=== PATIENT | male | born 1940 | race Caucasian/White ===

== ENCOUNTER 2017-05-28 09:35 | Inpatient (IN) ==
[2017-05-28] MEDS ORDERED: 0.9 % Sodium Chloride 1,000 ML IVC ONE (10:03)
--- NOTE | 2017-05-28 10:03 | Emergency Department Note ---
Disposition Clinical Impression: MDS (myelodysplastic syndrome), Intractable back pain Back pain Qualifiers: Back pain location: thoracic back pain Chronicity: acute Back pain laterality: right Qualified Code(s): M54.6 - Pain in thoracic spine Fever Qualifiers: Fever type: due to other condition Qualified Code(s): R50.81 - Fever presenting with conditions classified elsewhere Disposition: Admitted As Inpatient Condition: Good Referrals: NO,PCP [Non-Partnered Physician] - Forms: ED Satisfaction Letter Time of Disposition: 14:57 Back Pain HPI - General Chief Complaint: ED Back Pain/Injury Stated Complaint: back pain Time Seen by Provider: 05/28/17 09:43 Source: patient Limitations: no limitations Nursing Notes Reviewed: Yes Vital Signs Reviewed: Yes - History of Present Illness HPI Narrative: Patient presents emergency room with right-sided flank pain. Symptoms present for 2 days. He has had progression of the symptoms last couple days. He has multiple medical issues including a right solitary kidney myelodysplastic disease and recent chemotherapy. Patient has had intermittent fever and chills at home. Temperature is 100.4. He has not been on any recent antibiotics. He is currently on steroids secondary to gout. Patient's family is concerned secondary to his multiple medical issues as well as presentation here today. They brought him in the emergency room for evaluation Pt Subjective Complaint: back pain Onset (ago): day(s) Duration: gradually worsening Similar Symptoms Previously: Yes Location: thoracic spine Pain Severity: moderate Pain Scale: 8 Quality: stabbing, aching Radiation: abdomen Improves with: immobilization, medication Worsens with: movement, walking Context: history of kidney stones Associated symptoms: Reports: fever, chills, abdominal pain Treatments prior to arrival: acetaminophen - Related Data Home Medications Medication Instructions Recorded Confirmed Multivitamin/Iron/Folic Acid 1 each PO DAILY 10/16/15 05/22/17 [Centrum Complete Multivit Tab] Ergocalciferol (VITAMIN D2) 50,000 unit PO MO 04/01/16 05/22/17 [Vitamin D2 (50,000 UNIT)] Melatonin 10 mg PO HS 04/01/16 05/22/17 Mirtazapine 7.5 mg PO HS 04/01/16 05/22/17 Omeprazole [PriLOSEC] 20 mg PO DAILY 04/01/16 05/22/17 Oxycodone HCl 15 mg PO Q4H PRN 04/01/16 05/22/17 Allopurinol [Zyloprim 100 MG] 100 mg PO BID 03/07/17 05/22/17 Polyethylene Glycol 3350 [MiraLAX 1 scoop PO DAILY PRN 03/07/17 05/22/17 Powder Bulk 17.9 Oz] Sennosides [Senna] 17.2 mg PO BID 03/07/17 05/22/17 Calcium Carbonate [Calcium] 600 mg PO DAILY 05/08/17 05/22/17 Carvedilol 3.125 mg PO BID 05/08/17 05/22/17 Previous Rx's Medication Instructions Recorded Furosemide [Lasix] 40 mg PO DAILY #30 tablet 05/02/17 Ondansetron [Zofran] 4 mg PO Q8HR PRN #90 tablet 05/02/17 Aminocaproic Acid [Amicar] 250 mg PO Q8H PRN #200 solution 05/16/17 Chlorhexidine Gluconate [Peridex] 10 ml MM DAILY #118 mouthwash 05/16/17 Lidocaine/Prilocaine CREAM [Emla] 5 gm TP ONCE #1 tube 05/16/17 predniSONE [PredniSONE] See Taper PO DAILY #18 tablet 05/21/17 Allergies Allergy/AdvReac Type Severity Reaction Status Date / Time citalopram AdvReac Nausea Verified 05/08/17 20:17 codeine AdvReac See Verified 05/08/17 20:17 Comments [id number] Reductase AdvReac See Verified 05/08/17 20:17 Inhibitor Comments [Statins] All systems ED: reviewed and negative except as stated. Review of Systems: As Per HPI Constitutional: Reports: fever, chills, weakness ENT ED: Denies: ear pain, throat pain, dental pain Cardiovascular: Denies: chest pain, palpitations, dyspnea on exertion, orthopnea , edema Respiratory: Denies: cough, dyspnea, wheezes Gastrointestinal: Reports: abdominal pain, nausea. Denies: vomiting, diarrhea, constipation Genitourinary: Denies: urgency, dysuria, frequency, hematuria, discharge Musculoskeletal: Reports: back pain. Denies: neck pain Integumentary: Denies: rash, abrasion Neurological: Denies: headache, weakness Endocrine: Denies: fatigue Past Medical History - Past Medical History Attestation: Yes The following information was validated with the patient. Source: patient Medical history: Reports: aortic aneurysm, atrial fibrillation, cancer, coronary artery disease, hyperlipidemia, hypertension, peripheral artery disease , valvular heart disease Surgical history: Reports: coronary bypass (CABG), heart valve replacement Psychiatric history: Reports: no psych history - Social History Smoking Status: Never smoker Smokeless Tobacco Status: No Alcohol use: Reports: none Drug use: Reports: none Physical Exam - General Limitations: no limitations General appearance: alert - Head Head exam: atraumatic, normocephalic, normal inspection - ENT ENT exam: normal exam, normal oropharynx, mucous membranes moist - Neck Neck exam: Present: normal inspection, full ROM, trachea midline. Absent: tenderness, meningismus, lymphadenopathy - Chest Chest inspection: Present: normal inspection, symmetric chest wall rise. Absent : tenderness - Respiratory Respiratory exam: Present: normal lung sounds bilaterally. Absent: respiratory distress, wheezes - Cardiovascular Cardiovascular exam: Present: regular rate, normal rhythm, normal heart sounds - Abdominal Exam Abdominal exam: Present: soft, Non-Tender, normal bowel sounds. Absent: tenderness, distention, guarding, rebound, rigidity, Mcclain's sign, Rovsing's sign, tenderness at McBurney's Point - Extremities Exam Extremities exam: Present: normal inspection, full ROM, normal capillary refill. Absent: tenderness - Back Exam Back exam: Present: normal inspection, full ROM, CVA tenderness (R). Absent: tenderness, CVA tenderness (L), muscle spasm - Neurological Exam Neurological exam: Present: alert, oriented X3, CN II-XII intact, normal gait - Skin Skin exam: Present: warm, dry, intact, normal color Course Course Narrative: Patient seen and examined the time of arrival. See history of present illness. 77-year-old male presents to our emergency room for evaluation of right-sided flank pain generalized malaise and intermittent fevers and chills. Patient did just complete a five-day course of chemotherapy for myelodysplastic syndrome. He is currently under the care of our oncology department here at [place]. Patient has been taking his home medications without any difficulty. Over the last 24-48 hours is a progressively worsening right-sided flank pain. He has a history of kidney stones as well as severe infections that required a left- sided nephrectomy. Patient also has a long-standing history of abdominal aortic aneurysm and dissection. He is currently not on blood thinners even though he does have a bovine heart valve. Patient is concerning for multiple medical issues including bleeding diathesis renal artery stenosis or aneurysm abdominal aneurysm infection renal calculi pulmonary infection secondary to being on steroids as well as the chemotherapy. Patient be treated as if he is septic at this time a chest x-ray EKG CT imaging of the abdomen as well as urinalysis fluids to be provided as needed as well as broad-spectrum antibiotic coverage. Patient clinically has concern for possible decompensation secondary to multiple medical issues. He is a poor candidate for surgical intervention on the abdominal aneurysms and surgery secondary to the was at the bedside. They understand that at this time. Disposition will be discussed and determined after laboratory workup and imaging is resulted. Family and I will also discuss his wishes to make sure that we have an understanding of his progression of care if something were to decompensate. Physical exam is otherwise benign. Lungs are clear heart is regular chest wall shows no signs of trauma injury or rash. He has right-sided CVA tenderness that is not showing any acute signs of redness or swelling. He does have tenderness with percussion over the right flank. The abdominal examination is otherwise benign he has no other acute pulsatile lesions or signs of distention of this point. Hemodynamically stable he does have a temperature of 100.4 here. Fluids to be given and Tylenol as needed. Disposition will most likely be admission for further evaluation and management. Patient family both before and they are comfortable with this plan. Again patient is concerning for potential decompensation secondary to multiple medical issues including the myelodysplastic disease abdominal aneurysms as well as history of kidney stones in failure. The patient does have his kidney on the right side the left side was within nephrectomy was completed - Reevaluation(s) Reevaluation #1: Patient has basically normal laboratory workup at this time. Anemia and platelet count appear to be at baseline. He does have a slightly elevated T bili. CT imaging is still pending at this point. Chest x-ray rest of his laboratory workup appear to be benign. Pain medication nausea medication given at this point considering he has some difficulty with going to the CT scanner table and came back over the ER without the scan being completed. Disposition pending treatment course Time: 12:23 Reevaluation #2: Patient has no acute pathology on CT imaging that his pain is still been poorly controlled. His unknown etiology at this time but there is still concern secondary to his recent chemotherapy and steroid use because of an underlying infectious etiology. Patient is well be admitted the hospital for pain control nausea medication and repeat evaluation. I will discuss this with the hospitalist for admission process at this time. The family and the patient both agree with the projected course of care and no other concerns or symptoms or complaints at this time. Hospitalist Dr. Johnson and I reviewed the presentation symptoms of medical history. Also consult the on-call oncologist dr. dior. Recommendation to continue the vancomycin and Zosyn were noted from the oncologist. Hospitals happy to accept the patient with no other recommendations or concerns at this time. Admission process to be completed. Time: 14:57 Vital Signs Temperature 100.4 F H 05/28/17 09:37 Pulse Rate 62 05/28/17 09:37 Respiratory Rate 18 05/28/17 09:37 Blood Pressure 158/83 05/28/17 09:37 O2 Sat by Pulse Oximetry 96 05/28/17 09:37 Temperature 100.4 F H 05/28/17 09:37 Pulse Rate 62 05/28/17 09:37 Respiratory Rate 18 05/28/17 09:37 Blood Pressure 158/83 05/28/17 09:37 O2 Sat by Pulse Oximetry 97 05/28/17 10:56 Back Pain/Injury - MDM Narrative Medical decision making narrative: Abdominal pain, right flank pain, fever - Medical Records Medical records reviewed: Yes I reviewed the patient's medical records. - Lab Data Lab results reviewed: Yes I reviewed the patient's lab results. Result diagrams: 05/28/17 10:21 05/28/17 10:21 Lab Results 05/28/17 05/28/17 05/28/17 Range/Units 10:21 10:21 10:21 WBC 5.2 D (4.3-11.1) K/mcL RBC 3.02 L (4.19-5.50) M/mcL Hgb 8.6 L (12.9-16.9) g/dL Hct 27.1 L (37.5-50.1) % MCV 89.7 (83.0-100.0) fL MCH 28.5 (28.0-33.3) pg MCHC 31.7 (31.6-35.5) g/dL RDW 18.0 H (11.5-14.5) % Plt Count 16 L* (140-400) K/mcL MPV TNP Immature Gran % 3.1 (0-4) % Seg Neutrophils % 72.0 % Lymphocytes % 21.0 % Monocytes % 3.7 % Eosinophils % 0.0 % Basophils % 0.2 % Neutrophils # 3.7 (1.6-8.9) K/mcL Lymphocytes # 1.1 (0.6-4.6) K/mcL Monocytes # 0.2 (0.0-1.3) K/mcL Eosinophils # 0.0 (0.0-0.6) K/mcL Basophils # 0.0 (0.0-0.2) K/mcL Nucleated RBCs/100 WBC 0.4 H (0) /100 WBC PT (9.4-12.1) Seconds INR APTT (26.0-36.0) Seconds Sodium 135 L (136-145) mEq/L Potassium 4.4 (3.5-4.5) mEq/L Chloride 99 (98-109) mEq/L Carbon Dioxide 30 H (19-29) mEq/L BUN 25 (8-26) mg/dL Creatinine 1.06 (0.72-1.25) mg/dL Est GFR ( Amer) > 60 (> 60) Est GFR (Non-Af Amer) > 60 (> 60) BUN/Creatinine Ratio 24 (6-26) Glucose 92 (70-99) mg/dL Calculated Osmolality 284 (280-300) Lactic Acid 1.6 (0.5-2.2) mmol/L Calcium 9.2 (8.6-10.8) mg/dL Phosphorus 3.9 (2.3-4.7) mg/dL Magnesium 1.9 (1.6-2.6) mg/dL Total Bilirubin 2.6 H (0.2-1.2) mg/dL Direct Bilirubin 1.0 H (0.0-0.5) mg/dL Indirect Bilirubin 1.6 H (0.0-1.2) mg/dL AST 17 (5-34) Units/L ALT 14 (0-55) Units/L Alkaline Phosphatase 69 (38-126) Units/L Troponin I (0-0.03) ng/mL B-Natriuretic Peptide (0-100) pg/mL Serum Total Protein 6.7 (6.0-8.3) g/dL Albumin 3.8 (3.5-5.0) g/dL Globulin 2.9 (2.4-3.5) g/dL Albumin/Globulin Ratio 1.3 (1.1-2.2) Lipase < 10 (8-78) Units/L Random Cortisol 7.5 mcg/dl Blood Type Antibody Screen 05/28/17 05/28/17 05/28/17 Range/Units 10:21 10:21 10:21 WBC (4.3-11.1) K/mcL RBC (4.19-5.50) M/mcL Hgb (12.9-16.9) g/dL Hct (37.5-50.1) % MCV (83.0-100.0) fL MCH (28.0-33.3) pg MCHC (31.6-35.5) g/dL RDW (11.5-14.5) % Plt Count (140-400) K/mcL MPV Immature Gran % (0-4) % Seg Neutrophils % % Lymphocytes % % Monocytes % % Eosinophils % % Basophils % % Neutrophils # (1.6-8.9) K/mcL Lymphocytes # (0.6-4.6) K/mcL Monocytes # (0.0-1.3) K/mcL Eosinophils # (0.0-0.6) K/mcL Basophils # (0.0-0.2) K/mcL Nucleated RBCs/100 WBC (0) /100 WBC PT (9.4-12.1) Seconds INR APTT (26.0-36.0) Seconds Sodium (136-145) mEq/L Potassium (3.5-4.5) mEq/L Chloride (98-109) mEq/L Carbon Dioxide (19-29) mEq/L BUN (8-26) mg/dL Creatinine (0.72-1.25) mg/dL Est GFR ( Amer) (> 60) Est GFR (Non-Af Amer) (> 60) BUN/Creatinine Ratio (6-26) Glucose (70-99) mg/dL Calculated Osmolality (280-300) Lactic Acid (0.5-2.2) mmol/L Calcium (8.6-10.8) mg/dL Phosphorus (2.3-4.7) mg/dL Magnesium (1.6-2.6) mg/dL Total Bilirubin (0.2-1.2) mg/dL Direct Bilirubin (0.0-0.5) mg/dL Indirect Bilirubin (0.0-1.2) mg/dL AST (5-34) Units/L ALT (0-55) Units/L Alkaline Phosphatase (38-126) Units/L Troponin I 0.01 (0-0.03) ng/mL B-Natriuretic Peptide 350 H (0-100) pg/mL Serum Total Protein (6.0-8.3) g/dL Albumin (3.5-5.0) g/dL Globulin (2.4-3.5) g/dL Albumin/Globulin Ratio (1.1-2.2) Lipase (8-78) Units/L Random Cortisol mcg/dl Blood Type A NEGATIVE Antibody Screen NEGATIVE 05/28/17 Range/Units 10:53 WBC (4.3-11.1) K/mcL RBC (4.19-5.50) M/mcL Hgb (12.9-16.9) g/dL Hct (37.5-50.1) % MCV (83.0-100.0) fL MCH (28.0-33.3) pg MCHC (31.6-35.5) g/dL RDW (11.5-14.5) % Plt Count (140-400) K/mcL MPV Immature Gran % (0-4) % Seg Neutrophils % % Lymphocytes % % Monocytes % % Eosinophils % % Basophils % % Neutrophils # (1.6-8.9) K/mcL Lymphocytes # (0.6-4.6) K/mcL Monocytes # (0.0-1.3) K/mcL Eosinophils # (0.0-0.6) K/mcL Basophils # (0.0-0.2) K/mcL Nucleated RBCs/100 WBC (0) /100 WBC PT 12.3 H (9.4-12.1) Seconds INR 1.1 APTT 25.2 L (26.0-36.0) Seconds Sodium (136-145) mEq/L Potassium (3.5-4.5) mEq/L Chloride (98-109) mEq/L Carbon Dioxide (19-29) mEq/L BUN (8-26) mg/dL Creatinine (0.72-1.25) mg/dL Est GFR ( Amer) (> 60) Est GFR (Non-Af Amer) (> 60) BUN/Creatinine Ratio (6-26) Glucose (70-99) mg/dL Calculated Osmolality (280-300) Lactic Acid (0.5-2.2) mmol/L Calcium (8.6-10.8) mg/dL Phosphorus (2.3-4.7) mg/dL Magnesium (1.6-2.6) mg/dL Total Bilirubin (0.2-1.2) mg/dL Direct Bilirubin (0.0-0.5) mg/dL Indirect Bilirubin (0.0-1.2) mg/dL AST (5-34) Units/L ALT (0-55) Units/L Alkaline Phosphatase (38-126) Units/L Troponin I (0-0.03) ng/mL B-Natriuretic Peptide (0-100) pg/mL Serum Total Protein (6.0-8.3) g/dL Albumin (3.5-5.0) g/dL Globulin (2.4-3.5) g/dL Albumin/Globulin Ratio (1.1-2.2) Lipase (8-78) Units/L Random Cortisol mcg/dl Blood Type Antibody Screen - Radiology Data Radiology results reviewed: Yes I reviewed the patient's radiology results. - EKG Data EKG attestation: Yes I reviewed and interpreted this EKG. EKG shows normal: intervals, QRS complexes, ST-T waves Rhythm: A.Fib [place]/QRS: left axis deviation When compared to previous EKG there are: no significant changes Interpretation: no acute changes, unchanged when compared to prior tracing (date ) (05/09/17) Critical Care Time Critical Care Time: Yes Total Critical Care Time: 45 Attestation: Critical care performed: Time is exclusive of separately billable procedures. Time includes: direct patient care, patient reassessment, coordination of patient care, interpretation of data (laboratory data, radiology data, and respiratory data), review of patient's medical records, medical consultation and documentation of patient care. Procedures included in critical care time: Procedures excluded from critical care time:
[2017-05-28] MEDS ORDERED: Piperacillin/Tazobactam 3.375 GM in D5% in Water (Mini-Bag+) 100 ML IVPB ONE (10:05)
[2017-05-28] MEDS ORDERED: Levofloxacin 750 MG/150 ML 750 MG/150 ML BAG IVPB ONE (10:05)
[2017-05-28] MEDS ORDERED: Ondansetron 4 MG/2 ML VIAL IVP ONE (10:06)
[2017-05-28] MEDS ORDERED: *HR* FentaNYL (PF) 100 MCG/2 ML VIAL IVP ONE ×2 (10:06→12:03)
[2017-05-28] MEDS ORDERED: Vancomycin 1,250 MG in D5% in Water 250 ML IVPB ONE (10:06)
[2017-05-28] MEDS ORDERED: 0.9 % Sodium Chloride 1,000 ML IVC SCH (10:30)
[2017-05-28 10:32] LABS: Basophils % 0.2 %; Hematocrit 27.1 % (37.5-50.1); Hemoglobin 8.6 g/dL (12.9-16.9); Immature Granulocytes % 3.1 % (0-4); Lymphocytes # 1.1 K/mcL (0.6-4.6); Mean Corpuscular HGB Conc 31.7 g/dL (31.6-35.5); Mean Corpuscular Hemoglobin 28.5 pg (28.0-33.3); Mean Corpuscular Volume 89.7 fL (83.0-100.0); Monocytes # 0.2 K/mcL (0.0-1.3); Monocytes % 3.7 %; Neutrophils # 3.7 K/mcL (1.6-8.9); Nucleated Red Blood Cells 0.4 /100 WBC (0); Red Blood Count 3.02 M/mcL (4.19-5.50)
[2017-05-28 10:36] LABS: Platelet Count 16 K/mcL (140-400)
[2017-05-28 10:47] LABS: Alanine Aminotransferase 14 Units/L (0-55); Albumin 3.8 g/dL (3.5-5.0); Albumin/Globulin Ratio 1.3 (1.1-2.2); Alkaline Phosphatase 69 Units/L (38-126); Aspartate Amino Transferase 17 Units/L (5-34); BUN/Creatinine Ratio 24 (6-26); Bilirubin,Indirect 1.6 mg/dL (0.0-1.2); Bilirubin,Total 2.6 mg/dL (0.2-1.2); Blood Urea Nitrogen 25 mg/dL (8-26); Calcium 9.2 mg/dL (8.6-10.8); Carbon Dioxide 30 mEq/L (19-29); Chloride 99 mEq/L (98-109); Globulin 2.9 g/dL (2.4-3.5); Glucose 92 mg/dL (70-99); Magnesium 1.9 mg/dL (1.6-2.6); Osmolality,Calculated 284 (280-300); Phosphorous 3.9 mg/dL (2.3-4.7); Potassium 4.4 mEq/L (3.5-4.5); Sodium 135 mEq/L (136-145); Total Protein 6.7 g/dL (6.0-8.3); eGFR For African Americans > 60 (> 60); eGFR For Non-African Americans > 60 (> 60)
[2017-05-28 10:48] LABS: Lipase < 10 Units/L (8-78)
[2017-05-28 11:05] LABS: INR 1.1; Prothrombin Time 12.3 Seconds (9.4-12.1)
[2017-05-28 11:07] LABS: Activated Partial Thrombo Time 25.2 Seconds (26.0-36.0)
[2017-05-28 12:48] LABS: Bilirubin,Urine Negative (Negative); Blood,Urine Negative (Negative); Clarity,Urine Clear (Clear); Color,Urine Yellow (Yellow); Glucose,Urine (UA) Normal (Normal); Ketones,Urine Negative (Negative); Leukocyte Esterase,Urine Negative (Negative); Nitrite,Urine Negative (Negative); Protein,Urine Negative (Neg-Trace); Specific Gravity,Urine 1.016 (1.010-1.025); Urobilinogen,Urine Normal (Normal)
[2017-05-28] MEDS ORDERED: *HR* HYDROmorphone (PF) 1 MG/ML SYRINGE IVP ONE (15:23)
[2017-05-28] MEDS ORDERED: Ondansetron 4 MG/2 ML VIAL IVP PRN (16:38)
[2017-05-28] MEDS ORDERED: Naloxone 0.4 MG/ML INJ IVP PRN (16:38)
[2017-05-28] MEDS ORDERED: Polyethylene Glycol 3350 255 GM POWDER PO PRN (16:48)
--- NOTE | 2017-05-28 17:23 | Internal Med History&Physical ---
Date of Encounter: 05/28/17 Time of Encounter: 16:00 Assessment and Plan (1) Abdominal aortic aneurysm Current visit: Yes Status: Acute Stable per CT abdomen. Continue outpatient follow-up. Qualifiers: Presence of rupture: without rupture Qualified Code(s): I71.4 - Abdominal aortic aneurysm, without rupture (2) DVT prophylaxis Current visit: Yes Status: Acute EPCD, no heparin because of extremely low platelet. (3) Thrombocytopenia Current visit: No Status: Acute Due to chemotherapy. No signs of active bleeding. We will continue to closely monitor patient. Oncology consult. (4) Gout Current visit: No Status: Acute Patient is on prednisone for recent gout flare. Close monitoring patient. Taper down prednisone gradually. 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 Patient has a mild right upper quadrant pain. Mild elevation of bilirubin level. Need to rule out gall infection. Also chest x-ray shows new nodules and the patient has dry cough, also need to consider early lung infection. - Patient is on chemotherapy right now. Will place patient on Levaquin and Zosyn. - Place US liver and gall bladder. - Closely monitor pt's vitals sign. Qualifiers: Fever type: due to other condition Qualified Code(s): R50.81 - Fever presenting with conditions classified elsewhere (6) MDS (myelodysplastic syndrome) Current visit: Yes Status: Chronic Patient is on chemotherapy. Oncology consult on case. (7) Intractable back pain Current visit: Yes Status: Acute Patient has back pain and right rib pain. No obvious tenderness. No skin rash. Etiology of the pain is undetermined. - Imaging study include a chest x-ray and abdominal CT did not show any fracture or hematoma. - We will place US liver and gall bladder to r/o billiary infection. (8) Atrial fibrillation Current visit: No Status: Chronic Heart rate is well controlled. Patient was on coumadin previously but stopped per oncology b/o low platelet. Qualifiers: Atrial fibrillation type: chronic Qualified Code(s): I48.2 - Chronic atrial fibrillation (9) HTN (hypertension) Current visit: No Status: Chronic Continue home medications. Qualifiers: Hypertension type: essential hypertension Qualified Code(s): I10 - Essential (primary) hypertension (10) CAD (coronary artery disease) Current visit: No Status: Chronic S/P CABG. Stable. Continue home medications Qualifiers: Coronary Disease-Associated Artery/Lesion type: [place] artery [place] vs. transplanted heart: [place] heart Associated angina: without angina Qualified Code(s): I25.10 - Atherosclerotic heart disease of [place] coronary artery without angina pectoris Internal Medicine - H&P: HPI Chief complaint: Right rib pain Admitted From: Home Plans for Post Hospital Care: Home History of present illness: Mr. Townsend is a 77 year old male with history of CAD s/p CABG, AAA and illiac aneurysm s/p stent, A Fib, aortic stenosis S/P bio-valve replacement, MDS on chemotherapy present to ER for right rib pain and fever. Patient said he finished the the five-day chemotherapy on Monday. He started to feel back pain yesterday morning, the pain moved to the right side rib. Pain is not related to breath. Pain is a sharp, 7-8 out of 10, worsening of movement. Patient also feel tired. He was found low fever at 100 degree. Patient denies runny nose, sore throat, nausea, vomiting, diarrhea, abdominal pain, or urinary symptoms. Patient has mild dry cough. Patient denies chest pain or shortness of breath. Patient had blood transfusion on because of low hemoglobin. Since the patient is on chemotherapy and has pancytopenia, he was admitted for further management. Past Med Surg Social Fam HX - Past Medical History Medical history: aortic aneurysm, atrial fibrillation, cancer, coronary artery disease, hyperlipidemia, hypertension, peripheral artery disease, valvular heart disease Psychiatric history: no psych history - Past Surgical History Surgical History: coronary bypass (CABG), heart valve replacement - Social History Smoking Status: Never smoker Smokeless Tobacco Status: No Alcohol use: none Drug use: none - Family History Mother Hx Family Cardiac Disorders: Yes Father Hx Family Cardiac Disorders: Yes Internal Medicine - H&P: Meds Multivitamin/Iron/Folic Acid [Centrum Complete Multivit Tab] 1 each PO DAILY 09/20 [History] Ergocalciferol (VITAMIN D2) [Vitamin D2 (50,000 UNIT)] 50,000 unit PO MO [History] Melatonin 10 mg PO HS 04/01/16 [History] Mirtazapine 7.5 mg PO HS 04/01/16 [History] Omeprazole [PriLOSEC] 20 mg PO DAILY 04/01/16 [History] Oxycodone HCl 15 mg PO Q4H PRN 04/01/16 [History] Allopurinol [Zyloprim 100 MG] 100 mg PO BID 03/07/17 [History] Polyethylene Glycol 3350 [MiraLAX Powder Bulk 17.9 Oz] 1 scoop PO DAILY PRN 12/23 [History] Sennosides [Senna] 17.2 mg PO BID 03/07/17 [History] Furosemide [Lasix] 40 mg PO DAILY #30 tablet 05/02/17 [Rx] Ondansetron [Zofran] 4 mg PO Q8HR PRN #90 tablet 05/02/17 [Rx] Calcium Carbonate [Calcium] 600 mg PO DAILY 05/08/17 [History] Carvedilol 3.125 mg PO BID 05/08/17 [History] Aminocaproic Acid [Amicar] 250 mg PO Q8H PRN #200 solution 05/16/17 [Rx] Chlorhexidine Gluconate [Peridex] 10 ml MM DAILY #118 mouthwash 05/16/17 [Rx] Lidocaine/Prilocaine CREAM [Emla] 5 gm TP ONCE #1 tube 05/16/17 [Rx] predniSONE [PredniSONE] See Taper PO DAILY #18 tablet 05/21/17 [Rx] Allergies citalopram Adverse Reaction (Verified 05/08/17 20:17) Nausea codeine Adverse Reaction (Verified 05/08/17 20:17) See Comments Cardiac problems per . [id number]-Pzs Reductase Inhibitor [Statins] Adverse Reaction (Verified 20:17) See Comments RA symptoms per . All Systems PM: A 10-system review of systems was performed and is negative for pertinent findings except as documented above in the HPI. - Constitutional Vitals: Temp Pulse Resp BP Pulse Ox 98.9 F 89 21 129/79 95 05/28/17 16:50 05/28/17 14:17 05/28/17 16:50 05/28/17 16:50 05/28/17 14:17 General appearance: Present: mild distress, A&O X 3, answers questions appropriately - Head Head exam: Present: atraumatic, normocephalic - Eye Eye exam: Present: PERRL, conjuntiva pink, sclera anicteric Pupils: Present: PERRL - Neck Neck exam general surgery: Present: supple, trachea midline. Absent: lymphadenopathy - Respiratory Respiratory exam: Present: CTAB. Absent: accessory muscle use, rales, rhonchi, wheezes - Cardiovascular Cardiovascular exam: Present: RRR, +S1, +S2. Absent: diastolic murmur, gallop, rubs, systolic murmur - GI/Abdominal GI/Abdominal exam: Present: normal bowel sounds, soft, no peritoneal signs. Absent: distended, tenderness - Extremities Exam Extremities exam: Present: warm, radial pulses palpable and symetrical. Absent : calf tenderness, cyanotic, pedal edema - Neurological Exam Neurological exam: Present: CN II-XII intact, oriented X3, no focal deficits. Absent: pronater drift, facial droop, speech deficit - Skin Skin exam: Present: dry, intact Internal Med - H&P Results - Labs CBC & Chem 7: 05/28/17 10:21 05/28/17 10:21
[2017-05-28] MEDS: 0.9 % Sodium Chloride 1,000 ML IVC SCH (17:25)
[2017-05-28] MEDS: *HR* Morphine 2 MG/ML SYRINGE IVP PRN (18:54)
--- NOTE | 2017-05-28 19:48 | Oncology Inp Consult Note ---
Date of Encounter: 05/28/17 Time of Encounter: 17:30 Assessment and Plan (1) MDS (myelodysplastic syndrome) Status: Chronic Assessment and plan: Currently on day 7 cycle 1 of decitabine ( 28 day cycle). At this time his treatment will consist in supportive management with IVF,close monitoring of blood cell counts, broad spectrum antibiotics - Monitor CBC daily. Transfuse blood for Hb and HCT less than 7 g/dl and 21 % respectively. - Transfuse platelets for counts less than 20K or 50 K if there is active bleeding. Patient should wear helmet while ambulating ( if available). - Upon discharge, please arrange follow up with primary oncologist to discuss timing to resume chemotherapy. Code(s): D46.9 - Myelodysplastic syndrome, unspecified SNOMED Code(s): 470522128 (2) Abdominal pain Status: Acute Assessment and plan: The presence of RUQ abdominal pain ( resolved after receiving analgesics in the ED), fever and cholestasis is concerning for acute cholangitis. CT abdomen showed not findings suggestive of acute abdomen, but imaging was performed without contrast, what would decrease the quality of the test. As discussed with primary team, I 'd recommend to complete a RUQ US of the abdomen stat, if there are findings concerning for cholangitis . If RUQ US revealed fluid collection or CBD obstruction, he would need urgent referral to IR to consider percutaneous drainage or external biliary drainage. - If RUQ US showed not concerning findings, I would not recommend further imaging, unless new concerning clinical features arise. Qualifiers: Abdominal location: right upper quadrant Qualified Code(s): R10.11 - Right upper quadrant pain Code(s): R10.9 - Unspecified abdominal pain SNOMED Code(s): 83531020 (3) Fever Status: Acute Assessment and plan: Agree with broad spectrum IV coverage with levaquin and zosyn. Follow up blood cultures, UA, CXR and narrow antibiotics depending of the results. Mangement as per primary team. Qualifiers: Fever type: due to other condition Qualified Code(s): R50.81 - Fever presenting with conditions classified elsewhere Code(s): R50.9 - Fever, unspecified SNOMED Code(s): 350542754 - Data of Consult Requesting Physician: Leandro Cohen MD Primary Care Provider: Wang Coy Jr, MD - Consult Narrative Reason for consult: Management of febrile syndr in the settings of MDS on active chemotherapy History of present illness: Mr. 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 Patiet's MDS clinical presentation has been caracterized for anemia and thrombocytopenia. His hemoglobin levels have been ranging from 7-8 g/dl of Hb since last February. His platelet counts have been fluctuating between the mid 20s to mid 10s since last March, requiring periodic transfusion of blood products. He denies recent bleeding events. 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 The risk of progression to AML was estimated to be approximately 3 years. Mr. Townsend is currently on day 7, cycle 1 of decitabine. He reports that overall therapy was fairly tolerated, but during the last few days has experienced pain in his abdominal area (RUQ) radiation to his back. He was brought to the ED due to abdominal pain and noticed to have fever of 100.4 F, along with generalized weakness. He was seen at the bedside with his and daughter, who report that he has declined quickly, since until 1-2 weeks ago he was able to ambulate , even at times without walker. he reports not recent rash in his abdominal or spinal area. He reports prior history of cholecystectomy. His labs revealed new cholestasis, with mixed hyperbilirrubinemia . he has history of Afib, but off anticoagulation in view of significant thrombocytopenia. At the time of the visit he reports that his abdominal pain has resolved ( following analgesic meds). Denies CP, SOB, nausea, vomiting, diarrhea, visual complaints. Reports mild dry cough going on for a couple of days, but not sputum production. Past Med Surg Social Fam HX - Past Medical History Medical history: aortic aneurysm, atrial fibrillation, cancer, coronary artery disease, hyperlipidemia, hypertension, peripheral artery disease, valvular heart disease, other (MDS) Psychiatric history: no psych history - Past Surgical History Surgical History: coronary bypass (CABG), heart valve replacement - Social History Smoking Status: Never smoker Smokeless Tobacco Status: No Alcohol use: none Drug use: none - Family History Mother Living Status: Age at : 50 Cause of : cancer Hx Family Cardiac Disorders: Yes Hx Family Respiratory Disorders: No Hx Family Cancer: Yes Hx Family GI Disorders: No Hx Family Genitourinary Disorders: No Hx Family Endocrine Disorder: No Hx Family Musculoskeletal Disorders: No Hx Family Neuromuscular Disorders: Yes Hx Family Neurologic Disorders: No Hx Family HEENT Disorders: No Hx Family Autoimmune Disorders: No Hx Family Reproductive Disorders: No Hx Family Psychosocial Disorders: No Hx Family Medical Disorders: No Father Living Status: Age at : 78 Cause of : heart issues Hx Family Cardiac Disorders: Yes Hx Family Respiratory Disorders: No Hx Family Cancer: No Hx Family GI Disorders: No Hx Family Genitourinary Disorders: No Hx Family Endocrine Disorder: No Hx Family Musculoskeletal Disorders: No Hx Family Neuromuscular Disorders: No Hx Family Neurologic Disorders: No Hx Family HEENT Disorders: No Hx Family Autoimmune Disorders: No Hx Family Reproductive Disorders: No Hx Family Psychosocial Disorders: No Hx Family Medical Disorders: No Medications and Allergies Multivitamin/Iron/Folic Acid [Centrum Complete Multivit Tab] 1 each PO DAILY 09/20 [History] Ergocalciferol (VITAMIN D2) [Vitamin D2 (50,000 UNIT)] 50,000 unit PO MO [History] Melatonin 10 mg PO HS 04/01/16 [History] Mirtazapine 7.5 mg PO HS 04/01/16 [History] Omeprazole [PriLOSEC] 20 mg PO DAILY 04/01/16 [History] Oxycodone HCl 15 mg PO Q4H PRN 04/01/16 [History] Allopurinol [Zyloprim 100 MG] 100 mg PO BID 03/07/17 [History] Polyethylene Glycol 3350 [MiraLAX Powder Bulk 17.9 Oz] 1 scoop PO DAILY PRN 12/23 [History] Sennosides [Senna] 17.2 mg PO BID 03/07/17 [History] Furosemide [Lasix] 40 mg PO DAILY #30 tablet 05/02/17 [Rx] Ondansetron [Zofran] 4 mg PO Q8HR PRN #90 tablet 05/02/17 [Rx] Calcium Carbonate [Calcium] 600 mg PO DAILY 05/08/17 [History] Carvedilol 3.125 mg PO BID 05/08/17 [History] Aminocaproic Acid [Amicar] 250 mg PO Q8H PRN #200 solution 05/16/17 [Rx] Chlorhexidine Gluconate [Peridex] 10 ml MM DAILY #118 mouthwash 05/16/17 [Rx] Lidocaine/Prilocaine CREAM [Emla] 5 gm TP ONCE #1 tube 05/16/17 [Rx] predniSONE [PredniSONE] See Taper PO DAILY #18 tablet 05/21/17 [Rx] Allergies citalopram Adverse Reaction (Verified 05/08/17 20:17) Nausea codeine Adverse Reaction (Verified 05/08/17 20:17) See Comments Cardiac problems per . Uwphtfp-Imd-Kmq Reductase Inhibitor [Statins] Adverse Reaction (Verified 20:17) See Comments RA symptoms per . Constitutional: Present: fatigue, fever(s), malaise Eyes: Present: diplopia Nose, mouth and throat: Absent: headache(s), odynophagia Cardiovascular: Absent: chest pain, chest pain at rest, dyspnea Respiratory: Present: cough. Absent: dyspnea, excessive phlegm production Gastrointestinal: Present: abdominal pain. Absent: coffee ground emesis, diarrhea, dysphagia, melena, odynophagia Additional comments: RUQ abdominal pain Genitourinary: as per HPI Integumentary: Present: as per HPI Neurological: Absent: convulsions, focal weakness Psychiatric: Present: as per HPI. Absent: visual hallucinations Endocrine: Present: as per HPI Hematologic/Lymphatic: Present: as per HPI Oncology - Exam - Constitutional Vitals: Temp Pulse Resp BP Pulse Ox 99.2 F 101 15 126/78 95 05/28/17 18:39 05/28/17 18:39 05/28/17 18:39 05/28/17 18:39 05/28/17 18:39 - Head Head exam: Present: normal inspection - ENT ENT exam: Present: normal oropharynx - Neck Neck exam: Present: normal inspection. Absent: lymphadenopathy, tenderness - Respiratory Respiratory exam: Present: CTAB - Cardiovascular Cardiovascular exam: Present: irregular rhythm. Absent: JVD - Expanded GI/Abdominal Exam GI/Abdominal exam: Absent: ascites, Mcclain's sign, tenderness at McBurney's Point (Physical examen was completed after adminstration of analgesics, and there was not abdominal tenderness ( as per patient previously present in the RUQ) - Extremities Exam Extremities exam: Present: normal inspection. Absent: tenderness Oncology - Results - Labs Labs: HCT 27 Platelet 16K Consult Discharge Plan - Plan Referrals: Wang Coy Jr, MD [Primary Care Provider] -
[2017-05-28] MEDS: *HR* HYDROcodone/Acet 5/325 mg TABLET PO PRN (21:34)
[2017-05-28] MEDS: Sennosides 8.6 MG TABLET PO SCH (21:34)
[2017-05-28] MEDS: Piperacillin/Tazobactam 3.375 GM in D5% in Water (Mini-Bag+) 100 ML IVPB SCH (21:35)
[2017-05-29] MEDS: *HR* Morphine 2 MG/ML SYRINGE IVP PRN ×4 (01:06→17:24)
[2017-05-29 03:43] LABS: Hematocrit 21.4 % (37.5-50.1); Immature Granulocytes % 2.7 % (0-4); Immature Platelets 7.1 % (1.1-6.1); Lymphocytes # 1.2 K/mcL (0.6-4.6); Lymphocytes % 25.3 %; Mean Corpuscular HGB Conc 32.7 g/dL (31.6-35.5); Mean Corpuscular Hemoglobin 28.8 pg (28.0-33.3); Mean Corpuscular Volume 88.1 fL (83.0-100.0); Monocytes # 0.3 K/mcL (0.0-1.3); Monocytes % 5.5 %; Neutrophils # 3.3 K/mcL (1.6-8.9); Red Blood Count 2.43 M/mcL (4.19-5.50); Red Cell Distribution Width 17.7 % (11.5-14.5); Segmented Neutrophils % 66.5 %
[2017-05-29 03:47] LABS: Platelet Count 10 K/mcL (140-400)
[2017-05-29 04:00] LABS: Alanine Aminotransferase 14 Units/L (0-55); Albumin/Globulin Ratio 1.2 (1.1-2.2); Alkaline Phosphatase 64 Units/L (38-126); Aspartate Amino Transferase 20 Units/L (5-34); BUN/Creatinine Ratio 21 (6-26); Blood Urea Nitrogen 22 mg/dL (8-26); Calcium 8.3 mg/dL (8.6-10.8); Carbon Dioxide 27 mEq/L (19-29); Chloride 99 mEq/L (98-109); Globulin 2.5 g/dL (2.4-3.5); Glucose 102 mg/dL (70-99); Magnesium 1.9 mg/dL (1.6-2.6); Osmolality,Calculated 280 (280-300); Phosphorous 4.2 mg/dL (2.3-4.7); Potassium 4.2 mEq/L (3.5-4.5); Sodium 133 mEq/L (136-145); Total Protein 5.5 g/dL (6.0-8.3); eGFR For African Americans > 60 (> 60); eGFR For Non-African Americans > 60 (> 60)
[2017-05-29] MEDS: Piperacillin/Tazobactam 3.375 GM in D5% in Water (Mini-Bag+) 100 ML IVPB SCH ×3 (05:08→21:37)
[2017-05-29] MEDS: 0.9 % Sodium Chloride 1,000 ML IVC SCH (05:16)
[2017-05-29 07:03] LABS: Acinetobacter baumannii by PCR Not Detected (Not Detect); Candida albicans by PCR Not Detected (Not Detect); Candida glabrata by PCR Not Detected (Not Detect); Candida krusei by PCR Not Detected (Not Detect); Candida parapsilosis by PCR Not Detected (Not Detect); Candida tropicalis by PCR Not Detected (Not Detect); Enterococcus by PCR Not Detected (Not Detect); Escherichia coli by PCR Not Detected (Not Detect); Klebsiella oxytoca by PCR Not Detected (Not Detect); Klebsiella pneumoniae by PCR Not Detected (Not Detect); Pseudomonas aeruginosa by PCR Not Detected (Not Detect); Serratia marcescens by PCR Not Detected (Not Detect); Staphylococcus aureus by PCR Not Detected (Not Detect); Streptococcus agalactiae(B)PCR Not Detected (Not Detect); Streptococcus by PCR Not Detected (Not Detect); Streptococcus pneumoniae PCR Not Detected (Not Detect); Streptococcus pyogenes (A) PCR Not Detected (Not Detect); blaKPC Carbapenem-Resist Gene Not Detected (Not Detect); mecA Methicillin-Resist Gene ***DETECTED*** (Not Detect); vanA/B Vancomycin-Resist Genes Not Detected (Not Detect)
[2017-05-29] MEDS: Sennosides 8.6 MG TABLET PO SCH ×2 (08:36→21:36)
[2017-05-29] MEDS: Acetaminophen 325 MG TABLET PO PRN (08:36)
[2017-05-29] MEDS: predniSONE 20 MG TABLET PO SCH (08:37)
[2017-05-29] MEDS: Levofloxacin 750 MG/150 ML 750 MG/150 ML BAG IVPB SCH ×2 (08:40→11:17)
--- NOTE | 2017-05-29 09:28 | Internal Med Progress Note ---
<Keesha Wallace - Last Filed: 05/29/17 17:35> Date of Encounter: 05/29/17 Time of Encounter: 08:45 - Assessment and plan (1) Bacteremia Current Visit: Yes Status: Acute Assessment and plan: Bacteremia- infection from unknown source Blood culture's (Preliminary) - for gram-positive cocci, mecA Methicillin Resistance Gene U/A: negative patient stable, afebrile, normal WBC Plan: -Zosyn, Levaquin, vancomycin Day 2 -continue to monitor patient vitals and labs -CT w/o contrast neck to abdomen, chest -D/C port (2) Abdominal pain Current Visit: Yes Status: Acute Assessment and plan: Patient states he has Right upper quadrant constant dull pain. -Consider biliary dysfunction vs sphincter of the dysfunction vs acute cholangitis -Abd CT w/o contrast- inflammatory changes within the mesentery of the left lower quadrant that are similar to prior study and most likely post inflammatory or postsurgical in nature. Abdominal aortic aneurysm measuring4.8 x 4.4cm- similar to prior study. New Spiculated nodule and right upper lung that may be inflammatory or infectious in nature or malignant.-Compare to prior studies otherwise short-term follow-up versus nuclear medicine PET-CT recommended. -Chest X-ray- demonstrated no acute process - The patient is afebrile, normal WBC -elevated total bilirubin 2.6 Plans: ultrasound of abdomen ordered continue antibiotics continue to monitor patient vitals CT w/o contast neck to abdomen Qualifiers: Abdominal location: right upper quadrant Qualified Code(s): R10.11 - Right upper quadrant pain (3) Thrombocytopenia Current Visit: No Status: Acute Assessment and plan: Due to Myelodysplastic syndrome Platelet count is currently 10. His platelet count since March has been fluctuating between mid-20s and 10s. Oncology has been consulted and recommends to transfuse platelets for counts less than 20K or 50 K if there is active bleeding. Oncology recommendations are appreciated There is currently no active bleeding. Patient denies melena, hematechezia, Hematemesis. Plan: -we will continue to monitor H&H -Monitor for bleeding -patient is on fall precautions (4) Back pain Current Visit: Yes Status: Acute Assessment and plan: Patient has acute on chronic back pain. 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 Patient stated that he had lower back pain bilaterally that radiated around to the ribs. No skin rash. Patient denied incontinence. This may be due to his chronic back issues or referred pain from biliary infection. Chest x-ray demonstrated no acute cardiopulmonary process. Abd CT- did not show hematoma, diverticulitis, fracture. Analgesics help the pain. Plan: ultrasound of the liver and gallbladder to r/o biliary infection continue to monitor for any acute changes in back pain Qualifiers: Back pain location: thoracic back pain Chronicity: acute Back pain laterality: right Qualified Code(s): M54.6 - Pain in thoracic spine (5) MDS (myelodysplastic syndrome) Current Visit: Yes Status: Chronic (6) Abdominal aortic aneurysm Current Visit: Yes Status: Acute Qualifiers: Presence of rupture: without rupture Qualified Code(s): I71.4 - Abdominal aortic aneurysm, without rupture (7) Atrial fibrillation Current Visit: No Status: Chronic Assessment and plan: stable HR 94 coreg Qualifiers: Atrial fibrillation type: chronic Qualified Code(s): I48.2 - Chronic atrial fibrillation (8) CAD (coronary artery disease) Current Visit: No Status: Chronic Qualifiers: Coronary Disease-Associated Artery/Lesion type: [place] artery [place] vs. transplanted heart: [place] heart Associated angina: without angina Qualified Code(s): I25.10 - Atherosclerotic heart disease of [place] coronary artery without angina pectoris - Subjective Interval history: Patient laying in bed had curled up looking uncomfortable. He states that he has a constant lower back pain bilaterally and right upper quadrant. He denies fever, chills, chest pain, dyspnea, nausea, vomiting, hematuria, dysuria. According to nurse he had refused his IV antibiotics and abdominal ultrasound, instigated that he was going to leave the hospital when his arrived. According to the she had no idea that he wanted to leave, he no longer ones to leave. After talking with him and his about his bacteremiahe decided that he would have both the IV and antibiotics and ultrasound. once in the stay to find out what is going on. - Constitutional Vitals: Temp Pulse Resp BP Pulse Ox 98.1 F 94 16 139/78 98 05/29/17 08:07 05/29/17 08:07 05/29/17 08:07 05/29/17 08:07 05/29/17 08:07 General appearance: Present: mild distress, A&O X 3, answers questions appropriately Exam: Gen.: Vitals noted. Patient is very uncomfortable looking. No acute distress. AAOx3 HEENT: PERRL/EOMI, oropharynx clear, Normocephalic, atraumatic Cardiac: RRR, systolic murmur, +S1/S2 Pulmonary: CTA bilaterally, no wheezes, rales or rhonchi, equal chest expansion Abdomen: soft, right upper quadrant tenderness, Bowel sounds noted, no guarding Back: lower back bilaterally tender Extremities: no BLE edema, nontender calf, no cyanosis or clubbing skin: no jaundice Neuro: A&Ox3, moves all extremities, no focal deficits Psych: Appropriate mood and behavior Internal Medicine: Result - Labs CBC & Chem 7: 05/29/17 16:05 05/29/17 03:30 Labs: Short CBC 05/29/17 Range/Units 03:30 WBC 4.9 (4.3-11.1) K/mcL Hgb 7.0 L D (12.9-16.9) g/dL Hct 21.4 L (37.5-50.1) % Plt Count 10 L* (140-400) K/mcL Neutrophils # 3.3 (1.6-8.9) K/mcL BMP 05/29/17 03:30 Sodium 133 L Potassium 4.2 Chloride 99 Carbon Dioxide 27 BUN 22 Creatinine 1.06 Glucose 102 H Calcium 8.3 L Liver Function 05/29/17 Range/Units 03:30 Total Bilirubin 2.0 H (0.2-1.2) mg/dL AST 20 (5-34) Units/L ALT 14 (0-55) Units/L Alkaline Phosphatase 64 (38-126) Units/L Albumin 3.0 L D (3.5-5.0) g/dL - ABG Interpretation ABG results: PT/INR, D-dimer PT 12.3 Seconds (9.4-12.1) H 05/28/17 10:53 - VTE Documentation of Mechanical Device: Intermittent pneumatic compression device Consult Discharge Plan - Plan Referrals: Wang Coy Jr, MD [Primary Care Provider] - <Franco James P - Last Filed: 05/29/17 17:50> Date of Encounter: 05/29/17 - Constitutional Vitals: Temp Pulse Resp BP Pulse Ox 98.3 F 94 16 102/65 96 05/29/17 15:48 05/29/17 15:48 05/29/17 15:48 05/29/17 15:48 05/29/17 15:33 Internal Medicine: Result - Labs CBC & Chem 7: 05/29/17 16:05 05/29/17 03:30 Labs: Short CBC 05/29/17 05/29/17 05/29/17 Range/Units 03:30 09:55 16:05 WBC 4.9 (4.3-11.1) K/mcL Hgb 7.0 L D 7.3 L 6.9 L (12.9-16.9) g/dL Hct 21.4 L 22.2 L 21.7 L (37.5-50.1) % Plt Count 10 L* (140-400) K/mcL Neutrophils # 3.3 (1.6-8.9) K/mcL BMP 05/29/17 03:30 Sodium 133 L Potassium 4.2 Chloride 99 Carbon Dioxide 27 BUN 22 Creatinine 1.06 Glucose 102 H Calcium 8.3 L Liver Function 05/29/17 Range/Units 03:30 Total Bilirubin 2.0 H (0.2-1.2) mg/dL AST 20 (5-34) Units/L ALT 14 (0-55) Units/L Alkaline Phosphatase 64 (38-126) Units/L Albumin 3.0 L D (3.5-5.0) g/dL - ABG Interpretation ABG results: PT/INR, D-dimer PT 12.3 Seconds (9.4-12.1) H 05/28/17 10:53 - Attending Attestation I examined this patient and my medical decision-making was reviewed with the Resident Physician. I agree with the documented findings, disposition and treatment plan as described except to the extent set forth below.
[2017-05-29 10:07] LABS: Hematocrit 22.2 % (37.5-50.1); Hemoglobin 7.3 g/dL (12.9-16.9)
--- NOTE | 2017-05-29 14:33 | Electrocardiograph Report ---
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
[2017-05-29] MEDS ORDERED: 0.9 % Sodium Chloride Mini Bag 100 ML ONE (15:26)
[2017-05-29] MEDS ORDERED: Vancomycin 1,500 MG in D5% in Water 250 ML IVPB ONE (15:48)
[2017-05-29] MEDS ORDERED: Vancomycin 1,250 MG in D5% in Water 250 ML IVPB SCH (16:00)
[2017-05-29 16:28] LABS: Hemoglobin 6.9 g/dL (12.9-16.9)
[2017-05-29 16:29] LABS: Hematocrit 21.7 % (37.5-50.1)
[2017-05-29] MEDS: *HR* HYDROcodone/Acet 5/325 mg TABLET PO PRN (21:36)
[2017-05-30] MEDS: *HR* Morphine 2 MG/ML SYRINGE IVP PRN ×3 (04:10→21:08)
[2017-05-30] MEDS: Vancomycin 1,250 MG in D5% in Water 250 ML IVPB SCH ×2 (04:10→16:47)
[2017-05-30] MEDS: 0.9 % Sodium Chloride 1,000 ML IVC SCH ×2 (04:11→16:59)
[2017-05-30] MEDS: Piperacillin/Tazobactam 3.375 GM in D5% in Water (Mini-Bag+) 100 ML IVPB SCH ×2 (05:52→12:02)
[2017-05-30 08:19] LABS: Mean Corpuscular HGB Conc 32.8 g/dL (31.6-35.5); Mean Corpuscular Hemoglobin 29.2 pg (28.0-33.3); Red Cell Distribution Width 17.4 % (11.5-14.5)
[2017-05-30] MEDS: Levofloxacin 750 MG/150 ML 750 MG/150 ML BAG IVPB SCH (08:19)
[2017-05-30 08:21] LABS: Hematocrit 19.2 % (37.5-50.1); Hemoglobin 6.3 g/dL (12.9-16.9); Immature Granulocytes % 1.7 % (0-4); Immature Platelets 2.7 % (1.1-6.1); Lymphocytes # 0.9 K/mcL (0.6-4.6); Lymphocytes % 25.6 %; Mean Corpuscular Volume 88.9 fL (83.0-100.0); Monocytes # 0.1 K/mcL (0.0-1.3); Monocytes % 3.5 %; Neutrophils # 2.4 K/mcL (1.6-8.9); Red Blood Count 2.16 M/mcL (4.19-5.50); Segmented Neutrophils % 69.2 %
[2017-05-30] MEDS: Sennosides 8.6 MG TABLET PO SCH ×2 (08:21→20:19)
[2017-05-30] MEDS: predniSONE 20 MG TABLET PO SCH (08:21)
[2017-05-30 08:25] LABS: Mean Platelet Volume 10.8 fL (9.4-12.4)
[2017-05-30 08:31] LABS: Alanine Aminotransferase 13 Units/L (0-55); Albumin 2.9 g/dL (3.5-5.0); Albumin/Globulin Ratio 1.1 (1.1-2.2); Alkaline Phosphatase 60 Units/L (38-126); Aspartate Amino Transferase 16 Units/L (5-34); BUN/Creatinine Ratio 20 (6-26); Blood Urea Nitrogen 22 mg/dL (8-26); Calcium 8.5 mg/dL (8.6-10.8); Carbon Dioxide 29 mEq/L (19-29); Chloride 104 mEq/L (98-109); Globulin 2.7 g/dL (2.4-3.5); Glucose 100 mg/dL (70-99); Osmolality,Calculated 287 (280-300); Potassium 3.8 mEq/L (3.5-4.5); Sodium 137 mEq/L (136-145); Total Protein 5.6 g/dL (6.0-8.3); eGFR For African Americans > 60 (> 60); eGFR For Non-African Americans > 60 (> 60)
[2017-05-30 08:38] LABS: Platelet Count 25 K/mcL (140-400)
[2017-05-30 08:41] LABS: Bilirubin,Total 1.2 mg/dL (0.2-1.2)
--- NOTE | 2017-05-30 09:50 | Internal Med Progress Note ---
<Keesha Wallace - Last Filed: 05/30/17 14:18> Date of Encounter: 05/30/17 Time of Encounter: 09:50 - Assessment and plan (1) Bacteremia Current Visit: Yes Status: Acute Assessment and plan: Bacteremia- most likely from Port Blood culture's (Preliminary) - for gram-positive cocci, mecA Methicillin Resistance Gene U/A: negative patient stable, afebrile, normal WBC IR consulted- appreciated I&D consulted- appreciated Plan: - D/C- Zosyn, Levaquin -vancomycin Day 3 -continue to monitor patient vitals and labs -IR consulted and will D/C port tomorrow -platelets ordered per IR request due to low platelet count (2) Abdominal pain Current Visit: Yes Status: Acute Assessment and plan: Patient states he has Right upper quadrant constant dull pain. -Most likely to to constipation secondary to opiate use. Patient has a history of cyclic constipation that causes abdominal pain. -Consider biliary dysfunction vs sphincter of the dysfunction vs acute cholangitis -Abd CT w/o contrast- inflammatory changes within the mesentery of the left lower quadrant that are similar to prior study and most likely post inflammatory or postsurgical in nature. Abdominal aortic aneurysm measuring4.8 x 4.4cm- similar to prior study. New Spiculated nodule and right upper lung that may be inflammatory or infectious in nature or malignant.-Compare to prior studies otherwise short-term follow-up versus nuclear medicine PET-CT recommended. -Chest X-ray- demonstrated no acute process - The patient is afebrile, normal WBC -elevated total bilirubin 2.[address] soft tissue neck- no acute abnormality, chronically occluded distal right IJV Chest CT- 1.9 mm right and left upper lobe pulmonary nodules. 4.7x 4.9 cm AAA that is stable from prior study 09/2016. Diverticulosis, trace pleural effusion. ABD CT- same as chest CT Plans: ultrasound of abdomen ordered continue antibiotics continue to monitor patient vitals Qualifiers: Abdominal location: right upper quadrant Qualified Code(s): R10.11 - Right upper quadrant pain (3) Thrombocytopenia Current Visit: No Status: Acute Assessment and plan: Due to Myelodysplastic syndrome Platelet count is currently 10. His platelet count since March has been fluctuating between mid-20s and 10s. Oncology has been consulted and recommends to transfuse platelets for counts less than 20K or 50 K if there is active bleeding. Oncology recommendations are appreciated There is currently no active bleeding. Patient denies melena, hematechezia, Hematemesis. Plan: -platelets ordered per IR request, for port removal tomorrow -we will continue to monitor H&H -Monitor for bleeding -patient is on fall precautions (4) Back pain Current Visit: Yes Status: Acute Assessment and plan: Patient states that back pain has been improving and believes that he may have twisted wrong. He stated that the day it is pain began he had been shooting guns with the family all day. Patient has acute on chronic back pain. 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 Patient stated that he had lower back pain bilaterally that radiated around to the ribs. No skin rash. Patient denied incontinence. This may be due to his chronic back issues or referred pain from biliary infection. Chest x-ray demonstrated no acute cardiopulmonary process. Abd CT- did not show hematoma, diverticulitis, fracture. Analgesics help the pain. Plan: ultrasound of the liver and gallbladder to r/o biliary infection continue to monitor for any acute changes in back pain Qualifiers: Back pain location: thoracic back pain Chronicity: acute Back pain laterality: right Qualified Code(s): M54.6 - Pain in thoracic spine (5) MDS (myelodysplastic syndrome) Current Visit: Yes Status: Chronic Assessment and plan: Chronic anemia Hgb decreased to 6.3 from yesterday's 7 Diagnosed in January 2017. Currently on day 7 cycle 1 of decitabine ( 28 day cycle) oncology following- appreciated oncology recommendation to- -Transfuse blood for Hb and HCT less than 7 g/dl and 21 respectively. -Transfuse platelets for counts less than 20K or 50 K if there is active bleeding. Patient should wear helmet while ambulating ( if available) Plan: transfused 2 units of PRBCs stool occult ordered continue to monitor H&H continue monitor for active bleeding (6) Abdominal aortic aneurysm Current Visit: Yes Status: Acute Assessment and plan: Stable Abdominal aortic aneurysm measuring4.8 x 4.4cm- similar to prior study in 2015 Qualifiers: Presence of rupture: without rupture Qualified Code(s): I71.4 - Abdominal aortic aneurysm, without rupture (7) Atrial fibrillation Current Visit: No Status: Chronic Assessment and plan: stable HR 89 coreg Qualifiers: Atrial fibrillation type: chronic Qualified Code(s): I48.2 - Chronic atrial fibrillation (8) CAD (coronary artery disease) Current Visit: No Status: Chronic Assessment and plan: Stable S/P CABG Continue home medications Qualifiers: Coronary Disease-Associated Artery/Lesion type: [place] artery [place] vs. transplanted heart: [place] heart Associated angina: without angina Qualified Code(s): I25.10 - Atherosclerotic heart disease of [place] coronary artery without angina pectoris - Subjective Interval history: Patient laying in bed more comfortable looking than yesterday He states that his back pain has improved. He said he believes he must have twisted wrong and strained his back. He stated that he has not had a bowel movement since Monday, which is typical for him. For which he thinks may be causing his abdominal pain. He denies fever, chills, chest pain, dyspnea, nausea, vomiting, hematuria, dysuria. - Constitutional Vitals: Temp Pulse Resp BP Pulse Ox 98.6 F 78 16 110/59 100 05/30/17 07:48 05/30/17 07:48 05/30/17 07:48 05/30/17 07:48 05/30/17 07:48 General appearance: Present: mild distress, A&O X 3, answers questions appropriately Exam: Gen.: Vitals noted. No acute distress. AAOx3 HEENT: PERRL, oropharynx clear, Normocephalic, atraumatic Neck: Supple. No adenopathy. Cardiac: RRR, no murmur, +S1/S2, no rubs Pulmonary: CTA bilaterally, no wheezes, rales or rhonchi, equal chest expansion Abdomen: soft, minimally tender in the right upper quadrant, Bowel sounds noted , no guarding Back: Nontender throughout. MSK: ROM intact, no joint swelling noted Extremities: no BLE edema, nontender calf, no cyanosis or clubbing Psych: Appropriate mood and behavior Internal Medicine: Result - Labs CBC & Chem 7: 05/30/17 07:32 05/30/17 07:32 Labs: Short CBC 05/29/17 05/29/17 05/30/17 Range/Units 09:55 16:05 07:32 WBC 3.4 L (4.3-11.1) K/mcL Hgb 7.3 L 6.9 L 6.3 L (12.9-16.9) g/dL Hct 22.2 L 21.7 L 19.2 L (37.5-50.1) % Plt Count 25 L* D (140-400) K/mcL Neutrophils # 2.4 (1.6-8.9) K/mcL BMP 05/30/17 07:32 Sodium 137 Potassium 3.8 Chloride 104 Carbon Dioxide 29 BUN 22 Creatinine 1.08 Glucose 100 H Calcium 8.5 L Liver Function 05/30/17 Range/Units 07:32 Total Bilirubin 1.2 (0.2-1.2) mg/dL AST 16 (5-34) Units/L ALT 13 (0-55) Units/L Alkaline Phosphatase 60 (38-126) Units/L Albumin 2.9 L (3.5-5.0) g/dL - ABG Interpretation ABG results: PT/INR, D-dimer PT 12.3 Seconds (9.4-12.1) H 05/28/17 10:53 - Impressions Impressions Abdomen/Pelvis CT 05/29/17 20:00 IMPRESSION: 1. 9 mm right upper and left upper lobe pulmonary nodules. Short-term CT follow-up is recommended to document resolution, as outlined below. 2. Nonspecific mesenteric stranding in the left lower quadrant, similar to yesterday's CT. This is likely sequelae of prior infection/inflammation. 3. 4.7 x 4.9 cm juxtarenal abdominal aortic aneurysm. This is stable from yesterday's CT, but new from 2010. Continued vascular surgical follow-up is recommended. Stable appearance of the infrarenal cocoa-ke-xayvc stent graft. 4. Diverticulosis. 5. Trace pleural effusions. RECOMMENDATIONS: Fleischner Society guidelines for follow-up and management of incidentally detected pulmonary nodules: Multiple Solid Nodules: Nodule size greater than 8 mm In a low-risk patient, CT at 3-6 months, then consider CT at 18-24 months. In a high-risk patient, CT at 3-6 months, then CT at 18-24 months. - Low risk patients include individuals with minimal or absent history of smoking and other known risk factors. - High risk patients include individuals with a history or smoking or known risk factors. Radiology 2017 http://pubs.rsna.org/doi/full/10.1148/radiol.4835636161 Managing Abdominal Aortic Aneurysms 2.6-2.9 cm: 5 year follow up. 3.0-3.4 cm: 3 year follow up 3.5-3.9 cm: 1 year follow up. 4.0-4.4 cm: 1 year follow up. Recommend vascular consultation. 4.5-5.4 cm: 6 month follow up. Recommend vascular consultation. Greater than or equal to 5.5 cm: Referral to vascular surgeon. Reference: Domingo et al. The care of patients with an abdominal aortic aneurysm: The Society of Vascular Surgery practice guidelines. Journal of Vascular Surgery. Vol 50, Number 85. Domenica et al. Managing Incidental Findings on Abdominal and Pelvic CT and MRI, Part 2: White Paper of the ACR Incidental Findings Committee II on Vascular Findings. J Am Nata Radiol 2013;10:789-794 D/ / 05/29/2017 21:27:14 Devin Payan MD / gilda Interpreting Provider: Devin Payan MD Chest CT 05/29/17 20:00 IMPRESSION: 1. 9 mm right upper and left upper lobe pulmonary nodules. Short-term CT follow-up is recommended to document resolution, as outlined below. 2. Nonspecific mesenteric stranding in the left lower quadrant, similar to yesterday's CT. This is likely sequelae of prior infection/inflammation. 3. 4.7 x 4.9 cm juxtarenal abdominal aortic aneurysm. This is stable from yesterday's CT, but new from 2010. Continued vascular surgical follow-up is recommended. Stable appearance of the infrarenal [id number]-bkxcm stent graft. 4. Diverticulosis. 5. Trace pleural effusions. RECOMMENDATIONS: Fleischner Society guidelines for follow-up and management of incidentally detected pulmonary nodules: Multiple Solid Nodules: Nodule size greater than 8 mm In a low-risk patient, CT at 3-6 months, then consider CT at 18-24 months. In a high-risk patient, CT at 3-6 months, then CT at 18-24 months. - Low risk patients include individuals with minimal or absent history of smoking and other known risk factors. - High risk patients include individuals with a history or smoking or known risk factors. Radiology 2017 http://pubs.rsna.org/doi/full/10.1148/radiol.7833301644 Managing Abdominal Aortic Aneurysms 2.6-2.9 cm: 5 year follow up. 3.0-3.4 cm: 3 year follow up 3.5-3.9 cm: 1 year follow up. 4.0-4.4 cm: 1 year follow up. Recommend vascular consultation. 4.5-5.4 cm: 6 month follow up. Recommend vascular consultation. Greater than or equal to 5.5 cm: Referral to vascular surgeon. Reference: Domingo et al. The care of patients with an abdominal aortic aneurysm: The Society of Vascular Surgery practice guidelines. Journal of Vascular Surgery. Vol 50, Number 85. Domenica et al. Managing Incidental Findings on Abdominal and Pelvic CT and MRI, Part 2: White Paper of the ACR Incidental Findings Committee II on Vascular Findings. J Am Nata Radiol 2013;10:789-794 D/ / 05/29/2017 21:27:14 Devin Payan MD / gilda Interpreting Provider: Devin Payan MD Soft Tissue Neck CT 05/29/17 20:00 IMPRESSION: No acute abnormality of the soft tissue structures of the neck identified. Chronically occluded distal right IJV. D/ / Ata Avila MD / Ata Avila MD Interpreting Provider: Ata Avila MD - VTE Documentation of Mechanical Device: Intermittent pneumatic compression device Consult Discharge Plan - Plan Referrals: Wang Coy Jr, MD [Primary Care Provider] - <Franco James P - Last Filed: 05/30/17 18:23> Date of Encounter: 05/30/17 - Constitutional Vitals: Temp Pulse Resp BP Pulse Ox 98.5 F 68 14 118/71 94 05/30/17 14:25 05/30/17 14:25 05/30/17 14:25 05/30/17 14:25 05/30/17 14:25 Internal Medicine: Result - Labs CBC & Chem 7: 05/30/17 07:32 05/30/17 07:32 Labs: Short CBC 05/30/17 Range/Units 07:32 WBC 3.4 L (4.3-11.1) K/mcL Hgb 6.3 L (12.9-16.9) g/dL Hct 19.2 L (37.5-50.1) % Plt Count 25 L* D (140-400) K/mcL Neutrophils # 2.4 (1.6-8.9) K/mcL BMP 05/30/17 07:32 Sodium 137 Potassium 3.8 Chloride 104 Carbon Dioxide 29 BUN 22 Creatinine 1.08 Glucose 100 H Calcium 8.5 L Liver Function 05/30/17 Range/Units 07:32 Total Bilirubin 1.2 (0.2-1.2) mg/dL AST 16 (5-34) Units/L ALT 13 (0-55) Units/L Alkaline Phosphatase 60 (38-126) Units/L Albumin 2.9 L (3.5-5.0) g/dL - ABG Interpretation ABG results: PT/INR, D-dimer PT 12.3 Seconds (9.4-12.1) H 05/28/17 10:53 - Impressions Impressions Abdomen/Pelvis CT 05/29/17 20:00 IMPRESSION: 1. 9 mm right upper and left upper lobe pulmonary nodules. Short-term CT follow-up is recommended to document resolution, as outlined below. 2. Nonspecific mesenteric stranding in the left lower quadrant, similar to yesterday's CT. This is likely sequelae of prior infection/inflammation. 3. 4.7 x 4.9 cm juxtarenal abdominal aortic aneurysm. This is stable from yesterday's CT, but new from 2010. Continued vascular surgical follow-up is recommended. Stable appearance of the infrarenal mbvsj-pc-ovbkq stent graft. 4. Diverticulosis. 5. Trace pleural effusions. RECOMMENDATIONS: Fleischner Society guidelines for follow-up and management of incidentally detected pulmonary nodules: Multiple Solid Nodules: Nodule size greater than 8 mm In a low-risk patient, CT at 3-6 months, then consider CT at 18-24 months. In a high-risk patient, CT at 3-6 months, then CT at 18-24 months. - Low risk patients include individuals with minimal or absent history of smoking and other known risk factors. - High risk patients include individuals with a history or smoking or known risk factors. Radiology 2017 http://pubs.rsna.org/doi/full/10.1148/radiol.0717521878 Managing Abdominal Aortic Aneurysms 2.6-2.9 cm: 5 year follow up. 3.0-3.4 cm: 3 year follow up 3.5-3.9 cm: 1 year follow up. 4.0-4.4 cm: 1 year follow up. Recommend vascular consultation. 4.5-5.4 cm: 6 month follow up. Recommend vascular consultation. Greater than or equal to 5.5 cm: Referral to vascular surgeon. Reference: Domingo et al. The care of patients with an abdominal aortic aneurysm: The Society of Vascular Surgery practice guidelines. Journal of Vascular Surgery. Vol 50, Number 85. Domenica et al. Managing Incidental Findings on Abdominal and Pelvic CT and MRI, Part 2: White Paper of the ACR Incidental Findings Committee II on Vascular Findings. J Am Nata Radiol 2013;10:789-794 D/ / 05/29/2017 21:27:14 Devin Payan MD / gilda Interpreting Provider: Devin Payan MD Chest CT 05/29/17 20:00 IMPRESSION: 1. 9 mm right upper and left upper lobe pulmonary nodules. Short-term CT follow-up is recommended to document resolution, as outlined below. 2. Nonspecific mesenteric stranding in the left lower quadrant, similar to yesterday's CT. This is likely sequelae of prior infection/inflammation. 3. 4.7 x 4.9 cm juxtarenal abdominal aortic aneurysm. This is stable from yesterday's CT, but new from 2010. Continued vascular surgical follow-up is recommended. Stable appearance of the infrarenal roovc-ap-cwpvc stent graft. 4. Diverticulosis. 5. Trace pleural effusions. RECOMMENDATIONS: Fleischner Society guidelines for follow-up and management of incidentally detected pulmonary nodules: Multiple Solid Nodules: Nodule size greater than 8 mm In a low-risk patient, CT at 3-6 months, then consider CT at 18-24 months. In a high-risk patient, CT at 3-6 months, then CT at 18-24 months. - Low risk patients include individuals with minimal or absent history of smoking and other known risk factors. - High risk patients include individuals with a history or smoking or known risk factors. Radiology 2017 http://pubs.rsna.org/doi/full/10.1148/radiol.7582494214 Managing Abdominal Aortic Aneurysms 2.6-2.9 cm: 5 year follow up. 3.0-3.4 cm: 3 year follow up 3.5-3.9 cm: 1 year follow up. 4.0-4.4 cm: 1 year follow up. Recommend vascular consultation. 4.5-5.4 cm: 6 month follow up. Recommend vascular consultation. Greater than or equal to 5.5 cm: Referral to vascular surgeon. Reference: Domingo et al. The care of patients with an abdominal aortic aneurysm: The Society of Vascular Surgery practice guidelines. Journal of Vascular Surgery. Vol 50, Number 85. Domenica et al. Managing Incidental Findings on Abdominal and Pelvic CT and MRI, Part 2: White Paper of the ACR Incidental Findings Committee II on Vascular Findings. J Am Nata Radiol 2013;10:789-794 D/ / 05/29/2017 21:27:14 Devin Payan MD / gilda Interpreting Provider: Devin Payan MD Soft Tissue Neck CT 05/29/17 20:00 IMPRESSION: No acute abnormality of the soft tissue structures of the neck identified. Chronically occluded distal right IJV. D/ / Ata Avila MD / Ata Avila MD Interpreting Provider: Ata Avila MD Abdomen Ultrasound 05/30/17 16:00 IMPRESSION: Postcholecystectomy prominence of the common duct is noted. No acute abnormality is identified. D/ / Roshan Roberts MD / Roshan Roberts MD Interpreting Provider: Roshan Roberts MD - Attending Attestation I examined this patient and my medical decision-making was reviewed with the Resident Physician. I agree with the documented findings, disposition and treatment plan as described except to the extent set forth below. ID input appreciated.
[2017-05-30] MEDS ORDERED: 0.9 % Sodium Chloride Mini Bag 100 ML ONE ×2 (10:34→17:30)
[2017-05-30] MEDS: *HR* HYDROcodone/Acet 5/325 mg TABLET PO PRN (11:08)
--- NOTE | 2017-05-30 15:17 | Infectious Disease Consult ---
Date of Encounter: 05/30/17 Time of Encounter: 15:15 Assessment and Plan (1) Sepsis Status: Acute Assessment and plan: Patient met SIRS criteria of fever and tachycardia on admission. Source is possibly from port as patient has bacteremia with what appears to be CON staph species. Patient has defervesced since admission. Patient has also developed leukopenia. Patient recently started chemotherapy. He had first round Last week. On Decitabine. Patient had 3 days of Vancomycin, Zosyn, and levofloxacin. Zosyn and levofloxacin were discontinued on 05/30/17. Currently on Vancomycin 1250 mg Q12H. Patient had port placed earlier this month. PAtient also has Bovine aortic valve placed in 2010. Patient is scheduled for port removal in the AM. This has already been discussed with oncology per primary team. Patient dose meet criteria for possible infective endocarditis with 3 minor Sierra criteria ( Fever, CONS bacteremia, and Prosthetic valve) Recommendations: Continue vancomycin. Goal trough of 15. Add Rifampin 300 mg BID. Agree with port removal. If GLORIA dose reveal vegetation consider adding Gentamycin to regimen. However patient is at risk for kidney injury given his single kidney and history of chronic kidney disease. Repeat blood cultures. Will need PICC line 48 hours after negative cultures. Duration of antibiotics will depend on clinical picture. continue to monitor for drug toxicities. Continue to monitor Vancomycin trough. continue to follow renal function closely. Thank you for the consultation and the opportunity to participate in this patients care. Qualifiers: Sepsis type: sepsis due to unspecified organism Qualified Code(s): A41.9 - Sepsis, unspecified organism (2) Bacteremia Status: Acute Assessment and plan: as stated above. (3) Aortic aneurysm Status: Acute Assessment and plan: patient had initially repair with graft in 2000. He would have EVAR in 2006. Ct of the abdomen reveals Aneurysmal dilation of the abdominal aorta above the level of repair measuring 4.8 x 4.4 cm. Findings are similar to prior lumbar spine CT from 09/2016. currently on coreg. management per primary team. Qualifiers: Aortic location: abdominal aorta Presence of rupture: without rupture Qualified Code(s): I71.4 - Abdominal aortic aneurysm, without rupture (4) History of prosthetic aortic valve Status: Acute Assessment and plan: patient had bovine aortic valve replacement in 2010. He meets 3 minor Sierra criteria. Recommend GLORIA to rule our endocarditis. (5) MDS (myelodysplastic syndrome) Status: Chronic Assessment and plan: management per oncology. (6) Pancytopenia Status: Acute Assessment and plan: managemetn per primary team and oncology. Patient is currently receiving platelet and PRBC transfusion. (7) CKD (chronic kidney disease) stage 2, GFR 60-89 ml/min Status: Chronic Assessment and plan: per patient and family he was CKD 3 but has improved to CKD stage 2. (8) Single kidney Status: Chronic Assessment and plan: recommend following renal function and vancomycin troughs closely. Infectious Disease HPI - Data of Consult Patient: new to practice Consult date: 05/30/17 Requesting Physician: Franco James MD. Primary Care Provider: Wang Coy Jr, MD - Consult Narrative Reason for consult: Bacteremia History of present illness: Mr. Townsend is a 77 year old male who was admitted to [facility] on 05/28/17 for fever and back pain. Infectious disease is consulted on 05/30/17 for bacteremia. Mr. Townsend is a 77 y.o. male with past medical history of MDS requiring fequent transfusions and who recently began chemotherapy. He also has a History of CAD and valvular heart disease and is s/p CABG with AVR with porcine valve in 2010. Additionally he had his left kidney removed " 2-3 years ago from complications from an infection" and has chronic kidney disease stage 2. The patient was febrile ( 100.4 F) and had tachycardia on admission. He has since defervesced. Lab work has been notable for pancytopenia. Hg has been down trending and is currently 6.3. He has received one unit of PRBC and one unit of Platelets since admission. He would have 2/2 blood cultures positive with GPC PCR would suggest CONS. Chest Xray was unrevealing. CT of the abdomen and pelvis and chest would reveal a " spiculated nodule n the right upper lung zone, which is new compared to a CTof the thoracic spine from 03/25/2016. Aneurysmal dilation of the abdominal aorta above the level of repai measuring 4.8 x 4.4 cm. Findings are similar to prior lumbar spine CT from09/2016. Inflammatory changes within the mesentery of the left lower quadrant are similar to the prior study, nonspecific and likely postinflammatory or postsurgical in nature. Diverticulosis without evidence of acute diverticulitis. " Ct of the neck woud reveal chronically occluded distal Right IJV without any acute findings. Today Mr. Townsend states that he was feeling fatigue and out of energy beginning 3 days prior to admission. He states that he went shooting with his Grandsons on Monday and later developed pain in his mid thoracic spine that radiated around to his abdomen. He denies any cough, dyspnea, or wheeze, He denies any dysuria or hematuria. He denies sore throat, sinus pressure. Denies diarrhea. Admits to constipation. He states it has been nearly a week since he has gone. He admits to some mild RUQ and RLQ tenderness. He denies any rash or lesions. He has no further complaints or concerns at this time. CC: Leandro Cohen MD Past Med Surg Social Fam HX - Past Medical History Medical history: aortic aneurysm, atrial fibrillation, cancer, coronary artery disease, hyperlipidemia, hypertension, peripheral artery disease, valvular heart disease, other (MDS) Psychiatric history: no psych history - Past Surgical History Surgical History: coronary bypass (CABG), heart valve replacement - Social History Smoking Status: Never smoker Smokeless Tobacco Status: No Alcohol use: none Drug use: none - Family History Mother Living Status: Age at : 50 Cause of : cancer Hx Family Cardiac Disorders: Yes Hx Family Respiratory Disorders: No Hx Family Cancer: Yes Hx Family GI Disorders: No Hx Family Genitourinary Disorders: No Hx Family Endocrine Disorder: No Hx Family Musculoskeletal Disorders: No Hx Family Neuromuscular Disorders: Yes Hx Family Neurologic Disorders: No Hx Family HEENT Disorders: No Hx Family Autoimmune Disorders: No Hx Family Reproductive Disorders: No Hx Family Psychosocial Disorders: No Hx Family Medical Disorders: No Father Living Status: Age at : 78 Cause of : heart issues Hx Family Cardiac Disorders: Yes Hx Family Respiratory Disorders: No Hx Family Cancer: No Hx Family GI Disorders: No Hx Family Genitourinary Disorders: No Hx Family Endocrine Disorder: No Hx Family Musculoskeletal Disorders: No Hx Family Neuromuscular Disorders: No Hx Family Neurologic Disorders: No Hx Family HEENT Disorders: No Hx Family Autoimmune Disorders: No Hx Family Reproductive Disorders: No Hx Family Psychosocial Disorders: No Hx Family Medical Disorders: No Infectious Disease-CN:Meds Multivitamin/Iron/Folic Acid [Centrum Complete Multivit Tab] 1 each PO DAILY 09/20 [History] Ergocalciferol (VITAMIN D2) [Vitamin D2 (50,000 UNIT)] 50,000 unit PO MO [History] Melatonin 10 mg PO HS 04/01/16 [History] Mirtazapine 7.5 mg PO HS 04/01/16 [History] Omeprazole [PriLOSEC] 20 mg PO DAILY 04/01/16 [History] Oxycodone HCl 15 mg PO Q4H PRN 04/01/16 [History] Allopurinol [Zyloprim 100 MG] 100 mg PO BID 03/07/17 [History] Polyethylene Glycol 3350 [MiraLAX Powder Bulk 17.9 Oz] 1 scoop PO DAILY PRN 12/23 [History] Sennosides [Senna] 17.2 mg PO BID 03/07/17 [History] Furosemide [Lasix] 40 mg PO DAILY #30 tablet 05/02/17 [Rx] Ondansetron [Zofran] 4 mg PO Q8HR PRN #90 tablet 05/02/17 [Rx] Calcium Carbonate [Calcium] 600 mg PO DAILY 05/08/17 [History] Carvedilol 3.125 mg PO BID 05/08/17 [History] Aminocaproic Acid [Amicar] 250 mg PO Q8H PRN #200 solution 05/16/17 [Rx] Chlorhexidine Gluconate [Peridex] 10 ml MM DAILY #118 mouthwash 05/16/17 [Rx] Lidocaine/Prilocaine CREAM [Emla] 5 gm TP ONCE #1 tube 05/16/17 [Rx] predniSONE [PredniSONE] See Taper PO DAILY #18 tablet 05/21/17 [Rx] Allergies citalopram Adverse Reaction (Verified 05/08/17 20:17) Nausea codeine Adverse Reaction (Verified 05/08/17 20:17) See Comments Cardiac problems per . Chjnned-Jaf-Zlj Reductase Inhibitor [Statins] Adverse Reaction (Verified 20:17) See Comments RA symptoms per . Review of systems: Constitutional: as per history of present illness HEENT: Denies headache, denies sore throat, post nasal drip, nasal congestion, rhinnorhea, sinus pressure, hearing or vision changes, stiff neck Heart: Denies chest pain, palpitations, orthopnea Respiratory: Denies cough, wheeze, dyspnea, and hemoptysis GI: Denies N/V/D. admits to constipation and some right upper and right lower quadrant pain. : denies dysuria, hematuria, change in frequency of urination. MSK: denies new aches or pains Neuro: denies focal motor or sensory defecits. Denies recent seizure activity. Endocrine: denies weight change, polyuria, polydipsia, change in hair or nails Heme: admits to easy bleeding and uising. Lymph: denies swollen lymph noeds in the neck axilla or groin Travel: denies recent travel Animal exposure:denies Sick contacts: Denies. [recent sick contacts. Diet: denies ingestion of undercooked or raw meats. Dental: denies recent dental procedures Exam - Constitutional Vitals: Temp Pulse Resp BP Pulse Ox 98.5 F 68 14 118/71 94 05/30/17 14:25 05/30/17 14:25 05/30/17 14:25 05/30/17 14:25 05/30/17 14:25 Infectious Disease CN: Results - Labs CBC & Chem 7: 06/02/17 05:37 06/02/17 05:37 - VTE Documentation of Mechanical Device: Intermittent pneumatic compression device Consult Discharge Plan - Plan Referrals: Wang Coy Jr, MD [Primary Care Provider] - - Attending Attestation I examined this patient and my medical decision-making was reviewed with the Resident Physician. I agree with the documented findings, disposition and treatment plan as described except to the extent set forth below. This is an addendum to original report dictated by Dr. Cordell Magaña resident physician, please refer to his note for full detail. Patient is a 77-year-old gentleman admitted on 05/28/17 for right rib pain, we are consulted on 05/30/17 for bacteremia with gram-positive cocci. Patient with extensive past medical history including coronary artery disease with history of CABG AAA and iliac aneurysm status post stent and aortic stenosis status post bivalve replacement myelodysplastic syndrome on chemotherapy who finished chemotherapy 5 day course on Monday came in comp Pain is a sharp, 7-8 out of 10 , worsening of movement. Patient also feel tired.laining of back pain and right rib pain. Since admission patient has been febrile with a MAXIMUM TEMPERATURE of 100.4, tachycardic with a presenting WBC of 5.2 and a platelet of 16,000. Patients bilirubin was also elevated at 2.6. A UA was obtained was negative. Patient underwent a CT abdomen and pelvis, CT chest and CT soft tissue of the neck on 05/29/17 which revealed multiple chronic processes but no acute process in the chest abdomen or pelvis. The CT soft tissue of the neck revealed no acute abnormality of the soft tissue structure of the neck. Blood cultures and patient were positive for coag negative staph. 2 out of 2 sets. We were asked to evaluate the patient and make further recommendations. On further exam. Patient had no signs of endocarditis. The bacteremia is questionable whether it's due to the port versus endocarditis versus a contaminant. At this point, Continue Vancomycin. Goal Trough 15 Continue Rifampin. Recommend GLORIA to r/o IE. If GLORIA positive for vegetation may consider addition of gentamycin to regimen. However high risk for kidney injury given his single kidney and CKD. Agree with port removal for source control. Will need IV access. Please wait until cultures are negative for 48 hours before placing PICC. Continue to monitor for Drug toxicities. Continue to monitor LFTs while on Rifampin. Continue to monitor Renal function and vancomycin Trough. Patient was hesitant to get the port removed by explained to him that we think distal likely source has to,. Await repeat cultures to finalize.
[2017-05-30] MEDS: rifAMPin 150 MG CAPSULE PO SCH (16:47)
[2017-05-30] MEDS: Acetaminophen 325 MG TABLET PO PRN (22:44)
[2017-05-31] MEDS ORDERED: 0.9 % Sodium Chloride 250 ML ONE (00:03)
[2017-05-31 04:14] LABS: Hemoglobin 7.6 g/dL (12.9-16.9)
[2017-05-31 04:16] LABS: Hematocrit 23.3 % (37.5-50.1); Immature Granulocytes % 2.2 % (0-4); Immature Platelets 1.7 % (1.1-6.1); Lymphocytes % 24.2 %; Mean Corpuscular HGB Conc 32.6 g/dL (31.6-35.5); Mean Corpuscular Hemoglobin 28.5 pg (28.0-33.3); Mean Corpuscular Volume 87.3 fL (83.0-100.0); Mean Platelet Volume 9.2 fL (9.4-12.4); Monocytes # 0.1 K/mcL (0.0-1.3); Monocytes % 1.9 %; Red Blood Count 2.67 M/mcL (4.19-5.50); Red Cell Distribution Width 17.3 % (11.5-14.5); Segmented Neutrophils % 71.7 %
[2017-05-31 04:20] LABS: Platelet Count 33 K/mcL (140-400)
[2017-05-31 04:27] LABS: BUN/Creatinine Ratio 24 (6-26); Blood Urea Nitrogen 21 mg/dL (8-26); Calcium 8.6 mg/dL (8.6-10.8); Carbon Dioxide 27 mEq/L (19-29); Chloride 107 mEq/L (98-109); Glucose 97 mg/dL (70-99); Osmolality,Calculated 287 (280-300); eGFR For African Americans > 60 (> 60); eGFR For Non-African Americans > 60 (> 60)
[2017-05-31 04:28] LABS: Sodium 137 mEq/L (136-145)
[2017-05-31] MEDS: 0.9 % Sodium Chloride 1,000 ML IVC SCH ×3 (06:18→20:12)
[2017-05-31] MEDS: *HR* Morphine 2 MG/ML SYRINGE IVP PRN (08:18)
[2017-05-31] MEDS: rifAMPin 150 MG CAPSULE PO SCH ×2 (08:19→17:46)
[2017-05-31] MEDS: Sennosides 8.6 MG TABLET PO SCH ×2 (08:19→20:31)
[2017-05-31] MEDS: Vancomycin 1,000 MG in D5% in Water 250 ML IVPB SCH ×2 (08:19→20:30)
[2017-05-31] MEDS: predniSONE 20 MG TABLET PO SCH (08:19)
[2017-05-31] MEDS: *HR* OxyCODONE Immed Rel 15 MG TABLET PO SCH ×4 (09:11→20:28)
--- NOTE | 2017-05-31 11:16 | Internal Med Progress Note ---
<Keesha Wallace - Last Filed: 05/31/17 13:26> Date of Encounter: 05/31/17 Time of Encounter: 11:16 - Assessment and plan (1) Bacteremia Current Visit: Yes Status: Acute Assessment and plan: 05/31/2017 -Bacteremia- most likely from Port -Blood culture's (Preliminary) - for gram-positive cocci, mecA Methicillin Resistance Gene -Patient also has Bovine aortic valve placed in 2010 -patient stable, afebrile, normal WBC -Vancomycin Day 4 -Rifampin Day 2 -Repeat Blood cultures ordered -Port will be removed by Interventional radiology tomorrow morning -continue to monitor patient vitals and labs -GLORIA ordered due to patient meeting Clark criteria (3 minor) 05/30/2017 Bacteremia- most likely from Port Blood culture's (Preliminary) - for gram-positive cocci, mecA Methicillin Resistance Gene U/A: negative patient stable, afebrile, normal WBC IR consulted- appreciated I&D consulted- appreciated Plan: - D/C- Zosyn, Levaquin -vancomycin Day 3 -IR consulted and will D/C port tomorrow -platelets ordered per IR request due to low platelet count (2) Abdominal pain Current Visit: Yes Status: Acute Assessment and plan: 05/31/2017 Patient stated abdominal pain is improved from yesterday U/S- no acute abnormality continue Abx 05/30/2017 Patient states he has Right upper quadrant constant dull pain. -Most likely to to constipation secondary to opiate use. Patient has a history of cyclic constipation that causes abdominal pain. -Consider biliary dysfunction vs sphincter of the dysfunction vs acute cholangitis -Abd CT w/o contrast- inflammatory changes within the mesentery of the left lower quadrant that are similar to prior study and most likely post inflammatory or postsurgical in nature. Abdominal aortic aneurysm measuring4.8 x 4.4cm- similar to prior study. New Spiculated nodule and right upper lung that may be inflammatory or infectious in nature or malignant.-Compare to prior studies otherwise short-term follow-up versus nuclear medicine PET-CT recommended. -Chest X-ray- demonstrated no acute process - The patient is afebrile, normal WBC -elevated total bilirubin 2.[address] soft tissue neck- no acute abnormality, chronically occluded distal right IJV Chest CT- 1.9 mm right and left upper lobe pulmonary nodules. 4.7x 4.9 cm AAA that is stable from prior study 09/2016. Diverticulosis, trace pleural effusion. ABD CT- same as chest CT Plans: ultrasound of abdomen ordered continue antibiotics continue to monitor patient vitals Qualifiers: Abdominal location: right upper quadrant Qualified Code(s): R10.11 - Right upper quadrant pain (3) Thrombocytopenia Current Visit: No Status: Acute Assessment and plan: 05/31/2017 platelets 33 Interventional radiology rescheduled to take out port tomorrow due to low platelets. They want >50 platelets 3 units of Platelets will be started tomorrow at 4am 05/30/2017 Due to Myelodysplastic syndrome Platelet count is currently 10. His platelet count since March has been fluctuating between mid-20s and 10s. Oncology has been consulted and recommends to transfuse platelets for counts less than 20K or 50 K if there is active bleeding. Oncology recommendations are appreciated There is currently no active bleeding. Patient denies melena, hematechezia, Hematemesis. Plan: -platelets ordered per IR request, for port removal tomorrow -we will continue to monitor H&H -Monitor for bleeding -patient is on fall precautions (4) Back pain Current Visit: Yes Status: Acute Assessment and plan: 05/31/2017 -Patient stated that he had intolerable back [place] this morning and required morphine to help control the pain. -concern for abscess secondary to staph GPC bacteremia -CT cevical, thoracic, and lumbar were ordered -will control pain with morphine along with home oxycodone 05/30/2017 Patient states that back pain has been improving and believes that he may have twisted wrong. He stated that the day it is pain began he had been shooting guns with the family all day. Patient has acute on chronic back pain. 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 Patient stated that he had lower back pain bilaterally that radiated around to the ribs. No skin rash. Patient denied incontinence. This may be due to his chronic back issues or referred pain from biliary infection. Chest x-ray demonstrated no acute cardiopulmonary process. Abd CT- did not show hematoma, diverticulitis, fracture. Analgesics help the pain. Plan: ultrasound of the liver and gallbladder to r/o biliary infection continue to monitor for any acute changes in back pain Qualifiers: Back pain location: thoracic back pain Chronicity: acute Back pain laterality: right Qualified Code(s): M54.6 - Pain in thoracic spine (5) MDS (myelodysplastic syndrome) Current Visit: Yes Status: Chronic Assessment and plan: 05/31/2017 Hgb 7.6 stool occult ordered continue to monitor H&H continue monitor for active bleeding 05/30/2017 Chronic anemia Hgb decreased to 6.3 from yesterday's 7 Diagnosed in January 2017. Currently on day 7 cycle 1 of decitabine ( 28 day cycle) oncology following- appreciated oncology recommendation to- -Transfuse blood for Hb and HCT less than 7 g/dl and 21 respectively. -Transfuse platelets for counts less than 20K or 50 K if there is active bleeding. Patient should wear helmet while ambulating ( if available) Plan: transfused 2 units of PRBCs stool occult ordered continue to monitor H&H continue monitor for active bleeding (6) Abdominal aortic aneurysm Current Visit: Yes Status: Acute Assessment and plan: Stable Abdominal aortic aneurysm measuring4.8 x 4.4cm- similar to prior study in 2015 Qualifiers: Presence of rupture: without rupture Qualified Code(s): I71.4 - Abdominal aortic aneurysm, without rupture (7) Atrial fibrillation Current Visit: No Status: Chronic Assessment and plan: stable HR 75 coreg Qualifiers: Atrial fibrillation type: chronic Qualified Code(s): I48.2 - Chronic atrial fibrillation (8) CAD (coronary artery disease) Current Visit: No Status: Chronic Assessment and plan: Stable S/P CABG Continue home medications Qualifiers: Coronary Disease-Associated Artery/Lesion type: crow artery [place] vs. transplanted heart: crow heart Associated angina: without angina Qualified Code(s): I25.10 - Atherosclerotic heart disease of crow coronary artery without angina pectoris - Subjective Interval history: Patient laying in bed more comfortable looking than yesterday He stated that his back pain became worse this morning and he requested morphine that has helped make it tolerable. He stated that he has still not had a bowel movement but he is going to get more miralax. He denies fever, chills, chest pain, dyspnea, nausea, vomiting, hematuria, dysuria. - Constitutional Vitals: Temp Pulse Resp BP Pulse Ox 97.7 F 82 17 152/80 94 05/31/17 07:11 05/31/17 07:11 05/31/17 07:11 05/31/17 07:11 05/31/17 08:00 General appearance: Present: mild distress, A&O X 3, answers questions appropriately - Head Head exam: Present: atraumatic, normocephalic - Eye Eye exam: Present: normal appearance, PERRL. Absent: scleral icterus - Respiratory Respiratory exam: Present: CTAB. Absent: rales, respiratory distress, rhonchi - Cardiovascular Cardiovascular exam: Present: RRR, +S1, +S2. Absent: clicks, rubs - GI/Abdominal GI/Abdominal exam: Present: normal bowel sounds, soft. Absent: distended, guarding - Extremities Exam Extremities exam: Present: normal inspection. Absent: mottling, pedal edema, tenderness - Back Exam Back exam: Present: muscle spasm. Absent: rash noted, tenderness, vertebral tenderness - Psychiatric Psychiatric exam: Present: normal affect. Absent: anxious - Skin Skin exam: Present: dry, intact Internal Medicine: Result - Labs CBC & Chem 7: 05/31/17 03:55 05/31/17 03:55 Labs: Short CBC 05/31/17 Range/Units 03:55 WBC 4.2 L (4.3-11.1) K/mcL Hgb 7.6 L (12.9-16.9) g/dL Hct 23.3 L (37.5-50.1) % Plt Count 33 L (140-400) K/mcL Neutrophils # 3.0 (1.6-8.9) K/mcL BMP 05/31/17 03:55 Sodium 137 Potassium 4.0 Chloride 107 Carbon Dioxide 27 BUN 21 Creatinine 0.88 Glucose 97 Calcium 8.6 - ABG Interpretation ABG results: PT/INR, D-dimer PT 12.3 Seconds (9.4-12.1) H 05/28/17 10:53 - Impressions Impressions Abdomen Ultrasound 05/30/17 16:00 IMPRESSION: Postcholecystectomy prominence of the common duct is noted. No acute abnormality is identified. D/ / Roshan Roberts MD / Roshan Roberts MD Interpreting Provider: Roshan Roberts MD - VTE Documentation of Mechanical Device: Intermittent pneumatic compression device Consult Discharge Plan - Plan Referrals: Wang Coy Jr, MD [Primary Care Provider] - <Franco James P - Last Filed: 05/31/17 18:47> Date of Encounter: 05/31/17 - Constitutional Vitals: Temp Pulse Resp BP Pulse Ox 98.0 F 92 18 155/70 98 05/31/17 15:05 05/31/17 15:05 05/31/17 15:05 05/31/17 15:05 05/31/17 15:05 Internal Medicine: Result - Labs CBC & Chem 7: 05/31/17 03:55 05/31/17 03:55 Labs: Short CBC 05/31/17 Range/Units 03:55 WBC 4.2 L (4.3-11.1) K/mcL Hgb 7.6 L (12.9-16.9) g/dL Hct 23.3 L (37.5-50.1) % Plt Count 33 L (140-400) K/mcL Neutrophils # 3.0 (1.6-8.9) K/mcL BMP 05/31/17 03:55 Sodium 137 Potassium 4.0 Chloride 107 Carbon Dioxide 27 BUN 21 Creatinine 0.88 Glucose 97 Calcium 8.6 - ABG Interpretation ABG results: PT/INR, D-dimer PT 12.3 Seconds (9.4-12.1) H 05/28/17 10:53 - Attending Attestation I examined this patient and my medical decision-making was reviewed with the Resident Physician. I agree with the documented findings, disposition and treatment plan as described except to the extent set forth below.
--- NOTE | 2017-05-31 17:03 | Oncology Inp Progress Note ---
Date of Encounter: 05/31/17 Time of Encounter: 12:00 (1) MDS (myelodysplastic syndrome) Current Visit: Yes Status: Chronic Assessment and plan: MDS s/p decitabine C1 last wk--hospitalized with MRSA bacteremia, On vanco, rifampin added. Appreciate ID input. Echo/GLORIA, port removal, rpt BC. Imaging for back pain-reviewed nl Ct findings. Plt transfusion prior to port removal. Anemia Hgb at 7.6, transfuse if symptomatic Discussed plan of care with patient and Dr James. Oncology: Subj Interval history: s/p C1 decitabine 05/22/17-hospitalized for sepsis--denies complaints - Constitutional Vitals: Vital Signs Temp Pulse Resp BP Pulse Ox 05/31/17 15:05 98.0 F 92 18 155/70 98 05/31/17 11:27 98.4 F 91 18 152/77 95 05/31/17 08:00 94 05/31/17 07:11 97.7 F 82 17 152/80 94 05/31/17 04:30 97.8 F 75 13 151/60 98 05/31/17 01:11 97.7 F 62 15 133/80 97 05/31/17 00:36 98.0 F 60 15 123/78 98 05/31/17 00:20 97.6 F 60 15 124/71 96 05/30/17 21:20 98.6 F 79 15 133/74 98 Intake and Output 05/31/17 05/31/17 05/31/17 07:59 15:59 23:59 Intake Total 450 / 450 250 / 250 Output Total 400 / 400 575 / 575 Balance 50 / 50 -325 / -325 Intake: IV Fluids 0 / 0 250 / 250 0.9 % Sodium Chloride 1, 0 / 0 000 ML @ 80 mls/hr IVC . [id number] KATHERINE Rx#: [id number] Vancocin 1,000 MG In 250 / 250 Dextrose 5% 250 ML @ 167 mls/hr IVPB Q12H KATHERINE Rx#: [id number] Oral 0 / 0 Blood Product 450 / 450 Platelet Pheresis Lp Irr 450 / 450 2nd Unit [id number] Output: Urine 400 / 400 575 / 575 Other: Meal Lunch Percent of Meal Consumed 10% Weight 81.783 kg 81.783 kg Blood Glucose* 101 101 Patient Weight 05/31/17 23:59 Weight 81.783 kg General appearance: no acute distress - Head Head exam: Present: atraumatic, normal inspection - Eye Eye exam: Present: sclera anicteric - ENT ENT exam: Present: mucous membranes dry - Neck Neck exam: Present: full ROM - Respiratory Respiratory exam: Present: CTAB - Cardiovascular Cardiovascular exam: Present: +S1, +S2, systolic murmur - GI/Abdominal GI/Abdominal exam: Present: normal bowel sounds, soft - Extremities Exam Extremities exam: Present: normal inspection - Neurological Exam Neurological exam: Present: alert, oriented X3 Oncology: Obj Data - Labs CBC & Chem 7: 05/31/17 03:55 05/31/17 03:55 Labs: Laboratory Results - last 24 hr 05/31/17 05/31/17 05/31/17 03:55 03:55 03:55 WBC 4.2 L RBC 2.67 L Hgb 7.6 L Hct 23.3 L MCV 87.3 MCH 28.5 MCHC 32.6 RDW 17.3 H Plt Count 33 L MPV 9.2 L Immature Gran % 2.2 Seg Neutrophils % 71.7 Lymphocytes % 24.2 Monocytes % 1.9 Eosinophils % 0.0 Basophils % 0.0 Neutrophils # 3.0 Lymphocytes # 1.0 Monocytes # 0.1 Eosinophils # 0.0 Basophils # 0.0 Immature Plt Fraction 1.7 Sodium 137 Potassium 4.0 Chloride 107 Carbon Dioxide 27 BUN 21 Creatinine 0.88 Est GFR ( Amer) > 60 Est GFR (Non-Af Amer) > 60 BUN/Creatinine Ratio 24 Glucose 97 POC Glucose Calculated Osmolality 287 Calcium 8.6 Vancomycin Trough 20.6 H* 05/31/17 05:17 WBC RBC Hgb Hct MCV MCH MCHC RDW Plt Count MPV Immature Gran % Seg Neutrophils % Lymphocytes % Monocytes % Eosinophils % Basophils % Neutrophils # Lymphocytes # Monocytes # Eosinophils # Basophils # Immature Plt Fraction Sodium Potassium Chloride Carbon Dioxide BUN Creatinine Est GFR ( Amer) Est GFR (Non-Af Amer) BUN/Creatinine Ratio Glucose POC Glucose 101 H Calculated Osmolality Calcium Vancomycin Trough - ABG Interpretation ABG results: PT/INR, D-dimer PT 12.3 Seconds (9.4-12.1) H 05/28/17 10:53 Consult Discharge Plan - Plan Referrals: Wang Coy Jr, MD [Primary Care Provider] -
[2017-06-01] MEDS ORDERED: 0.9 % Sodium Chloride 250 ML ONE (00:05)
[2017-06-01] MEDS: *HR* OxyCODONE Immed Rel 15 MG TABLET PO SCH ×7 (00:20→23:23)
[2017-06-01] MEDS: *HR* HYDROcodone/Acet 5/325 mg TABLET PO PRN ×2 (02:26→18:45)
[2017-06-01] MEDS: *HR* Morphine 2 MG/ML SYRINGE IVP PRN ×3 (03:15→09:12)
[2017-06-01] MEDS ORDERED: 0.9 % Sodium Chloride Mini Bag 100 ML ONE ×2 (03:33→05:15)
[2017-06-01] MEDS: Acetaminophen 325 MG TABLET PO PRN ×2 (06:00→13:03)
[2017-06-01] MEDS: predniSONE 20 MG TABLET PO SCH (08:00)
[2017-06-01] MEDS: Sennosides 8.6 MG TABLET PO SCH ×2 (08:00→20:29)
[2017-06-01] MEDS: rifAMPin 150 MG CAPSULE PO SCH ×2 (08:00→16:07)
[2017-06-01] MEDS: Vancomycin 1,000 MG in D5% in Water 250 ML IVPB SCH ×2 (08:13→20:35)
[2017-06-01 08:54] LABS: Basophils % 0.2 %; Hematocrit 25.9 % (37.5-50.1); Hemoglobin 8.3 g/dL (12.9-16.9); Mean Corpuscular Hemoglobin 28.1 pg (28.0-33.3); Mean Corpuscular Volume 87.8 fL (83.0-100.0); Red Blood Count 2.95 M/mcL (4.19-5.50)
[2017-06-01 08:56] LABS: Immature Granulocytes % 3.5 % (0-4); Immature Platelets 2.4 % (1.1-6.1); Lymphocytes # 0.9 K/mcL (0.6-4.6); Lymphocytes % 20.5 %; Mean Platelet Volume 9.5 fL (9.4-12.4); Monocytes # 0.2 K/mcL (0.0-1.3); Monocytes % 3.7 %; Neutrophils # 3.3 K/mcL (1.6-8.9); Platelet Count 62 K/mcL (140-400); Red Cell Distribution Width 17.2 % (11.5-14.5); Segmented Neutrophils % 72.1 %
[2017-06-01 08:58] LABS: BUN/Creatinine Ratio 20 (6-26); Blood Urea Nitrogen 17 mg/dL (8-26); Calcium 9.3 mg/dL (8.6-10.8); Carbon Dioxide 26 mEq/L (19-29); Chloride 104 mEq/L (98-109); Glucose 94 mg/dL (70-99); Osmolality,Calculated 283 (280-300); Potassium 3.5 mEq/L (3.5-4.5); Sodium 136 mEq/L (136-145); eGFR For African Americans > 60 (> 60); eGFR For Non-African Americans > 60 (> 60)
--- NOTE | 2017-06-01 09:11 | Infectious Disease Progress No ---
Date of Encounter: 06/01/17 Time of Encounter: 09:08 - Assessment and Plan (1) Sepsis Current Visit: Yes Status: Acute Resolved/Patient no longer meets Sepsis criteria. Source is likely from his port. Blood cultures from 05/28/17 have grown 2/2 Staph epi Sensitive to Vacnomycin, Rifampin, Tetracycline. Repeat blood cultures from 05/31/17 are pending. Patient did not have port out yesterday due to his thrombocytopenia. Scheduled for later today. Patient met 3 minor Deleon criteria ( bacteremia with staph epi, Fever, Prosthetic valve) and a GLORIA has been ordered. Vancomycin Trough from 05/31/17 was 20.6 Recommendations: Continue Vancomycin. Goal Trough 15 Continue Rifampin. Recommend GLORIA to r/o IE. If GLORIA positive for vegetation may consider addition of gentamycin to regimen. However high risk for kidney injury given his single kidney and CKD. Agree with port removal for source control. Will need IV access. Please wait until cultures are negative for 48 hours before placing PICC. Continue to monitor for Drug toxicities. Continue to monitor LFTs while on Rifampin. Continue to monitor Renal function and vancomycin Trough. Qualifiers: Sepsis type: sepsis due to unspecified organism Qualified Code(s): A41.9 - Sepsis, unspecified organism (2) Bacteremia Current Visit: Yes Status: Acute as stated above. (3) Aortic aneurysm Current Visit: Yes Status: Acute management per primary team. Qualifiers: Aortic location: abdominal aorta Presence of rupture: without rupture Qualified Code(s): I71.4 - Abdominal aortic aneurysm, without rupture (4) History of prosthetic aortic valve Current Visit: Yes Status: Acute patient had AVR in 2010 with bovine valve. GLORIA pending. (5) MDS (myelodysplastic syndrome) Current Visit: Yes Status: Chronic Hematology following. (6) Pancytopenia Current Visit: Yes Status: Acute secondary to MDS. Patient receiving platelets this AM prior to port removal. (7) CKD (chronic kidney disease) stage 2, GFR 60-89 ml/min Current Visit: Yes Status: Chronic stable. continue to monitor closely while on vancomycin. (8) Single kidney Current Visit: Yes Status: Chronic (9) History of coronary artery bypass graft Current Visit: Yes Status: Chronic (10) Atrial fibrillation Current Visit: Yes Status: Chronic s/p MAZE procedure. Qualifiers: Atrial fibrillation type: chronic Qualified Code(s): I48.2 - Chronic atrial fibrillation - Subjective Interval history: No major events overnight. Patient complains of ongoing back pain. He describes this as severe. It is exacerbated by sitting upright and also by stretching out his left arm. He denies any Nausea, emesis. He did have a bowel movement yesterday. He denies any other complaints or concerns at this time. He is scheduled for port removal today. Infect Dis PN-Objective Data - Labs CBC & Chem 7: 06/02/17 05:37 06/02/17 05:37 Labs: Laboratory Results - last 24 hr 06/01/17 06/01/17 05:09 08:31 Sodium 136 Potassium 3.5 Chloride 104 Carbon Dioxide 26 BUN 17 Creatinine 0.85 Est GFR ( Amer) > 60 Est GFR (Non-Af Amer) > 60 BUN/Creatinine Ratio 20 Glucose 94 POC Glucose 89 Calculated Osmolality 283 Calcium 9.3 Exam - Constitutional Vitals: Temp Pulse Resp BP Pulse Ox 98.8 F 84 18 150/84 94 06/01/17 07:59 06/01/17 07:59 06/01/17 07:59 06/01/17 07:59 06/01/17 07:59 General appearance: no acute distress - Head Head exam: Present: atraumatic, normal inspection, normocephalic - Eye Eye exam: Present: PERRL, sclera anicteric. Absent: conjuntiva pink ( conjunctiva is pale) - ENT ENT exam: Present: mucous membranes moist, normal oropharynx - Neck Neck exam: Present: normal inspection. Absent: lymphadenopathy, tenderness, thyromegaly - Respiratory Respiratory exam: Present: CTAB - Cardiovascular Cardiovascular exam: Present: irregular rhythm (patient has chronic afib), +S1, +S2. Absent: clicks, diastolic murmur, rubs, systolic murmur - GI/Abdominal GI/Abdominal exam: Present: normal bowel sounds - Extremities Exam Extremities exam: Present: normal inspection. Absent: pedal edema - Back Exam Back exam: Present: vertebral tenderness (Aoung T6-T8) Additional comments: negative brudzinski - VTE Documentation of Mechanical Device: Intermittent pneumatic compression device Consult Discharge Plan - Plan Referrals: Wang Coy Jr, MD [Primary Care Provider] - - Attending Attestation I examined this patient and my medical decision-making was reviewed with the Resident Physician. I agree with the documented findings, disposition and treatment plan as described except to the extent set forth below.
[2017-06-01 09:37] LABS: Platelet Estimate Decreased (Normal)
--- NOTE | 2017-06-01 09:43 | Internal Med Progress Note ---
Addendum entered and electronically signed by Keesha Wallace DO 06/01/17 16:26: Patient has been refusing the CTs of his cervical, thoracic, lumbar spine. Despite his complaints of intolerable back pain. The patient had also been given morphine to help with the pain while the imaging was done and yet he still refused. Original Note: <Keesha Wallace - Last Filed: 06/01/17 15:31> Date of Encounter: 06/01/17 Time of Encounter: 09:30 - Assessment and plan (1) Bacteremia Current Visit: Yes Status: Acute Assessment and plan: -Bacteremia- most likely from Port -Port removed by Interventional radiology today -Blood culture's 05/28/17 have grown 2/2 Staph epi, mecA Methicillin Resistance Gene -Patient also has Bovine aortic valve placed in 2010 -U/A: negative -patient stable, afebrile, normal WBC -I&D input appreciated Plan -Vancomycin Day 5 -Rifampin Day 3 -Repeat Blood cultures (05/31/17) pending -GLORIA ordered: patient meeting [place] criteria (3 minor) -continue to monitor LFTs and renal function (2) Abdominal pain Current Visit: Yes Status: Acute Assessment and plan: -Patient has no complaints of abdominal pain today -patient stated that he had multiple loose bowel movements through the night due to taking magnesium citrate -Most likely to to constipation secondary to opiate use. Patient has a history of cyclic constipation that causes abdominal pain. -U/S- no acute abnormality -CT soft tissue neck- no acute abnormality, chronically occluded distal right IJV -Chest CT- 1.9 mm right and left upper lobe pulmonary nodules. 4.7x 4.9 cm AAA that is stable from prior study 09/2016. Diverticulosis, trace pleural effusion. -ABD CT- same as chest CT -Chest X-ray- demonstrated no acute process - The patient is afebrile, normal WBC Plans: continue antibiotics continue to monitor Qualifiers: Abdominal location: right upper quadrant Qualified Code(s): R10.11 - Right upper quadrant pain (3) Back pain Current Visit: Yes Status: Acute Assessment and plan: 05/31/2017 -Patient stated that he had intolerable back [place] this morning and required morphine to help control the pain. -concern for abscess secondary to staph GPC bacteremia vs acute on chronic compression fracture -History of Lumbar radiculitis, roof mechanic vertebral compression fractures. -Chest x-ray demonstrated no acute cardiopulmonary process. -Abd CT- did not show hematoma, diverticulitis, fracture. -Patient denied incontinence. Plan: -CT cevical, thoracic, and lumbar were ordered -will control pain with morphine along with home oxycodone Qualifiers: Back pain location: thoracic back pain Chronicity: acute Back pain laterality: right Qualified Code(s): M54.6 - Pain in thoracic spine (4) Thrombocytopenia Current Visit: No Status: Acute Assessment and plan: -Due to Myelodysplastic syndrome -platelets 62 -Interventional radiology removed the port today -Oncology has been consulted and recommends to transfuse platelets for counts less than 20K or 50 K if there is active bleeding. -Oncology recommendations are appreciated -There is currently no active bleeding. Patient denies melena, hematechezia, Hematemesis. Plan: -we will continue to monitor H&H -Monitor for bleeding -patient is on fall precautions (5) MDS (myelodysplastic syndrome) Current Visit: Yes Status: Chronic Assessment and plan: -Chronic anemia Hgb 8.3 -Diagnosed in January 2017. -Currently on day 7 cycle 1 of decitabine ( 28 day cycle) -oncology following- appreciated -oncology recommendation to- -Transfuse blood for Hb and HCT less than 7 g/dl and 21 respectively. -Transfuse platelets for counts less than 20K or 50 K if there is active bleeding. Patient should wear helmet while ambulating ( if available) Plan: -stool occult ordered -continue to monitor H&H -continue monitor for active bleeding (6) Abdominal aortic aneurysm Current Visit: Yes Status: Acute Assessment and plan: Stable Abdominal aortic aneurysm measuring4.8 x 4.4cm- similar to prior study in 2015 -Chest CT- 1.9 mm right and left upper lobe pulmonary nodules. 4.7x 4.9 cm AAA that is stable from prior study 09/2016. Qualifiers: Presence of rupture: without rupture Qualified Code(s): I71.4 - Abdominal aortic aneurysm, without rupture (7) Atrial fibrillation Current Visit: No Status: Chronic Assessment and plan: stable HR 81 coreg Qualifiers: Atrial fibrillation type: chronic Qualified Code(s): I48.2 - Chronic atrial fibrillation (8) CAD (coronary artery disease) Current Visit: No Status: Chronic Assessment and plan: Stable S/P CABG Continue home medications Qualifiers: Coronary Disease-Associated Artery/Lesion type: [place] artery [place] vs. transplanted heart: [place] heart Associated angina: without angina Qualified Code(s): I25.10 - Atherosclerotic heart disease of [place] coronary artery without angina pectoris - Subjective Interval history: Patient laying in bed more comfortably He stated that his back pain has been outsourced the past 2 days, morphine helps to control the pain. He stated that he had multiple bowel movements last night due to the magnesium citrate he was being prepped to be taken down for his CT He denies fever, chills, chest pain, dyspnea, nausea, vomiting, hematuria, dysuria. - Constitutional Vitals: Temp Pulse Resp BP Pulse Ox 98.8 F 84 18 150/84 94 06/01/17 07:59 06/01/17 07:59 06/01/17 07:59 06/01/17 07:59 06/01/17 07:59 General appearance: Present: mild distress, A&O X 3, answers questions appropriately Exam: Gen.: Vitals noted. No acute distress. AAOx3 HEENT: PERRL oropharynx clear, Normocephalic, atraumatic Neck: Supple. No adenopathy. Cardiac: RRR, no murmur, +S1/S2 Pulmonary: CTA bilaterally, no wheezes, rales or rhonchi, equal chest expansion Abdomen: soft, nontender, Bowel sounds noted, no guarding Extremities: no BLE edema, nontender calf, no cyanosis or clubbing Neuro: A&Ox3, , no focal deficits Psych: Appropriate mood and behavior Internal Medicine: Result - Labs CBC & Chem 7: 06/01/17 08:31 06/01/17 08:31 Labs: Short CBC 06/01/17 Range/Units 08:31 WBC 4.6 (4.3-11.1) K/mcL Hgb 8.3 L (12.9-16.9) g/dL Hct 25.9 L (37.5-50.1) % Plt Count 62 L D (140-400) K/mcL Neutrophils # 3.3 (1.6-8.9) K/mcL BMP 06/01/17 08:31 Sodium 136 Potassium 3.5 Chloride 104 Carbon Dioxide 26 BUN 17 Creatinine 0.85 Glucose 94 Calcium 9.3 - ABG Interpretation ABG results: PT/INR, D-dimer PT 12.3 Seconds (9.4-12.1) H 05/28/17 10:53 - VTE Documentation of Mechanical Device: Intermittent pneumatic compression device Consult Discharge Plan - Plan Referrals: Wang Coy Jr, MD [Primary Care Provider] - <Franco James P - Last Filed: 06/01/17 18:35> Date of Encounter: 06/01/17 - Constitutional Vitals: Temp Pulse Resp BP Pulse Ox 98.0 F 75 15 176/88 97 06/01/17 16:28 06/01/17 16:28 06/01/17 16:28 06/01/17 16:28 06/01/17 16:28 Internal Medicine: Result - Labs CBC & Chem 7: 06/01/17 08:31 06/01/17 08:31 Labs: Short CBC 06/01/17 Range/Units 08:31 WBC 4.6 (4.3-11.1) K/mcL Hgb 8.3 L (12.9-16.9) g/dL Hct 25.9 L (37.5-50.1) % Plt Count 62 L D (140-400) K/mcL Neutrophils # 3.3 (1.6-8.9) K/mcL BMP 06/01/17 08:31 Sodium 136 Potassium 3.5 Chloride 104 Carbon Dioxide 26 BUN 17 Creatinine 0.85 Glucose 94 Calcium 9.3 - ABG Interpretation ABG results: PT/INR, D-dimer PT 12.3 Seconds (9.4-12.1) H 05/28/17 10:53 - Impressions Impressions Tunnelled Catheter Removal 06/01/17 00:00 IMPRESSION: Successful subcutaneous Port-A-Cath removal D/ / Levar Stein MD / Levar Stein MD Interpreting Provider: Levar Stein MD - Attending Attestation I examined this patient and my medical decision-making was reviewed with the Resident Physician. I agree with the documented findings, disposition and treatment plan as described except to the extent set forth below.
--- NOTE | 2017-06-01 10:10 | Infectious Disease Progress No ---
Date of Encounter: 05/31/17 Time of Encounter: 14:30 - Assessment and Plan (1) Sepsis Current Visit: Yes Status: Acute The patient had two SIRS criteria on admission. Likely secondary to bacteremia and a-port infection Improved. The patient has been afebrile and his tachycardia is improved. Peripheral blood cultures drawn 05/28/17 are positive 2/2 sets for S. epi. Repeat blood cultures drawn 05/31/17 are pending x 2 sets. Qualifiers: Qualified Code(s): A41.9 - Sepsis, unspecified organism (2) Bacteremia Current Visit: Yes Status: Acute Causative organism: S. epi. Source likely the a-port. Peripheral blood cultures drawn 05/28/17 are positive 2/2 sets for S. epi. No cultures from the a-port have been obtained. Repeat blood cultures drawn 05/31/17 are pending x 2 sets. Clinically, the port does not appear infected. The patient is scheduled to have it removed tomorrow. The patient has no endocarditis stigmata on exam. He has three minor Modified Deleon's criteria. Get GLORIA. The patient has a prosthetic aortic valve. Continue Vancomycin IV. Pharmacy to dose. Goal trough ~15. Continue Rifampin 300mg PO BID. If GLORIA positive, consider starting Gentamicin as well. Duration of treatment depends on the clinical picture. Monitor renal and liver function and for drug toxicity and dose-adjust antibiotics. Avoid the insertion of central venous access until blood cultures are negative x 48 hours. \. (3) Infection due to port-a-cath Current Visit: Yes Status: Acute Clinically, the a-port does not appear infected, but given the causative organism and clinical picture, high index of suspicion that this is the source. Plan for removal tomorrow. Qualifiers: Encounter type: initial encounter Qualified Code(s): T80.219A - Unspecified infection due to central venous catheter, initial encounter (4) History of prosthetic aortic valve Current Visit: Yes Status: Acute Patient had AVR in 2010 with bovine valve. GLORIA pending. (5) Pancytopenia Current Visit: Yes Status: Acute Improved. WBC normal. Continues to have anemia and thrombocytopenia. Likely secondary to MDS, worsened by infectious process. Continue to trend. (6) MDS (myelodysplastic syndrome) Current Visit: Yes Status: Chronic Hematology following. (7) Single kidney Current Visit: Yes Status: Chronic (8) CKD (chronic kidney disease) stage 2, GFR 60-89 ml/min Current Visit: Yes Status: Chronic Stable. Continue to monitor closely while on vancomycin. (9) Aortic aneurysm Current Visit: Yes Status: Acute Management per primary team. Qualifiers: Qualified Code(s): I71.9 - Aortic aneurysm of unspecified site, without rupture - Subjective Interval history: Patient seen and examined. No acute events noted overnight. Patient resting quietly in bed. Denies any acute complaints at this time. Reports chronic back pain, but states he took some oral pain medication and that seems to have helped. Denies fevers, chills, or rigors. Denies chest pain, shortness of breath , or cough. Denies nausea, vomiting, or diarrhea. Denies oral thrush or new skin lesions. Denies pain, redness, or warmth at his a-port site. Infect Dis PN-Objective Data - Labs CBC & Chem 7: 06/01/17 08:31 06/01/17 08:31 Labs: Laboratory Results - last 24 hr 06/01/17 06/01/17 06/01/17 05:09 08:31 08:31 WBC 4.6 RBC 2.95 L Hgb 8.3 L Hct 25.9 L MCV 87.8 MCH 28.1 MCHC 32.0 RDW 17.2 H Plt Count 62 L D MPV 9.5 Immature Gran % 3.5 Seg Neutrophils % 72.1 Lymphocytes % 20.5 Monocytes % 3.7 Eosinophils % 0.0 Basophils % 0.2 Neutrophils # 3.3 Lymphocytes # 0.9 Monocytes # 0.2 Eosinophils # 0.0 Basophils # 0.0 Platelet Estimate Decreased L Immature Plt Fraction 2.4 Sodium 136 Potassium 3.5 Chloride 104 Carbon Dioxide 26 BUN 17 Creatinine 0.85 Est GFR ( Amer) > 60 Est GFR (Non-Af Amer) > 60 BUN/Creatinine Ratio 20 Glucose 94 POC Glucose 89 Calculated Osmolality 283 Calcium 9.3 Exam - Constitutional Vitals: Temp Pulse Resp BP Pulse Ox 98.8 F 84 18 150/84 94 06/01/17 07:59 06/01/17 07:59 06/01/17 07:59 06/01/17 07:59 06/01/17 07:59 General appearance: average body habitus, cooperative, no acute distress - Head Head exam: Present: atraumatic, normal inspection, normocephalic - Eye Eye exam: Present: EOMI, normal appearance, PERRL Pupils: Present: normal accommodation - ENT ENT exam: Present: mucous membranes moist - Neck Neck exam: Present: normal inspection - Respiratory Respiratory exam: Present: CTAB. Absent: rales, respiratory distress, rhonchi, wheezes - Cardiovascular Cardiovascular exam: Present: RRR, +S1, +S2 - GI/Abdominal GI/Abdominal exam: Present: normal bowel sounds, soft. Absent: distended, tenderness - Extremities Exam Extremities exam: Present: normal inspection. Absent: joint swelling, pedal edema, tenderness - Neurological Exam Neurological exam: Present: alert, oriented X3, no focal deficits - Psychiatric Psychiatric exam: Present: normal affect, normal mood - Skin Skin exam: Present: dry, intact, normal color, warm - Additional findings Additional findings: A-port noted to the upper chest with transparent dressing C/D/I. Currrently accessed with 19G Guajardo needle. No erythema, warmth, or tenderness noted. - VTE Documentation of Mechanical Device: Intermittent pneumatic compression device Consult Discharge Plan - Plan Referrals: Wang Coy Jr, MD [Primary Care Provider] -
[2017-06-01] MEDS ORDERED: 0.9 % Sodium Chloride 500 ML ONE (11:05)
[2017-06-02] MEDS: *HR* OxyCODONE Immed Rel 15 MG TABLET PO SCH ×5 (04:16→19:33)
[2017-06-02 06:45] LABS: Hematocrit 23.7 % (37.5-50.1); Hemoglobin 7.6 g/dL (12.9-16.9); Immature Granulocytes % 2.5 % (0-4); Immature Platelets 2.4 % (1.1-6.1); Lymphocytes % 27.2 %; Mean Corpuscular HGB Conc 32.1 g/dL (31.6-35.5); Mean Corpuscular Hemoglobin 27.9 pg (28.0-33.3); Mean Corpuscular Volume 87.1 fL (83.0-100.0); Mean Platelet Volume 10.3 fL (9.4-12.4); Monocytes # 0.1 K/mcL (0.0-1.3); Monocytes % 3.9 %; Neutrophils # 2.4 K/mcL (1.6-8.9); Red Blood Count 2.72 M/mcL (4.19-5.50); Red Cell Distribution Width 17.1 % (11.5-14.5); Segmented Neutrophils % 66.4 %
[2017-06-02 06:54] LABS: Alanine Aminotransferase 16 Units/L (0-55); Albumin 3.3 g/dL (3.5-5.0); Albumin/Globulin Ratio 1.1 (1.1-2.2); Alkaline Phosphatase 81 Units/L (38-126); Aspartate Amino Transferase 16 Units/L (5-34); BUN/Creatinine Ratio 18 (6-26); Blood Urea Nitrogen 15 mg/dL (8-26); Calcium 8.9 mg/dL (8.6-10.8); Carbon Dioxide 26 mEq/L (19-29); Chloride 104 mEq/L (98-109); Glucose 86 mg/dL (70-99); Osmolality,Calculated 282 (280-300); Potassium 3.8 mEq/L (3.5-4.5); Sodium 136 mEq/L (136-145); Total Protein 6.3 g/dL (6.0-8.3); eGFR For African Americans > 60 (> 60); eGFR For Non-African Americans > 60 (> 60)
[2017-06-02 06:56] LABS: Bilirubin,Total 2.2 mg/dL (0.2-1.2)
[2017-06-02] MEDS: *HR* HYDROcodone/Acet 5/325 mg TABLET PO PRN (07:28)
[2017-06-02 07:37] LABS: Platelet Count 40 K/mcL (140-400)
[2017-06-02] MEDS ORDERED: Vancomycin 1,250 MG in D5% in Water 250 ML IVPB ONE (09:00)
--- NOTE | 2017-06-02 09:43 | Infectious Disease Progress No ---
Date of Encounter: 06/02/17 Time of Encounter: 09:41 - Assessment and Plan (1) Sepsis Current Visit: Yes Status: Acute Patient has 2 SIRS criteria this MA with tachycardia and leukopenia. However Tachycardia may be secondary to pain response from his back pain. Source is likely from his port. Blood cultures from 05/28/17 have grown 2/2 Staph epi Sensitive to Vacnomycin, Rifampin, Tetracycline. Repeat blood cultures from 05/31/17 show NGTD. Patient had port out yesterday. Had some oozing afterwards but this has now resolved. Patient met 3 minor Deleon criteria ( bacteremia with staph epi, Fever, Prosthetic valve). GLORIA pending today. Vancomycin Trough from 06/02/17 is 15.4 Recommendations: Continue Vancomycin. Goal Trough 15 Continue Rifampin. Recommend GLORIA to r/o IE. If GLORIA positive for vegetation may consider addition of gentamycin to regimen. However high risk for kidney injury given his single kidney and CKD. Agree with port removal for source control. Will need IV access. Please wait until cultures are negative for 48 hours before placing PICC. Continue to monitor for Drug toxicities. Continue to monitor LFTs while on Rifampin. Continue to monitor Renal function and vancomycin Trough. Qualifiers: Sepsis type: sepsis due to unspecified organism Qualified Code(s): A41.9 - Sepsis, unspecified organism (2) Bacteremia Current Visit: Yes Status: Acute as stated above. (3) Back pain Current Visit: Yes Status: Acute Patient continues to have pain in the thoracic spine. Patient has history of compression fractures. has point tenderness on exam. Primary team working up however patient has been unable to tolerate CT scans. Doubt infectious etiology. Appears to be msuckuloskeletol on exam and from history. Follow up with imaging when available. Qualifiers: Back pain location: low back pain Chronicity: chronic Back pain laterality: bilateral Sciatica presence: without sciatica Qualified Code(s) : M54.5 - Low back pain; G89.29 - Other chronic pain (4) Aortic aneurysm Current Visit: Yes Status: Acute management per primary team. Qualifiers: Aortic location: abdominal aorta Presence of rupture: without rupture Qualified Code(s): I71.4 - Abdominal aortic aneurysm, without rupture (5) History of prosthetic aortic valve Current Visit: Yes Status: Acute patient had AVR in 2010 with bovine valve. GLORIA pending. (6) MDS (myelodysplastic syndrome) Current Visit: Yes Status: Chronic Hematology following. (7) Pancytopenia Current Visit: Yes Status: Acute secondary to MDS. Patient received platelets yesterday. 40 this AM. (8) CKD (chronic kidney disease) stage 2, GFR 60-89 ml/min Current Visit: Yes Status: Chronic stable. continue to monitor closely while on vancomycin. (9) Single kidney Current Visit: Yes Status: Chronic (10) History of coronary artery bypass graft Current Visit: Yes Status: Chronic (11) Atrial fibrillation Current Visit: Yes Status: Chronic s/p MAZE procedure. currently rate controlled. Qualifiers: Atrial fibrillation type: chronic Qualified Code(s): I48.2 - Chronic atrial fibrillation - Subjective Interval history: No major events overnight. Patient did ave port removed yesterday and had come bleeding/ oozing from site. This resolved after a pressure dressing was applied. This morning he denies any new symptoms. HE still has back pain but it is currently tolerable. He denies any fever, chills, malaise. He denies any rash or diarrhea. He has no further complaints or concerns at this time. Infect Dis PN-Objective Data - Labs CBC & Chem 7: 06/02/17 05:37 06/02/17 05:37 Labs: Laboratory Results - last 24 hr 06/01/17 06/01/17 06/01/17 12:38 17:47 19:20 WBC RBC Hgb Hct MCV MCH MCHC RDW Plt Count MPV Immature Gran % Seg Neutrophils % Lymphocytes % Monocytes % Eosinophils % Basophils % Neutrophils # Lymphocytes # Monocytes # Eosinophils # Basophils # Immature Plt Fraction Sodium Potassium Chloride Carbon Dioxide BUN Creatinine Est GFR ( Amer) Est GFR (Non-Af Amer) BUN/Creatinine Ratio Glucose POC Glucose 102 H 96 H Calculated Osmolality Calcium Total Bilirubin AST ALT Alkaline Phosphatase Serum Total Protein Albumin Globulin Albumin/Globulin Ratio Vancomycin Trough 22.3 H* Random Vancomycin 06/02/17 06/02/17 06/02/17 00:21 05:31 05:37 WBC 3.6 L RBC 2.72 L Hgb 7.6 L Hct 23.7 L MCV 87.1 MCH 27.9 L MCHC 32.1 RDW 17.1 H Plt Count 40 L MPV 10.3 Immature Gran % 2.5 Seg Neutrophils % 66.4 Lymphocytes % 27.2 Monocytes % 3.9 Eosinophils % 0.0 Basophils % 0.0 Neutrophils # 2.4 Lymphocytes # 1.0 Monocytes # 0.1 Eosinophils # 0.0 Basophils # 0.0 Immature Plt Fraction 2.4 Sodium Potassium Chloride Carbon Dioxide BUN Creatinine Est GFR ( Amer) Est GFR (Non-Af Amer) BUN/Creatinine Ratio Glucose POC Glucose 89 89 Calculated Osmolality Calcium Total Bilirubin AST ALT Alkaline Phosphatase Serum Total Protein Albumin Globulin Albumin/Globulin Ratio Vancomycin Trough Random Vancomycin 06/02/17 06/02/17 05:37 05:37 WBC RBC Hgb Hct MCV MCH MCHC RDW Plt Count MPV Immature Gran % Seg Neutrophils % Lymphocytes % Monocytes % Eosinophils % Basophils % Neutrophils # Lymphocytes # Monocytes # Eosinophils # Basophils # Immature Plt Fraction Sodium 136 Potassium 3.8 Chloride 104 Carbon Dioxide 26 BUN 15 Creatinine 0.83 Est GFR ( Amer) > 60 Est GFR (Non-Af Amer) > 60 BUN/Creatinine Ratio 18 Glucose 86 POC Glucose Calculated Osmolality 282 Calcium 8.9 Total Bilirubin 2.2 H D AST 16 ALT 16 Alkaline Phosphatase 81 Serum Total Protein 6.3 Albumin 3.3 L Globulin 3.0 Albumin/Globulin Ratio 1.1 Vancomycin Trough Random Vancomycin 15.4 Cultures: Cultures 05/31/17 10:46 Blood Culture - Preliminary Peripheral Venipuncture No growth. - Impressions Impressions Tunnelled Catheter Removal 06/01/17 00:00 IMPRESSION: Successful subcutaneous Port-A-Cath removal D/ / Levar Stein MD / Levar Stein MD Interpreting Provider: Levar Stein MD Exam - Constitutional Vitals: Temp Pulse Resp BP Pulse Ox 98.5 F 100 15 151/81 96 06/02/17 06:50 06/02/17 06:50 06/02/17 06:50 06/02/17 06:50 06/02/17 06:50 General appearance: cooperative, no acute distress - Head Head exam: Present: atraumatic, normal inspection, normocephalic - Eye Eye exam: Present: PERRL, sclera anicteric - ENT ENT exam: Present: mucous membranes moist - Neck Neck exam: Present: normal inspection. Absent: lymphadenopathy, tenderness, thyromegaly - Respiratory Respiratory exam: Present: CTAB - Cardiovascular Cardiovascular exam: Present: RRR, +S1, +S2. Absent: diastolic murmur, systolic murmur Additional comments: There is a dressing that has some shadowing over port removal site. No active bleeding noted at this time. - Extremities Exam Extremities exam: Present: normal inspection. Absent: pedal edema - Skin Skin exam: Absent: erythema, rash - VTE Documentation of Mechanical Device: Intermittent pneumatic compression device Consult Discharge Plan - Plan Referrals: Wang Coy Jr, MD [Primary Care Provider] - - Attending Attestation I examined this patient and my medical decision-making was reviewed with the Resident Physician. I agree with the documented findings, disposition and treatment plan as described except to the extent set forth below.
[2017-06-02] MEDS: Sennosides 8.6 MG TABLET PO SCH ×2 (09:48→20:41)
[2017-06-02] MEDS: rifAMPin 150 MG CAPSULE PO SCH ×2 (09:49→16:33)
[2017-06-02] MEDS: predniSONE 20 MG TABLET PO SCH (09:49)
--- NOTE | 2017-06-02 10:01 | Internal Med Progress Note ---
<Keesha Wallace - Last Filed: 06/02/17 12:56> Date of Encounter: 06/02/17 Time of Encounter: 09:57 - Assessment and plan (1) Sepsis Current Visit: Yes Status: Acute Assessment and plan: most likely from Port -the patient met sepsis this morning: leukopenic and tachycardic however the tachycardia is methodically due to his back pain -patient is stable, afebrile, normotensive -Port removed by Interventional radiology yesterday -Blood culture's 05/28/17 have grown 2/2 Staph epi, mecA Methicillin Resistance Gene -Blood cultures (05/31/17) preliminary- No growth -Patient also has Bovine aortic valve placed in 2010 -U/A: negative -GLORIA canceled by cardiology due to thrombocytopenia -I&D input appreciated Plan -continue IV antibiotics -Vancomycin Day 6- managed by pharmacy. Trough goal 15. Yesterday trough was 22.3 -Rifampin Day 4 -will wait until cultures are negative for 48 hours before placing PICC -TTE ordered -continue to monitor LFTs and renal function Qualifiers: Sepsis type: sepsis due to unspecified organism Qualified Code(s): A41.9 - Sepsis, unspecified organism (2) Bacteremia Current Visit: Yes Status: Acute Assessment and plan: -Bacteremia- most likely from Port -Port removed by Interventional radiology yesterday -Blood culture's 05/28/17 have grown 2/2 Staph epi, mecA Methicillin Resistance Gene -Blood cultures (05/31/17) preliminary- No growth -Patient also has Bovine aortic valve placed in 2010 -U/A: negative -patient stable, afebrile, normal WBC -GLORIA canceled by cardiology due to thrombocytopenia -I&D input appreciated Plan -Vancomycin Day 6- managed by pharmacy, complicated due to single kidney) -Rifampin Day 4 -TTE ordered -continue to monitor LFTs and renal function (3) Abdominal pain Current Visit: Yes Status: Acute Assessment and plan: -Patient has no complaints of abdominal pain today since he had multiple loose bowel movements 2 nights ago. -Abdominal pain was most likely constipation secondary to opiate use. Patient has a history of cyclic constipation that causes abdominal pain. -U/S- no acute abnormality -CT soft tissue neck- no acute abnormality, chronically occluded distal right IJV -Chest CT- 1.9 mm right and left upper lobe pulmonary nodules. 4.7x 4.9 cm AAA that is stable from prior study 09/2016. Diverticulosis, trace pleural effusion. -ABD CT- same as chest CT -Chest X-ray- demonstrated no acute process - The patient is afebrile, normal WBC Plans: MiraLAX, dulcolax, and senna as needed continue to monitor Qualifiers: Abdominal location: right upper quadrant Qualified Code(s): R10.11 - Right upper quadrant pain (4) Back pain Current Visit: Yes Status: Acute Assessment and plan: -Patient stated that he had intolerable back [place] this morning and required morphine to help control the pain. -concern for abscess secondary to staph GPC bacteremia vs acute on chronic compression fracture -Patient refused to have the CT of his cervical, thoracic, and lumbar spine. 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 -Chest x-ray demonstrated no acute cardiopulmonary process. -Abd CT- did not show hematoma, diverticulitis. No acute osseus process. Numerous kyphoplasty sites in lower thoracic and lumbar. -Patient denied incontinence. Plan: -CT cevical, thoracic, and lumbar were ordered -will control pain with morphine along with roxicodone Qualifiers: Back pain location: thoracic back pain Chronicity: acute Back pain laterality: right Qualified Code(s): M54.6 - Pain in thoracic spine (5) Thrombocytopenia Current Visit: No Status: Acute Assessment and plan: -Due to Myelodysplastic syndrome -platelets 40 -Interventional radiology removed the port yesterday -after removal of port the site bled and dressings were changed multiple times so a dressing with pressure from a fluid bag was placed on top and the bleeding stopped. -Oncology has been consulted and recommends to transfuse platelets for counts less than 20K or 50 K if there is active bleeding. -Oncology recommendations are appreciated -There is currently no active bleeding. Patient denies melena, hematechezia, Hematemesis. Plan: -we will continue to monitor H&H -Monitor for bleeding -patient is on fall precautions (6) MDS (myelodysplastic syndrome) Current Visit: Yes Status: Chronic Assessment and plan: -Chronic anemia Hgb 7.6 -Diagnosed in January 2017. -Currently on day 7 cycle 1 of decitabine ( 28 day cycle) -oncology following- appreciated -oncology recommendation to- -Transfuse blood for Hb and HCT less than 7 g/dl and 21 respectively. -Transfuse platelets for counts less than 20K or 50 K if there is active bleeding. Patient should wear helmet while ambulating ( if available) Plan: -stool occult ordered -continue to monitor H&H -continue monitor for active bleeding (7) Abdominal aortic aneurysm Current Visit: Yes Status: Acute Assessment and plan: Stable Abdominal aortic aneurysm measuring4.8 x 4.4cm- similar to prior study in 2015 -Chest CT- 1.9 mm right and left upper lobe pulmonary nodules. 4.7x 4.9 cm AAA that is stable from prior study 09/2016. Qualifiers: Presence of rupture: without rupture Qualified Code(s): I71.4 - Abdominal aortic aneurysm, without rupture (8) Atrial fibrillation Current Visit: No Status: Chronic Assessment and plan: stable HR 80 coreg Qualifiers: Atrial fibrillation type: chronic Qualified Code(s): I48.2 - Chronic atrial fibrillation (9) CAD (coronary artery disease) Current Visit: No Status: Chronic Assessment and plan: Stable S/P CABG Continue home medications Qualifiers: Coronary Disease-Associated Artery/Lesion type: [place] artery [place] vs. transplanted heart: [place] heart Associated angina: without angina Qualified Code(s): I25.10 - Atherosclerotic heart disease of [place] coronary artery without angina pectoris - Subjective Interval history: Patient laying in bed more comfortably in no distress He stated that he still has back pain but the morphine and roxicodone helps to control the pain. He refused to get to CT scan of his cervical, lumbar thoracic done yesterday. He stated he cannot lie flat on his back his only complaint is a headache that improves with hydrocodone. He denies fever, chills, chest pain, dyspnea, nausea, vomiting, hematuria, dysuria. - Constitutional Vitals: Temp Pulse Resp BP Pulse Ox 98.5 F 100 15 151/81 96 06/02/17 06:50 06/02/17 06:50 06/02/17 06:50 06/02/17 06:50 06/02/17 06:50 General appearance: Present: mild distress, A&O X 3, answers questions appropriately Exam: Gen.: Vitals noted. No acute distress. AAOx3 HEENT: PERRL, oropharynx clear, Normocephalic, atraumatic Neck: Supple. No adenopathy. Cardiac: regular, no murmur, +S1/S2 Pulmonary: CTA bilaterally, no wheezes, rales or rhonchi, equal chest expansion Abdomen: soft, nontender, Bowel sounds noted, no guarding Back: Nontender throughout by hard palpation. no erythema or swelling Extremities: no BLE edema, nontender calf, no cyanosis or clubbing Neuro: A&Ox3, moves all extremities, no focal deficits Psych: Appropriate mood and behavior Internal Medicine: Result - Labs CBC & Chem 7: 06/02/17 05:37 06/02/17 05:37 Labs: Short CBC 06/02/17 Range/Units 05:37 WBC 3.6 L (4.3-11.1) K/mcL Hgb 7.6 L (12.9-16.9) g/dL Hct 23.7 L (37.5-50.1) % Plt Count 40 L (140-400) K/mcL Neutrophils # 2.4 (1.6-8.9) K/mcL BMP 06/02/17 05:37 Sodium 136 Potassium 3.8 Chloride 104 Carbon Dioxide 26 BUN 15 Creatinine 0.83 Glucose 86 Calcium 8.9 Liver Function 06/02/17 Range/Units 05:37 Total Bilirubin 2.2 H D (0.2-1.2) mg/dL AST 16 (5-34) Units/L ALT 16 (0-55) Units/L Alkaline Phosphatase 81 (38-126) Units/L Albumin 3.3 L (3.5-5.0) g/dL - ABG Interpretation ABG results: PT/INR, D-dimer PT 12.3 Seconds (9.4-12.1) H 05/28/17 10:53 - Impressions Impressions Tunnelled Catheter Removal 06/01/17 00:00 IMPRESSION: Successful subcutaneous Port-A-Cath removal D/ / Levar Stein MD / Levar Stein MD Interpreting Provider: Levar Stein MD - VTE Documentation of Mechanical Device: Intermittent pneumatic compression device Consult Discharge Plan - Plan Referrals: Wang Coy Jr, MD [Primary Care Provider] - <Franco James P - Last Filed: 06/02/17 17:50> Date of Encounter: 06/02/17 - Constitutional Vitals: Temp Pulse Resp BP Pulse Ox 98.3 F 93 16 122/73 94 06/02/17 15:45 06/02/17 15:45 06/02/17 15:45 06/02/17 15:45 06/02/17 15:45 Internal Medicine: Result - Labs CBC & Chem 7: 06/02/17 05:37 06/02/17 05:37 Labs: Short CBC 06/02/17 Range/Units 05:37 WBC 3.6 L (4.3-11.1) K/mcL Hgb 7.6 L (12.9-16.9) g/dL Hct 23.7 L (37.5-50.1) % Plt Count 40 L (140-400) K/mcL Neutrophils # 2.4 (1.6-8.9) K/mcL BMP 06/02/17 05:37 Sodium 136 Potassium 3.8 Chloride 104 Carbon Dioxide 26 BUN 15 Creatinine 0.83 Glucose 86 Calcium 8.9 Liver Function 06/02/17 Range/Units 05:37 Total Bilirubin 2.2 H D (0.2-1.2) mg/dL AST 16 (5-34) Units/L ALT 16 (0-55) Units/L Alkaline Phosphatase 81 (38-126) Units/L Albumin 3.3 L (3.5-5.0) g/dL - ABG Interpretation ABG results: PT/INR, D-dimer PT 12.3 Seconds (9.4-12.1) H 05/28/17 10:53 - Impressions Impressions Chest X-Ray 06/02/17 15:23 IMPRESSION: Right arm PICC line extends to the upper right atrium. Mild cardiomegaly. Elevation right hemidiaphragm with basilar atelectasis. D/ / Herb Greene MD / Herb Greene MD Interpreting Provider: Herb Greene MD Chest X-Ray 06/02/17 16:00 IMPRESSION: Right PICC terminating at the cavoatrial junction. D/ / Silvestre Lopez MD / Silvestre Lopez MD Interpreting Provider: Silvestre Lopez MD - Attending Attestation I examined this patient and my medical decision-making was reviewed with the Resident Physician. I agree with the documented findings, disposition and treatment plan as described except to the extent set forth below.
[2017-06-02] MEDS ORDERED: Lidocaine -MPF 1% 5 ML AMPUL INFILT ONE (12:01)
[2017-06-02] MEDS: *HR* Morphine 2 MG/ML SYRINGE IVP PRN ×2 (16:23→20:42)
[2017-06-03] MEDS: *HR* OxyCODONE Immed Rel 15 MG TABLET PO SCH ×6 (00:28→20:06)
[2017-06-03 05:46] LABS: Hematocrit 22.5 % (37.5-50.1); Mean Corpuscular Volume 86.9 fL (83.0-100.0); Red Blood Count 2.59 M/mcL (4.19-5.50)
[2017-06-03 05:48] LABS: Hemoglobin 7.3 g/dL (12.9-16.9); Immature Granulocytes % 3.8 % (0-4); Immature Platelets 2.1 % (1.1-6.1); Lymphocytes % 38.4 %; Mean Corpuscular HGB Conc 32.4 g/dL (31.6-35.5); Mean Corpuscular Hemoglobin 28.2 pg (28.0-33.3); Mean Platelet Volume 12.1 fL (9.4-12.4); Monocytes # 0.1 K/mcL (0.0-1.3); Monocytes % 4.2 %; Neutrophils # 1.4 K/mcL (1.6-8.9); Red Cell Distribution Width 16.8 % (11.5-14.5); Segmented Neutrophils % 53.6 %
[2017-06-03 05:49] LABS: Platelet Count 31 K/mcL (140-400)
[2017-06-03 06:00] LABS: BUN/Creatinine Ratio 20 (6-26); Blood Urea Nitrogen 17 mg/dL (8-26); Calcium 8.9 mg/dL (8.6-10.8); Carbon Dioxide 27 mEq/L (19-29); Chloride 104 mEq/L (98-109); Glucose 90 mg/dL (70-99); Osmolality,Calculated 281 (280-300); Potassium 3.6 mEq/L (3.5-4.5); Sodium 135 mEq/L (136-145); eGFR For African Americans > 60 (> 60); eGFR For Non-African Americans > 60 (> 60)
[2017-06-03] MEDS ORDERED: Vancomycin 1,250 MG in D5% in Water 250 ML IVPB ONE (08:00)
[2017-06-03] MEDS: Sennosides 8.6 MG TABLET PO SCH ×2 (09:24→20:05)
[2017-06-03] MEDS: predniSONE 20 MG TABLET PO SCH (09:24)
[2017-06-03] MEDS: rifAMPin 150 MG CAPSULE PO SCH ×2 (09:25→16:38)
[2017-06-03] MEDS: Vancomycin 1,250 MG in D5% in Water 250 ML IVPB SCH (19:51)
[2017-06-03] MEDS: 0.9 % Sodium Chloride 1,000 ML IVC SCH (19:52)
[2017-06-04] MEDS: *HR* OxyCODONE Immed Rel 15 MG TABLET PO SCH ×6 (00:08→20:00)
[2017-06-04] MEDS ORDERED: Vancomycin 1,500 MG in D5% in Water 250 ML IVPB ONE (07:00)
[2017-06-04] MEDS: Sennosides 8.6 MG TABLET PO SCH ×2 (07:40→20:00)
[2017-06-04] MEDS: rifAMPin 150 MG CAPSULE PO SCH ×2 (07:42→16:30)
[2017-06-04] MEDS: predniSONE 20 MG TABLET PO SCH (07:42)
[2017-06-04] MEDS: *HR* HYDROcodone/Acet 5/325 mg TABLET PO PRN (09:35)
--- NOTE | 2017-06-04 17:21 | Internal Med Progress Note ---
Date of Encounter: 06/03/17 Time of Encounter: 17:19 - Assessment and plan (1) Sepsis Current Visit: Yes Status: Acute Assessment and plan: most likely from Port -the patient met sepsis this morning: leukopenic and tachycardic however the tachycardia is methodically due to his back pain -patient is stable, afebrile, normotensive -Port removed by Interventional radiology yesterday -Blood culture's 05/28/17 have grown 2/2 Staph epi, mecA Methicillin Resistance Gene -Blood cultures (05/31/17) preliminary- No growth -Patient also has Bovine aortic valve placed in 2010 -U/A: negative -GLORIA canceled by cardiology due to thrombocytopenia -I&D input appreciated Plan -continue IV antibiotics -Vancomycin Day 6- managed by pharmacy. Trough goal 15. Yesterday trough was 22.3 -Rifampin Day 4 -will wait until cultures are negative for 48 hours before placing PICC -TTE ordered -continue to monitor LFTs and renal function 06/03/2017. Clinically better. Vitals stable. Awaiting for cultures. Will continue same antibiotics. Qualifiers: Sepsis type: sepsis due to unspecified organism Qualified Code(s): A41.9 - Sepsis, unspecified organism (2) Bacteremia Current Visit: Yes Status: Acute Assessment and plan: Infectious disease on the board. We will continue to follow the recommendations from infectious disease (3) Abdominal pain Current Visit: Yes Status: Acute Assessment and plan: -Patient has no complaints of abdominal pain today since he had multiple loose bowel movements 2 nights ago. -Abdominal pain was most likely constipation secondary to opiate use. Patient has a history of cyclic constipation that causes abdominal pain. -U/S- no acute abnormality -CT soft tissue neck- no acute abnormality, chronically occluded distal right IJV -Chest CT- 1.9 mm right and left upper lobe pulmonary nodules. 4.7x 4.9 cm AAA that is stable from prior study 09/2016. Diverticulosis, trace pleural effusion. -ABD CT- same as chest CT -Chest X-ray- demonstrated no acute process - The patient is afebrile, normal WBC Plans: MiraLAX, dulcolax, and senna as needed continue to monitor 06/03/2017. Patient denies any abdominal pain. We will continue to monitor closely Qualifiers: Abdominal location: right upper quadrant Qualified Code(s): R10.11 - Right upper quadrant pain (4) Back pain Current Visit: Yes Status: Acute Assessment and plan: Patient is a persistent back pain. He is on adequate opioid analgesics. will continue the same. Qualifiers: Back pain location: low back pain Chronicity: chronic Back pain laterality: bilateral Sciatica presence: without sciatica Qualified Code(s) : M54.5 - Low back pain; G89.29 - Other chronic pain - Subjective Interval history: Seen and examined. Chart reviewed. Patient is comfortably lying in bed. Patient is still complaining of back pain. Noted minor oozing from the port removal site. - Constitutional Vitals: Temp Pulse Resp BP Pulse Ox 97.7 F 87 16 133/91 99 06/04/17 15:00 06/04/17 15:00 06/04/17 15:00 06/04/17 15:00 06/04/17 15:00 General appearance: Present: mild distress, A&O X 3, answers questions appropriately - Head Head exam: Present: atraumatic, normocephalic - Eye Eye exam: Present: PERRL, conjuntiva pink, sclera anicteric Pupils: Present: PERRL - Neck Neck exam general surgery: Present: supple, trachea midline. Absent: lymphadenopathy - Respiratory Respiratory exam: Present: CTAB. Absent: accessory muscle use, rales, rhonchi, wheezes - Cardiovascular Cardiovascular exam: Present: RRR, +S1, +S2. Absent: diastolic murmur, gallop, rubs, systolic murmur - GI/Abdominal GI/Abdominal exam: Present: normal bowel sounds, soft, no peritoneal signs. Absent: distended, tenderness - Extremities Exam Extremities exam: Present: warm, radial pulses palpable and symetrical. Absent : calf tenderness, cyanotic, pedal edema - Neurological Exam Neurological exam: Present: CN II-XII intact, oriented X3, no focal deficits. Absent: pronater drift, facial droop, speech deficit - Skin Skin exam: Present: dry, intact Internal Medicine: Result - Labs CBC & Chem 7: 06/03/17 04:25 06/03/17 04:25 - ABG Interpretation ABG results: PT/INR, D-dimer PT 12.3 Seconds (9.4-12.1) H 05/28/17 10:53 - VTE Documentation of Mechanical Device: Intermittent pneumatic compression device Consult Discharge Plan - Plan Referrals: Wang Coy Jr, MD [Primary Care Provider] -
--- NOTE | 2017-06-04 17:27 | Internal Med Progress Note ---
Date of Encounter: 06/04/17 Time of Encounter: 17:25 - Assessment and plan (1) Sepsis Current Visit: Yes Status: Acute Assessment and plan: most likely from Port -the patient met sepsis this morning: leukopenic and tachycardic however the tachycardia is methodically due to his back pain -patient is stable, afebrile, normotensive -Port removed by Interventional radiology yesterday -Blood culture's 05/28/17 have grown 2/2 Staph epi, mecA Methicillin Resistance Gene -Blood cultures (05/31/17) preliminary- No growth -Patient also has Bovine aortic valve placed in 2010 -U/A: negative -GLORIA canceled by cardiology due to thrombocytopenia -I&D input appreciated Plan -continue IV antibiotics -Vancomycin Day 6- managed by pharmacy. Trough goal 15. Yesterday trough was 22.3 -Rifampin Day 4 -will wait until cultures are negative for 48 hours before placing PICC -TTE ordered -continue to monitor LFTs and renal function 06/03/2017. Clinically better. Vitals stable. Awaiting for cultures. Will continue same antibiotics. 06/04/2017. Clinically improving. vital stable. Infectious disease input appreciated. We will follow the recommendations Qualifiers: Sepsis type: sepsis due to unspecified organism Qualified Code(s): A41.9 - Sepsis, unspecified organism (2) Bacteremia Current Visit: Yes Status: Acute Assessment and plan: Infectious disease on the board. We will continue to follow the recommendations from infectious disease (3) Abdominal pain Current Visit: Yes Status: Acute Assessment and plan: -Patient has no complaints of abdominal pain today since he had multiple loose bowel movements 2 nights ago. -Abdominal pain was most likely constipation secondary to opiate use. Patient has a history of cyclic constipation that causes abdominal pain. -U/S- no acute abnormality -CT soft tissue neck- no acute abnormality, chronically occluded distal right IJV -Chest CT- 1.9 mm right and left upper lobe pulmonary nodules. 4.7x 4.9 cm AAA that is stable from prior study 09/2016. Diverticulosis, trace pleural effusion. -ABD CT- same as chest CT -Chest X-ray- demonstrated no acute process - The patient is afebrile, normal WBC Plans: MiraLAX, dulcolax, and senna as needed continue to monitor 06/03/2017. Patient denies any abdominal pain. We will continue to monitor closely Qualifiers: Abdominal location: right upper quadrant Qualified Code(s): R10.11 - Right upper quadrant pain (4) Back pain Current Visit: Yes Status: Acute Assessment and plan: Patient is a persistent back pain. He is on adequate opioid analgesics. will continue the same. Qualifiers: Back pain location: low back pain Chronicity: chronic Back pain laterality: bilateral Sciatica presence: without sciatica Qualified Code(s) : M54.5 - Low back pain; G89.29 - Other chronic pain - Subjective Interval history: Seen and examined. Chart reviewed. Patient is comfortably lying in bed. Patient is still complaining of back pain. Noted minor oozing from the port removal site. 06/04/2017. Patient is comfortably lying in the bed. Chart reviewed. Patient seen and examined. Patient's oozing from the port removal site is under control. - Constitutional Vitals: Temp Pulse Resp BP Pulse Ox 97.7 F 87 16 133/91 99 06/04/17 15:00 06/04/17 15:00 06/04/17 15:00 06/04/17 15:00 06/04/17 15:00 General appearance: Present: mild distress, A&O X 3, answers questions appropriately - Head Head exam: Present: atraumatic, normocephalic - Eye Eye exam: Present: PERRL, conjuntiva pink, sclera anicteric Pupils: Present: PERRL - Neck Neck exam general surgery: Present: supple, trachea midline. Absent: lymphadenopathy - Respiratory Respiratory exam: Present: CTAB. Absent: accessory muscle use, rales, rhonchi, wheezes - Cardiovascular Cardiovascular exam: Present: RRR, +S1, +S2. Absent: diastolic murmur, gallop, rubs, systolic murmur - GI/Abdominal GI/Abdominal exam: Present: normal bowel sounds, soft, no peritoneal signs. Absent: distended, tenderness - Extremities Exam Extremities exam: Present: warm, radial pulses palpable and symetrical. Absent : calf tenderness, cyanotic, pedal edema - Neurological Exam Neurological exam: Present: CN II-XII intact, oriented X3, no focal deficits. Absent: pronater drift, facial droop, speech deficit - Skin Skin exam: Present: dry, intact Internal Medicine: Result - Labs CBC & Chem 7: 06/03/17 04:25 06/03/17 04:25 - ABG Interpretation ABG results: PT/INR, D-dimer PT 12.3 Seconds (9.4-12.1) H 05/28/17 10:53 - VTE Documentation of Mechanical Device: Intermittent pneumatic compression device Consult Discharge Plan - Plan Referrals: Wang Coy Jr, MD [Primary Care Provider] -
[2017-06-05] MEDS: *HR* OxyCODONE Immed Rel 15 MG TABLET PO SCH ×6 (00:14→20:17)
[2017-06-05 04:40] LABS: Monocytes % 5.1 %
[2017-06-05 04:42] LABS: Hematocrit 22.2 % (37.5-50.1); Hemoglobin 7.2 g/dL (12.9-16.9); Immature Granulocytes % 4.7 % (0-4); Immature Platelets 2.8 % (1.1-6.1); Lymphocytes % 40.4 %; Mean Corpuscular HGB Conc 32.4 g/dL (31.6-35.5); Mean Corpuscular Hemoglobin 27.9 pg (28.0-33.3); Monocytes # 0.1 K/mcL (0.0-1.3); Neutrophils # 1.3 K/mcL (1.6-8.9); Nucleated Red Blood Cells 0.8 /100 WBC (0); Red Blood Count 2.58 M/mcL (4.19-5.50); Red Cell Distribution Width 16.6 % (11.5-14.5); Segmented Neutrophils % 49.8 %
[2017-06-05 04:43] LABS: Lymphocytes # 1.1 K/mcL (0.6-4.6)
[2017-06-05 04:46] LABS: Platelet Count 16 K/mcL (140-400)
[2017-06-05 04:51] LABS: Alanine Aminotransferase 13 Units/L (0-55); Albumin 3.2 g/dL (3.5-5.0); Albumin/Globulin Ratio 1.1 (1.1-2.2); Alkaline Phosphatase 86 Units/L (38-126); Aspartate Amino Transferase 14 Units/L (5-34); BUN/Creatinine Ratio 15 (6-26); Bilirubin,Total 1.9 mg/dL (0.2-1.2); Blood Urea Nitrogen 13 mg/dL (8-26); Calcium 8.8 mg/dL (8.6-10.8); Carbon Dioxide 29 mEq/L (19-29); Chloride 102 mEq/L (98-109); Globulin 2.9 g/dL (2.4-3.5); Glucose 97 mg/dL (70-99); Osmolality,Calculated 276 (280-300); Potassium 3.8 mEq/L (3.5-4.5); Sodium 133 mEq/L (136-145); Total Protein 6.1 g/dL (6.0-8.3); eGFR For African Americans > 60 (> 60); eGFR For Non-African Americans > 60 (> 60)
[2017-06-05] MEDS ORDERED: Acetaminophen 325 MG TABLET PO ONE (04:53)
[2017-06-05 05:18] LABS: Platelet Estimate Marked Decrease (Normal); Tear Drop Cells 1+ (Not Present)
[2017-06-05 05:19] LABS: Anisocytosis 1+ (Not Present); Schistocytes 1+ (Not Present)
[2017-06-05] MEDS: Vancomycin 1,500 MG in D5% in Water 250 ML IVPB SCH (06:03)
[2017-06-05] MEDS: rifAMPin 150 MG CAPSULE PO SCH ×2 (08:22→17:43)
[2017-06-05] MEDS: predniSONE 20 MG TABLET PO SCH (08:22)
[2017-06-05] MEDS: Sennosides 8.6 MG TABLET PO SCH ×2 (08:23→20:16)
[2017-06-05] MEDS ORDERED: 0.9 % Sodium Chloride 250 ML ONE (10:00)
--- NOTE | 2017-06-05 11:46 | Oncology Inp Progress Note ---
Date of Encounter: 06/05/17 Time of Encounter: 11:39 (1) MDS (myelodysplastic syndrome) Current Visit: Yes Status: Chronic Assessment and plan: Currently on cycle 1 day 15 of decitabine regimen ( 28 day cycle). Cell counts have dropped probably due to myelosupression related to chemotherapy along with ongoing IV antibiotic management for bacteremia. Currently on day 7 cycle 1 of decitabine ( 28 day cycle). At this time his treatment will consist in supportive management with IVF,close monitoring of blood cell counts, broad spectrum antibiotics - Monitor CBC daily. Transfuse blood for Hb and HCT less than 7 g/dl and 21 % respectively. - Transfuse platelets for counts less than 20K or 50 K if there is active bleeding. Patient should wear helmet while ambulating ( if available). - Upon discharge, please arrange follow up with primary oncologist to discuss timing to resume chemotherapy. - His blood cultures from 05/28 grew satphylococcus epidermidis; surveillance blood cultures from 05/31 remain negative so far. ID on board. Considerations include GLORIA to rule out IE and decide about duration of IV antibiotics. PICC line in place ( placed on 06/02). - Port removed on 06/03. At this time in view of the uncertainty about whether or not there is associated IE, I would recommend to hold off on Port placement as inpatient. Upon discharge, please arrange short follow up with Dr. Agustin to discuss timing to resume chemotherapy and placement of new port. - Continue supportive management for associated cytopenias, check CBC daily and transfuse 1 PRBC for Hb less than 7 g/dl, and transfuse 1 unit of platelets for platelet count less than 20 K. - If primary team and ID recommend to perform a GLORIA, please transfuse platelet with a goal >50 prior to the procedure. - Please repeat LFTs in AM. Code(s): D46.9 - Myelodysplastic syndrome, unspecified SNOMED Code(s): 201676386 (2) Abdominal pain Current Visit: Yes Status: Acute Assessment and plan: Resolved. Probably was due to constipation. continue bowel regimen. Qualifiers: Abdominal location: right upper quadrant Qualified Code(s): R10.11 - Right upper quadrant pain Code(s): R10.9 - Unspecified abdominal pain SNOMED Code(s): 07146642 Oncology: Subj Interval history: Reports feeling well. Denies significant overnight complaints. Seen with his at bedside. Port removed on 06/03. reports that his abdominal pain has resolved. - Constitutional Vitals: Vital Signs Temp Pulse Resp BP Pulse Ox 06/05/17 10:30 98.4 F 65 17 126/70 98 06/05/17 07:18 98.8 F 64 14 128/67 95 06/05/17 03:37 98.9 F 85 19 119/72 97 06/04/17 23:26 98.9 F 87 19 123/74 97 06/04/17 19:21 98.9 F 88 20 135/73 97 06/04/17 15:00 97.7 F 87 16 133/91 99 Intake and Output 06/04/17 06/05/17 06/05/17 23:59 07:59 15:59 Intake Total 0 / 0 120 / 120 Output Total 375 / 375 475 / 475 480 / 480 Balance -375 / -375 -475 / -475 -360 / -360 Intake: Oral 0 / 0 120 / 120 Blood Product 0 / 0 Platelet Pheresis Lp Irr 0 / 0 1st Unit [id number] Output: Urine 375 / 375 475 / 475 480 / 480 Other: Meal Lunch Breakfast Percent of Meal Consumed 50% 80% Weight 79.2 kg Patient Weight 06/05/17 23:59 Weight 79.2 kg - Head Head exam: Present: normal inspection - ENT ENT exam: Present: normal exam - Neck Neck exam: Present: normal inspection - Respiratory Respiratory exam: Present: CTAB - Cardiovascular Cardiovascular exam: Present: +S1, +S2. Absent: irregular rhythm, JVD, tachycardia - GI/Abdominal GI/Abdominal exam: Present: soft. Absent: distended, guarding, organomegaly, tenderness - Extremities Exam Extremities exam: Present: normal inspection - Neurological Exam Neurological exam: Present: oriented X3 - Psychiatric Psychiatric exam: Present: normal affect - Skin Skin exam: Present: normal color Oncology: Obj Data - Labs CBC & Chem 7: 06/05/17 04:20 06/05/17 04:20 Labs: Laboratory Results - last 24 hr 06/05/17 06/05/17 06/05/17 04:20 04:20 04:20 WBC 2.6 L RBC 2.58 L Hgb 7.2 L Hct 22.2 L MCV 86.0 MCH 27.9 L MCHC 32.4 RDW 16.6 H Plt Count 16 L* MPV TNP Immature Gran % 4.7 H Seg Neutrophils % 49.8 Lymphocytes % 40.4 Monocytes % 5.1 Eosinophils % 0.0 Basophils % 0.0 Neutrophils # 1.3 L Lymphocytes # 1.1 Monocytes # 0.1 Eosinophils # 0.0 Basophils # 0.0 Nucleated RBCs/100 WBC 0.8 H Platelet Estimate Marked Decrease L Immature Plt Fraction 2.8 Anisocytosis 1+ A Tear Drop Cells 1+ A Schistocytes 1+ A Sodium 133 L Potassium 3.8 Chloride 102 Carbon Dioxide 29 BUN 13 Creatinine 0.84 Est GFR ( Amer) > 60 Est GFR (Non-Af Amer) > 60 BUN/Creatinine Ratio 15 Glucose 97 Calculated Osmolality 276 L Calcium 8.8 Total Bilirubin 1.9 H AST 14 ALT 13 Alkaline Phosphatase 86 Serum Total Protein 6.1 Albumin 3.2 L Globulin 2.9 Albumin/Globulin Ratio 1.1 Random Vancomycin 13.3 - ABG Interpretation ABG results: PT/INR, D-dimer PT 12.3 Seconds (9.4-12.1) H 05/28/17 10:53 Consult Discharge Plan - Plan Referrals: Wang Coy Jr, MD [Primary Care Provider] -
--- NOTE | 2017-06-05 12:42 | Infectious Disease Progress No ---
Date of Encounter: 06/05/17 Time of Encounter: 12:39 - Assessment and Plan (1) Sepsis Current Visit: Yes Status: Acute The patient had two SIRS criteria on admission. Likely secondary to bacteremia and a-port infection Improved. The patient has been afebrile and his tachycardia is improved. He continues to have leukopenia, but this is likely related to his MDS rather than his infection. Peripheral blood cultures drawn 05/28/17 are positive 2/2 sets for S. epi. Repeat blood cultures drawn 05/31/17 are NGTD 1/1 set. Qualifiers: Sepsis type: sepsis due to unspecified organism Qualified Code(s): A41.9 - Sepsis, unspecified organism (2) Bacteremia Current Visit: Yes Status: Acute Causative organism: S. epi. Source likely the a-port, which has been removed. Peripheral blood cultures drawn 05/28/17 are positive 2/2 sets for S. epi. No cultures from the a-port were obtained. Repeat blood cultures drawn 05/31/17 is NGTD 1/1 set. The patient has no endocarditis stigmata on exam. He has three minor Modified Deleon's criteria. TTE negative for valvular vegetations. GLORIA has been deferred by cardiology due to the patient's profound thrombocytopenia. Get additional two sets of blood cultures now. Continue Vancomycin IV. Pharmacy to dose. Goal trough ~15. Continue Rifampin 300mg PO BID. Duration of treatment depends on the clinical picture. Given that we will be unable to completely rule out endocarditis and that the patient has a prosthetic heart valve, we will plan on treating for four weeks from the first set of negative blood cultures. Additionally, we will hold off on adding gentamicin due to his CKD and presence of only one kidney. Monitor renal and liver function and for drug toxicity and dose-adjust antibiotics. PICC line placed 06/02/17. \. (3) Infection due to port-a-cath Current Visit: Yes Status: Acute No blood cultures obtained from the a-port. Catheter tip not sent for culture. Status post removal 06/02/17. Qualifiers: Encounter type: initial encounter Qualified Code(s): T80.219A - Unspecified infection due to central venous catheter, initial encounter (4) History of prosthetic aortic valve Current Visit: Yes Status: Acute patient had AVR in 2010 with bovine valve. GLORIA deferred by cardiology due to thrombocytopenia. (5) Pancytopenia Current Visit: Yes Status: Acute Secondary to MDS. Patient receiving platelets at the time of my exam. Hem/Onc consulted and following. (6) MDS (myelodysplastic syndrome) Current Visit: Yes Status: Chronic Hematology following. (7) Single kidney Current Visit: Yes Status: Chronic (8) CKD (chronic kidney disease) stage 2, GFR 60-89 ml/min Current Visit: Yes Status: Chronic Stable. Continue to monitor closely while on vancomycin. (9) Aortic aneurysm Current Visit: Yes Status: Acute Management per primary team. Qualifiers: Aortic location: abdominal aorta Presence of rupture: without rupture Qualified Code(s): I71.4 - Abdominal aortic aneurysm, without rupture - Subjective Interval history: Patient seen and examined. Weekend notes reviewed. No acute events noted overnight. Status post removal of a-port 06/02/17. Patient resting quietly in bed with family at the bedside. Denies any acute complaints at this time. Reports chronic back pain, but states he thinks there might be new fractures due to the worsening and difference of pain from prior to admission. He states the pain is on either side of the side and radiates around to his ribs. Denies fevers, chills, or rigors. Denies chest pain, shortness of breath, or cough. Denies nausea, vomiting, or diarrhea. He reports some abdominal pain and states he hasn't had a BM since Monday. He reports a poor appetite. Denies oral thrush or new skin lesions. Infect Dis PN-Objective Data - Labs CBC & Chem 7: 06/05/17 04:20 06/05/17 04:20 Labs: Laboratory Results - last 24 hr 06/05/17 06/05/17 06/05/17 04:20 04:20 04:20 WBC 2.6 L RBC 2.58 L Hgb 7.2 L Hct 22.2 L MCV 86.0 MCH 27.9 L MCHC 32.4 RDW 16.6 H Plt Count 16 L* MPV TNP Immature Gran % 4.7 H Seg Neutrophils % 49.8 Lymphocytes % 40.4 Monocytes % 5.1 Eosinophils % 0.0 Basophils % 0.0 Neutrophils # 1.3 L Lymphocytes # 1.1 Monocytes # 0.1 Eosinophils # 0.0 Basophils # 0.0 Nucleated RBCs/100 WBC 0.8 H Platelet Estimate Marked Decrease L Immature Plt Fraction 2.8 Anisocytosis 1+ A Tear Drop Cells 1+ A Schistocytes 1+ A Sodium 133 L Potassium 3.8 Chloride 102 Carbon Dioxide 29 BUN 13 Creatinine 0.84 Est GFR ( Amer) > 60 Est GFR (Non-Af Amer) > 60 BUN/Creatinine Ratio 15 Glucose 97 Calculated Osmolality 276 L Calcium 8.8 Total Bilirubin 1.9 H AST 14 ALT 13 Alkaline Phosphatase 86 Serum Total Protein 6.1 Albumin 3.2 L Globulin 2.9 Albumin/Globulin Ratio 1.1 Random Vancomycin 13.3 Cultures: Cultures 05/31/17 10:46 Blood Culture - Preliminary Peripheral Venipuncture No growth. Exam - Constitutional Vitals: Temp Pulse Resp BP Pulse Ox 98.4 F 65 17 126/70 98 06/05/17 10:30 06/05/17 10:30 06/05/17 10:30 06/05/17 10:30 06/05/17 10:30 General appearance: average body habitus, cooperative, no acute distress - Head Head exam: Present: atraumatic, normal inspection, normocephalic - Eye Eye exam: Present: EOMI, normal appearance, PERRL Pupils: Present: normal accommodation Additional comments: No subconjunctival hemorrhage noted. - ENT ENT exam: Present: mucous membranes moist - Neck Neck exam: Present: normal inspection - Respiratory Respiratory exam: Present: CTAB. Absent: rales, respiratory distress, rhonchi, wheezes - Cardiovascular Cardiovascular exam: Present: RRR, +S1, +S2 - GI/Abdominal GI/Abdominal exam: Present: distended, guarding, normal bowel sounds, soft, tenderness (generalized) - Extremities Exam Extremities exam: Present: normal inspection. Absent: joint swelling, pedal edema, tenderness Additional comments: No endocarditis stigmata noted. - Back Exam Additional comments: Exam deferred per patient. - Neurological Exam Neurological exam: Present: alert, oriented X3, no focal deficits - Psychiatric Psychiatric exam: Present: normal affect, normal mood - Skin Skin exam: Present: dry, intact, normal color, warm - Additional findings Additional findings: A-port removal site to the left upper chest with steri-strips intact with old blood noted. - VTE Documentation of Mechanical Device: Intermittent pneumatic compression device Consult Discharge Plan - Plan Referrals: Wang Coy Jr, MD [Primary Care Provider] - - Attending Attestation I examined this patient and my medical decision-making was reviewed with the Resident Physician. I agree with the documented findings, disposition and treatment plan as described except to the extent set forth below.
[2017-06-05] MEDS: *HR* HYDROcodone/Acet 5/325 mg TABLET PO PRN (14:48)
--- NOTE | 2017-06-05 18:10 | Internal Med Progress Note ---
Date of Encounter: 06/05/17 Time of Encounter: 18:08 - Assessment and plan (1) Sepsis Current Visit: Yes Status: Acute Assessment and plan: most likely from Port -the patient met sepsis this morning: leukopenic and tachycardic however the tachycardia is methodically due to his back pain -patient is stable, afebrile, normotensive -Port removed by Interventional radiology yesterday -Blood culture's 05/28/17 have grown 2/2 Staph epi, mecA Methicillin Resistance Gene -Blood cultures (05/31/17) preliminary- No growth -Patient also has Bovine aortic valve placed in 2010 -U/A: negative -GLORIA canceled by cardiology due to thrombocytopenia -I&D input appreciated Plan -continue IV antibiotics -Vancomycin Day 6- managed by pharmacy. Trough goal 15. Yesterday trough was 22.3 -Rifampin Day 4 -will wait until cultures are negative for 48 hours before placing PICC -TTE ordered -continue to monitor LFTs and renal function 06/03/2017. Clinically better. Vitals stable. Awaiting for cultures. Will continue same antibiotics. 06/04/2017. Clinically improving. vital stable. Infectious disease input appreciated. We will follow the recommendations 06/05/2017 Clinically improving Input from infectious disease noted. Vancomycin: Day 9 Rifampicin: Daily 6 We will follow recommendations from infectious disease regarding the duration of vancomycin/rifampicin Qualifiers: Sepsis type: sepsis due to unspecified organism Qualified Code(s): A41.9 - Sepsis, unspecified organism (2) Bacteremia Current Visit: Yes Status: Acute Assessment and plan: Infectious disease on the board. We will continue to follow the recommendations from infectious disease (3) Abdominal pain Current Visit: Yes Status: Acute Assessment and plan: -Patient has no complaints of abdominal pain today since he had multiple loose bowel movements 2 nights ago. -Abdominal pain was most likely constipation secondary to opiate use. Patient has a history of cyclic constipation that causes abdominal pain. -U/S- no acute abnormality -CT soft tissue neck- no acute abnormality, chronically occluded distal right IJV -Chest CT- 1.9 mm right and left upper lobe pulmonary nodules. 4.7x 4.9 cm AAA that is stable from prior study 09/2016. Diverticulosis, trace pleural effusion. -ABD CT- same as chest CT -Chest X-ray- demonstrated no acute process - The patient is afebrile, normal WBC Plans: MiraLAX, dulcolax, and senna as needed continue to monitor 06/03/2017. Patient denies any abdominal pain. We will continue to monitor closely Qualifiers: Abdominal location: right upper quadrant Qualified Code(s): R10.11 - Right upper quadrant pain (4) Back pain Current Visit: Yes Status: Acute Assessment and plan: Patient is a persistent back pain. He is on adequate opioid analgesics. will continue the same. Qualifiers: Back pain location: low back pain Chronicity: chronic Back pain laterality: bilateral Sciatica presence: without sciatica Qualified Code(s) : M54.5 - Low back pain; G89.29 - Other chronic pain - Subjective Interval history: Seen and examined. Chart reviewed. Patient is comfortably lying in bed. Patient is still complaining of back pain. Noted minor oozing from the port removal site. 06/04/2017. Patient is comfortably lying in the bed. Chart reviewed. Patient seen and examined. Patient's oozing from the port removal site is under control. 06/05/2017 Seen and examined. Chart reviewed. Patient is comfortably lying in the bed. Patient does have occasional back pain. Patient denies chest pain, shortness of breath, abdominal pain, nausea, vomiting , diarrhea and dizziness. - Constitutional Vitals: Temp Pulse Resp BP Pulse Ox 98.7 F 90 16 116/70 97 06/05/17 15:55 06/05/17 15:55 06/05/17 15:55 06/05/17 15:55 06/05/17 15:55 General appearance: Present: mild distress, A&O X 3, answers questions appropriately - Head Head exam: Present: atraumatic, normocephalic - Eye Eye exam: Present: PERRL, conjuntiva pink, sclera anicteric Pupils: Present: PERRL - Neck Neck exam general surgery: Present: supple, trachea midline. Absent: lymphadenopathy - Respiratory Respiratory exam: Present: CTAB. Absent: accessory muscle use, rales, rhonchi, wheezes - Cardiovascular Cardiovascular exam: Present: RRR, +S1, +S2. Absent: diastolic murmur, gallop, rubs, systolic murmur - GI/Abdominal GI/Abdominal exam: Present: normal bowel sounds, soft, no peritoneal signs. Absent: distended, tenderness - Extremities Exam Extremities exam: Present: warm, radial pulses palpable and symetrical. Absent : calf tenderness, cyanotic, pedal edema - Neurological Exam Neurological exam: Present: CN II-XII intact, oriented X3, no focal deficits. Absent: pronater drift, facial droop, speech deficit - Skin Skin exam: Present: dry, intact Internal Medicine: Result - Labs CBC & Chem 7: 06/05/17 04:20 06/05/17 04:20 Labs: Short CBC 06/05/17 Range/Units 04:20 WBC 2.6 L (4.3-11.1) K/mcL Hgb 7.2 L (12.9-16.9) g/dL Hct 22.2 L (37.5-50.1) % Plt Count 16 L* (140-400) K/mcL Neutrophils # 1.3 L (1.6-8.9) K/mcL BMP 06/05/17 04:20 Sodium 133 L Potassium 3.8 Chloride 102 Carbon Dioxide 29 BUN 13 Creatinine 0.84 Glucose 97 Calcium 8.8 Liver Function 06/05/17 Range/Units 04:20 Total Bilirubin 1.9 H (0.2-1.2) mg/dL AST 14 (5-34) Units/L ALT 13 (0-55) Units/L Alkaline Phosphatase 86 (38-126) Units/L Albumin 3.2 L (3.5-5.0) g/dL - ABG Interpretation ABG results: PT/INR, D-dimer PT 12.3 Seconds (9.4-12.1) H 05/28/17 10:53 - VTE Documentation of Mechanical Device: Intermittent pneumatic compression device Consult Discharge Plan - Plan Referrals: Wang Coy Jr, MD [Primary Care Provider] -
[2017-06-05] MEDS: *HR* Morphine 2 MG/ML SYRINGE IVP PRN (22:21)
[2017-06-06] MEDS: *HR* OxyCODONE Immed Rel 15 MG TABLET PO SCH ×5 (01:17→20:33)
[2017-06-06 05:15] LABS: Red Cell Distribution Width 16.7 % (11.5-14.5)
[2017-06-06 05:17] LABS: Hematocrit 22.2 % (37.5-50.1); Hemoglobin 7.2 g/dL (12.9-16.9); Immature Granulocytes % 5.2 % (0-4); Immature Platelets 1.3 % (1.1-6.1); Lymphocytes # 1.1 K/mcL (0.6-4.6); Lymphocytes % 40.3 %; Mean Corpuscular HGB Conc 32.4 g/dL (31.6-35.5); Mean Corpuscular Volume 86.4 fL (83.0-100.0); Monocytes # 0.2 K/mcL (0.0-1.3); Monocytes % 6.3 %; Neutrophils # 1.3 K/mcL (1.6-8.9); Red Blood Count 2.57 M/mcL (4.19-5.50); Segmented Neutrophils % 48.2 %
[2017-06-06 05:23] LABS: Platelet Count 24 K/mcL (140-400)
[2017-06-06 05:32] LABS: Alanine Aminotransferase 15 Units/L (0-55); Albumin 3.3 g/dL (3.5-5.0); Albumin/Globulin Ratio 1.1 (1.1-2.2); Alkaline Phosphatase 99 Units/L (38-126); Aspartate Amino Transferase 15 Units/L (5-34); BUN/Creatinine Ratio 17 (6-26); Bilirubin,Total 1.7 mg/dL (0.2-1.2); Blood Urea Nitrogen 14 mg/dL (8-26); Carbon Dioxide 27 mEq/L (19-29); Chloride 103 mEq/L (98-109); Globulin 3.1 g/dL (2.4-3.5); Glucose 99 mg/dL (70-99); Osmolality,Calculated 285 (280-300); Potassium 3.9 mEq/L (3.5-4.5); Sodium 137 mEq/L (136-145); Total Protein 6.4 g/dL (6.0-8.3); eGFR For African Americans > 60 (> 60); eGFR For Non-African Americans > 60 (> 60)
[2017-06-06] MEDS: *HR* Morphine 2 MG/ML SYRINGE IVP PRN ×2 (06:34→22:08)
[2017-06-06] MEDS: Vancomycin 1,500 MG in D5% in Water 250 ML IVPB SCH (06:45)
[2017-06-06] MEDS: rifAMPin 150 MG CAPSULE PO SCH ×2 (08:17→16:04)
[2017-06-06] MEDS: predniSONE 20 MG TABLET PO SCH (08:18)
[2017-06-06] MEDS: Sennosides 8.6 MG TABLET PO SCH ×2 (08:18→20:33)
--- NOTE | 2017-06-06 12:57 | Infectious Disease Progress No ---
Date of Encounter: 06/06/17 Time of Encounter: 12:55 - Assessment and Plan (1) Sepsis Current Visit: Yes Status: Acute The patient had two SIRS criteria on admission. Likely secondary to bacteremia and a-port infection Improved. The patient has been afebrile and his tachycardia is improved. He continues to have leukopenia, but this is likely related to his MDS rather than his infection. Peripheral blood cultures drawn 05/28/17 are positive 2/2 sets for S. epi. Repeat blood cultures drawn 05/31/17 are NGTD 1/1 set. Additional blood cultures drawn 06/05/17 are pending x 2 sets. Qualifiers: Sepsis type: sepsis due to unspecified organism Qualified Code(s): A41.9 - Sepsis, unspecified organism (2) Bacteremia Current Visit: Yes Status: Acute Causative organism: S. epi. Source likely the a-port, which has been removed. Peripheral blood cultures drawn 05/28/17 are positive 2/2 sets for S. epi. No cultures from the a-port were obtained. Repeat blood cultures drawn 05/31/17 is NGTD 1/1 set. Additional blood cultures drawn 06/05/17 are pending x 2 sets. The patient has no endocarditis stigmata on exam. He has three minor Modified Deleon's criteria. TTE negative for valvular vegetations. GLORIA has been deferred by cardiology due to the patient's profound thrombocytopenia. Continue Vancomycin IV. Pharmacy to dose. Goal trough ~15. Continue Rifampin 300mg PO BID. Duration of treatment depends on the clinical picture. Given that we will be unable to completely rule out endocarditis and that the patient has a prosthetic heart valve, we will plan on treating for four weeks from the first set of negative blood cultures. Additionally, we will hold off on adding gentamicin due to his CKD and presence of only one kidney. Monitor renal and liver function and for drug toxicity and dose-adjust antibiotics. PICC line placed 06/02/17. \. (3) Infection due to port-a-cath Current Visit: Yes Status: Acute No blood cultures obtained from the a-port. Catheter tip not sent for culture. Status post removal 06/02/17. Qualifiers: Encounter type: initial encounter Qualified Code(s): T80.219A - Unspecified infection due to central venous catheter, initial encounter (4) History of prosthetic aortic valve Current Visit: Yes Status: Chronic Patient had AVR in 2010 with bovine valve. GLORIA deferred by cardiology due to thrombocytopenia. (5) Pancytopenia Current Visit: Yes Status: Chronic Secondary to MDS. Platelets continue to be low. Hem/Onc consulted and following. (6) MDS (myelodysplastic syndrome) Current Visit: Yes Status: Chronic Hematology following. (7) Single kidney Current Visit: Yes Status: Chronic (8) CKD (chronic kidney disease) stage 2, GFR 60-89 ml/min Current Visit: Yes Status: Chronic Stable. Continue to monitor closely while on vancomycin. (9) Aortic aneurysm Current Visit: Yes Status: Chronic Management per primary team. Qualifiers: Aortic location: abdominal aorta Presence of rupture: without rupture Qualified Code(s): I71.4 - Abdominal aortic aneurysm, without rupture - Subjective Interval history: Patient seen and examined. No acute events noted overnight. Status post removal of a-port 06/02/17. Patient sitting up in the bedside chair with family at the bedside. Denies any acute complaints at this time. Reports chronic back pain, but states he thinks there might be new fractures due to the worsening and difference of pain from prior to admission. He states the pain is on either side of the side and radiates around to his ribs. He continues to refuse further CT scans due to pain. Denies fevers, chills, or rigors. Denies chest pain, shortness of breath, or cough. Denies nausea, vomiting, or diarrhea. Denies abdominal pain. He states his appetite is a little better today. Denies oral thrush or new skin lesions. His family reports concern regarding his right foot gout flare. The patient denies pain in the foot currently. Infect Dis PN-Objective Data - Labs CBC & Chem 7: 06/06/17 04:58 06/06/17 04:58 Labs: Laboratory Results - last 24 hr 06/05/17 06/06/17 06/06/17 13:00 04:58 04:58 WBC 2.7 L RBC 2.57 L Hgb 7.2 L Hct 22.2 L MCV 86.4 MCH 28.0 MCHC 32.4 RDW 16.7 H Plt Count 277 D 24 L* D Immature Gran % 5.2 H Seg Neutrophils % 48.2 Lymphocytes % 40.3 Monocytes % 6.3 Eosinophils % 0.0 Basophils % 0.0 Neutrophils # 1.3 L Lymphocytes # 1.1 Monocytes # 0.2 Eosinophils # 0.0 Basophils # 0.0 Immature Plt Fraction 1.3 Sodium 137 Potassium 3.9 Chloride 103 Carbon Dioxide 27 BUN 14 Creatinine 0.82 Est GFR ( Amer) > 60 Est GFR (Non-Af Amer) > 60 BUN/Creatinine Ratio 17 Glucose 99 Calculated Osmolality 285 Calcium 9.0 Total Bilirubin 1.7 H AST 15 ALT 15 Alkaline Phosphatase 99 Serum Total Protein 6.4 Albumin 3.3 L Globulin 3.1 Albumin/Globulin Ratio 1.1 Cultures: Cultures 05/31/17 10:46 Blood Culture - Final Peripheral Venipuncture No growth. Exam - Constitutional Vitals: Temp Pulse Resp BP Pulse Ox 98.5 F 91 17 134/75 100 06/06/17 11:30 06/06/17 11:30 06/06/17 11:30 06/06/17 11:30 06/06/17 11:30 General appearance: average body habitus, cooperative, no acute distress - Head Head exam: Present: atraumatic, normal inspection, normocephalic - Eye Eye exam: Present: EOMI, normal appearance, PERRL Pupils: Present: normal accommodation Additional comments: No subconjunctival hemorrhage noted. - ENT ENT exam: Present: mucous membranes moist - Neck Neck exam: Present: normal inspection - Respiratory Respiratory exam: Present: CTAB. Absent: rales, respiratory distress, rhonchi, wheezes - Cardiovascular Cardiovascular exam: Present: RRR, +S1, +S2 - GI/Abdominal GI/Abdominal exam: Present: normal bowel sounds, soft. Absent: distended, tenderness - Extremities Exam Extremities exam: Present: pedal edema (1+ right foot). Absent: joint swelling , tenderness - Back Exam Back exam: Present: normal inspection, paraspinal tenderness (bilateral lower back). Absent: vertebral tenderness - Neurological Exam Neurological exam: Present: alert, oriented X3, no focal deficits - Psychiatric Psychiatric exam: Present: normal affect, normal mood - Skin Skin exam: Present: dry, intact, normal color, warm Additional comments: No endocarditis stigmata noted. - VTE Documentation of Mechanical Device: Intermittent pneumatic compression device Consult Discharge Plan - Plan Referrals: Wang Coy Jr, MD [Primary Care Provider] - - Attending Attestation I examined this patient and my medical decision-making was reviewed with the Resident Physician. I agree with the documented findings, disposition and treatment plan as described except to the extent set forth below.
--- NOTE | 2017-06-06 14:56 | Internal Med Progress Note ---
Date of Encounter: 06/06/17 Time of Encounter: 08:45 - Assessment and plan (1) Sepsis Current Visit: Yes Status: Acute Assessment and plan: Sepsis present on admission, improving - bacteremia likely from Port - just now been removed -patient is stable, afebrile, normotensive -Port removed by Interventional radiology yesterday -Blood culture's 05/28/17 have grown 2/2 Staph epi, mecA Methicillin Resistance Gene -Blood cultures (05/31/17) preliminary- No growth -Patient also has Bovine aortic valve placed in 2010 -U/A: negative -GLORIA canceled by cardiology due to thrombocytopenia -I&D input appreciated Plan -continue IV antibiotics -Vancomycin - managed by pharmacy. Trough goal 15 -Rifampin -TTE ordered -continue to monitor LFTs and renal function - Follow ID recommendations Qualifiers: Sepsis type: sepsis due to unspecified organism Qualified Code(s): A41.9 - Sepsis, unspecified organism (2) Bacteremia Current Visit: Yes Status: Acute Assessment and plan: -Bacteremia- most likely from Port -Port removed by Interventional radiology -Blood culture's 05/28/17 have grown 2/2 Staph epi, mecA Methicillin Resistance Gene -Blood cultures (05/31/17) - No growth - Cultures from 06/05/2017 - pending -Patient also has Bovine aortic valve placed in 2010 -U/A: negative -patient stable, afebrile, normal WBC -GLORIA canceled by cardiology due to thrombocytopenia - transfuse platelets if GLORIA needs to be done -ID input appreciated Plan -Vancomycin - managed by pharmacy, complicated due to single kidney) -Rifampin -continue to monitor LFTs and renal function (3) Infection due to port-a-cath Current Visit: Yes Status: Acute Assessment and plan: Catheter has been removed by interventional radiology - this is the likely source of bacteremia Qualifiers: Encounter type: initial encounter Qualified Code(s): T80.219A - Unspecified infection due to central venous catheter, initial encounter (4) Thrombocytopenia Current Visit: No Status: Acute Assessment and plan: -Due to Myelodysplastic syndrome -platelets 24 -Oncology has been consulted and recommends to transfuse platelets for counts less than 20K or 50 K if there is active bleeding. -Oncology recommendations are appreciated -There is currently no active bleeding. Patient denies melena, hematechezia, Hematemesis. Plan: -we will continue to monitor H&H -Monitor for bleeding -patient is on fall precautions (5) MDS (myelodysplastic syndrome) Current Visit: Yes Status: Chronic Assessment and plan: -Chronic anemia Hgb 7.2 -Diagnosed in January 2017. -Currently on cycle 1 of decitabine ( 28 day cycle) -oncology recommendation to- -Transfuse blood for Hb and HCT less than 7 g/dl and 21 respectively. -Transfuse platelets for counts less than 20K or 50 K if there is active bleeding. Plan: -stool occult ordered -continue to monitor H&H -continue monitor for active bleeding (6) Aortic aneurysm Current Visit: Yes Status: Chronic Assessment and plan: Status post endovascular stent graft repair of the infrarenal abdominal aorta. 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 Not in any distress. Denies chest pain or shortness of breath. Complains of upper and lower back pain. States it is dull and throbbing at times. He rates it 6 out of 10. Worse with movement. No other acute events or complaints. Platelet count is 24 today. Both culture drawn on 05/31/2017 is negative. Blood cultures from 06/05/2017 are pending. Patient will probably need platelet transfusion. Initial echocardiogram did not show any vegetation. GLORIA is on hold due to severe thrombocytopenia. Continue IV antibiotics. - Constitutional Vitals: Temp Pulse Resp BP Pulse Ox 98.5 F 91 17 134/75 100 06/06/17 11:30 06/06/17 11:30 06/06/17 11:30 06/06/17 11:30 06/06/17 11:30 General appearance: Present: A&O X 3, pleasant, no acute distress, underweight, answers questions appropriately Exam: Generalized weakness, ill-appearing - Head Head exam: Present: atraumatic - Eye Eye exam: Present: EOMI - Neck Neck exam general surgery: Present: supple - Respiratory Respiratory exam: Present: CTAB. Absent: rhonchi, wheezes, tachypnea - Cardiovascular Cardiovascular exam: Present: clicks, RRR, +S1, +S2, systolic murmur - GI/Abdominal GI/Abdominal exam: Present: soft, no peritoneal signs. Absent: distended, firm , guarding, rigid, tenderness - Extremities Exam Extremities exam: Present: radial pulses palpable and symetrical. Absent: cyanotic, pedal edema, tenderness - Back Exam Back exam: Present: paraspinal tenderness, vertebral tenderness - Neurological Exam Neurological exam: Present: alert, oriented X3, no focal deficits. Absent: facial droop, speech deficit Internal Medicine: Result - Labs CBC & Chem 7: 06/06/17 04:58 06/06/17 04:58 Labs: Short CBC 06/05/17 06/06/17 Range/Units 13:00 04:58 WBC 2.7 L (4.3-11.1) K/mcL Hgb 7.2 L (12.9-16.9) g/dL Hct 22.2 L (37.5-50.1) % Plt Count 277 D 24 L* D (140-400) K/mcL Neutrophils # 1.3 L (1.6-8.9) K/mcL BMP 06/06/17 04:58 Sodium 137 Potassium 3.9 Chloride 103 Carbon Dioxide 27 BUN 14 Creatinine 0.82 Glucose 99 Calcium 9.0 Liver Function 06/06/17 Range/Units 04:58 Total Bilirubin 1.7 H (0.2-1.2) mg/dL AST 15 (5-34) Units/L ALT 15 (0-55) Units/L Alkaline Phosphatase 99 (38-126) Units/L Albumin 3.3 L (3.5-5.0) g/dL - ABG Interpretation ABG results: PT/INR, D-dimer PT 12.3 Seconds (9.4-12.1) H 05/28/17 10:53 - VTE Documentation of Mechanical Device: Intermittent pneumatic compression device Consult Discharge Plan - Plan Referrals: Wang Coy Jr, MD [Primary Care Provider] -
[2017-06-07] MEDS: *HR* Morphine 2 MG/ML SYRINGE IVP PRN ×4 (00:33→22:05)
[2017-06-07 04:15] LABS: Hematocrit 23.1 % (37.5-50.1); Hemoglobin 7.3 g/dL (12.9-16.9); Immature Granulocytes % 2.3 % (0-4); Lymphocytes % 43.1 %; Mean Corpuscular HGB Conc 31.6 g/dL (31.6-35.5); Mean Corpuscular Hemoglobin 27.3 pg (28.0-33.3); Mean Corpuscular Volume 86.5 fL (83.0-100.0); Mean Platelet Volume 10.3 fL (9.4-12.4); Monocytes # 0.1 K/mcL (0.0-1.3); Neutrophils # 1.1 K/mcL (1.6-8.9); Red Blood Count 2.67 M/mcL (4.19-5.50); Segmented Neutrophils % 48.6 %
[2017-06-07 04:19] LABS: Platelet Count 25 K/mcL (140-400)
[2017-06-07 04:27] LABS: BUN/Creatinine Ratio 14 (6-26); Blood Urea Nitrogen 12 mg/dL (8-26); Calcium 9.2 mg/dL (8.6-10.8); Carbon Dioxide 26 mEq/L (19-29); Chloride 101 mEq/L (98-109); Glucose 105 mg/dL (70-99); Osmolality,Calculated 280 (280-300); Potassium 3.8 mEq/L (3.5-4.5); Sodium 135 mEq/L (136-145); eGFR For African Americans > 60 (> 60); eGFR For Non-African Americans > 60 (> 60)
[2017-06-07 04:48] LABS: Platelet Estimate Marked Decrease (Normal)
[2017-06-07] MEDS: Vancomycin 1,500 MG in D5% in Water 250 ML IVPB SCH (06:57)
[2017-06-07] MEDS: predniSONE 20 MG TABLET PO SCH (10:02)
[2017-06-07] MEDS: *HR* OxyCODONE Immed Rel 15 MG TABLET PO SCH ×3 (10:02→20:51)
[2017-06-07] MEDS: Sennosides 8.6 MG TABLET PO SCH ×2 (10:02→20:51)
[2017-06-07] MEDS: rifAMPin 150 MG CAPSULE PO SCH ×2 (10:03→16:52)
--- NOTE | 2017-06-07 11:05 | Infectious Disease Progress No ---
Date of Encounter: 06/07/17 Time of Encounter: 11:01 - Assessment and Plan (1) Sepsis Current Visit: Yes Status: Acute The patient had two SIRS criteria on admission. Likely secondary to bacteremia and a-port infection Improved. The patient has been afebrile and his tachycardia is improved. He continues to have leukopenia, but this is likely related to his MDS rather than his infection. Peripheral blood cultures drawn 05/28/17 are positive 2/2 sets for S. epi. Repeat blood cultures drawn 05/31/17 are NGTD 1/1 set. Additional blood cultures drawn 06/05/17 are NGTD x 2 sets. Qualifiers: Sepsis type: sepsis due to unspecified organism Qualified Code(s): A41.9 - Sepsis, unspecified organism (2) Bacteremia Current Visit: Yes Status: Acute Causative organism: S. epi. Source likely the a-port, which has been removed. Peripheral blood cultures drawn 05/28/17 are positive 2/2 sets for S. epi. No cultures from the a-port were obtained. Repeat blood cultures drawn 05/31/17 is NGTD 1/1 set. Additional blood cultures drawn 06/05/17 are NGTD x 2 sets. The patient has no endocarditis stigmata on exam. He has three minor Modified Deleon's criteria. TTE negative for valvular vegetations. GLORIA has been deferred by cardiology due to the patient's profound thrombocytopenia. If able to transfuse platelets and get GLORIA, this would be preferred, but if not we will have to prolong the patient 's duration of treatment. Continue Vancomycin IV. Pharmacy to dose. Goal trough ~15. Vanc trough this morning 16.1. Continue Rifampin 300mg PO BID. Duration of treatment depends on the clinical picture. Given that we will be unable to completely rule out endocarditis and that the patient has a prosthetic heart valve, we will plan on treating for four weeks from the first set of negative blood cultures. Additionally, we will hold off on adding gentamicin due to his CKD and presence of only one kidney. Monitor renal and liver function and for drug toxicity and dose-adjust antibiotics. PICC line placed 06/02/17. (3) Infection due to port-a-cath Current Visit: Yes Status: Acute No blood cultures obtained from the a-port. Catheter tip not sent for culture. Status post removal 06/02/17. Qualifiers: Encounter type: initial encounter Qualified Code(s): T80.219A - Unspecified infection due to central venous catheter, initial encounter (4) History of prosthetic aortic valve Current Visit: Yes Status: Chronic Patient had AVR in 2010 with bovine valve. GLORIA deferred by cardiology due to thrombocytopenia. (5) Pancytopenia Current Visit: Yes Status: Chronic Secondary to MDS. Platelets continue to be low. Hem/Onc consulted and following. (6) MDS (myelodysplastic syndrome) Current Visit: Yes Status: Chronic Hematology following. (7) Single kidney Current Visit: Yes Status: Chronic (8) CKD (chronic kidney disease) stage 2, GFR 60-89 ml/min Current Visit: Yes Status: Chronic Stable. Continue to monitor closely while on vancomycin. (9) Aortic aneurysm Current Visit: Yes Status: Chronic Management per primary team. Qualifiers: Aortic location: abdominal aorta Presence of rupture: without rupture Qualified Code(s): I71.4 - Abdominal aortic aneurysm, without rupture - Subjective Interval history: Patient seen and examined. No acute events noted overnight. Status post removal of a-port 06/02/17. Patient continues to complain of back pain, worse this morning due to him having to sit on the toilet for extended periods of time last night. Complains of pain in the middle of his thoracic spine. He continues to refuse further CT scans due to pain. Denies fevers, chills, or rigors. Denies chest pain, shortness of breath, or cough. Denies nausea, vomiting, or diarrhea. Denies abdominal pain. He states he ate a large amount of his breakfast. Denies oral thrush or new skin lesions. Infect Dis PN-Objective Data - Labs CBC & Chem 7: 06/08/17 04:37 06/08/17 04:37 Labs: Laboratory Results - last 24 hr 06/06/17 06/07/17 06/07/17 18:50 03:46 03:46 WBC 2.2 L RBC 2.67 L Hgb 7.3 L Hct 23.1 L MCV 86.5 MCH 27.3 L MCHC 31.6 RDW 17.0 H Plt Count 25 L* MPV 10.3 Immature Gran % 2.3 Seg Neutrophils % 48.6 Lymphocytes % 43.1 Monocytes % 6.0 Eosinophils % 0.0 Basophils % 0.0 Neutrophils # 1.1 L Lymphocytes # 1.0 Monocytes # 0.1 Eosinophils # 0.0 Basophils # 0.0 Platelet Estimate Marked Decrease L Sodium Potassium Chloride Carbon Dioxide BUN Creatinine Est GFR ( Amer) Est GFR (Non-Af Amer) BUN/Creatinine Ratio Glucose Calculated Osmolality Calcium Vancomycin Trough 16.1 Blood Type A NEGATIVE Antibody Screen NEGATIVE 06/07/17 03:46 WBC RBC Hgb Hct MCV MCH MCHC RDW Plt Count MPV Immature Gran % Seg Neutrophils % Lymphocytes % Monocytes % Eosinophils % Basophils % Neutrophils # Lymphocytes # Monocytes # Eosinophils # Basophils # Platelet Estimate Sodium 135 L Potassium 3.8 Chloride 101 Carbon Dioxide 26 BUN 12 Creatinine 0.88 Est GFR ( Amer) > 60 Est GFR (Non-Af Amer) > 60 BUN/Creatinine Ratio 14 Glucose 105 H Calculated Osmolality 280 Calcium 9.2 Vancomycin Trough Blood Type Antibody Screen Cultures: Cultures 06/05/17 12:57 Blood Culture - Preliminary Peripheral Venipuncture No growth. 06/05/17 12:57 Blood Culture - Preliminary Peripheral Venipuncture No growth. 05/31/17 10:46 Blood Culture - Final Peripheral Venipuncture No growth. Exam - Constitutional Vitals: Temp Pulse Resp BP Pulse Ox 99.5 F 60 16 116/67 99 06/07/17 06:46 06/07/17 06:46 06/07/17 06:46 06/07/17 06:46 06/07/17 06:46 General appearance: average body habitus, cooperative, no acute distress - Head Head exam: Present: atraumatic, normal inspection, normocephalic - Eye Eye exam: Present: EOMI, normal appearance, PERRL Pupils: Present: normal accommodation Additional comments: No subconjunctival hemorrhage noted. - ENT ENT exam: Present: mucous membranes moist - Neck Neck exam: Present: normal inspection - Respiratory Respiratory exam: Present: CTAB. Absent: rales, respiratory distress, rhonchi, wheezes - Cardiovascular Cardiovascular exam: Present: RRR, +S1, +S2 - GI/Abdominal GI/Abdominal exam: Present: distended, normal bowel sounds, soft. Absent: tenderness - Extremities Exam Extremities exam: Present: normal inspection, pedal edema (Right foot, 1+). Absent: joint swelling, tenderness Additional comments: No endocarditis stigmata noted. - Back Exam Back exam: Present: normal inspection, paraspinal tenderness (middle, thoracic spine) - Neurological Exam Neurological exam: Present: alert, oriented X3, no focal deficits - Psychiatric Psychiatric exam: Present: normal affect, normal mood - Skin Skin exam: Present: dry, intact, normal color, warm - Additional findings Additional findings: A-port removal site noted to the left upper chest with steri-strips intact. Old , dried blood noted on steri-strips. No tenderness, warmth, or erythema noted. PICC line noted to the RUE with transparent dressing C/D/I. - VTE Documentation of Mechanical Device: Intermittent pneumatic compression device Consult Discharge Plan - Plan Referrals: Wang Coy Jr, MD [Primary Care Provider] - Amy Osborne CNP [Advanced Practice Nurse] - 06/22/17 9:00 am - Attending Attestation I examined this patient and my medical decision-making was reviewed with the Resident Physician. I agree with the documented findings, disposition and treatment plan as described except to the extent set forth below.
--- NOTE | 2017-06-07 11:24 | Oncology Inp Progress Note ---
Date of Encounter: 06/07/17 Time of Encounter: 11:20 (1) MDS (myelodysplastic syndrome) Current Visit: Yes Status: Chronic Assessment and plan: Currently on cycle 1 day 16 of decitabine regimen ( 28 day cycle). Cell counts have dropped probably due to myelosupression related to chemotherapy along with ongoing IV antibiotic management for bacteremia. - Transfuse platelets for counts less than 20K or 50 K if there is active bleeding. Patient should wear helmet while ambulating ( if available). - Consider PT/OT evaluation to avoid further deconditioning. - Upon discharge, please arrange follow up with primary oncologist to discuss timing to resume chemotherapy. - Continue supportive management for associated cytopenias, check CBC daily and transfuse 1 PRBC for Hb less than 7 g/dl. - I appreciate ID input regarding management of bacteremia. Surveillance blood cultures from 05/31 remain negative. - Port removed on 06/03. At this time in view of the uncertainty about whether or not there is associated IE, I would recommend to hold off on Port placement as inpatient. Upon discharge, please arrange short follow up with Dr. Agustin to discuss timing to resume chemotherapy and placement of new port. Code(s): D46.9 - Myelodysplastic syndrome, unspecified SNOMED Code(s): 836884230 (2) Back pain Current Visit: Yes Status: Acute Assessment and plan: Patient declined further imaging. Follow up clinically, if worsening, please insist in further imaging. Qualifiers: Back pain location: thoracic back pain Chronicity: acute Back pain laterality: right Qualified Code(s): M54.6 - Pain in thoracic spine Oncology: Subj Interval history: Reports new back pain in the mid thoracic area that he attributes to be sitting down in the toilet for too long. Reports he has not ambulated for a while.tolerating meals. - Constitutional Vitals: Vital Signs Temp Pulse Resp BP Pulse Ox 06/07/17 06:46 99.5 F 60 16 116/67 99 06/07/17 04:27 98.8 F 93 17 115/83 96 06/06/17 23:34 98.7 F 93 17 117/66 96 06/06/17 20:58 98.8 F 85 17 120/71 96 06/06/17 15:05 98.1 F 84 18 125/55 99 06/06/17 11:30 98.5 F 91 17 134/75 100 Intake and Output 06/06/17 06/07/17 06/07/17 23:59 07:59 15:59 Intake Total 240 / 240 360 / 360 Output Total 150 / 150 400 / 400 Balance 90 / 90 -400 / -400 360 / 360 Intake: Oral 240 / 240 360 / 360 Output: Urine 150 / 150 400 / 400 Other: Meal Dinner Breakfast Percent of Meal Consumed 0% 100% # Bowel Movements 0 Weight 78 kg - Head Head exam: Present: normal inspection - ENT ENT exam: Present: normal exam - Respiratory Respiratory exam: Present: CTAB - Cardiovascular Cardiovascular exam: Present: RRR - GI/Abdominal GI/Abdominal exam: Present: normal bowel sounds - Back Exam Back exam: Present: vertebral tenderness Additional comments: pain in mid thoracic area with palpation. no skin changes. Oncology: Obj Data - Labs CBC & Chem 7: 06/07/17 03:46 06/07/17 03:46 Labs: Laboratory Results - last 24 hr 06/06/17 06/07/17 06/07/17 18:50 03:46 03:46 WBC 2.2 L RBC 2.67 L Hgb 7.3 L Hct 23.1 L MCV 86.5 MCH 27.3 L MCHC 31.6 RDW 17.0 H Plt Count 25 L* MPV 10.3 Immature Gran % 2.3 Seg Neutrophils % 48.6 Lymphocytes % 43.1 Monocytes % 6.0 Eosinophils % 0.0 Basophils % 0.0 Neutrophils # 1.1 L Lymphocytes # 1.0 Monocytes # 0.1 Eosinophils # 0.0 Basophils # 0.0 Platelet Estimate Marked Decrease L Sodium Potassium Chloride Carbon Dioxide BUN Creatinine Est GFR ( Amer) Est GFR (Non-Af Amer) BUN/Creatinine Ratio Glucose Calculated Osmolality Calcium Vancomycin Trough 16.1 Blood Type A NEGATIVE Antibody Screen NEGATIVE 06/07/17 03:46 WBC RBC Hgb Hct MCV MCH MCHC RDW Plt Count MPV Immature Gran % Seg Neutrophils % Lymphocytes % Monocytes % Eosinophils % Basophils % Neutrophils # Lymphocytes # Monocytes # Eosinophils # Basophils # Platelet Estimate Sodium 135 L Potassium 3.8 Chloride 101 Carbon Dioxide 26 BUN 12 Creatinine 0.88 Est GFR ( Amer) > 60 Est GFR (Non-Af Amer) > 60 BUN/Creatinine Ratio 14 Glucose 105 H Calculated Osmolality 280 Calcium 9.2 Vancomycin Trough Blood Type Antibody Screen - ABG Interpretation ABG results: PT/INR, D-dimer PT 12.3 Seconds (9.4-12.1) H 05/28/17 10:53 Consult Discharge Plan - Plan Referrals: Wang Coy Jr, MD [Primary Care Provider] -
[2017-06-07] MEDS ORDERED: 0.9 % Sodium Chloride 500 ML ONE (11:49)
[2017-06-07] MEDS: Acetaminophen 325 MG TABLET PO PRN (14:20)
--- NOTE | 2017-06-07 16:13 | Internal Med Progress Note ---
Date of Encounter: 06/07/17 Time of Encounter: 10:25 - Assessment and plan (1) Sepsis Current Visit: Yes Status: Acute Assessment and plan: Sepsis present on admission, improving - bacteremia likely from Port which has been removed -patient is stable, afebrile, normotensive -Port removed by Interventional radiology yesterday -Blood culture's 05/28/17 have grown 2/2 Staph epi, mecA Methicillin Resistance Gene -Blood cultures (05/31/17) - No growth -Patient also has Bovine aortic valve placed in 2010 -U/A: negative -GLORIA canceled by cardiology due to thrombocytopenia - transfuse platelets before GLORIA can be done -I&D input appreciated Plan -continue IV antibiotics -Vancomycin - managed by pharmacy. Trough goal 15 -Rifampin -GLORIA ordered -continue to monitor LFTs and renal function - Follow ID recommendations Qualifiers: Sepsis type: sepsis due to unspecified organism Qualified Code(s): A41.9 - Sepsis, unspecified organism (2) Bacteremia Current Visit: Yes Status: Acute Assessment and plan: -Bacteremia- most likely from Port -Port removed by Interventional radiology -Blood culture's 05/28/17 have grown 2/2 Staph epi, mecA Methicillin Resistance Gene -Blood cultures (05/31/17) - No growth - Cultures from 06/05/2017 - no growth -Patient also has Bovine aortic valve placed in 2010 -U/A: negative -patient stable, afebrile, normal WBC -GLORIA canceled by cardiology due to thrombocytopenia - transfuse platelets if GLORIA needs to be done -ID following patient Plan -Vancomycin - managed by pharmacy, complicated due to single kidney) -Rifampin -continue to monitor LFTs and renal function (3) Infection due to port-a-cath Current Visit: Yes Status: Acute Assessment and plan: Catheter has been removed by interventional radiology - this is the likely source of bacteremia The last 3 blood cultures have been negative Qualifiers: Encounter type: initial encounter Qualified Code(s): T80.219A - Unspecified infection due to central venous catheter, initial encounter (4) Thrombocytopenia Current Visit: No Status: Acute Assessment and plan: -Due to Myelodysplastic syndrome -platelets 25 -Oncology has been consulted and recommends to transfuse platelets for counts less than 20K or 50 K if there is active bleeding. -Oncology recommendations are appreciated -There is currently no active bleeding. Patient denies melena, hematechezia, Hematemesis. Transfuse platelets today - GLORIA to be done only if his platelets greater than 50 ,000 Plan: -we will continue to monitor H&H -Monitor for bleeding -patient is on fall precautions (5) MDS (myelodysplastic syndrome) Current Visit: Yes Status: Chronic Assessment and plan: -Chronic anemia Hgb 7.3 -Diagnosed in January 2017. -Currently on cycle 1 of decitabine ( 28 day cycle) -oncology recommendation to- -Transfuse blood for Hb and HCT less than 7 g/dl and 21 respectively. -Transfuse platelets for counts less than 20K or 50 K if there is active bleeding. Oncology following patient Plan: -stool occult ordered -continue to monitor H&H -continue monitor for active bleeding (6) Aortic aneurysm Current Visit: Yes Status: Chronic Assessment and plan: Status post endovascular stent graft repair of the infrarenal abdominal aorta. 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 Patient is awake and alert. Not in any distress. Denies chest pain or shortness of breath. Complains of upper and lower back pain which is persistent. States it is dull and throbbing at times. He rates it 6 out of 10. Worse with movement. No other acute events or complaints. He will require PT and OT evaluation. Platelet count is 25 today. Blood culture drawn on 05/31/2017 is negative. Blood cultures from 06/05/2017 are pending. Patient will need platelet transfusion before GLORIA can be done. Platelets will need to be at least 50,000. Initial echocardiogram did not show any vegetation. Continue IV antibiotics. - Constitutional Vitals: Temp Pulse Resp BP Pulse Ox 99.1 F 84 17 118/73 97 06/07/17 15:44 06/07/17 15:44 06/07/17 15:44 06/07/17 15:44 06/07/17 15:44 General appearance: Present: A&O X 3, pleasant, no acute distress, underweight, answers questions appropriately Exam: Generalized weakness, ill-appearing - Head Head exam: Present: atraumatic - Eye Eye exam: Present: EOMI - ENT ENT exam: Present: mucous membranes moist - Neck Neck exam general surgery: Present: supple - Respiratory Respiratory exam: Present: CTAB. Absent: rales, rhonchi, stridor, wheezes, tachypnea - Cardiovascular Cardiovascular exam: Present: RRR, +S1, +S2, systolic murmur - GI/Abdominal GI/Abdominal exam: Present: soft. Absent: distended, firm, guarding, rigid, tenderness - Extremities Exam Extremities exam: Present: radial pulses palpable and symetrical. Absent: cyanotic, pedal edema, tenderness - Back Exam Back exam: Present: muscle spasm, paraspinal tenderness - Neurological Exam Neurological exam: Present: alert, oriented X3, no focal deficits. Absent: facial droop, speech deficit Internal Medicine: Result - Labs CBC & Chem 7: 06/07/17 03:46 06/07/17 03:46 Labs: Short CBC 06/07/17 Range/Units 03:46 WBC 2.2 L (4.3-11.1) K/mcL Hgb 7.3 L (12.9-16.9) g/dL Hct 23.1 L (37.5-50.1) % Plt Count 25 L* (140-400) K/mcL Neutrophils # 1.1 L (1.6-8.9) K/mcL BMP 06/07/17 03:46 Sodium 135 L Potassium 3.8 Chloride 101 Carbon Dioxide 26 BUN 12 Creatinine 0.88 Glucose 105 H Calcium 9.2 - ABG Interpretation ABG results: PT/INR, D-dimer PT 12.3 Seconds (9.4-12.1) H 05/28/17 10:53 - VTE Documentation of Mechanical Device: Intermittent pneumatic compression device Consult Discharge Plan - Plan Referrals: Wang Coy Jr, MD [Primary Care Provider] -
[2017-06-08] MEDS: *HR* Morphine 2 MG/ML SYRINGE IVP PRN ×3 (04:55→23:51)
[2017-06-08 04:58] LABS: Hematocrit 20.7 % (37.5-50.1); Hemoglobin 6.8 g/dL (12.9-16.9); Immature Granulocytes % 1.6 % (0-4); Lymphocytes # 0.9 K/mcL (0.6-4.6); Mean Corpuscular HGB Conc 32.9 g/dL (31.6-35.5); Mean Corpuscular Hemoglobin 28.3 pg (28.0-33.3); Mean Corpuscular Volume 86.3 fL (83.0-100.0); Mean Platelet Volume 10.2 fL (9.4-12.4); Monocytes # 0.2 K/mcL (0.0-1.3); Monocytes % 8.5 %; Neutrophils # 1.3 K/mcL (1.6-8.9); Nucleated Red Blood Cells 0.8 /100 WBC (0); Segmented Neutrophils % 52.9 %
[2017-06-08 05:02] LABS: Platelet Count 30 K/mcL (140-400)
[2017-06-08 05:11] LABS: Alanine Aminotransferase 12 Units/L (0-55); Albumin 3.2 g/dL (3.5-5.0); Alkaline Phosphatase 102 Units/L (38-126); Aspartate Amino Transferase 13 Units/L (5-34); BUN/Creatinine Ratio 13 (6-26); Bilirubin,Total 1.6 mg/dL (0.2-1.2); Blood Urea Nitrogen 11 mg/dL (8-26); Calcium 9.1 mg/dL (8.6-10.8); Carbon Dioxide 28 mEq/L (19-29); Chloride 101 mEq/L (98-109); Globulin 3.2 g/dL (2.4-3.5); Glucose 100 mg/dL (70-99); Osmolality,Calculated 279 (280-300); Potassium 4.1 mEq/L (3.5-4.5); Sodium 135 mEq/L (136-145); Total Protein 6.4 g/dL (6.0-8.3); eGFR For African Americans > 60 (> 60); eGFR For Non-African Americans > 60 (> 60)
[2017-06-08] MEDS: Vancomycin 1,500 MG in D5% in Water 250 ML IVPB SCH (06:41)
[2017-06-08] MEDS: rifAMPin 150 MG CAPSULE PO SCH ×2 (07:40→15:39)
[2017-06-08] MEDS ORDERED: 0.9 % Sodium Chloride 500 ML ONE ×2 (08:22→16:38)
[2017-06-08] MEDS: predniSONE 20 MG TABLET PO SCH (09:15)
[2017-06-08] MEDS: *HR* OxyCODONE Immed Rel 15 MG TABLET PO SCH ×3 (09:16→20:55)
[2017-06-08] MEDS: Sennosides 8.6 MG TABLET PO SCH ×2 (09:16→20:55)
--- NOTE | 2017-06-08 10:20 | Oncology Inp Progress Note ---
Date of Encounter: 06/08/17 Time of Encounter: 10:14 (1) MDS (myelodysplastic syndrome) Current Visit: Yes Status: Chronic Assessment and plan: Currently on cycle 1 day 17 of decitabine regimen ( 28 day cycle). He is experiencing moderate myelosupression, probably the result of recent chemotherapy regimen along with underlying MDS, although current antibiotic regimen ( rifampin and vanco) could be playing a role on it. At this time I would recommend to continue with supportive management. He will receive one unit of PRBC as per standing parameters to keep Hb above 7 /dl. - As discussed with primary team. If it's decided to proceed with GLORIA in AM, I would recommend to transfuse 3 units of platelets prior to it ( and repeat CBC early in the morning). Each unit of platelets should increase his platelet count by 20K, so I expect that 3 units ( and probably even 2) should be enough to achieve the goal of 50K). - If not GLORIA is planned, continue with plan to transfuse platelets for counts less than 20 K or 50 K if there is active bleeding. - Consider PT/OT evaluation to avoid further deconditioning. - Upon discharge, please arrange follow up with primary oncologist to discuss timing to resume chemotherapy. - Port removed on 06/03. At this time in view of the uncertainty about whether or not there is associated IE, I would recommend to hold off on Port placement as inpatient. Upon discharge, please arrange short follow up with Dr. Agustin to discuss timing to resume chemotherapy and placement of new port. Code(s): D46.9 - Myelodysplastic syndrome, unspecified SNOMED Code(s): 947633845 (2) Back pain Current Visit: Yes Status: Acute Assessment and plan: Reports persistent back pain, but declined the recommendation to imaging his spine. Clinically, there are not signs/symptoms suggestive of spinal cord compression or epidural abscess ( no urinary incontinence, fecal incontinence or lower extremity weakness). Qualifiers: Back pain location: thoracic back pain Chronicity: acute Back pain laterality: right Qualified Code(s): M54.6 - Pain in thoracic spine (3) Bacteremia Current Visit: Yes Status: Acute Assessment and plan: Management as per primary team and ID. Oncology: Subj Interval history: Patient reports persistent back pain, but refuses having further imaging. He reports having severe pain during his last scan and is reluctant to have another one. He is aware of the possibility that his back pain could be the result of an abscess or another etiology other than muscular/skeletal pain. His and daughter were present during the discussion. Tolerating meals. Denies nausea, vomiting, diarrhea, urinary incontinence. reports that he has recently ambulated without focal deficits. - Constitutional Vitals: Vital Signs Temp Pulse Resp BP Pulse Ox 06/08/17 09:25 98.6 F 98 18 118/74 93 06/08/17 09:10 98.9 F 98 16 121/76 100 06/08/17 07:05 98.1 F 93 14 137/69 94 06/08/17 03:12 98.9 F 91 17 124/71 95 06/07/17 23:57 99.9 F H 104 18 149/76 94 06/07/17 19:54 98.5 F 77 17 127/69 98 06/07/17 15:44 99.1 F 84 17 118/73 97 06/07/17 14:14 99.2 F 88 18 105/68 96 06/07/17 12:13 99.0 F 84 16 106/68 95 06/07/17 11:58 98.8 F 85 16 109/65 06/07/17 11:49 98.8 F 85 16 109/65 96 Intake and Output 06/07/17 06/08/17 06/08/17 23:59 07:59 15:59 Intake Total 490 / 490 0 / 0 Output Total 275 / 275 250 / 250 Balance 215 / 215 -250 / -250 0 / 0 Intake: IV Fluids 250 / 250 Vancocin 1,500 MG In 250 / 250 Dextrose 5% 250 ML @ 166. 667 mls/hr IVPB Q24H [facility] Rx#:[id number] Oral 240 / 240 Blood Product 0 / 0 Rbcs Leuko Poor As-3 Ph 0 / 0 Unit [id number] Output: Urine 275 / 275 250 / 250 Other: Meal Clear Stool Size Small Stool Consistency loose Stool Color Rainer Colored # Voids 1 Weight 78.4 kg Patient Weight 06/08/17 23:59 Weight 78.4 kg - Head Head exam: Present: normal inspection - Neck Neck exam: Present: normal inspection - Respiratory Respiratory exam: Present: CTAB - Cardiovascular Cardiovascular exam: Present: RRR - GI/Abdominal GI/Abdominal exam: Present: normal bowel sounds. Absent: organomegaly - Extremities Exam Extremities exam: Present: normal inspection - Back Exam Back exam: Present: vertebral tenderness - Neurological Exam Neurological exam: Present: oriented X3 - Psychiatric Psychiatric exam: Present: normal affect Oncology: Obj Data - Labs CBC & Chem 7: 06/08/17 04:37 06/08/17 04:37 Labs: Laboratory Results - last 24 hr 06/06/17 06/08/17 06/08/17 18:50 04:37 04:37 WBC 2.5 L RBC 2.40 L Hgb 6.8 L Hct 20.7 L MCV 86.3 MCH 28.3 MCHC 32.9 RDW 17.0 H Plt Count 30 L* MPV 10.2 Immature Gran % 1.6 Seg Neutrophils % 52.9 Lymphocytes % 37.0 Monocytes % 8.5 Eosinophils % 0.0 Basophils % 0.0 Neutrophils # 1.3 L Lymphocytes # 0.9 Monocytes # 0.2 Eosinophils # 0.0 Basophils # 0.0 Nucleated RBCs/100 WBC 0.8 H Sodium 135 L Potassium 4.1 Chloride 101 Carbon Dioxide 28 BUN 11 Creatinine 0.86 Est GFR ( Amer) > 60 Est GFR (Non-Af Amer) > 60 BUN/Creatinine Ratio 13 Glucose 100 H Calculated Osmolality 279 L Calcium 9.1 Total Bilirubin 1.6 H AST 13 ALT 12 Alkaline Phosphatase 102 Serum Total Protein 6.4 Albumin 3.2 L Globulin 3.2 Albumin/Globulin Ratio 1.0 L Blood Type A NEGATIVE Antibody Screen NEGATIVE Crossmatch See Detail - ABG Interpretation ABG results: PT/INR, D-dimer PT 12.3 Seconds (9.4-12.1) H 05/28/17 10:53 Consult Discharge Plan - Plan Referrals: Wang Coy Jr, MD [Primary Care Provider] -
--- NOTE | 2017-06-08 13:43 | Infectious Disease Progress No ---
Date of Encounter: 06/08/17 Time of Encounter: 13:41 - Assessment and Plan (1) Sepsis Current Visit: Yes Status: Acute The patient had two SIRS criteria on admission. Likely secondary to bacteremia and a-port infection Improved. The patient has been afebrile and his tachycardia is improved. He continues to have leukopenia, but this is likely related to his MDS rather than his infection. Peripheral blood cultures drawn 05/28/17 are positive 2/2 sets for S. epi. Repeat blood cultures drawn 05/31/17 are negative 1/1 set. Additional blood cultures drawn 06/05/17 are NGTD x 2 sets. Qualifiers: Sepsis type: sepsis due to unspecified organism Qualified Code(s): A41.9 - Sepsis, unspecified organism (2) Bacteremia Current Visit: Yes Status: Acute Causative organism: S. epi. Source likely the a-port, which has been removed. Peripheral blood cultures drawn 05/28/17 are positive 2/2 sets for S. epi. No cultures from the a-port were obtained. Repeat blood cultures drawn 05/31/17 is negative 1/1 set. Additional blood cultures drawn 06/05/17 are NGTD x 2 sets. The patient has no endocarditis stigmata on exam. He has three minor Modified Deleon's criteria. TTE negative for valvular vegetations. GLORIA has been deferred by cardiology due to the patient's profound thrombocytopenia. If able to transfuse platelets and get GLORIA, this would be preferred, but if not we will have to prolong the patient 's duration of treatment. Continue Vancomycin IV. Pharmacy to dose. Goal trough ~15. Last Vanc trough 16.1. Continue Rifampin 300mg PO BID. Duration of treatment depends on the clinical picture. Given that we will be unable to completely rule out endocarditis and that the patient has a prosthetic heart valve, we will plan on treating for four weeks from the first set of negative blood cultures. Additionally, we will hold off on adding gentamicin due to his CKD and presence of only one kidney. Monitor renal and liver function and for drug toxicity and dose-adjust antibiotics. PICC line placed 06/02/17. Get weekly labs every Monday for the duration of treatment: CBC, BUN/Cr, LFTs, and Vanc trough. Weekly PICC care per protocol. Follow up with ID 06/22/17 at 0900. (3) Infection due to port-a-cath Current Visit: Yes Status: Acute No blood cultures obtained from the a-port. Catheter tip not sent for culture. Status post removal 06/02/17. Qualifiers: Encounter type: initial encounter Qualified Code(s): T80.219A - Unspecified infection due to central venous catheter, initial encounter (4) History of prosthetic aortic valve Current Visit: Yes Status: Chronic Patient had AVR in 2010 with bovine valve. GLORIA deferred by cardiology due to thrombocytopenia. (5) Pancytopenia Current Visit: Yes Status: Chronic Secondary to MDS. Platelets continue to be low. Hem/Onc consulted and following. (6) MDS (myelodysplastic syndrome) Current Visit: Yes Status: Chronic Hematology following. (7) Single kidney Current Visit: Yes Status: Chronic (8) CKD (chronic kidney disease) stage 2, GFR 60-89 ml/min Current Visit: Yes Status: Chronic Stable. Continue to monitor closely while on vancomycin. (9) Aortic aneurysm Current Visit: Yes Status: Chronic Management per primary team. Qualifiers: Aortic location: abdominal aorta Presence of rupture: without rupture Qualified Code(s): I71.4 - Abdominal aortic aneurysm, without rupture - Subjective Interval history: Patient seen and examined. No acute events noted overnight. Status post removal of a-port 06/02/17. Patient continues to complain of back pain, but states his back pain is better today and the current pain medication regimen seems to be working. Complains of pain in the middle of his thoracic spine. He continues to refuse further CT scans due to pain. Denies fevers, chills, or rigors. Denies chest pain, shortness of breath, or cough. Denies nausea, vomiting, or diarrhea. Denies abdominal pain. States his appetite is good. Denies oral thrush or new skin lesions. Infect Dis PN-Objective Data - Labs CBC & Chem 7: 06/08/17 04:37 06/08/17 04:37 Labs: Laboratory Results - last 24 hr 06/06/17 06/08/17 06/08/17 18:50 04:37 04:37 WBC 2.5 L RBC 2.40 L Hgb 6.8 L Hct 20.7 L MCV 86.3 MCH 28.3 MCHC 32.9 RDW 17.0 H Plt Count 30 L* MPV 10.2 Immature Gran % 1.6 Seg Neutrophils % 52.9 Lymphocytes % 37.0 Monocytes % 8.5 Eosinophils % 0.0 Basophils % 0.0 Neutrophils # 1.3 L Lymphocytes # 0.9 Monocytes # 0.2 Eosinophils # 0.0 Basophils # 0.0 Nucleated RBCs/100 WBC 0.8 H Sodium 135 L Potassium 4.1 Chloride 101 Carbon Dioxide 28 BUN 11 Creatinine 0.86 Est GFR ( Amer) > 60 Est GFR (Non-Af Amer) > 60 BUN/Creatinine Ratio 13 Glucose 100 H Calculated Osmolality 279 L Calcium 9.1 Total Bilirubin 1.6 H AST 13 ALT 12 Alkaline Phosphatase 102 Serum Total Protein 6.4 Albumin 3.2 L Globulin 3.2 Albumin/Globulin Ratio 1.0 L Blood Type A NEGATIVE Antibody Screen NEGATIVE Crossmatch See Detail Cultures: Cultures 06/05/17 12:57 Blood Culture - Preliminary Peripheral Venipuncture No growth. 06/05/17 12:57 Blood Culture - Preliminary Peripheral Venipuncture No growth. 05/31/17 10:46 Blood Culture - Final Peripheral Venipuncture No growth. Exam - Constitutional Vitals: Temp Pulse Resp BP Pulse Ox 98.7 F 89 16 118/71 98 06/08/17 12:30 06/08/17 12:30 06/08/17 12:30 06/08/17 12:30 06/08/17 12:30 General appearance: average body habitus, cooperative, no acute distress - Head Head exam: Present: atraumatic, normal inspection, normocephalic - Eye Eye exam: Present: EOMI, normal appearance, PERRL Pupils: Present: normal accommodation Additional comments: No subconjunctival hemorrhage noted. - ENT ENT exam: Present: mucous membranes moist - Neck Neck exam: Present: normal inspection - Respiratory Respiratory exam: Present: CTAB. Absent: rales, respiratory distress, rhonchi, wheezes - Cardiovascular Cardiovascular exam: Present: RRR, +S1, +S2 - GI/Abdominal GI/Abdominal exam: Present: distended, normal bowel sounds, soft. Absent: tenderness - Extremities Exam Extremities exam: Present: pedal edema (1+ Right foot). Absent: joint swelling , tenderness Additional comments: No endocarditis stigmata noted. - Back Exam Additional comments: Patient declined exam due to pain with movement. - Neurological Exam Neurological exam: Present: alert, oriented X3, no focal deficits - Psychiatric Psychiatric exam: Present: normal affect, normal mood - Skin Skin exam: Present: dry, intact, normal color, warm - Additional findings Additional findings: A-port removal site noted to the left upper chest with steri-strips intact. Old , dried blood noted. No active bleeding, erythema or warmth noted. - VTE Documentation of Mechanical Device: Intermittent pneumatic compression device Consult Discharge Plan - Plan Referrals: Wang Coy Jr, MD [Primary Care Provider] - Amy Osborne CNP [Advanced Practice Nurse] - 06/22/17 9:00 am - Attending Attestation I examined this patient and my medical decision-making was reviewed with the Resident Physician. I agree with the documented findings, disposition and treatment plan as described except to the extent set forth below.
--- NOTE | 2017-06-08 15:34 | Internal Med Progress Note ---
Date of Encounter: 06/08/17 Time of Encounter: 08:50 - Assessment and plan (1) Sepsis Current Visit: Yes Status: Acute Assessment and plan: Sepsis present on admission, improving - bacteremia likely from Port which has been removed -patient is stable, afebrile, normotensive -Port removed by Interventional radiology -Blood culture's 05/28/17 have grown 2/2 Staph epi, mecA Methicillin Resistance Gene -Blood cultures (05/31/17) - No growth -Patient also has Bovine aortic valve placed in 2010 -U/A: negative Discussed with Dr. Meng - advised to hold off on GLORIA, states patient has multiple arterial grafts which could also be a possible source of infection. He will evaluate the patient in about 2 weeks at his clinic and then decide the duration of IV antibiotic therapy. Anticipated discharge to [facility] in a.m. will need to continue IV vancomycin daily until follow-up with infectious disease as outpatient Qualifiers: Sepsis type: sepsis due to unspecified organism Qualified Code(s): A41.9 - Sepsis, unspecified organism (2) Bacteremia Current Visit: Yes Status: Acute Assessment and plan: -Bacteremia- most likely from Port -Port removed by Interventional radiology -Blood culture's 05/28/17 have grown 2/2 Staph epi, mecA Methicillin Resistance Gene -Blood cultures (05/31/17) - No growth - Cultures from 06/05/2017 - no growth -Patient also has Bovine aortic valve placed in 2010 -U/A: negative -patient stable, afebrile, normal WBC -GLORIA canceled by cardiology due to thrombocytopenia - transfuse platelets if GLORIA needs to be done -ID following patient Plan -Vancomycin - managed by pharmacy, complicated due to single kidney) -Rifampin -continue to monitor LFTs and renal function (3) Infection due to port-a-cath Current Visit: Yes Status: Acute Assessment and plan: Catheter has been removed by interventional radiology - this is the likely source of bacteremia The last 3 blood cultures have been negative Qualifiers: Encounter type: initial encounter Qualified Code(s): T80.219A - Unspecified infection due to central venous catheter, initial encounter (4) Thrombocytopenia Current Visit: No Status: Acute Assessment and plan: -Due to Myelodysplastic syndrome -platelets 25 -Oncology has been consulted and recommends to transfuse platelets for counts less than 20K or 50 K if there is active bleeding. -Oncology recommendations are appreciated -There is currently no active bleeding. Patient denies melena, hematechezia, Hematemesis. Transfuse platelets today - GLORIA to be done only if his platelets greater than 50 ,000 Plan: -we will continue to monitor H&H -Monitor for bleeding -patient is on fall precautions - Fall precautions (5) MDS (myelodysplastic syndrome) Current Visit: Yes Status: Chronic Assessment and plan: -Chronic anemia Hgb 7.3 -Diagnosed in January 2017. -Currently on cycle 1 of decitabine ( 28 day cycle) -oncology recommendation to- -Transfuse blood for Hb and HCT less than 7 g/dl and 21 respectively. -Transfuse platelets for counts less than 20K or 50 K if there is active bleeding. Oncology following patient Plan: -stool occult ordered -continue to monitor H&H -continue monitor for active bleeding (6) Aortic aneurysm Current Visit: Yes Status: Chronic Assessment and plan: Status post endovascular stent graft repair of the infrarenal abdominal aorta. 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 Patient is awake and alert. Not in any distress. Denies chest pain or shortness of breath. Complains of mild upper and lower back pain which is persistent. States it is dull and throbbing at times. Worse with movement. No other acute events or complaints. He will need physical therapy at [facility]. Platelet count is 30 today. Blood culture drawn on 05/31/2017 is negative. Blood cultures from 06/05/2017 are pending. Patient will need platelet transfusion today. Initial echocardiogram did not show any vegetation. Continue IV antibiotics. - Constitutional Vitals: Temp Pulse Resp BP Pulse Ox 98.7 F 89 16 118/71 98 06/08/17 12:30 06/08/17 12:30 06/08/17 12:30 06/08/17 12:30 06/08/17 12:30 General appearance: Present: A&O X 3, pleasant, no acute distress, underweight, answers questions appropriately - Head Head exam: Present: atraumatic - Eye Eye exam: Present: EOMI - ENT ENT exam: Present: mucous membranes moist - Neck Neck exam general surgery: Present: supple - Respiratory Respiratory exam: Present: CTAB. Absent: rales, rhonchi, stridor, wheezes, tachypnea - Cardiovascular Cardiovascular exam: Present: RRR, +S1, +S2, systolic murmur - GI/Abdominal GI/Abdominal exam: Present: soft. Absent: distended, firm, guarding, rigid, tenderness - Extremities Exam Extremities exam: Present: radial pulses palpable and symetrical. Absent: cyanotic, pedal edema, tenderness - Neurological Exam Neurological exam: Present: alert, oriented X3, no focal deficits. Absent: facial droop, speech deficit Internal Medicine: Result - Labs CBC & Chem 7: 06/08/17 04:37 06/08/17 04:37 Labs: Short CBC 06/08/17 Range/Units 04:37 WBC 2.5 L (4.3-11.1) K/mcL Hgb 6.8 L (12.9-16.9) g/dL Hct 20.7 L (37.5-50.1) % Plt Count 30 L* (140-400) K/mcL Neutrophils # 1.3 L (1.6-8.9) K/mcL BMP 06/08/17 04:37 Sodium 135 L Potassium 4.1 Chloride 101 Carbon Dioxide 28 BUN 11 Creatinine 0.86 Glucose 100 H Calcium 9.1 Liver Function 06/08/17 Range/Units 04:37 Total Bilirubin 1.6 H (0.2-1.2) mg/dL AST 13 (5-34) Units/L ALT 12 (0-55) Units/L Alkaline Phosphatase 102 (38-126) Units/L Albumin 3.2 L (3.5-5.0) g/dL - ABG Interpretation ABG results: PT/INR, D-dimer PT 12.3 Seconds (9.4-12.1) H 05/28/17 10:53 - VTE Documentation of Mechanical Device: Intermittent pneumatic compression device Consult Discharge Plan - Plan Referrals: Wang Coy Jr, MD [Primary Care Provider] - Amy Osborne CNP [Advanced Practice Nurse] - 06/22/17 9:00 am
[2017-06-08] MEDS: Acetaminophen 325 MG TABLET PO PRN (17:06)
[2017-06-08] MEDS ORDERED: 0.9 % Sodium Chloride 250 ML ONE (20:08)
[2017-06-09] MEDS ORDERED: 0.9 % Sodium Chloride 500 ML ONE ×2 (01:24→08:41)
[2017-06-09] MEDS: *HR* Morphine 2 MG/ML SYRINGE IVP PRN ×2 (01:57→10:26)
[2017-06-09] MEDS: Vancomycin 1,500 MG in D5% in Water 250 ML IVPB SCH (05:34)
[2017-06-09 05:49] LABS: Red Cell Distribution Width 16.8 % (11.5-14.5)
[2017-06-09 05:51] LABS: Hematocrit 20.3 % (37.5-50.1); Hemoglobin 6.5 g/dL (12.9-16.9); Immature Granulocytes % 2.3 % (0-4); Lymphocytes # 0.6 K/mcL (0.6-4.6); Mean Corpuscular Hemoglobin 27.8 pg (28.0-33.3); Mean Corpuscular Volume 86.8 fL (83.0-100.0); Monocytes # 0.2 K/mcL (0.0-1.3); Monocytes % 9.2 %; Neutrophils # 0.9 K/mcL (1.6-8.9); Red Blood Count 2.34 M/mcL (4.19-5.50); Segmented Neutrophils % 51.5 %
[2017-06-09 05:55] LABS: Alanine Aminotransferase 12 Units/L (0-55); Albumin 3.2 g/dL (3.5-5.0); Alkaline Phosphatase 96 Units/L (38-126); Aspartate Amino Transferase 14 Units/L (5-34); BUN/Creatinine Ratio 15 (6-26); Bilirubin,Total 1.4 mg/dL (0.2-1.2); Blood Urea Nitrogen 13 mg/dL (8-26); Calcium 9.1 mg/dL (8.6-10.8); Carbon Dioxide 28 mEq/L (19-29); Chloride 101 mEq/L (98-109); Globulin 3.3 g/dL (2.4-3.5); Glucose 100 mg/dL (70-99); Osmolality,Calculated 280 (280-300); Potassium 3.9 mEq/L (3.5-4.5); Sodium 135 mEq/L (136-145); Total Protein 6.5 g/dL (6.0-8.3); eGFR For African Americans > 60 (> 60); eGFR For Non-African Americans > 60 (> 60)
[2017-06-09 05:57] LABS: Platelet Count 84 K/mcL (140-400)
[2017-06-09 06:19] LABS: Anisocytosis 1+ (Not Present); Platelet Estimate Decreased (Normal)
[2017-06-09 06:20] LABS: Hypochromasia Present (Not Present)
[2017-06-09] MEDS: predniSONE 20 MG TABLET PO SCH (08:48)
[2017-06-09] MEDS: Sennosides 8.6 MG TABLET PO SCH (08:48)
[2017-06-09] MEDS: *HR* OxyCODONE Immed Rel 15 MG TABLET PO SCH ×2 (08:48→16:22)
[2017-06-09] MEDS: rifAMPin 150 MG CAPSULE PO SCH ×2 (08:48→16:21)
[2017-06-09] MEDS: Acetaminophen 325 MG TABLET PO PRN (09:04)
--- NOTE | 2017-06-09 10:15 | Oncology Inp Progress Note ---
Date of Encounter: 06/09/17 Time of Encounter: 10:15 (1) MDS (myelodysplastic syndrome) Current Visit: Yes Status: Chronic Assessment and plan: Currently on cycle 1 day 18 of decitabine regimen ( 28 day cycle). He is still experiencing some degree of myelosupression that probably is multifactorial, the result of a combination of his underlying MDS, recent chemotherapy administration, recent episode of bacteremia and treatment with antibiotics ( IV vancomycin and rifampicin ). If he gets discharged today, we would recommend to monitor his CBC twice per week with parameters for transfusion as it follows : hemoglobin of 7 or less for PRBC, and platelet count of 20K or less for platelet transfusions. - In view that his neutrophiles have dropped o 900, I would recommend to start neupogen 300 mcg SQ twice per week starting today. Neuponge can be discontinued once his ANC is 1000 x 2. - Port removed on 06/03. At this time in view of the uncertainty about whether or not there is associated IE, I would recommend to hold off on Port placement as inpatient. Upon discharge, please arrange short follow up with Dr. Agustin to discuss timing to resume chemotherapy and placement of new port. Code(s): D46.9 - Myelodysplastic syndrome, unspecified SNOMED Code(s): 068764998 (2) Back pain Current Visit: Yes Status: Acute Assessment and plan: Still reporting persistent back pain, but declined the recommendation to imaging his spine. Clinically, there are not signs/symptoms suggestive of spinal cord compression or epidural abscess ( no urinary incontinence, fecal incontinence or lower extremity weakness). Qualifiers: Back pain location: thoracic back pain Chronicity: acute Back pain laterality: right Qualified Code(s): M54.6 - Pain in thoracic spine (3) Bacteremia Current Visit: Yes Status: Acute Assessment and plan: Follow up with ID as outpatient to determine duration of antibiotic therapy. Oncology: Subj Interval history: Mr. Esteves was seen with his at bedside. His counts show drop of his ANC but denies recent febrile episodes. Tolerating meals. Reports persistent back pain, but he declined further imaging. He is currently receiving one PRBC for Hb slightly less than 7. - Constitutional Vitals: Vital Signs Temp Pulse Resp BP Pulse Ox 06/09/17 09:10 98.4 F 96 16 120/72 06/09/17 08:56 98.4 F 95 16 128/69 06/09/17 03:33 98.0 F 85 18 118/65 97 06/09/17 03:12 99.7 F H 85 16 128/70 96 06/09/17 01:49 98.8 F 90 20 136/77 06/09/17 01:30 99.4 F 92 20 137/76 95 06/09/17 00:45 99.7 F H 93 20 130/78 98 06/08/17 23:21 98.8 F 89 16 139/81 97 06/08/17 20:45 99.2 F 77 20 115/76 06/08/17 20:10 98.5 F 86 20 112/72 06/08/17 19:58 98.8 F 84 12 109/67 06/08/17 17:11 99.8 F H 89 16 105/63 93 06/08/17 16:56 99.6 F 88 16 105/61 95 06/08/17 16:26 99.3 F 95 17 126/74 97 06/08/17 12:30 98.7 F 89 16 118/71 98 Intake and Output 06/08/17 06/09/17 06/09/17 23:59 07:59 15:59 Intake Total 525 / 525 900 / 900 0 / 0 Output Total 100 / 100 Balance 425 / 425 900 / 900 0 / 0 Intake: Blood Product 525 / 525 900 / 900 0 / 0 Platelet Pheresis Lp Irr 75 / 75 450 / 450 1st Unit [id number] Platelet Pheresis Lp Irr 450 / 450 2nd Unit [id number] Platelet Pheresis Lp Irr 450 / 450 2nd Unit [id number] Rbcs Leuko Poor As-3 Ph 0 / 0 Unit [id number] Output: Urine 100 / 100 Other: Stool Size Moderate Stool Consistency soft Stool Color Brown Yellow # Voids 1 # Bowel Movements 1 Weight 79.016 kg Patient Weight 06/09/17 23:59 Weight 79.016 kg - Head Head exam: Present: normal inspection - ENT ENT exam: Present: normal exam - Respiratory Respiratory exam: Present: CTAB - Cardiovascular Cardiovascular exam: Present: RRR - GI/Abdominal GI/Abdominal exam: Present: normal bowel sounds. Absent: guarding, rebound, tenderness - Extremities Exam Extremities exam: Present: normal inspection - Neurological Exam Neurological exam: Present: oriented X3 - Psychiatric Psychiatric exam: Present: normal mood Oncology: Obj Data - Labs CBC & Chem 7: 06/09/17 05:30 06/09/17 05:30 Labs: Laboratory Results - last 24 hr 06/06/17 06/09/17 06/09/17 18:50 05:30 05:30 WBC 1.7 L RBC 2.34 L Hgb 6.5 L Hct 20.3 L MCV 86.8 MCH 27.8 L MCHC 32.0 RDW 16.8 H Plt Count 84 L D MPV 10.0 Immature Gran % 2.3 Seg Neutrophils % 51.5 Lymphocytes % 37.0 Monocytes % 9.2 Eosinophils % 0.0 Basophils % 0.0 Neutrophils # 0.9 L Lymphocytes # 0.6 Monocytes # 0.2 Eosinophils # 0.0 Basophils # 0.0 Platelet Estimate Decreased L Hypochromasia Present A Anisocytosis 1+ A Sodium 135 L Potassium 3.9 Chloride 101 Carbon Dioxide 28 BUN 13 Creatinine 0.88 Est GFR ( Amer) > 60 Est GFR (Non-Af Amer) > 60 BUN/Creatinine Ratio 15 Glucose 100 H Calculated Osmolality 280 Calcium 9.1 Total Bilirubin 1.4 H AST 14 ALT 12 Alkaline Phosphatase 96 Serum Total Protein 6.5 Albumin 3.2 L Globulin 3.3 Albumin/Globulin Ratio 1.0 L Vancomycin Trough Blood Type A NEGATIVE Antibody Screen NEGATIVE Crossmatch See Detail 06/09/17 05:30 WBC RBC Hgb Hct MCV MCH MCHC RDW Plt Count MPV Immature Gran % Seg Neutrophils % Lymphocytes % Monocytes % Eosinophils % Basophils % Neutrophils # Lymphocytes # Monocytes # Eosinophils # Basophils # Platelet Estimate Hypochromasia Anisocytosis Sodium Potassium Chloride Carbon Dioxide BUN Creatinine Est GFR ( Amer) Est GFR (Non-Af Amer) BUN/Creatinine Ratio Glucose Calculated Osmolality Calcium Total Bilirubin AST ALT Alkaline Phosphatase Serum Total Protein Albumin Globulin Albumin/Globulin Ratio Vancomycin Trough 14.3 Blood Type Antibody Screen Crossmatch - ABG Interpretation ABG results: PT/INR, D-dimer PT 12.3 Seconds (9.4-12.1) H 05/28/17 10:53 Consult Discharge Plan - Plan Referrals: Wang Coy Jr, MD [Primary Care Provider] - Amy Osborne CNP [Advanced Practice Nurse] - 06/22/17 9:00 am
--- NOTE | 2017-06-09 11:10 | Infectious Disease Progress No ---
Date of Encounter: 06/09/17 Time of Encounter: 11:08 - Assessment and Plan (1) Sepsis Current Visit: Yes Status: Acute The patient had two SIRS criteria on admission. Likely secondary to bacteremia and a-port infection Improved. The patient has been afebrile and his tachycardia is improved. He continues to have leukopenia, but this is likely related to his MDS rather than his infection. Peripheral blood cultures drawn 05/28/17 are positive 2/2 sets for S. epi. Repeat blood cultures drawn 05/31/17 are negative 1/1 set. Additional blood cultures drawn 06/05/17 are NGTD x 2 sets. Qualifiers: Sepsis type: sepsis due to unspecified organism Qualified Code(s): A41.9 - Sepsis, unspecified organism (2) Bacteremia Current Visit: Yes Status: Acute Causative organism: S. epi. Source likely the a-port, which has been removed. Peripheral blood cultures drawn 05/28/17 are positive 2/2 sets for S. epi. No cultures from the a-port were obtained. Repeat blood cultures drawn 05/31/17 is negative 1/1 set. Additional blood cultures drawn 06/05/17 are NGTD x 2 sets. The patient has no endocarditis stigmata on exam. He has three minor Modified Deleon's criteria. TTE negative for valvular vegetations. GLORIA has been deferred by cardiology due to the patient's profound thrombocytopenia. If able to transfuse platelets and get GLORIA, this would be preferred, but if not we will have to prolong the patient 's duration of treatment. Continue Vancomycin IV. Pharmacy to dose. Goal trough ~15. Last Vanc trough 16.1. Continue Rifampin 300mg PO BID. Duration of treatment depends on the clinical picture. Given that we will be unable to completely rule out endocarditis and that the patient has a prosthetic heart valve, we will plan on treating for four to six weeks from the first set of negative blood cultures. Additionally, we will hold off on adding gentamicin due to his CKD and presence of only one kidney. Monitor renal and liver function and for drug toxicity and dose-adjust antibiotics. PICC line placed 06/02/17. Get weekly labs every Monday for the duration of treatment: CBC, BUN/Cr, LFTs, and Vanc trough. Weekly PICC care per protocol. Follow up with ID 06/22/17 at 0900. (3) Infection due to port-a-cath Current Visit: Yes Status: Acute No blood cultures obtained from the a-port. Catheter tip not sent for culture. Status post removal 06/02/17. Qualifiers: Encounter type: initial encounter Qualified Code(s): T80.219A - Unspecified infection due to central venous catheter, initial encounter (4) History of prosthetic aortic valve Current Visit: Yes Status: Chronic Patient had AVR in 2010 with bovine valve. GLORIA deferred by cardiology due to thrombocytopenia. (5) Pancytopenia Current Visit: Yes Status: Chronic Secondary to MDS. WBC down to 1.7 this morning. Platelets continue to be low. Hgb 6.5 this morning. Currently getting PRBCs. Hem/Onc consulted and following. (6) MDS (myelodysplastic syndrome) Current Visit: Yes Status: Chronic Hematology following. (7) Single kidney Current Visit: Yes Status: Chronic (8) CKD (chronic kidney disease) stage 2, GFR 60-89 ml/min Current Visit: Yes Status: Chronic Stable. Continue to monitor closely while on vancomycin. (9) Aortic aneurysm Current Visit: Yes Status: Chronic Management per primary team. Qualifiers: Aortic location: abdominal aorta Presence of rupture: without rupture Qualified Code(s): I71.4 - Abdominal aortic aneurysm, without rupture - Subjective Interval history: Patient seen and examined. No acute events noted overnight. Patient lying in bed with eyes closed, awakens easily. He denies any new complaints. Denies fevers, chills, or rigors. Denies shortness of breath, chest pain, or cough. Denies nausea, vomiting, or diarrhea. Denies abdominal pain. Reports constipation and states he has only had a small amount of stool out in the past few days. Continues to complain of back pain, but states it is currently well- controlled with pain medication. States his appetite is good. Denies oral thrush or new skin lesions. Infect Dis PN-Objective Data - Labs CBC & Chem 7: 06/09/17 13:40 06/09/17 05:30 Labs: Laboratory Results - last 24 hr 06/06/17 06/09/17 06/09/17 18:50 05:30 05:30 WBC 1.7 L RBC 2.34 L Hgb 6.5 L Hct 20.3 L MCV 86.8 MCH 27.8 L MCHC 32.0 RDW 16.8 H Plt Count 84 L D MPV 10.0 Immature Gran % 2.3 Seg Neutrophils % 51.5 Lymphocytes % 37.0 Monocytes % 9.2 Eosinophils % 0.0 Basophils % 0.0 Neutrophils # 0.9 L Lymphocytes # 0.6 Monocytes # 0.2 Eosinophils # 0.0 Basophils # 0.0 Platelet Estimate Decreased L Hypochromasia Present A Anisocytosis 1+ A Sodium 135 L Potassium 3.9 Chloride 101 Carbon Dioxide 28 BUN 13 Creatinine 0.88 Est GFR ( Amer) > 60 Est GFR (Non-Af Amer) > 60 BUN/Creatinine Ratio 15 Glucose 100 H Calculated Osmolality 280 Calcium 9.1 Total Bilirubin 1.4 H AST 14 ALT 12 Alkaline Phosphatase 96 Serum Total Protein 6.5 Albumin 3.2 L Globulin 3.3 Albumin/Globulin Ratio 1.0 L Vancomycin Trough Blood Type A NEGATIVE Antibody Screen NEGATIVE Crossmatch See Detail 06/09/17 05:30 WBC RBC Hgb Hct MCV MCH MCHC RDW Plt Count MPV Immature Gran % Seg Neutrophils % Lymphocytes % Monocytes % Eosinophils % Basophils % Neutrophils # Lymphocytes # Monocytes # Eosinophils # Basophils # Platelet Estimate Hypochromasia Anisocytosis Sodium Potassium Chloride Carbon Dioxide BUN Creatinine Est GFR ( Amer) Est GFR (Non-Af Amer) BUN/Creatinine Ratio Glucose Calculated Osmolality Calcium Total Bilirubin AST ALT Alkaline Phosphatase Serum Total Protein Albumin Globulin Albumin/Globulin Ratio Vancomycin Trough 14.3 Blood Type Antibody Screen Crossmatch Cultures: Cultures 06/05/17 12:57 Blood Culture - Preliminary Peripheral Venipuncture No growth. 06/05/17 12:57 Blood Culture - Preliminary Peripheral Venipuncture No growth. 05/31/17 10:46 Blood Culture - Final Peripheral Venipuncture No growth. Exam - Constitutional Vitals: Temp Pulse Resp BP Pulse Ox 98.4 F 96 16 120/72 97 06/09/17 09:10 06/09/17 09:10 06/09/17 09:10 06/09/17 09:10 06/09/17 03:33 General appearance: average body habitus, cooperative, no acute distress - Head Head exam: Present: atraumatic, normal inspection, normocephalic - Eye Eye exam: Present: EOMI, normal appearance, PERRL Pupils: Present: normal accommodation Additional comments: No subconjunctival hemorrhage noted. - ENT ENT exam: Present: mucous membranes moist - Neck Neck exam: Present: normal inspection - Respiratory Respiratory exam: Present: CTAB. Absent: rales, respiratory distress, rhonchi, wheezes - Cardiovascular Cardiovascular exam: Present: RRR, +S1, +S2 - GI/Abdominal GI/Abdominal exam: Present: normal bowel sounds, soft. Absent: distended, tenderness - Extremities Exam Extremities exam: Present: normal inspection. Absent: joint swelling, pedal edema, tenderness - Back Exam Additional comments: Patient declines. - Neurological Exam Neurological exam: Present: alert, oriented X3, no focal deficits - Psychiatric Psychiatric exam: Present: normal affect, normal mood - Skin Skin exam: Present: dry, intact, normal color, warm - Additional findings Additional findings: Previous a-port site noted to the left upper chest with steri-strips intact. Old , dried, sanguinous drainage noted on steri-strips. No erythema, warmth, or tenderness noted. - VTE Documentation of Mechanical Device: Intermittent pneumatic compression device Consult Discharge Plan - Plan Referrals: Wang Coy Jr, MD [Primary Care Provider] - Amy Osborne CNP [Advanced Practice Nurse] - 06/22/17 9:00 am Ector Myers MD [Partnered Physician] - 06/12/17 1:40 pm Prescriptions: rifAMPin [Rifadin] 300 mg PO BIDAC 14 Days - Attending Attestation I examined this patient and my medical decision-making was reviewed with the Resident Physician. I agree with the documented findings, disposition and treatment plan as described except to the extent set forth below.
--- NOTE | 2017-06-09 12:02 | Discharge Summary ---
Date of Encounter: 06/09/17 Time of Encounter: 08:35 - Discharge Diagnosis (1) Sepsis Priority: Primary Status: Acute Comments: Now improved - source is likely from the port which has now been removed Repeat Blood cultures - negative No need for GLORIA at this time - duration of antibiotics to be decided by ID Continue IV vancomycin via PICC line and by mouth rifampin as per ID recommendations Follow up with ID as outpatient on 06/22/2017 at 0900 Qualifiers: Sepsis type: sepsis due to unspecified organism Qualified Code(s): A41.9 - Sepsis, unspecified organism (2) Bacteremia Priority: Primary Status: Acute Comments: Now improved - plan as above (3) Infection due to port-a-cath Priority: Primary Status: Acute Comments: Port a catheter has been removed Qualifiers: Encounter type: initial encounter Qualified Code(s): T80.219A - Unspecified infection due to central venous catheter, initial encounter (4) Thrombocytopenia Priority: Primary Status: Acute Comments: Platelets have been transfused - no active bleeding Total of 10 units of platelets have been transfused during his stay in the hospital Outpatient follow-up with hematology/oncology (5) MDS (myelodysplastic syndrome) Priority: Primary Status: Chronic Comments: Currently on chemotherapy outpatient Follow-up with hematology/oncology (6) Aortic aneurysm Priority: Secondary Status: Chronic Comments: Status post endovascular stent graft repair of the infrarenal abdominal aorta. 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 - stable likely chronic Stable appearance of the infrarenal aortobiiliac stent graft Qualifiers: Aortic location: abdominal aorta Presence of rupture: without rupture Qualified Code(s): I71.4 - Abdominal aortic aneurysm, without rupture (7) Pancytopenia Priority: Secondary Status: Chronic Comments: Secondary to myelodysplastic syndrome and chemotherapy Neupogen given before discharge PRBC transfused prior to discharge, patient has received 4 units PRBC during his stay in the hospital (8) History of prosthetic aortic valve Priority: Secondary Status: Chronic - Discharge Medications Prescriptions: OxyCODONE Immed Rel [Roxicodone 15 MG] 15 mg PO TID #14 tab rifAMPin [Rifadin] 300 mg PO BIDAC 14 Days Home Medications: Multivitamin/Iron/Folic Acid [Centrum Complete Multivit Tab] 1 each PO DAILY 12/ 11/15 [History] Ergocalciferol (VITAMIN D2) [Vitamin D2 (50,000 UNIT)] 50,000 unit PO MO [History] Melatonin 10 mg PO HS 04/01/16 [History] Mirtazapine 7.5 mg PO HS 04/01/16 [History] Omeprazole [PriLOSEC] 20 mg PO DAILY 04/01/16 [History] Oxycodone HCl 15 mg PO Q4H PRN 04/01/16 [History] Allopurinol [Zyloprim 100 MG] 100 mg PO BID 03/07/17 [History] Polyethylene Glycol 3350 [MiraLAX Powder Bulk 17.9 Oz] 1 scoop PO DAILY PRN 12/23 [History] Sennosides [Senna] 17.2 mg PO BID 03/07/17 [History] Furosemide [Lasix] 40 mg PO DAILY #30 tablet 05/02/17 [Rx] Ondansetron [Zofran] 4 mg PO Q8HR PRN #90 tablet 05/02/17 [Rx] Calcium Carbonate [Calcium] 600 mg PO DAILY 05/08/17 [History] Carvedilol 3.125 mg PO BID 05/08/17 [History] Aminocaproic Acid [Amicar] 250 mg PO Q8H PRN #200 solution 05/16/17 [Rx] Chlorhexidine Gluconate [Peridex] 10 ml MM DAILY #118 mouthwash 05/16/17 [Rx] Lidocaine/Prilocaine CREAM [Emla] 5 gm TP ONCE #1 tube 05/16/17 [Rx] predniSONE [PredniSONE] See Taper PO DAILY #18 tablet 05/21/17 [Rx] Bisacodyl [Dulcolax] 10 mg PO HS PRN tab 06/09/17 [Rx] OxyCODONE Immed Rel [Roxicodone 15 MG] 15 mg PO TID #14 tab 06/09/17 [Rx] Vancomycin [Vancocin] 1 each IVPB RPHPROT vial 06/09/17 [Rx] rifAMPin [Rifadin] 300 mg PO BIDAC 14 Days 06/09/17 [Rx] Allergies/Adverse Reactions: Allergies citalopram Adverse Reaction (Verified 05/08/17 20:17) Nausea codeine Adverse Reaction (Verified 05/08/17 20:17) See Comments Cardiac problems per . Daxwfdn-Hhf-Uoi Reductase Inhibitor [Statins] Adverse Reaction (Verified 20:17) See Comments RA symptoms per . Date of admission: 05/28/17 16:38 Primary care physician: Wang Coy Jr, MD Consults: 05/28/17 17:56 Consult to Manager Personnel Selection [CONS] Routine Reason for SW Consult: update living will from Full Code to DNR-CCA-DNI 05/30/17 13:12 Consult to Interventional Radiology [CONS] Routine Consulting Provider: Radiology Interventional [place] Reason for Consult: removal of a port that may be causing bacteremia Call Completed: No 05/30/17 13:13 Consult to Infectious Diseases [CONS] Routine Consulting Provider: Infectious [facility] [place] Reason for Consult: gram positive cocci, mecA methicillin resisrance gene Call Completed: No 06/02/17 12:01 Consult to Invasive Line Access Team [CONS] Routine Reason for Consult: Picc Line Insertion Line Type: PICC 06/07/17 14:05 Consult to Physical Therapy [CONS] Routine Comment: Evaluate, develop and implement POC Reason for Consult: weakness/placement 06/07/17 14:06 Consult to Occupational Therapy [CONS] Routine Comment: Evaluate, develop and implement POC Reason for Consult: weakness/ Placement Anticipated date of discharge: 06/09/17 - Patient Status Disposition: Transfer SNF Condition: Fair Functional capacity at discharge: uses cane/walker Overall status at discharge: patient is progressing back to baseline - Discharge Instructions Follow Up With: Wang Coy Jr, MD [Primary Care Provider] - Amy Osborne CNP [Advanced Practice Nurse] - 06/22/17 9:00 am Ector Myers MD [Partnered Physician] - 06/12/17 1:40 pm - Diet and Activity Activity: as per physical therapy Diet: advance to your usual diet Hospital course: Mr. Townsend is a 77 year old male with past medical history of coronary artery disease, atrial fibrillation, myelodysplastic syndrome, aortic aneurysm, hyperlipidemia, hypertension, peripheral arterial disease, pancytopenia and valvular heart disease. He presented to the ED with complaints of right rib pain and fever. Patient had completed his initial cycle of chemotherapy for myelodysplastic syndrome. He was found to have pancytopenia and thrombocytopenia. He was also having a low-grade fever. He denied any sore throat or nausea or vomiting or diarrhea. No pain. He denied chest pain or shortness of breath. Patient also received blood transfusion before he presented to the ED. Patient also had some right upper quadrant abdominal pain. Initially there was concern for acute cholangitis. CT of the abdomen and pelvis revealed a nodule in the right upper lung zone and aneurysmal dilatation of the abdominal aorta and inflammatory changes within the mesentery of the left lower quadrant. Ultrasound of the abdomen revealed postcholecystectomy prominence of the common duct with no acute abnormality. CT of the soft tissue of neck with contrast revealed chronically occluded distal right IJ be otherwise negative. Patient also had fever and he was started on empiric IV Levaquin and IV Zosyn. Blood cultures were initially positive for staph epidermidis. Patient was also started on vancomycin and rifampin. ID was consulted and they recommended to add the rifampin and also agreed with removal of the port. Patient's source of sepsis was likely the port. Repeat blood cultures are negative. Interventional radiologist was consulted and the port was removed. Oncology was also consulted and they were following the patient daily. Patient required a total of 4 units packed red cells transfusion during his stay in the hospital. He required 10 units of platelets transfusion during his stay in the hospital. He did not have any active bleeding. It was initially thought that patient would require a GLORIA and his platelets would have to be at least 50,000 for GLORIA could be attempted. After discussing with , he stated patient does not require GLORIA at this time. IV vancomycin can be continued via PICC line and patient can follow up with ID as outpatient. Rifampin to be continued at the ECF. Patient also received 1 dose of Neupogen prior to discharge. He also had PT and OT evaluation. Patient continued to complain of upper and lower back pain during his stay in the hospital. Does have a history of multiple compression fractures and also has had surgeries in his back. Degenerative changes likely cause of the back pain. Patient refused to get a CT scan or any other imaging because he did not want to lay flat. There is no suspicion for spinal cord compression or epidural abscess at this time. Sepsis is now improved and patient's bacteremia has also improved. His platelet count is now stable and he received 1 unit PRBC prior to discharge. Patient will need to continue all his home medications on discharge. He has been given a prescription for IV vancomycin and also for by mouth rifampin. Patient and his and family have been explained in detail about his condition and plan of care and guarded prognosis. They understood and agreed. No unanswered questions. Patient does have a follow-up appointment with his oncologist on Monday. Patient will require CBC twice weekly. No other acute events or complications during his stay in the hospital. Patient is tolerating oral diet well. He is able to sit up in chair and able to ambulate with assistance. Patient has been explained that he is a bleed risk due to thrombocytopenia. He stands and agreed. No unanswered questions. Patient is being discharged in a stable condition. - Time Spent with Patient Total time spent providing and/or coordinating discharge services: Greater than 30 minutes - Constitutional Vitals: Temp Pulse Resp BP Pulse Ox 98.4 F 96 16 120/72 97 06/09/17 09:10 06/09/17 09:10 06/09/17 09:10 06/09/17 09:10 06/09/17 03:33 General appearance: Present: A&O X 3, pleasant, no acute distress, underweight, answers questions appropriately Exam: Generalized weakness, ill-appearing - Head Head exam: Present: atraumatic - Eye Eye exam: Present: EOMI - ENT ENT exam: Present: mucous membranes moist - Neck Neck exam general surgery: Present: supple - Respiratory Respiratory exam: Present: CTAB. Absent: rales, rhonchi, stridor, wheezes, tachypnea - Cardiovascular Cardiovascular exam: Present: RRR, +S1, +S2, systolic murmur - GI/Abdominal GI/Abdominal exam: Present: soft. Absent: distended, firm, guarding, rigid, tenderness - Extremities Exam Extremities exam: Present: radial pulses palpable and symetrical. Absent: cyanotic, pedal edema, tenderness - Neurological Exam Neurological exam: Present: alert, oriented X3, no focal deficits - VTE Documentation of Mechanical Device: Intermittent pneumatic compression device
[2017-06-09 12:12] VITALS: BP 115/68
--- NOTE | 2017-06-09 12:39 | Physician Discharge Referral ---
ExtendedCare Referral Info Provider in Charge after Transfer: PCP Institutional Level of Care: Skilled - Diagnosis (1) Sepsis Priority: Primary Status: Acute (2) Bacteremia Priority: Primary Status: Acute (3) Infection due to port-a-cath Priority: Primary Status: Acute (4) Thrombocytopenia Priority: Primary Status: Acute (5) MDS (myelodysplastic syndrome) Priority: Primary Status: Chronic (6) Aortic aneurysm Priority: Secondary Status: Chronic (7) Pancytopenia Priority: Primary Status: Chronic (8) History of prosthetic aortic valve Priority: Secondary Status: Chronic Prognosis: Fair Aware of Diagnosis: Patient, Family Aware of Prognosis: Patient, Family - Transfer Medications Prescriptions: rifAMPin [Rifadin] 300 mg PO BIDAC 14 Days Home Medications: Multivitamin/Iron/Folic Acid [Centrum Complete Multivit Tab] 1 each PO DAILY 09/20 [History] Ergocalciferol (VITAMIN D2) [Vitamin D2 (50,000 UNIT)] 50,000 unit PO MO [History] Melatonin 10 mg PO HS 04/01/16 [History] Mirtazapine 7.5 mg PO HS 04/01/16 [History] Omeprazole [PriLOSEC] 20 mg PO DAILY 04/01/16 [History] Oxycodone HCl 15 mg PO Q4H PRN 04/01/16 [History] Allopurinol [Zyloprim 100 MG] 100 mg PO BID 03/07/17 [History] Polyethylene Glycol 3350 [MiraLAX Powder Bulk 17.9 Oz] 1 scoop PO DAILY PRN 12/23 [History] Sennosides [Senna] 17.2 mg PO BID 03/07/17 [History] Furosemide [Lasix] 40 mg PO DAILY #30 tablet 05/02/17 [Rx] Ondansetron [Zofran] 4 mg PO Q8HR PRN #90 tablet 05/02/17 [Rx] Calcium Carbonate [Calcium] 600 mg PO DAILY 05/08/17 [History] Carvedilol 3.125 mg PO BID 05/08/17 [History] Aminocaproic Acid [Amicar] 250 mg PO Q8H PRN #200 solution 05/16/17 [Rx] Chlorhexidine Gluconate [Peridex] 10 ml MM DAILY #118 mouthwash 05/16/17 [Rx] Lidocaine/Prilocaine CREAM [Emla] 5 gm TP ONCE #1 tube 05/16/17 [Rx] predniSONE [PredniSONE] See Taper PO DAILY #18 tablet 05/21/17 [Rx] Bisacodyl [Dulcolax] 10 mg PO HS PRN tab 06/09/17 [Rx] Vancomycin [Vancocin] 1 each IVPB RPHPROT vial 06/09/17 [Rx] rifAMPin [Rifadin] 300 mg PO BIDAC 14 Days 06/09/17 [Rx] Allergies/Adverse Reactions: Allergies citalopram Adverse Reaction (Verified 05/08/17 20:17) Nausea codeine Adverse Reaction (Verified 05/08/17 20:17) See Comments Cardiac problems per . Xrivjti-Vyy-Qtw Reductase Inhibitor [Statins] Adverse Reaction (Verified 20:17) See Comments RA symptoms per . - Respiratory Orders Smoking Cessation: Smoking cessation has been advised. For more information, call the [place] Tobacco Quit Line at 0-134-VRMY-NOW. - Lab Orders Lab Orders: CBC (twice weekly) - Ancillary Orders May use pressure relief devices daily prn - Advance Directives Code Status: DNR-Arrest/Don't Intubate - Mobility Orders Ambulate - Rehabiliation Orders Rehab Potential: Fair Rehab Orders: ROM Exercises, Evaluation for Physical Therapy, Evaluation for Occupational Therapy - Treatments Skin tear care topically daily PRN per policy - Diet Orders Regular CERTIFICATION: I certify that the transfer of the above named patient to an Extended Care Facility is necessary for the continuing treatment of the diagnosis listed. The above information is true and accurate reflection of patient's current condition. Confidential - Redisclosure prohibited without a patient's written consent.
[2017-06-09 14:14] LABS: Hematocrit 23.5 % (37.5-50.1); Hemoglobin 7.7 g/dL (12.9-16.9)
== END 2017-06-09 17:04 | DRG 314 ==
LOC: EMEROO 09:35 → 3ANU 09:35 → SUATTDRO 16:38 → 3ANU 16:57
PROVIDERS: ADMIT Internal Medicine; ATTEND Internal Medicine

== ENCOUNTER 2017-06-12 15:30 | Inpatient (IN) ==
[2017-06-12] MEDS ORDERED: 0.9 % Sodium Chloride 1,000 ML IVC ONE ×2 (15:58→20:12)
[2017-06-12] MEDS ORDERED: *HR* Morphine 2 MG/ML SYRINGE IVP ONE (15:59)
--- NOTE | 2017-06-12 16:23 | Emergency Department Note ---
START Narrative - START START: I examined this patient and my medical decision-making was reviewed with the Resident Physician. I agree with the documented findings, disposition and treatment plan as described except to the extent set forth below. 77-year-old male presents emergency room for abnormal lab values. Patient has myelodysplastic disorder. Currently undergoing treatment here. Had recent diagnosis of bacteremia. Had a recent port removed secondary to the bacteremia. Patient has a PICC line and he has been getting IV vancomycin daily in the morning at the nursing facility. He presents today for low hemoglobin and low platelets as well as low-grade fevers again. We will check blood cultures again as well as a chest x-ray and urinalysis and looked to transfuse the patient.
--- NOTE | 2017-06-12 16:40 | Emergency Department Note ---
Disposition Clinical Impression: HCAP (healthcare-associated pneumonia), Thrombocytopenia Anemia Qualifiers: Anemia type: unspecified type Qualified Code(s): D64.9 - Anemia, unspecified Disposition: Admitted As Inpatient Condition: Fair Referrals: NONE,PCP [Non-Partnered Physician] - Forms: ED Satisfaction Letter Recheck wound or abnormal lab - General Chief Complaint: ED Fever Stated Complaint: abnormal labs Time Seen by Provider: 06/12/17 15:40 Source: patient, family Mode of arrival: private vehicle Limitations: no limitations Nursing Notes Reviewed: Yes Vital Signs Reviewed: Yes - History of Present Illness HPI Narrative: 77-year-old male history of myelodysplastic syndrome currently on chemotherapy who presents to the ER with a chief complaint of abnormal labs. Patient states he was recently admitted 2 weeks ago for bacteremia treated with IV vancomycin. At that time they removed his port and placed a PICC line. He was sent to a nursing facility over the weekend but reports fevers of 100.1 there. He saw his oncologist today and they rechecked lab work which showed a hemoglobin of 6.9 and from the cytopenia. Patient was referred here for management. He reports back pain which is chronic in nature. Denies any hemoptysis, hematochezia, melena, hematuria. No other complaints. Pt Subjective Complaint: abnormal lab(s) Initial Visit (ago): hour(s) Symptoms Since Prior Visit: no new symptoms Context: called for abnormal lab result Associated symptoms: fever (100.1 ) - Related Data Home Medications Medication Instructions Recorded Confirmed Multivitamin/Iron/Folic Acid 1 each PO DAILY 10/16/15 06/12/17 [Centrum Complete Multivit Tab] Ergocalciferol (VITAMIN D2) 50,000 unit PO MO 04/01/16 06/12/17 [Vitamin D2 (50,000 UNIT)] Melatonin 10 mg PO HS 04/01/16 06/12/17 Mirtazapine 7.5 mg PO HS 04/01/16 06/12/17 Omeprazole [PriLOSEC] 20 mg PO DAILY 04/01/16 06/12/17 Allopurinol [Zyloprim 100 MG] 100 mg PO BID 03/07/17 06/12/17 Sennosides [Senna] 17.2 mg PO BID 03/07/17 06/12/17 Calcium Carbonate [Calcium] 600 mg PO DAILY 05/08/17 06/12/17 Carvedilol 3.125 mg PO BID 05/08/17 06/12/17 Lactulose [Enulose] 10 gm PO BID 06/12/17 06/12/17 Lidocaine/Prilocaine CREAM [Emla] 1 appl TP ONCE PRN 06/12/17 06/12/17 OxyCODONE Immed Rel [Roxicodone 15 15 mg PO QID 06/12/17 06/12/17 MG] Polyethylene Glycol 3350 [MiraLAX] 17 gm PO DAILY PRN 06/12/17 06/12/17 Previous Rx's Medication Instructions Recorded Furosemide [Lasix] 40 mg PO DAILY #30 tablet 05/02/17 Ondansetron [Zofran] 4 mg PO Q8HR PRN #90 tablet 05/02/17 Aminocaproic Acid [Amicar] 250 mg PO Q8H PRN #200 solution 05/16/17 Chlorhexidine Gluconate [Peridex] 10 ml MM DAILY #118 mouthwash 05/16/17 Bisacodyl [Dulcolax] 10 mg PO HS PRN tab 06/09/17 Vancomycin [Vancocin] 1 each IVPB RPHPROT vial 06/09/17 rifAMPin [Rifadin] 300 mg PO BIDAC 14 Days 06/09/17 Allergies Allergy/AdvReac Type Severity Reaction Status Date / Time citalopram AdvReac Nausea Verified 06/12/17 15:37 codeine AdvReac See Verified 06/12/17 15:37 Comments Tywscbq-Snb-Qni Reductase AdvReac See Verified 06/12/17 15:37 Inhibitor Comments [Statins] All systems ED: reviewed and negative except as stated. Constitutional: Reports: fever, chills Cardiovascular: Denies: chest pain Respiratory: Denies: dyspnea Gastrointestinal: Denies: abdominal pain, nausea, vomiting Musculoskeletal: Reports: back pain Past Medical History - Past Medical History Attestation: Yes The following information was validated with the patient. Source: patient Medical history: Reports: aortic aneurysm, atrial fibrillation, cancer, coronary artery disease, hyperlipidemia, hypertension, peripheral artery disease , valvular heart disease, other Surgical history: Reports: coronary bypass (CABG), heart valve replacement Psychiatric history: Reports: no psych history - Social History Smoking Status: Never smoker Smokeless Tobacco Status: No Alcohol use: Reports: none Drug use: Reports: none Physical Exam - General Limitations: no limitations General appearance: alert, in no apparent distress - Head Head exam: atraumatic, normocephalic, normal inspection - Eye Eye exam: Present: normal appearance, EOMI - ENT ENT exam: normal exam - Neck Neck exam: Present: normal inspection - Chest Chest inspection: Present: normal inspection, symmetric chest wall rise - Respiratory Respiratory exam: Present: normal lung sounds bilaterally - Cardiovascular Cardiovascular exam: Present: tachycardia, irregular rhythm, normal heart sounds - Abdominal Exam Abdominal exam: Present: soft, Non-Tender. Absent: tenderness - Extremities Exam Extremities exam: Present: normal inspection, full ROM - Expanded Upper Extremity Exam Shoulder exam: Present: normal inspection, full ROM Arm exam: Present: normal inspection, full ROM Elbow exam: Present: normal inspection, full ROM Forearm/Wrist exam: Present: normal inspection, full ROM Hand exam: Present: normal inspection, full ROM - Expanded Lower Extremity Exam Hip/Pelvis exam: Present: normal inspection, full ROM Upper leg exam: Present: normal inspection, full ROM Knee exam: Present: normal inspection, full ROM Lower leg exam: Present: normal inspection, full ROM Ankle exam: Present: normal inspection, full ROM Foot/toe exam: Present: normal inspection, full ROM Neurovascular/Tendon exam: Absent: motor deficit, sensory deficit - Back Exam Back exam: Present: normal inspection - Neurological Exam Neurological exam: Present: alert, other (GCS 15. Nonfocal neurologic exam.) - Psychiatric Psychiatric exam: Present: normal affect, normal mood - Skin Skin exam: Present: warm, dry, intact, normal color Course Course Narrative: Patient seen and examined. Vital signs reviewed. We will recheck his labs including CBC, type and screen and transfuse one unit for hemoglobin of 6.9. Patient will be admitted to the hospital for further management. - Reevaluation(s) Reevaluation #1: I discussed the results of imaging and lab work with the patient. He looks like he has a left lower lobe pneumonia. Patient will be treated for healthcare associated pneumonia. Vital Signs Temperature 99.4 F 06/12/17 15:33 Pulse Rate 111 06/12/17 15:33 Respiratory Rate 18 06/12/17 15:33 Blood Pressure 123/69 06/12/17 15:33 O2 Sat by Pulse Oximetry 97 06/12/17 15:33 Temperature 99.4 F 06/12/17 15:33 Pulse Rate 108 06/12/17 17:58 Respiratory Rate 18 06/12/17 17:58 Blood Pressure 131/79 06/12/17 17:58 O2 Sat by Pulse Oximetry 98 06/12/17 17:58 Oxygen Delivery Oxygen Delivery Room Air Recheck wound or abnormal lab - MDM Narrative Medical decision making narrative: 77-year-old male history of myelodysplastic syndrome who presents to the ER due to abnormal labs. He was found to have a hemoglobin of 6.9 this morning. Repeat here shows a hemoglobin of 8.0. He did report temperatures of 100.1 at the nursing facility. His chest x-ray here shows left lower lobe infiltrate. He will be treated for healthcare associated pneumonia with vancomycin, Zosyn and Levaquin. No indication for transfusion at this time. He is thrombocytopenic which is baseline. He will be admitted to the hospitalist service for further management. - Lab Data Lab results reviewed: Yes I reviewed the patient's lab results. Result diagrams: 06/12/17 16:19 06/12/17 16:19 Lab Results 06/12/17 06/12/17 06/12/17 Range/Units 16:19 16:19 16:19 WBC 1.7 L (4.3-11.1) K/mcL RBC 2.87 L (4.19-5.50) M/mcL Hgb 8.0 L (12.9-16.9) g/dL Hct 25.2 L (37.5-50.1) % MCV 87.8 (83.0-100.0) fL MCH 27.9 L (28.0-33.3) pg MCHC 31.7 (31.6-35.5) g/dL RDW 17.1 H (11.5-14.5) % Plt Count 53 L (140-400) K/mcL MPV 9.8 (9.4-12.4) fL Immature Gran % 5.9 H (0-4) % Seg Neutrophils % 58.2 % Lymphocytes % 28.2 % Monocytes % 6.5 % Eosinophils % 0.0 % Basophils % 1.2 % Neutrophils # 1.0 L (1.6-8.9) K/mcL Lymphocytes # 0.5 L (0.6-4.6) K/mcL Monocytes # 0.1 (0.0-1.3) K/mcL Eosinophils # 0.0 (0.0-0.6) K/mcL Basophils # 0.0 (0.0-0.2) K/mcL Platelet Estimate Decreased L (Normal) Hypochromasia Present A (Not Present) PT 15.0 H (9.4-12.1) Seconds INR 1.4 Sodium 134 L (136-145) mEq/L Potassium 3.9 (3.5-4.5) mEq/L Chloride 97 L (98-109) mEq/L Carbon Dioxide 27 (19-29) mEq/L BUN 19 (8-26) mg/dL Creatinine 1.25 (0.72-1.25) mg/dL Est GFR ( Amer) > 60 (> 60) Est GFR (Non-Af Amer) 56 L (> 60) BUN/Creatinine Ratio 15 (6-26) Glucose 127 H (70-99) mg/dL Calculated Osmolality 282 (280-300) Calcium 9.6 (8.6-10.8) mg/dL Total Bilirubin 1.7 H D (0.2-1.2) mg/dL Direct Bilirubin 0.9 H (0.0-0.5) mg/dL Indirect Bilirubin 0.8 (0.0-1.2) mg/dL AST 18 (5-34) Units/L ALT 14 (0-55) Units/L Alkaline Phosphatase 109 (38-126) Units/L Serum Total Protein 7.7 D (6.0-8.3) g/dL Albumin 3.7 (3.5-5.0) g/dL Globulin 4.0 H (2.4-3.5) g/dL Albumin/Globulin Ratio 0.9 L (1.1-2.2) Urine Color (Yellow) Urine Clarity (Clear) Urine pH (5.0-8.0) pH Units Ur Specific [place] (1.010-1.025) Urine Protein (Neg-Trace) mg/dL Urine Glucose (UA) (Normal) mg/dL Urine Ketones (Negative) mg/dL Urine Blood (Negative) Urine Nitrite (Negative) Urine Bilirubin (Negative) Urine Urobilinogen (Normal) mg/dL Ur Leukocyte Esterase (Negative) Urine Microscopic RBC (0-3) per hpf Urine Microscopic WBC (0-3) per hpf Ur Squamous Epith Cells (None-Few) per lpf Urine Bacteria (None-Few) per hpf Hyaline Casts (None-Few) per lpf Ur Culture Indicated? (NO) Blood Type Antibody Screen Crossmatch 06/12/17 06/12/17 Range/Units 16:19 17:40 WBC (4.3-11.1) K/mcL RBC (4.19-5.50) M/mcL Hgb (12.9-16.9) g/dL Hct (37.5-50.1) % MCV (83.0-100.0) fL MCH (28.0-33.3) pg MCHC (31.6-35.5) g/dL RDW (11.5-14.5) % Plt Count (140-400) K/mcL MPV (9.4-12.4) fL Immature Gran % (0-4) % Seg Neutrophils % % Lymphocytes % % Monocytes % % Eosinophils % % Basophils % % Neutrophils # (1.6-8.9) K/mcL Lymphocytes # (0.6-4.6) K/mcL Monocytes # (0.0-1.3) K/mcL Eosinophils # (0.0-0.6) K/mcL Basophils # (0.0-0.2) K/mcL Platelet Estimate (Normal) Hypochromasia (Not Present) PT (9.4-12.1) Seconds INR Sodium (136-145) mEq/L Potassium (3.5-4.5) mEq/L Chloride (98-109) mEq/L Carbon Dioxide (19-29) mEq/L BUN (8-26) mg/dL Creatinine (0.72-1.25) mg/dL Est GFR ( Amer) (> 60) Est GFR (Non-Af Amer) (> 60) BUN/Creatinine Ratio (6-26) Glucose (70-99) mg/dL Calculated Osmolality (280-300) Calcium (8.6-10.8) mg/dL Total Bilirubin (0.2-1.2) mg/dL Direct Bilirubin (0.0-0.5) mg/dL Indirect Bilirubin (0.0-1.2) mg/dL AST (5-34) Units/L ALT (0-55) Units/L Alkaline Phosphatase (38-126) Units/L Serum Total Protein (6.0-8.3) g/dL Albumin (3.5-5.0) g/dL Globulin (2.4-3.5) g/dL Albumin/Globulin Ratio (1.1-2.2) Urine Color Yellow (Yellow) Urine Clarity Clear (Clear) Urine pH 6.0 (5.0-8.0) pH Units Ur Specific [place] 1.014 (1.010-1.025) Urine Protein Trace (Neg-Trace) mg/dL Urine Glucose (UA) Normal (Normal) mg/dL Urine Ketones Negative (Negative) mg/dL Urine Blood Negative (Negative) Urine Nitrite Negative (Negative) Urine Bilirubin Negative (Negative) Urine Urobilinogen Normal (Normal) mg/dL Ur Leukocyte Esterase Negative (Negative) Urine Microscopic RBC 0-3 (0-3) per hpf Urine Microscopic WBC 0-3 (0-3) per hpf Ur Squamous Epith Cells None Seen (None-Few) per lpf Urine Bacteria None Seen (None-Few) per hpf Hyaline Casts None Seen (None-Few) per lpf Ur Culture Indicated? NO (NO) Blood Type A NEGATIVE Antibody Screen NEGATIVE Crossmatch See Detail - Radiology Data Radiology results reviewed: Yes I reviewed the patient's radiology results. Chest X-Ray 06/12/17 16:21 IMPRESSION: Left lower lobe infiltrate. D/ / 06/12/2017 16:54:47 Cipriano Bright MD / gilda Interpreting Provider: Cipriano Bright MD S.Dagoberto.Sanjay - Waqas.[place] Situation: Demographics, MOA Background: Presenting Complaint, Relevant PMH, Meds, & Allergies Assessment: Vital Signs, Course and respsone to treatment, Exam Concerns, Patient/Family Expectation, Pertinant Lab Results, Outstanding Labs Recommendation: Barrier(s) to disposition, Recommendation based on pending studies, treatments, or consults S.B.A.Maria C Report Given to: Patricia Angeles Time: 18:42
[2017-06-12 16:44] LABS: Basophils % 1.2 %; Hematocrit 25.2 % (37.5-50.1); INR 1.4; Immature Granulocytes % 5.9 % (0-4); Lymphocytes # 0.5 K/mcL (0.6-4.6); Lymphocytes % 28.2 %; Mean Corpuscular HGB Conc 31.7 g/dL (31.6-35.5); Mean Corpuscular Hemoglobin 27.9 pg (28.0-33.3); Mean Corpuscular Volume 87.8 fL (83.0-100.0); Mean Platelet Volume 9.8 fL (9.4-12.4); Monocytes # 0.1 K/mcL (0.0-1.3); Monocytes % 6.5 %; Platelet Count 53 K/mcL (140-400); Red Blood Count 2.87 M/mcL (4.19-5.50); Red Cell Distribution Width 17.1 % (11.5-14.5); Segmented Neutrophils % 58.2 %
[2017-06-12 16:55] LABS: Alanine Aminotransferase 14 Units/L (0-55); Albumin 3.7 g/dL (3.5-5.0); Albumin/Globulin Ratio 0.9 (1.1-2.2); Alkaline Phosphatase 109 Units/L (38-126); Aspartate Amino Transferase 18 Units/L (5-34); BUN/Creatinine Ratio 15 (6-26); Bilirubin,Direct 0.9 mg/dL (0.0-0.5); Bilirubin,Indirect 0.8 mg/dL (0.0-1.2); Blood Urea Nitrogen 19 mg/dL (8-26); Calcium 9.6 mg/dL (8.6-10.8); Carbon Dioxide 27 mEq/L (19-29); Chloride 97 mEq/L (98-109); Glucose 127 mg/dL (70-99); Osmolality,Calculated 282 (280-300); Potassium 3.9 mEq/L (3.5-4.5); Sodium 134 mEq/L (136-145); eGFR For African Americans > 60 (> 60); eGFR For Non-African Americans 56 (> 60)
[2017-06-12 16:56] LABS: Bilirubin,Total 1.7 mg/dL (0.2-1.2); Total Protein 7.7 g/dL (6.0-8.3)
[2017-06-12 17:10] LABS: Hypochromasia Present (Not Present); Platelet Estimate Decreased (Normal)
[2017-06-12] MEDS ORDERED: Piperacillin/Tazobactam 3.375 GM in D5% in Water (Mini-Bag+) 100 ML IVPB ONE (17:17)
[2017-06-12] MEDS ORDERED: Vancomycin 1,250 MG in D5% in Water 250 ML IVPB ONE (17:17)
[2017-06-12] MEDS ORDERED: Levofloxacin 750 MG/150 ML 750 MG/150 ML BAG IVPB ONE (17:44)
[2017-06-12 17:48] LABS: Bilirubin,Urine Negative (Negative); Blood,Urine Negative (Negative); Clarity,Urine Clear (Clear); Color,Urine Yellow (Yellow); Glucose,Urine (UA) Normal (Normal); Ketones,Urine Negative (Negative); Leukocyte Esterase,Urine Negative (Negative); Nitrite,Urine Negative (Negative); Protein,Urine Trace mg/dL (Neg-Trace); Specific Gravity,Urine 1.014 (1.010-1.025); Urobilinogen,Urine Normal (Normal)
[2017-06-12 17:54] LABS: Bacteria,Urine None Seen per hpf (None-Few); Hyaline Casts,Urine None Seen per lpf (None-Few); RBC,Urine 0-3 per hpf (0-3); Squamous Epithelial Cell,Urine None Seen per lpf (None-Few); WBC,Urine 0-3 per hpf (0-3)
[2017-06-12] MEDS ORDERED: 0.9 % Sodium Chloride 1,000 ML ONE (20:08)
[2017-06-12] MEDS ORDERED: Naloxone 0.4 MG/ML INJ IVP PRN (21:58)
[2017-06-12] MEDS ORDERED: Acetaminophen 325 MG TABLET PO PRN (21:58)
[2017-06-12] MEDS ORDERED: Ondansetron ODT 4 MG TAB.RAPDIS PO PRN (22:04)
--- NOTE | 2017-06-12 22:15 | Internal Med History&Physical ---
<Thania Luis - Last Filed: 06/12/17 22:39> Date of Encounter: 06/12/17 Time of Encounter: 21:40 Assessment and Plan (1) Pneumonia Current visit: Yes Status: Acute - CXR found new left lower lobe infiltrate. - Will treat as healthcare associated pneumonia. - Will obtain sputum culture. - Continue IV vancomycin and Levaquin and switch from Zosyn to cefepime. Further de-escalation based on clinical picture and/or culture results. - Continue to monitor. Qualifiers: Pneumonia type: due to unspecified organism Laterality: left Lung location: lower lobe of lung Qualified Code(s): J18.1 - Lobar pneumonia, unspecified organism (2) Staphylococcus epidermidis bacteremia Current visit: Yes Status: Resolved - On IV vancomycin and rifampin for methicillin-resistant Staphyloccous epidermidis bacteremia. - Negative blood culture on 05/31/17 and ID recommended 4-6 weeks of treatment given patient's aortic bioprosthetic valve. - Continue IV vancomycin and rifampin. (3) MASOUD (acute kidney injury) Current visit: Yes Status: Acute - SCr 1.25 on admission, which is worsen than his baseline (~0.8). - Likely secondary to dehydration and/or current antibiotic use. - Continue IV NS. - Avoid nephrotoxin. - Closely monitor renal function and electrolytes. (4) MDS (myelodysplastic syndrome) Current visit: No Status: Chronic - Pancytopenia seems to be stable or even improved compared to prior hospitalization. - Absolute neutrophils count is around 1,000. No need of neutropenic precaution at this time. - Continue to monitor with CBC. (5) Atrial fibrillation Current visit: No Status: Chronic - Currently rate-controlled. Qualifiers: Atrial fibrillation type: chronic Qualified Code(s): I48.2 - Chronic atrial fibrillation (6) CAD (coronary artery disease) Current visit: No Status: Chronic - S/p CABG Qualifiers: Coronary Disease-Associated Artery/Lesion type: [place] artery [place] vs. transplanted heart: [place] heart Associated angina: without angina Qualified Code(s): I25.10 - Atherosclerotic heart disease of [place] coronary artery without angina pectoris (7) History of prosthetic aortic valve Current visit: No Status: Chronic Internal Medicine - H&P: HPI Chief complaint: Low hemoglobin Admitted From: Emergency Dept Plans for Post Hospital Care: Home History of present illness: Mr. Townsend is a 77 year old male with PMH of meylodysplastic syndrome s/p first decitabine on 05/22/17, CAD s/p CABG, A-fib, VHD s/p aortic bioprosthetic valve replacement. Patient was recently hospitalized (05/28 -06/09) for sepsis secondary to MR Waqas. epidermidis bacteremia and discharged to SNF with IV vancomycin and rifampin. Patient saw Dr. Myers at [facility] today and was sent to [place] ED for the concern of low Hgb (6.9). Patient reports no major complaint except 5-lb weight loss over 5 days. Patient reports having normal appetite and no significant change on fatigue. Patient denies shortness of breath, cough, fever, chills, chest pain, abdominal pain, nausea, vomiting, diarrhea, dysuria, hematuria, easily bleeding, vision change, hearing change, numbness/tingling, focal weakness, skin rash/itchiness. Patient wants no resuscitation upon cardiac arrest. Repeated Hgb in ED is 8.0 but CXR found left lower lobe infiltrate, which appears to be new compared to CXR from 06/02/17. Patient was started on IV vancomycin, Zosyn and Levaquin for the concern of healthcare-associated pneumonia. Past Med Surg Social Fam HX - Past Medical History Medical history: aortic aneurysm, atrial fibrillation, cancer, coronary artery disease, hyperlipidemia, hypertension, peripheral artery disease, valvular heart disease, other Psychiatric history: no psych history - Past Surgical History Surgical History: cholecystectomy, coronary bypass (CABG), heart valve replacement - Social History Smoking Status: Never smoker Smokeless Tobacco Status: No Alcohol use: none Drug use: none - Family History Mother Living Status: Hx Family Cardiac Disorders: Yes Hx Family Respiratory Disorders: No Hx Family Cancer: Yes Hx Family GI Disorders: No Hx Family Endocrine Disorder: No Hx Family Neuromuscular Disorders: Yes Hx Family Neurologic Disorders: No Hx Family HEENT Disorders: No Hx Family Autoimmune Disorders: No Father Living Status: Hx Family Cardiac Disorders: Yes Hx Family Respiratory Disorders: No Hx Family Cancer: No Hx Family GI Disorders: No Hx Family Endocrine Disorder: No Hx Family Neuromuscular Disorders: No Hx Family Neurologic Disorders: No Hx Family HEENT Disorders: No Hx Family Autoimmune Disorders: No Internal Medicine - H&P: Meds Multivitamin/Iron/Folic Acid [Centrum Complete Multivit Tab] 1 each PO DAILY 09/20 [History] Ergocalciferol (VITAMIN D2) [Vitamin D2 (50,000 UNIT)] 50,000 unit PO MO [History] Melatonin 10 mg PO HS 04/01/16 [History] Mirtazapine 7.5 mg PO HS 04/01/16 [History] Omeprazole [PriLOSEC] 20 mg PO DAILY 04/01/16 [History] Allopurinol [Zyloprim 100 MG] 100 mg PO BID 03/07/17 [History] Sennosides [Senna] 17.2 mg PO BID 03/07/17 [History] Furosemide [Lasix] 40 mg PO DAILY #30 tablet 05/02/17 [Rx] Ondansetron [Zofran] 4 mg PO Q8HR PRN #90 tablet 05/02/17 [Rx] Calcium Carbonate [Calcium] 600 mg PO DAILY 05/08/17 [History] Carvedilol 3.125 mg PO BID 05/08/17 [History] Aminocaproic Acid [Amicar] 250 mg PO Q8H PRN #200 solution 05/16/17 [Rx] Chlorhexidine Gluconate [Peridex] 10 ml MM DAILY #118 mouthwash 05/16/17 [Rx] Bisacodyl [Dulcolax] 10 mg PO HS PRN tab 06/09/17 [Rx] Vancomycin [Vancocin] 1 each IVPB RPHPROT vial 06/09/17 [Rx] rifAMPin [Rifadin] 300 mg PO BIDAC 14 Days 06/09/17 [Rx] Lactulose [Enulose] 10 gm PO BID 06/12/17 [History] Lidocaine/Prilocaine CREAM [Emla] 1 appl TP ONCE PRN 06/12/17 [History] OxyCODONE Immed Rel [Roxicodone 15 MG] 15 mg PO QID 06/12/17 [History] Polyethylene Glycol 3350 [MiraLAX] 17 gm PO DAILY PRN 06/12/17 [History] Allergies citalopram Adverse Reaction (Verified 06/12/17 15:37) Nausea codeine Adverse Reaction (Verified 06/12/17 15:37) See Comments Cardiac problems per . Xyhtiyi-Mdy-Saf Reductase Inhibitor [Statins] Adverse Reaction (Verified 15:37) See Comments RA symptoms per . All Systems PM: Patient denies shortness of breath, cough, fever, chills, chest pain, abdominal pain, nausea, vomiting, diarrhea, dysuria, hematuria, easily bleeding, vision change, hearing change, numbness/tingling, focal weakness, skin rash/itchiness. A 10-system review of systems was performed and is negative for pertinent findings except as documented above in the HPI. - Constitutional Vitals: Temp Pulse Resp BP Pulse Ox 97.6 F 86 16 126/72 98 06/12/17 22:02 06/12/17 22:02 06/12/17 22:02 06/12/17 22:02 06/12/17 22:02 General appearance: Present: cooperative, A&O X 2 ([place] to self, place and year.), no acute distress - Head Head exam: Present: atraumatic, normocephalic - Eye Eye exam: Present: EOMI, PERRL, conjuntiva pink, sclera anicteric - Neck Neck exam general surgery: Present: supple, trachea midline. Absent: lymphadenopathy - Respiratory Respiratory exam: Present: rales (Bibas[place]). Absent: accessory muscle use, rhonchi, wheezes - Cardiovascular Cardiovascular exam: Present: RRR, +S1, +S2. Absent: diastolic murmur, gallop, rubs, systolic murmur - GI/Abdominal GI/Abdominal exam: Present: normal bowel sounds, soft, no peritoneal signs. Absent: distended, tenderness - Extremities Exam Extremities exam: Present: warm, radial pulses palpable and symetrical. Absent : calf tenderness, cyanotic, pedal edema - Neurological Exam Neurological exam: Present: CN II-XII intact, oriented X3, no focal deficits. Absent: pronater drift, facial droop, speech deficit - Skin Skin exam: Present: dry, intact, warm Internal Med - H&P Results - Labs CBC & Chem 7: 06/12/17 16:19 06/12/17 16:19 <Masoud Velazco H - Last Filed: 06/12/17 23:31> Date of Encounter: 06/12/17 Internal Medicine - H&P: HPI History of present illness: Mr. Townsend is a 77 year old male All Systems PM: A 10-system review of systems was performed and is negative for pertinent findings except as documented above in the HPI. - Constitutional Vitals: Temp Pulse Resp BP Pulse Ox 97.6 F 86 16 126/72 98 06/12/17 22:02 06/12/17 22:02 06/12/17 22:02 06/12/17 22:02 06/12/17 22:02 Internal Med - H&P Results - Labs CBC & Chem 7: 06/12/17 16:19 06/12/17 16:19 - Attending Attestation 1. Sepsis secondary to healthcare associated pneumonia present upon admission/ possible gram-negative pneumonia Continue vancomycin IV, cefepime, Levaquin IV fluids 2. Treated for Staphylococcus epidermides bacteremia, continue rifampin Time spent on this admission 40 minutes I examined this patient and my medical decision-making was reviewed with the Resident Physician. I agree with the documented findings, disposition and treatment plan as described except to the extent set forth below.
[2017-06-12] MEDS: 0.9 % Sodium Chloride 1,000 ML IVC SCH (22:48)
[2017-06-12] MEDS ORDERED: Ipratropium/Albuterol Neb 3 ML IH PRN (23:17)
[2017-06-12] MEDS ORDERED: Vancomycin 1,250 MG in D5% in Water 250 ML IVPB SCH (23:45)
[2017-06-12] MEDS: Cefepime HCl 1,000 MG in D5% in Water (Mini-Bag+) 100 ML IVPB SCH (23:59)
[2017-06-13] MEDS ORDERED: Vancomycin 1,500 MG in D5% in Water 250 ML IVPB SCH (01:00)
[2017-06-13] MEDS ORDERED: *HR* OxyCODONE Immed Rel 15 MG TABLET PO ONE (03:07)
[2017-06-13 04:06] LABS: Hematocrit 20.6 % (37.5-50.1); Hemoglobin 6.8 g/dL (12.9-16.9); Lymphocytes # 0.7 K/mcL (0.6-4.6); Mean Corpuscular Hemoglobin 28.9 pg (28.0-33.3); Mean Corpuscular Volume 87.7 fL (83.0-100.0); Monocytes # 0.1 K/mcL (0.0-1.3); Red Blood Count 2.35 M/mcL (4.19-5.50); Red Cell Distribution Width 17.1 % (11.5-14.5)
[2017-06-13 04:12] LABS: Platelet Count 38 K/mcL (140-400)
[2017-06-13 05:06] LABS: Alanine Aminotransferase 11 Units/L (0-55); Albumin/Globulin Ratio 0.9 (1.1-2.2); Alkaline Phosphatase 85 Units/L (38-126); Aspartate Amino Transferase 14 Units/L (5-34); BUN/Creatinine Ratio 15 (6-26); Bilirubin,Total 0.9 mg/dL (0.2-1.2); Blood Urea Nitrogen 17 mg/dL (8-26); Calcium 8.3 mg/dL (8.6-10.8); Carbon Dioxide 26 mEq/L (19-29); Chloride 102 mEq/L (98-109); Globulin 3.3 g/dL (2.4-3.5); Glucose 154 mg/dL (70-99); Osmolality,Calculated 285 (280-300); Potassium 3.3 mEq/L (3.5-4.5); Sodium 135 mEq/L (136-145); Total Protein 6.2 g/dL (6.0-8.3); eGFR For African Americans > 60 (> 60); eGFR For Non-African Americans > 60 (> 60)
[2017-06-13 05:07] LABS: Albumin 2.9 g/dL (3.5-5.0)
[2017-06-13 05:15] LABS: Neutrophils # 0.6 K/mcL (1.6-8.9); Platelet Estimate Marked Decrease (Normal)
[2017-06-13] MEDS ORDERED: 0.9 % Sodium Chloride 250 ML ONE (05:18)
[2017-06-13] MEDS: Cefepime HCl 1,000 MG in D5% in Water (Mini-Bag+) 100 ML IVPB SCH ×2 (05:50→17:52)
[2017-06-13] MEDS: Lactulose Oral Soln 20 GM/30 ML UDC PO SCH ×2 (08:08→21:15)
[2017-06-13] MEDS: Sennosides 8.6 MG TABLET PO SCH ×2 (08:09→22:01)
[2017-06-13] MEDS: Chlorhexidine Rinse 15 ML MOUTHWASH MM SCH (08:09)
[2017-06-13] MEDS: rifAMPin 150 MG CAPSULE PO SCH ×2 (08:09→16:21)
[2017-06-13] MEDS: *HR* OxyCODONE Immed Rel 15 MG TABLET PO SCH ×4 (08:10→22:00)
[2017-06-13] MEDS: Furosemide 40 MG TABLET PO SCH (08:10)
[2017-06-13] MEDS: 0.9 % Sodium Chloride 1,000 ML IVC SCH ×2 (09:54→17:56)
--- NOTE | 2017-06-13 12:16 | Palliative - Consult Note ---
Date of Encounter: 06/13/17 Time of Encounter: 12:15 - Assessment and Plan (1) Chronic back pain greater than 3 months duration Current Visit: Yes Status: Acute Assessment and plan: Continue current dose of scheduled Oxycodone. Has IV Morphine if needed for breakthrough while here in hospital. Patient states that his pain medication order was changed at [facility] which caused him distress and states pain became poorly controlled. Monitor (2) Therapeutic opioid-induced constipation (OIC) Current Visit: Yes Status: Acute Assessment and plan: Continue Senna bid and Lactulose . Has Miralax and Dulcolax suppository PRN if needed. MOnitor. + BM this am (3) Counseling regarding advanced care planning and goals of care Current Visit: Yes Status: Acute Assessment and plan: Goals of care discussion with , Mariposa and daughter Rosi present. Patient very emotional during conversation. He waivered during conversation regarding his desire to continue aggressive treatment, however, does want to proceed with treatment of infections and follow up with oncology next week if he can proceed with further treatment. They have been given thorough information re: prognosis and expected outcomes of treatment. He does want to ensure he has quality time with family. states she is struggling caring for him at home, and the emotional/physical attachment has been much to endure. He originally refused to return to [facility] r/t care issues over the few days he was there, however , understands is unable to meet all of his needs at home at this time. ANTNOIA Lorenzo present and will work with pt on facility of his choosing. During the course of meeting, also discussed that if he no longer tolerates treatment, or decides not to pursue further treatment, patient could transition to home palliative or home hospice. states they have terminologist care policy and has had [facility] home health with privately hired additional help prior to pt entering [facility]. Discussed code status at length, as pt was listed at [facility], and he had questions re: what all was to be done if he deteriorated. AFter further discussion, he transitioned to [facility], and added that he does not want to be intubated or placed on a ventilator for any reason. /daughter acknowledge his decision. (4) MDS (myelodysplastic syndrome) Current Visit: No Status: Chronic (5) HCAP (healthcare-associated pneumonia) Current Visit: Yes Status: Acute Palliative-CN HPI - Data of Consult Consult date: 06/13/17 Requesting Physician: Sabiha Andino MD Primary Care Provider: Wang Coy Jr, MD - Consult Narrative History of present illness: Mr. Townsend is a 77 year old male with a recent diagnosis of Myleodysplasia syndrome, who [facility] with fever, weakness, and low anemia. He was found to have LLL pneumonia and is currently receiving IV antibiotics. Patient was just discharged from the hospital on 06/09 after treatment for bloodstream infection. His Aport was removed during that visit, ID consultation was completed, and he was sent out with IV antibiotics for 4-6 weeks duration. He was sent to [facility] for rehab. Patient states he had a fall that night trying to get to bathroom. He is scheduled to follow up with Dr. Myers next week. LIves with , has 3 daughters - 2 are college students. Palliative team was consulted to assist with goals of care discussion, as pt had expressed that she needed information on future resources and options for his care. Upon my visit, he is resting in bed, , Mariposa and daughter, Rosi are at the bedside. He denies pain or discomfort. He states he struggles with chronic low back pain from old injury and current scheduled Oxycodone is helpful to him. Appetite is fair, no nausea or vomiting. Denies shortness of breath and is on room air and oxygenating well. States he was up in chair earlier and feels stronger since receiving a unit of blood. CC: Sabiha Andino MD Past Med Surg Social Fam HX - Past Medical History Medical history: aortic aneurysm, atrial fibrillation, cancer, coronary artery disease, hyperlipidemia, hypertension, peripheral artery disease, valvular heart disease, other Psychiatric history: no psych history - Past Surgical History Surgical History: cholecystectomy, coronary bypass (CABG), heart valve replacement - Social History Smoking Status: Never smoker Smokeless Tobacco Status: No Alcohol use: none Drug use: none - Family History Mother Living Status: Hx Family Cardiac Disorders: Yes Hx Family Respiratory Disorders: No Hx Family Cancer: Yes Hx Family GI Disorders: No Hx Family Endocrine Disorder: No Hx Family Neuromuscular Disorders: Yes Hx Family Neurologic Disorders: No Hx Family HEENT Disorders: No Hx Family Autoimmune Disorders: No Father Living Status: Hx Family Cardiac Disorders: Yes Hx Family Respiratory Disorders: No Hx Family Cancer: No Hx Family GI Disorders: No Hx Family Endocrine Disorder: No Hx Family Neuromuscular Disorders: No Hx Family Neurologic Disorders: No Hx Family HEENT Disorders: No Hx Family Autoimmune Disorders: No Medications and Allergies Multivitamin/Iron/Folic Acid [Centrum Complete Multivit Tab] 1 each PO DAILY 09/20 [History] Ergocalciferol (VITAMIN D2) [Vitamin D2 (50,000 UNIT)] 50,000 unit PO MO [History] Melatonin 10 mg PO HS 04/01/16 [History] Mirtazapine 7.5 mg PO HS 04/01/16 [History] Omeprazole [PriLOSEC] 20 mg PO DAILY 04/01/16 [History] Allopurinol [Zyloprim 100 MG] 100 mg PO BID 03/07/17 [History] Sennosides [Senna] 17.2 mg PO BID 03/07/17 [History] Furosemide [Lasix] 40 mg PO DAILY #30 tablet 05/02/17 [Rx] Ondansetron [Zofran] 4 mg PO Q8HR PRN #90 tablet 05/02/17 [Rx] Calcium Carbonate [Calcium] 600 mg PO DAILY 05/08/17 [History] Carvedilol 3.125 mg PO BID 05/08/17 [History] Aminocaproic Acid [Amicar] 250 mg PO Q8H PRN #200 solution 05/16/17 [Rx] Chlorhexidine Gluconate [Peridex] 10 ml MM DAILY #118 mouthwash 05/16/17 [Rx] Bisacodyl [Dulcolax] 10 mg PO HS PRN tab 06/09/17 [Rx] Vancomycin [Vancocin] 1 each IVPB RPHPROT vial 06/09/17 [Rx] rifAMPin [Rifadin] 300 mg PO BIDAC 14 Days 06/09/17 [Rx] Lactulose [Enulose] 10 gm PO BID 06/12/17 [History] Lidocaine/Prilocaine CREAM [Emla] 1 appl TP ONCE PRN 06/12/17 [History] OxyCODONE Immed Rel [Roxicodone 15 MG] 15 mg PO QID 06/12/17 [History] Polyethylene Glycol 3350 [MiraLAX] 17 gm PO DAILY PRN 06/12/17 [History] Allergies citalopram Adverse Reaction (Verified 06/12/17 15:37) Nausea codeine Adverse Reaction (Verified 06/12/17 15:37) See Comments Cardiac problems per . Cazbyhg-Wtl-Rhb Reductase Inhibitor [Statins] Adverse Reaction (Verified 15:37) See Comments RA symptoms per . All systems: reviewed and no additional remarkable complaints except as stated ( chronic back pain, right shoulder pain, generalized weakness,) Palliative Care-Exam - Constitutional Vitals: Temp Pulse Resp BP Pulse Ox 98.3 F 93 18 142/86 97 06/13/17 11:49 06/13/17 11:49 06/13/17 11:49 06/13/17 11:49 06/13/17 11:49 General appearance: Present: no acute distress - Head Head Exam: Present: normal inspection, normocephalic - Eye Eye exam: Present: normal appearance, PERRL - Respiratory Respiratory exam: Present: decreased breath sounds, CTAB - Cardiovascular Cardiovascular exam: Present: +S1, +S2 - GI/Abdominal Exam GI/Abdominal exam: Present: normal bowel sounds, soft - Additional comments: Voids per urinal - Extremities Exam Extremities exam: Present: normal capillary refill, normal inspection - Neurological Exam Neurological exam: Present: alert, oriented X3, strengths equal and symetr throughout Additional comments: Generalized weakness - Skin Skin exam: Present: dry, pallor, warm Internal Medicine - CN: Reslt - Labs CBC & Chem 7: 06/13/17 03:30 06/13/17 03:30 Labs: Short CBC 06/13/17 Range/Units 03:30 WBC 1.4 L (4.3-11.1) K/mcL Hgb 6.8 L (12.9-16.9) g/dL Hct 20.6 L (37.5-50.1) % Plt Count 38 L (140-400) K/mcL Neutrophils # 0.6 L (1.6-8.9) K/mcL BMP 06/13/17 03:30 Sodium 135 L Potassium 3.3 L Chloride 102 Carbon Dioxide 26 BUN 17 Creatinine 1.10 Glucose 154 H Calcium 8.3 L Liver Function 06/13/17 Range/Units 03:30 Total Bilirubin 0.9 (0.2-1.2) mg/dL AST 14 (5-34) Units/L ALT 11 (0-55) Units/L Alkaline Phosphatase 85 (38-126) Units/L Albumin 2.9 L D (3.5-5.0) g/dL - ABG Interpretation ABG results: PT/INR, D-dimer PT 15.0 Seconds (9.4-12.1) H 06/12/17 16:19 Consult Discharge Plan - Plan Referrals: Wang Coy Jr, MD [Primary Care Provider] - Palliative Quality Palliative Quality: Screen for Code Status: Yes, Screen for Goals of Care: Yes, Screen for Pain: Yes, If Pain Regimen Started, Initiate Bowel Regimen: Yes, Screen for Nausea/Vomitting: Yes Code Status: 06/13/17 12:12 DNR [Resuscitation Status: Active] [RES] Routine Comment: Resuscitation Status: [id number]
--- NOTE | 2017-06-13 15:43 | Internal Med Progress Note ---
Date of Encounter: 06/13/17 Time of Encounter: 15:42 - Assessment and plan (1) Pneumonia Current Visit: Yes Status: Suspected Assessment and plan: Healthcare associated left lower lobe pneumonia. Treating with broad-spectrum antibiotics. Follow blood culture results. High risk for complications. Qualifiers: Pneumonia type: due to other aerobic Gram-negative bacteria Laterality: left Lung location: lower lobe of lung Qualified Code(s): J15.6 - Pneumonia due to other aerobic Gram-negative bacteria (2) Pancytopenia Current Visit: Yes Status: Chronic Assessment and plan: With severe anemia. Hemoglobin 6.8. Patient has been transfused 1 unit packed red blood cells. Platelets are 38. Avoid medical anticoagulation. (3) MDS (myelodysplastic syndrome) Current Visit: Yes Status: Chronic Assessment and plan: WBC count 1.4 today with absolute neutrophils at 600. Will consult hematology oncology for recommendations and to discuss prognosis with the patient. (4) Atrial fibrillation Current Visit: Yes Status: Chronic Assessment and plan: Rate controlled. Not on anticoagulation due to pancytopenia and anemia Qualifiers: Atrial fibrillation type: chronic Qualified Code(s): I48.2 - Chronic atrial fibrillation (5) CAD (coronary artery disease) Current Visit: No Status: Chronic Assessment and plan: No chest pain. Qualifiers: Coronary Disease-Associated Artery/Lesion type: [place] artery [place] vs. 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 Was recommended treatment for 4-6 weeks due to presence of bioprosthetic valve by infectious disease since last positive blood culture which was on 05/28/17. We will continue these antibiotics. - Subjective Interval history: Patient is awake and alert. Sitting up in bed. Complains of Pain which is chronic. Feels tired and weak. Denies any nausea or vomiting or abdominal pain. No difficulty breathing. No chest pain. - Constitutional Vitals: Temp Pulse Resp BP Pulse Ox 98.4 F 98 18 135/78 95 06/13/17 15:14 06/13/17 15:14 06/13/17 15:14 06/13/17 15:14 06/13/17 15:14 General appearance: Present: cooperative, A&O X 2 ([place] to self, place and year.), pleasant, no acute distress, answers questions appropriately - Respiratory Respiratory exam: Present: CTAB. Absent: accessory muscle use, rales, rhonchi, wheezes - Cardiovascular Cardiovascular exam: Present: RRR, +S1, +S2. Absent: diastolic murmur, gallop, rubs, systolic murmur - GI/Abdominal GI/Abdominal exam: Present: normal bowel sounds, soft, no peritoneal signs. Absent: distended, tenderness - Extremities Exam Extremities exam: Present: warm, radial pulses palpable and symetrical. Absent : calf tenderness, cyanotic, pedal edema - Neurological Exam Neurological exam: Present: alert, oriented X3, no focal deficits, strengths equal and symetr throughout. Absent: facial droop, speech deficit - Skin Skin exam: Present: dry, intact, pallor Internal Medicine: Result - Labs CBC & Chem 7: 06/13/17 03:30 06/13/17 03:30 Labs: Short CBC 06/13/17 Range/Units 03:30 WBC 1.4 L (4.3-11.1) K/mcL Hgb 6.8 L (12.9-16.9) g/dL Hct 20.6 L (37.5-50.1) % Plt Count 38 L (140-400) K/mcL Neutrophils # 0.6 L (1.6-8.9) K/mcL BMP 06/13/17 03:30 Sodium 135 L Potassium 3.3 L Chloride 102 Carbon Dioxide 26 BUN 17 Creatinine 1.10 Glucose 154 H Calcium 8.3 L Liver Function 06/13/17 Range/Units 03:30 Total Bilirubin 0.9 (0.2-1.2) mg/dL AST 14 (5-34) Units/L ALT 11 (0-55) Units/L Alkaline Phosphatase 85 (38-126) Units/L Albumin 2.9 L D (3.5-5.0) g/dL - ABG Interpretation ABG results: PT/INR, D-dimer PT 15.0 Seconds (9.4-12.1) H 06/12/17 16:19 Consult Discharge Plan - Plan Referrals: Wang Coy Jr, MD [Primary Care Provider] -
[2017-06-13] MEDS ORDERED: Acetaminophen 325 MG TABLET PO PRN (20:59)
[2017-06-13] MEDS: Melatonin 3 MG TABLET PO SCH (21:16)
[2017-06-13] MEDS: Mirtazapine 15 MG TABLET PO SCH (22:01)
[2017-06-14] MEDS: 0.9 % Sodium Chloride 1,000 ML IVC SCH ×3 (04:32→18:30)
[2017-06-14] MEDS: Cefepime HCl 1,000 MG in D5% in Water (Mini-Bag+) 100 ML IVPB SCH (06:44)
[2017-06-14] MEDS: *HR* Morphine 2 MG/ML SYRINGE IVP PRN (06:57)
[2017-06-14] MEDS ORDERED: Vancomycin 1,500 MG in D5% in Water 250 ML IVPB SCH (08:00)
[2017-06-14] MEDS: Chlorhexidine Rinse 15 ML MOUTHWASH MM SCH (08:05)
[2017-06-14] MEDS: Lactulose Oral Soln 20 GM/30 ML UDC PO SCH ×2 (08:05→20:51)
[2017-06-14] MEDS: Furosemide 40 MG TABLET PO SCH (08:06)
[2017-06-14] MEDS: rifAMPin 150 MG CAPSULE PO SCH ×2 (08:06→16:54)
[2017-06-14] MEDS: Sennosides 8.6 MG TABLET PO SCH ×2 (08:06→20:50)
[2017-06-14] MEDS: *HR* OxyCODONE Immed Rel 15 MG TABLET PO SCH ×4 (08:07→20:51)
[2017-06-14] MEDS: Vancomycin 1,750 MG in D5% in Water 500 ML IVPB SCH (10:27)
[2017-06-14 11:16] LABS: Hematocrit 22.1 % (37.5-50.1); Hemoglobin 7.1 g/dL (12.9-16.9); Mean Corpuscular HGB Conc 32.1 g/dL (31.6-35.5); Mean Corpuscular Hemoglobin 27.8 pg (28.0-33.3); Mean Corpuscular Volume 86.7 fL (83.0-100.0); Mean Platelet Volume 10.1 fL (9.4-12.4); Platelet Count 40 K/mcL (140-400); Red Blood Count 2.55 M/mcL (4.19-5.50); Red Cell Distribution Width 16.7 % (11.5-14.5)
--- NOTE | 2017-06-14 11:28 | Palliative Progress Note ---
Date of Encounter: 06/14/17 Time of Encounter: 11:20 - Assessment and plan (1) Chronic back pain greater than 3 months duration Current Visit: Yes Status: Acute Assessment and plan: Continue scheduled Oxycodone as ordered, Has Morphine if needed for breakthrough pain. Monitor (2) Therapeutic opioid-induced constipation (OIC) Current Visit: Yes Status: Acute Assessment and plan: Continue Laxatives as ordered. (3) Counseling regarding advanced care planning and goals of care Current Visit: Yes Status: Acute Assessment and plan: Patient and torn between plan of care at this point. If he continues treatment, she is requesting pt go to swing bed. If his disease is progressing , he wants quality time at home and he does not want to go to rehab. Oncology has been consulted to update pt on prognosis. Will continue to follow closely and assist as needed. Patient is a candidate for swing bed at [facility] and they are willing to take pt. (4) MDS (myelodysplastic syndrome) Current Visit: Yes Status: Chronic (5) HCAP (healthcare-associated pneumonia) Current Visit: Yes Status: Acute - Time Spent With Patient Total time spent is greater than 50% in coordination of care (as documented) at patient's floor/unit and/or counseling patient: 25 - 35 minutes - Subjective Interval history: Patient eating breakfast on my arrival. at bedside. Patient stating this am that he does not want to go to rehab, "if I only have a few months to live". Had some additional pain last night and required a dose of IV Morphine. No nausea/vomiting. - Constitutional Vitals: Abnormal lab results WBC 1.5 K/mcL (4.3-11.1) L 06/14/17 09:30 RBC 2.55 M/mcL (4.19-5.50) L 06/14/17 09:30 Hgb 7.1 g/dL (12.9-16.9) L 06/14/17 09:30 Hct 22.1 % (37.5-50.1) L 06/14/17 09:30 MCH 27.8 pg (28.0-33.3) L 06/14/17 09:30 RDW 16.7 % (11.5-14.5) H 06/14/17 09:30 Plt Count 40 K/mcL (140-400) L 06/14/17 09:30 Immature Gran % 5.9 % (0-4) H 06/12/17 16:19 Band Neutrophils % 12.0 % (0-4) H 06/13/17 03:30 Neutrophils # 0.6 K/mcL (1.6-8.9) L 06/13/17 03:30 Platelet Estimate Marked Decrease (Normal) L 06/13/17 03:30 Hypochromasia Present (Not Present) A 06/12/17 16:19 PT 15.0 Seconds (9.4-12.1) H 06/12/17 16:19 Sodium 135 mEq/L (136-145) L 06/13/17 03:30 Potassium 3.3 mEq/L (3.5-4.5) L 06/13/17 03:30 Glucose 154 mg/dL (70-99) H 06/13/17 03:30 Calcium 8.3 mg/dL (8.6-10.8) L 06/13/17 03:30 Direct Bilirubin 0.9 mg/dL (0.0-0.5) H 06/12/17 16:19 Albumin 2.9 g/dL (3.5-5.0) L D 06/13/17 03:30 Albumin/Globulin Ratio 0.9 (1.1-2.2) L 06/13/17 03:30 Vancomycin Trough 9.5 mcg/mL (10-20) L 06/14/17 06:50 General appearance: Present: no acute distress - Respiratory Respiratory exam: Present: decreased breath sounds, CTAB - Cardiovascular Cardiovascular exam: Present: +S1, +S2 - GI/Abdominal GI/Abdominal exam: Present: normal bowel sounds, soft - Additional comments: Voids per urinal - Extremities Exam Extremities exam: Present: normal capillary refill, normal inspection - Neurological Exam Neurological exam: Present: alert, oriented X3, strengths equal and symetr throughout Additional comments: generalized weakness - Skin Skin exam: Present: dry, pallor, warm Palliative Quality Palliative Quality: Screen for Code Status: Yes, Screen for Goals of Care: Yes, Screen for Pain: Yes, If Pain Regimen Started, Initiate Bowel Regimen: Yes, Screen for Nausea/Vomitting: Yes Code Status: 06/13/17 12:12 DNR [Resuscitation Status: Active] [RES] Routine Comment: Resuscitation Status: [id number] - Labs CBC & Chem 7: 06/14/17 09:30 06/13/17 03:30 Labs: Laboratory Results - last 24 hr 06/14/17 06/14/17 06:50 09:30 WBC 1.5 L RBC 2.55 L Hgb 7.1 L Hct 22.1 L MCV 86.7 MCH 27.8 L MCHC 32.1 RDW 16.7 H Plt Count 40 L MPV 10.1 Vancomycin Trough 9.5 L - ABG Interpretation ABG results: PT/INR, D-dimer PT 15.0 Seconds (9.4-12.1) H 06/12/17 16:19 Consult Discharge Plan - Plan Referrals: Wang Coy Jr, MD [Primary Care Provider] -
[2017-06-14 11:29] LABS: BUN/Creatinine Ratio 12 (6-26); Blood Urea Nitrogen 10 mg/dL (8-26); Calcium 8.6 mg/dL (8.6-10.8); Carbon Dioxide 27 mEq/L (19-29); Chloride 100 mEq/L (98-109); Glucose 95 mg/dL (70-99); Osmolality,Calculated 277 (280-300); Potassium 3.7 mEq/L (3.5-4.5); Sodium 134 mEq/L (136-145); eGFR For African Americans > 60 (> 60); eGFR For Non-African Americans > 60 (> 60)
[2017-06-14 11:45] LABS: Anisocytosis 1+ (Not Present); Neutrophils # 0.5 K/mcL (1.6-8.9); Platelet Estimate Decreased (Normal)
--- NOTE | 2017-06-14 16:35 | Internal Med Progress Note ---
Date of Encounter: 06/14/17 Time of Encounter: 10:35 - Assessment and plan (1) Pneumonia Current Visit: Yes Status: Suspected Assessment and plan: Continue IV antibiotics. Blood cultures have been negative. Patient having low -grade fever last night but since then has had normal temperatures. We will begin to de-escalate IV antibiotics. Continue Levaquin . Will stop cefepime. Risk for complications due to underlying MDS and leukopenia Qualifiers: Pneumonia type: due to other aerobic Gram-negative bacteria Laterality: left Lung location: lower lobe of lung Qualified Code(s): J15.6 - Pneumonia due to other aerobic Gram-negative bacteria (2) Pancytopenia Current Visit: Yes Status: Chronic Assessment and plan: With severe anemia from myelodysplastic syndrome. Hemoglobin 7.1. Will monitor blood counts and transfuse for hemoglobin less than 7. Platelets at 40 today. Hematology has been consulted. WBC count remains low at 1.5. ANC at 500. (3) MDS (myelodysplastic syndrome) Current Visit: Yes Status: Chronic Assessment and plan: Hematology has been consulted for recommendations regarding plan of care and prognosis. (4) Atrial fibrillation Current Visit: Yes Status: Chronic Assessment and plan: Rate controlled. 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 (6) History of prosthetic aortic valve Current Visit: Yes Status: Chronic Assessment and plan: With bioprosthetic valve. (7) Peripheral neuropathy Current Visit: Yes Status: Suspected Assessment and plan: Patient with left foot pain which is possibly from neuropathy. Will start on gabapentin and assess response. Qualifiers: Peripheral neuropathy type: polyneuropathy, unspecified Qualified Code(s): G62.9 - Polyneuropathy, unspecified (8) Gout Current Visit: Yes Status: Chronic Assessment and plan: Patient with chronic gout. Continue allopurinol. 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 He also reports pain over his left foot plantar surface that feels like some tingling from his toes to his heel. Has erythema involving his right toe from gout. Has had fever with temperature of 100.1 last evening. - Constitutional Vitals: Temp Pulse Resp BP Pulse Ox 100.8 F H 94 20 121/72 100 06/14/17 15:17 06/14/17 15:17 06/14/17 15:17 06/14/17 15:17 06/14/17 15:17 General appearance: Present: cooperative, A&O X 2 ([place] to self, place and year.), pleasant, no acute distress, answers questions appropriately - Respiratory Respiratory exam: Present: decreased breath sounds (At the bases). Absent: accessory muscle use, rales, rhonchi, wheezes - Cardiovascular Cardiovascular exam: Present: RRR, +S1, +S2. Absent: diastolic murmur, gallop, rubs, systolic murmur - GI/Abdominal GI/Abdominal exam: Present: normal bowel sounds, soft, no peritoneal signs. Absent: distended, tenderness - Extremities Exam Extremities exam: Present: warm, radial pulses palpable and symmetrical. Absent : calf tenderness, cyanotic, pedal edema Additional comments: Erythema involving the right great toe. Tender to palpation - Neurological Exam Neurological exam: Present: alert, oriented X3, no focal deficits. Absent: facial droop, speech deficit - Skin Skin exam: Present: dry, intact, pallor Internal Medicine: Result - Labs CBC & Chem 7: 06/14/17 09:30 06/14/17 09:50 Labs: Short CBC 06/14/17 Range/Units 09:30 WBC 1.5 L (4.3-11.1) K/mcL Hgb 7.1 L (12.9-16.9) g/dL Hct 22.1 L (37.5-50.1) % Plt Count 40 L (140-400) K/mcL Neutrophils # 0.5 L (1.6-8.9) K/mcL BMP 06/14/17 09:50 Sodium 134 L Potassium 3.7 Chloride 100 Carbon Dioxide 27 BUN 10 Creatinine 0.84 Glucose 95 Calcium 8.6 - ABG Interpretation ABG results: PT/INR, D-dimer PT 15.0 Seconds (9.4-12.1) H 06/12/17 16:19 Consult Discharge Plan - Plan Referrals: Wang Coy Jr, MD [Primary Care Provider] -
[2017-06-14] MEDS ORDERED: Levofloxacin 750 MG/150 ML 750 MG/150 ML BAG IVPB SCH (18:00)
[2017-06-14 18:30] LABS: Hematocrit 21.6 % (37.5-50.1); Hemoglobin 7.2 g/dL (12.9-16.9)
--- NOTE | 2017-06-14 19:15 | Oncology Inp Progress Note ---
Date of Encounter: 06/14/17 Time of Encounter: 17:00 (1) MDS (myelodysplastic syndrome) Current Visit: Yes Status: Chronic Assessment and plan: Intermediate risk category with cytopenia--s/p BM in with transfusion dependance s/p Rx with decitabine C1 hospitalized with MRSA sepsis and now with LL pneumonia. Cytopenia possibly due to multiple etiologies-progression is a concern and patient wants to go home with hospice if there is any evidence of progression with increase imn blasts-leukemia. He is clinically stable. Hold off on neupogen support. IR to evaluate for BM bx, may need plt transfusion prior. On abx/pain meds for LLpossible pneumonia and left big toe inflammation. Plan d/w patient, and daughter in detail Oncology: Subj Interval history: Mild cough. Fever at night, overall wk. Left foot pain from gout - Constitutional Vitals: Vital Signs Temp Pulse Resp BP Pulse Ox 06/14/17 15:17 100.8 F H 94 20 121/72 100 06/14/17 11:00 98.8 F 94 20 99/61 98 06/14/17 09:26 99.6 F 94 20 126/81 97 06/14/17 04:00 99.1 F 92 14 156/96 97 06/13/17 23:46 98.6 F 95 14 147/84 96 06/13/17 19:41 100.1 F H 92 14 135/73 96 Intake and Output 06/14/17 06/14/17 06/14/17 07:59 15:59 23:59 Intake Total 1120 / 1120 1060 / 1060 1000 / 1000 Output Total 0 / 0 1025 / 1025 Balance 1120 / 1120 35 / 35 1000 / 1000 Intake: IV Fluids 1000 / 1000 1000 / 1000 1000 / 1000 0.9 % Sodium Chloride 1, 1000 / 1000 1000 / 1000 1000 / 1000 000 ML @ 125 mls/hr IVC . Q8H KATHERINE Rx#:[id number] Oral 120 / 120 60 / 60 Output: Urine 0 / 0 1025 / 1025 Other: Meal Breakfast Percent of Meal Consumed 20% Stool Size Large Stool Consistency formed Stool Color Brown # Bowel Movements 1 Weight 78.925 kg Patient Weight 06/14/17 23:59 Weight 78.925 kg General appearance: average body habitus, thin - Head Head exam: Present: atraumatic - Eye Eye exam: Present: sclera anicteric - ENT ENT exam: Present: mucous membranes moist - Neck Neck exam: Present: full ROM - Respiratory Respiratory exam: Present: CTAB - Cardiovascular Cardiovascular exam: Present: +S1, +S2 - GI/Abdominal GI/Abdominal exam: Present: soft - Extremities Exam Additional comments: left big toe swelling - Neurological Exam Neurological exam: Present: alert, CN II-XII intact, oriented X3, no focal deficits Oncology: Obj Data - Labs CBC & Chem 7: 06/14/17 17:54 06/14/17 09:50 Labs: Laboratory Results - last 24 hr 06/14/17 06/14/17 06/14/17 06:50 09:30 09:50 WBC 1.5 L RBC 2.55 L Hgb 7.1 L Hct 22.1 L MCV 86.7 MCH 27.8 L MCHC 32.1 RDW 16.7 H Plt Count 40 L MPV 10.1 Seg Neutrophils % 32.0 Lymphocytes % 66.0 Monocytes % 2.0 Neutrophils # 0.5 L Lymphocytes # 1.0 Monocytes # 0.0 Platelet Estimate Decreased L Anisocytosis 1+ A Sodium 134 L Potassium 3.7 Chloride 100 Carbon Dioxide 27 BUN 10 Creatinine 0.84 Est GFR ( Amer) > 60 Est GFR (Non-Af Amer) > 60 BUN/Creatinine Ratio 12 Glucose 95 Calculated Osmolality 277 L Calcium 8.6 Vancomycin Trough 9.5 L 06/14/17 17:54 WBC RBC Hgb 7.2 L Hct 21.6 L MCV MCH MCHC RDW Plt Count MPV Seg Neutrophils % Lymphocytes % Monocytes % Neutrophils # Lymphocytes # Monocytes # Platelet Estimate Anisocytosis Sodium Potassium Chloride Carbon Dioxide BUN Creatinine Est GFR ( Amer) Est GFR (Non-Af Amer) BUN/Creatinine Ratio Glucose Calculated Osmolality Calcium Vancomycin Trough - ABG Interpretation ABG results: PT/INR, D-dimer PT 15.0 Seconds (9.4-12.1) H 06/12/17 16:19 Consult Discharge Plan - Plan Referrals: Wang Coy Jr, MD [Primary Care Provider] -
[2017-06-14] MEDS: Mirtazapine 15 MG TABLET PO SCH (20:50)
[2017-06-14] MEDS: Gabapentin 100 MG CAPSULE PO SCH (20:50)
[2017-06-14] MEDS: Melatonin 3 MG TABLET PO SCH (20:51)
[2017-06-15 00:29] LABS: Hematocrit 20.1 % (37.5-50.1); Hemoglobin 6.6 g/dL (12.9-16.9)
[2017-06-15] MEDS: 0.9 % Sodium Chloride 1,000 ML IVC SCH ×3 (02:50→16:05)
[2017-06-15 05:13] LABS: Hematocrit 20.3 % (37.5-50.1); Hemoglobin 6.5 g/dL (12.9-16.9); Mean Corpuscular Hemoglobin 27.7 pg (28.0-33.3); Mean Corpuscular Volume 86.4 fL (83.0-100.0); Red Blood Count 2.35 M/mcL (4.19-5.50); Red Cell Distribution Width 16.5 % (11.5-14.5)
[2017-06-15 05:20] LABS: Platelet Count 30 K/mcL (140-400)
[2017-06-15 05:37] LABS: BUN/Creatinine Ratio 12 (6-26); Blood Urea Nitrogen 11 mg/dL (8-26); Calcium 8.3 mg/dL (8.6-10.8); Carbon Dioxide 25 mEq/L (19-29); Chloride 100 mEq/L (98-109); Glucose 97 mg/dL (70-99); Osmolality,Calculated 275 (280-300); Potassium 3.5 mEq/L (3.5-4.5); Sodium 133 mEq/L (136-145); eGFR For African Americans > 60 (> 60); eGFR For Non-African Americans > 60 (> 60)
[2017-06-15 05:57] LABS: Lymphocytes # 0.7 K/mcL (0.6-4.6); Neutrophils # 0.6 K/mcL (1.6-8.9); Platelet Estimate Marked Decrease (Normal)
[2017-06-15] MEDS ORDERED: 0.9 % Sodium Chloride 250 ML ONE (06:49)
[2017-06-15] MEDS: *HR* Morphine 2 MG/ML SYRINGE IVP PRN ×2 (07:11→15:54)
[2017-06-15] MEDS: Chlorhexidine Rinse 15 ML MOUTHWASH MM SCH (09:30)
[2017-06-15] MEDS: rifAMPin 150 MG CAPSULE PO SCH ×2 (09:34→16:03)
[2017-06-15] MEDS: *HR* OxyCODONE Immed Rel 15 MG TABLET PO SCH ×4 (09:35→22:45)
[2017-06-15] MEDS: Furosemide 40 MG TABLET PO SCH (09:35)
[2017-06-15] MEDS: Vancomycin 1,750 MG in D5% in Water 500 ML IVPB SCH (09:37)
[2017-06-15] MEDS: Sennosides 8.6 MG TABLET PO SCH (09:40)
[2017-06-15] MEDS: Lactulose Oral Soln 20 GM/30 ML UDC PO SCH (09:40)
[2017-06-15] MEDS ORDERED: Lactulose Oral Soln 20 GM/30 ML UDC PO PRN (11:45)
[2017-06-15] MEDS ORDERED: Sennosides 8.6 MG TABLET PO PRN (11:47)
--- NOTE | 2017-06-15 12:33 | Palliative Progress Note ---
Date of Encounter: 06/15/17 Time of Encounter: 11:00 - Assessment and plan (1) Chronic back pain greater than 3 months duration Current Visit: Yes Status: Acute Assessment and plan: Continue schedule Oxycodone. D/W Pharmacy - pt stuggling with current schedule as last dose at 21 and am dose not scheduled until 0900. He usually taked his am dose at home around 0700. He has been requiring IV Morphine around that time each am. Will reschedule for 04/17/18 and see if pain better managed. Hospitalist also began low dose Gabapentin at . Monitor. (2) Therapeutic opioid-induced constipation (OIC) Current Visit: Yes Status: Acute Assessment and plan: Patient stools loose - laxatives have been changed to PRN from scheduled. Monitor (3) Counseling regarding advanced care planning and goals of care Current Visit: Yes Status: Acute Assessment and plan: Patient for bone marrow biopsy today. Results will impact discharge plan. If he has transition to acute leukemia, he may desire to stop all aggressive treatment and transition home with hospice care. If not and current condition result of treatment, will require rehab vs . Will follow closely and assist as needed. (4) MDS (myelodysplastic syndrome) Current Visit: Yes Status: Chronic (5) HCAP (healthcare-associated pneumonia) Current Visit: Yes Status: Acute - Time Spent With Patient Total time spent is greater than 50% in coordination of care (as documented) at patient's floor/unit and/or counseling patient: - Subjective Interval history: Patient awake, Hospitalist just visited. [place] at bedside. Patient awaiting bone marrow biopsy. Denies pain at present. Please with current pain medicaion regimen. + BM. Oncology note reviewed and appreciated. - Constitutional Vitals: Abnormal lab results WBC 1.3 K/mcL (4.3-11.1) L 06/15/17 04:25 RBC 2.35 M/mcL (4.19-5.50) L 06/15/17 04:25 Hgb 6.5 g/dL (12.9-16.9) L 06/15/17 04:25 Hct 20.3 % (37.5-50.1) L 06/15/17 04:25 MCH 27.7 pg (28.0-33.3) L 06/15/17 04:25 RDW 16.5 % (11.5-14.5) H 06/15/17 04:25 Plt Count 30 K/mcL (140-400) L* 06/15/17 04:25 Immature Gran % 5.9 % (0-4) H 06/12/17 16:19 Band Neutrophils % 12.0 % (0-4) H 06/13/17 03:30 Neutrophils # 0.6 K/mcL (1.6-8.9) L 06/15/17 04:25 Platelet Estimate Marked Decrease (Normal) L 06/15/17 04:25 Hypochromasia Present (Not Present) A 06/12/17 16:19 Anisocytosis 1+ (Not Present) A 06/14/17 09:30 PT 15.0 Seconds (9.4-12.1) H 06/12/17 16:19 Sodium 133 mEq/L (136-145) L 06/15/17 04:25 POC Glucose 147 (58-89) H 06/15/17 11:52 Calculated Osmolality 275 (280-300) L 06/15/17 04:25 Calcium 8.3 mg/dL (8.6-10.8) L 06/15/17 04:25 Direct Bilirubin 0.9 mg/dL (0.0-0.5) H 06/12/17 16:19 Albumin 2.9 g/dL (3.5-5.0) L D 06/13/17 03:30 Albumin/Globulin Ratio 0.9 (1.1-2.2) L 06/13/17 03:30 Vancomycin Trough 9.5 mcg/mL (10-20) L 06/14/17 06:50 General appearance: Present: no acute distress - Respiratory Respiratory exam: Present: decreased breath sounds, CTAB - Cardiovascular Cardiovascular exam: Present: +S1, +S2 - GI/Abdominal GI/Abdominal exam: Present: normal bowel sounds, soft - Additional comments: Voids per urinal - Neurological Exam Neurological exam: Present: alert, oriented X3, strengths equal and symetr throughout - Skin Skin exam: Present: dry, pallor, warm Palliative Quality Palliative Quality: Screen for Code Status: Yes, Screen for Goals of Care: Yes, Screen for Pain: Yes, If Pain Regimen Started, Initiate Bowel Regimen: Yes, Screen for Nausea/Vomitting: Yes Code Status: 06/13/17 12:12 DNR [Resuscitation Status: Active] [RES] Routine Comment: Resuscitation Status: [id number] - Labs CBC & Chem 7: 06/15/17 04:25 06/15/17 04:25 Labs: Laboratory Results - last 24 hr 06/14/17 06/15/17 06/15/17 17:54 00:24 00:43 WBC RBC Hgb 7.2 L 6.6 L Hct 21.6 L 20.1 L MCV MCH MCHC RDW Plt Count MPV Seg Neutrophils % Lymphocytes % Basophils % Neutrophils # Lymphocytes # Basophils # Platelet Estimate Sodium Potassium Chloride Carbon Dioxide BUN Creatinine Est GFR ( Amer) Est GFR (Non-Af Amer) BUN/Creatinine Ratio Glucose POC Glucose 133 H Calculated Osmolality Calcium 06/15/17 06/15/17 06/15/17 04:25 04:25 05:00 WBC 1.3 L RBC 2.35 L Hgb 6.5 L Hct 20.3 L MCV 86.4 MCH 27.7 L MCHC 32.0 RDW 16.5 H Plt Count 30 L* MPV TNP Seg Neutrophils % 46.0 Lymphocytes % 52.0 Basophils % 2.0 Neutrophils # 0.6 L Lymphocytes # 0.7 Basophils # 0.0 Platelet Estimate Marked Decrease L Sodium 133 L Potassium 3.5 Chloride 100 Carbon Dioxide 25 BUN 11 Creatinine 0.95 Est GFR ( Amer) > 60 Est GFR (Non-Af Amer) > 60 BUN/Creatinine Ratio 12 Glucose 97 POC Glucose 116 H Calculated Osmolality 275 L Calcium 8.3 L 06/15/17 11:52 WBC RBC Hgb Hct MCV MCH MCHC RDW Plt Count MPV Seg Neutrophils % Lymphocytes % Basophils % Neutrophils # Lymphocytes # Basophils # Platelet Estimate Sodium Potassium Chloride Carbon Dioxide BUN Creatinine Est GFR ( Amer) Est GFR (Non-Af Amer) BUN/Creatinine Ratio Glucose POC Glucose 147 H Calculated Osmolality Calcium - ABG Interpretation ABG results: PT/INR, D-dimer PT 15.0 Seconds (9.4-12.1) H 06/12/17 16:19 Consult Discharge Plan - Plan Referrals: Wang Coy Jr, MD [Primary Care Provider] -
[2017-06-15] MEDS: Lactobacillus 1 EACH CAP.SPRINK PO SCH ×2 (13:11→20:43)
[2017-06-15] MEDS ORDERED: *HR* Midazolam HCl 2 MG/2 ML VIAL IVP PRN (14:34)
[2017-06-15] MEDS ORDERED: *HR* FentaNYL (PF) 100 MCG/2 ML VIAL IVP PRN (14:34)
--- NOTE | 2017-06-15 14:36 | Pre-Sedation Evaluation ---
Pre-sedation evaluation - Pre-sedation checklist Date of procedure: 06/15/17 Procedure: BMBx Recent Vitals: Last Vital Signs Temp 99.0 F 06/15/17 11:10 Pulse 84 06/15/17 11:10 Resp 16 06/15/17 11:10 BP 121/79 06/15/17 11:10 Pulse Ox 99 06/15/17 11:10 H&P (including ROS) documented in medical record: Yes Previous reaction to sedatives/anesthetics: No Dietary Status: NPO after Midnight Airway Assessment: Patient can open mouth completely, TMJ function normal, Micrognathia (under-bite, receding chin) absent, Neck with adequate range of motion Dentition: dentures removed ASA Classification *see protocol: CLASS II-Mild systemic disease Plan of Care: Pt appropriate candidate for procedure/moderate/conscious sedation , Risks/benefits of procedure/sedation discussed w/ patient/family, If not NPO; Risk of intake outweiged by necessity to perform procedure
[2017-06-15] MEDS ORDERED: 0.9 % Sodium Chloride 500 ML ONE (14:42)
--- NOTE | 2017-06-15 15:55 | Internal Med Progress Note ---
Date of Encounter: 06/15/17 Time of Encounter: 10:50 - Assessment and plan (1) Pneumonia Current Visit: Yes Status: Suspected Assessment and plan: Continue levofloxacin. Clinically improving. Qualifiers: Pneumonia type: due to other aerobic Gram-negative bacteria Laterality: left Lung location: lower lobe of lung Qualified Code(s): J15.6 - Pneumonia due to other aerobic Gram-negative bacteria (2) Pancytopenia Current Visit: Yes Status: Chronic Assessment and plan: Remains pancytopenic with WBC of 1.3, hemoglobin 6.5 and platelets of 30. Transfusing 1 unit of packed red blood cells. ANC count remains at 600. Evaluated by oncology and recommended bone marrow biopsy. Recommend to hold off on Neupogen for now. High risk for complications. (3) MDS (myelodysplastic syndrome) Current Visit: Yes Status: Chronic (4) Atrial fibrillation Current Visit: Yes Status: Chronic Assessment and plan: Rate controlled. Continue carvedilol. 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 Tolerating well so far. 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 Patient is scheduled to undergo bone marrow biopsy later today. Denies any shortness of breath or chest pain. Had fever yesterday afternoon at around 3 PM of 100.8. Since then his temperature has been normal. - Constitutional Vitals: Temp Pulse Resp BP Pulse Ox 99.0 F 104 23 143/91 100 06/15/17 11:10 06/15/17 14:52 06/15/17 14:52 06/15/17 14:52 06/15/17 14:52 General appearance: Present: cooperative, A&O X 2 ([place] to self, place and year.), pleasant, no acute distress, answers questions appropriately - Neck Neck exam general surgery: Present: supple, trachea midline. Absent: lymphadenopathy - Respiratory Respiratory exam: Present: CTAB. Absent: accessory muscle use, rales, rhonchi, wheezes - Cardiovascular Cardiovascular exam: Present: RRR, +S1, +S2. Absent: diastolic murmur, gallop, rubs, systolic murmur - Extremities Exam Extremities exam: Present: warm, radial pulses palpable and symmetrical. Absent : calf tenderness, cyanotic, pedal edema - Neurological Exam Neurological exam: Present: alert, oriented X3, no focal deficits. Absent: facial droop, speech deficit - Skin Skin exam: Present: dry, intact Internal Medicine: Result - Labs CBC & Chem 7: 06/15/17 04:25 06/15/17 04:25 Labs: Short CBC 06/14/17 06/15/17 06/15/17 Range/Units 17:54 00:24 04:25 WBC 1.3 L (4.3-11.1) K/mcL Hgb 7.2 L 6.6 L 6.5 L (12.9-16.9) g/dL Hct 21.6 L 20.1 L 20.3 L (37.5-50.1) % Plt Count 30 L* (140-400) K/mcL Neutrophils # 0.6 L (1.6-8.9) K/mcL BMP 06/15/17 04:25 Sodium 133 L Potassium 3.5 Chloride 100 Carbon Dioxide 25 BUN 11 Creatinine 0.95 Glucose 97 Calcium 8.3 L - ABG Interpretation ABG results: PT/INR, D-dimer PT 15.0 Seconds (9.4-12.1) H 06/12/17 16:19 Consult Discharge Plan - Plan Referrals: Wang Coy Jr, MD [Primary Care Provider] -
--- NOTE | 2017-06-15 16:07 | IR Procedure Note ---
Date of procedure: 06/15/17 Consent Obtained: Verbal consent, Written consent Timeout: Correct patient and procedure verified, Correct site verified, Time out performed, Skin prep completed Local anesthetic: Lidocaine 1% Indications: MDS Procedure Performed: BMBx Site/Technique: right ischium Results/Findings: core and aspirate Estimated blood loss (cc): 2 Complications: None; Tolerated procedure well Post Procedure Treatment Plan: bedrest x 1 hour
[2017-06-15 20:24] LABS: Hematocrit 24.2 % (37.5-50.1)
[2017-06-15 20:25] LABS: Hemoglobin 7.9 g/dL (12.9-16.9)
[2017-06-15] MEDS: Mirtazapine 15 MG TABLET PO SCH (20:43)
[2017-06-15] MEDS: Gabapentin 100 MG CAPSULE PO SCH (20:43)
[2017-06-15] MEDS: Melatonin 3 MG TABLET PO SCH (21:08)
[2017-06-16] MEDS: 0.9 % Sodium Chloride 1,000 ML IVC SCH ×2 (00:22→10:47)
[2017-06-16] MEDS: *HR* Morphine 2 MG/ML SYRINGE IVP PRN (04:12)
[2017-06-16 04:14] LABS: Basophils % 0.8 %; Hemoglobin 7.3 g/dL (12.9-16.9)
[2017-06-16 04:15] LABS: Immature Granulocytes % 0.8 % (0-4); Lymphocytes # 0.7 K/mcL (0.6-4.6); Lymphocytes % 53.6 %; Mean Corpuscular HGB Conc 33.2 g/dL (31.6-35.5); Mean Corpuscular Hemoglobin 28.3 pg (28.0-33.3); Mean Corpuscular Volume 85.3 fL (83.0-100.0); Mean Platelet Volume 9.8 fL (9.4-12.4); Monocytes # 0.1 K/mcL (0.0-1.3); Monocytes % 7.2 %; Neutrophils # 0.5 K/mcL (1.6-8.9); Red Blood Count 2.58 M/mcL (4.19-5.50); Red Cell Distribution Width 16.3 % (11.5-14.5); Segmented Neutrophils % 37.6 %
[2017-06-16 04:24] LABS: BUN/Creatinine Ratio 13 (6-26); Blood Urea Nitrogen 13 mg/dL (8-26); Calcium 8.4 mg/dL (8.6-10.8); Carbon Dioxide 27 mEq/L (19-29); Chloride 101 mEq/L (98-109); Glucose 102 mg/dL (70-99); Osmolality,Calculated 278 (280-300); Potassium 3.7 mEq/L (3.5-4.5); Sodium 134 mEq/L (136-145); eGFR For African Americans > 60 (> 60); eGFR For Non-African Americans > 60 (> 60)
[2017-06-16 04:43] LABS: Platelet Count 32 K/mcL (140-400)
[2017-06-16 05:01] LABS: Folate 15.9 ng/mL (7.0-31.4)
[2017-06-16 05:28] LABS: Platelet Estimate Marked Decrease (Normal)
[2017-06-16 05:29] LABS: Hypochromasia Present (Not Present)
[2017-06-16] MEDS: *HR* OxyCODONE Immed Rel 15 MG TABLET PO SCH (06:29)
[2017-06-16] MEDS: rifAMPin 150 MG CAPSULE PO SCH ×2 (06:29→17:52)
[2017-06-16] MEDS: Lactobacillus 1 EACH CAP.SPRINK PO SCH (07:52)
[2017-06-16] MEDS: Chlorhexidine Rinse 15 ML MOUTHWASH MM SCH (07:52)
[2017-06-16] MEDS: Furosemide 40 MG TABLET PO SCH (07:52)
--- NOTE | 2017-06-16 09:43 | Palliative Progress Note ---
Date of Encounter: 06/16/17 Time of Encounter: 09:30 - Assessment and plan (1) Chronic back pain greater than 3 months duration Current Visit: Yes Status: Acute Assessment and plan: Continue with current scheduled Oxycodone - he is also utilizing IV Morphine for breakthrough. D/W patient that option would be to transition to long acting opioid and utilize the Oxycodone for breakthrough, would better manage his pain and decrease pill burden. At this time, he desires to continue scheduled Oxycodone. If pt would desire transition, his current Oral Morphine Equivalent based on current usage of Morphine/Oxycodone is 100mg/hr. Allowing 50% reduction for cross tolerance, would recommend beginning MS Contin 30mg every 12 hours and continue Oxycodone 15mg every 4 hours PRN for breakthough. Told she could call me if he desires to switch to long acting opioid. (2) Therapeutic opioid-induced constipation (OIC) Current Visit: Yes Status: Acute Assessment and plan: Laxatives were transitioned to PRN r/t loose stools. Monitor. + BM 06/14 (3) Counseling regarding advanced care planning and goals of care Current Visit: Yes Status: Acute Assessment and plan: Goals of care will depend on biopsy results. Will f/u Monday. (4) MDS (myelodysplastic syndrome) Current Visit: Yes Status: Chronic (5) HCAP (healthcare-associated pneumonia) Current Visit: Yes Status: Acute - Time Spent With Patient Total time spent is greater than 50% in coordination of care (as documented) at patient's floor/unit and/or counseling patient: 25 - 35 minutes - Subjective Interval history: Patient sleeping on arrival, awakens easily. [place] at bedside. No acute overnight events, and pt states slept well. Awaiting results from yesterday's bone marrow biopsy. - Constitutional Vitals: Abnormal lab results WBC 1.3 K/mcL (4.3-11.1) L 06/16/17 03:50 RBC 2.58 M/mcL (4.19-5.50) L 06/16/17 03:50 Hgb 7.3 g/dL (12.9-16.9) L 06/16/17 03:50 Hct 22.0 % (37.5-50.1) L 06/16/17 03:50 RDW 16.3 % (11.5-14.5) H 06/16/17 03:50 Plt Count 32 K/mcL (140-400) L 06/16/17 03:50 Band Neutrophils % 12.0 % (0-4) H 06/13/17 03:30 Neutrophils # 0.5 K/mcL (1.6-8.9) L 06/16/17 03:50 Platelet Estimate Marked Decrease (Normal) L 06/16/17 03:50 Hypochromasia Present (Not Present) A 06/16/17 03:50 Anisocytosis 1+ (Not Present) A 06/14/17 09:30 PT 15.0 Seconds (9.4-12.1) H 06/12/17 16:19 Sodium 134 mEq/L (136-145) L 06/16/17 03:50 Glucose 102 mg/dL (70-99) H 06/16/17 03:50 POC Glucose 147 (58-89) H 06/15/17 11:52 Calculated Osmolality 278 (280-300) L 06/16/17 03:50 Calcium 8.4 mg/dL (8.6-10.8) L 06/16/17 03:50 Direct Bilirubin 0.9 mg/dL (0.0-0.5) H 06/12/17 16:19 Albumin 2.9 g/dL (3.5-5.0) L D 06/13/17 03:30 Albumin/Globulin Ratio 0.9 (1.1-2.2) L 06/13/17 03:30 Vancomycin Trough 9.5 mcg/mL (10-20) L 06/14/17 06:50 - Respiratory Respiratory exam: Present: decreased breath sounds, CTAB - Cardiovascular Cardiovascular exam: Present: +S1, +S2 - GI/Abdominal GI/Abdominal exam: Present: normal bowel sounds, soft - Extremities Exam Extremities exam: Present: normal capillary refill, normal inspection - Neurological Exam Neurological exam: Present: alert, oriented X3, strengths equal and symetr throughout Additional comments: generalized weakness - Skin Skin exam: Present: dry, warm Palliative Quality Palliative Quality: Screen for Code Status: Yes, Screen for Goals of Care: Yes, Screen for Pain: Yes, If Pain Regimen Started, Initiate Bowel Regimen: Yes, Screen for Nausea/Vomitting: Yes Code Status: 06/13/17 12:12 DNR [Resuscitation Status: Active] [RES] Routine Comment: Resuscitation Status: [id number] - Labs CBC & Chem 7: 06/16/17 03:50 06/16/17 03:50 Labs: Laboratory Results - last 24 hr 06/15/17 06/15/17 06/16/17 11:52 19:22 03:50 WBC 1.3 L RBC 2.58 L Hgb 7.9 L 7.3 L Hct 24.2 L 22.0 L MCV 85.3 MCH 28.3 MCHC 33.2 RDW 16.3 H Plt Count 32 L MPV 9.8 Immature Gran % 0.8 Seg Neutrophils % 37.6 Lymphocytes % 53.6 Monocytes % 7.2 Eosinophils % 0.0 Basophils % 0.8 Neutrophils # 0.5 L Lymphocytes # 0.7 Monocytes # 0.1 Eosinophils # 0.0 Basophils # 0.0 Platelet Estimate Marked Decrease L Hypochromasia Present A Sodium Potassium Chloride Carbon Dioxide BUN Creatinine Est GFR ( Amer) Est GFR (Non-Af Amer) BUN/Creatinine Ratio Glucose POC Glucose 147 H Calculated Osmolality Calcium Vitamin B12 Folate 06/16/17 06/16/17 03:50 03:50 WBC RBC Hgb Hct MCV MCH MCHC RDW Plt Count MPV Immature Gran % Seg Neutrophils % Lymphocytes % Monocytes % Eosinophils % Basophils % Neutrophils # Lymphocytes # Monocytes # Eosinophils # Basophils # Platelet Estimate Hypochromasia Sodium 134 L Potassium 3.7 Chloride 101 Carbon Dioxide 27 BUN 13 Creatinine 0.98 Est GFR ( Amer) > 60 Est GFR (Non-Af Amer) > 60 BUN/Creatinine Ratio 13 Glucose 102 H POC Glucose Calculated Osmolality 278 L Calcium 8.4 L Vitamin B12 450 Folate 15.9 - ABG Interpretation ABG results: PT/INR, D-dimer PT 15.0 Seconds (9.4-12.1) H 06/12/17 16:19 Consult Discharge Plan - Plan Referrals: Wang Coy Jr, MD [Primary Care Provider] -
[2017-06-16] MEDS ORDERED: Vancomycin 1,500 MG in D5% in Water 250 ML IVPB SCH (11:00)
[2017-06-16] MEDS ORDERED: *HR* OxyCODONE Immed Rel 15 MG TABLET PO PRN (11:22)
[2017-06-16] MEDS ORDERED: *HR* Morphine Sulfate SR (12 HR) 30 MG TABLET.ER PO SCH ×2 (11:45→22:00)
[2017-06-16] MEDS ORDERED: Lidocaine -MPF 1% 5 ML AMPUL INFILT ONE (15:01)
[2017-06-16] MEDS ORDERED: *HR* Morphine 2 MG/ML SYRINGE IVP ONE (15:19)
--- NOTE | 2017-06-16 15:29 | Discharge Summary ---
Date of Encounter: 06/16/17 Time of Encounter: 15:26 - Discharge Diagnosis (1) Pneumonia Priority: Primary Status: Suspected Qualifiers: Pneumonia type: due to other aerobic Gram-negative bacteria Laterality: left Lung location: lower lobe of lung Qualified Code(s): J15.6 - Pneumonia due to other aerobic Gram-negative bacteria (2) Pancytopenia Priority: Secondary Status: Chronic (3) MDS (myelodysplastic syndrome) Priority: Secondary Status: Chronic (4) Atrial fibrillation Priority: Secondary Status: Chronic Qualifiers: Atrial fibrillation type: chronic Qualified Code(s): I48.2 - Chronic atrial fibrillation (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 (6) History of prosthetic aortic valve Priority: Secondary Status: Chronic (7) Peripheral neuropathy Priority: Secondary Status: Suspected Qualifiers: Peripheral neuropathy type: polyneuropathy, unspecified Qualified Code(s): G62.9 - Polyneuropathy, unspecified (8) Gout Priority: Secondary Status: Chronic Qualifiers: Gout site: foot Gout etiology: other secondary cause Chronicity: chronic Laterality: right Presence of tophus: without tophus Qualified Code(s): 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, right ankle and foot, 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) - Discharge Medications Prescriptions: Morphine Sulfate SR (12 HR) [MS Contin] 1 tab PO Q12HR #30 tab Gabapentin [Neurontin] 100 mg PO HS #14 cap OxyCODONE Immed Rel [Roxicodone 15 MG] 15 mg PO Q4H PRN #60 tablet PRN Reason: Breakthrough Pain Vancomycin HCl in Dextrose 5 % [Vancomycin 1.5 Gram/250 ml-D5w] 1.5 gm IV DAILY #14 plast..bag Home Medications: Multivitamin/Iron/Folic Acid [Centrum Complete Multivit Tab] 1 each PO DAILY 09/20 [History] Ergocalciferol (VITAMIN D2) [Vitamin D2 (50,000 UNIT)] 50,000 unit PO MO [History] Melatonin 10 mg PO HS 04/01/16 [History] Mirtazapine 7.5 mg PO HS 04/01/16 [History] Omeprazole [PriLOSEC] 20 mg PO DAILY 04/01/16 [History] Allopurinol [Zyloprim 100 MG] 100 mg PO BID 03/07/17 [History] Furosemide [Lasix] 40 mg PO DAILY #30 tablet 05/02/17 [Rx] Ondansetron [Zofran] 4 mg PO Q8HR PRN #90 tablet 05/02/17 [Rx] Calcium Carbonate [Calcium] 600 mg PO DAILY 05/08/17 [History] Carvedilol 3.125 mg PO BID 05/08/17 [History] Aminocaproic Acid [Amicar] 250 mg PO Q8H PRN #200 solution 05/16/17 [Rx] Chlorhexidine Gluconate [Peridex] 10 ml MM DAILY #118 mouthwash 05/16/17 [Rx] Bisacodyl [Dulcolax] 10 mg PO HS PRN tab 06/09/17 [Rx] Vancomycin [Vancocin] 1 each IVPB RPHPROT vial 06/09/17 [Rx] rifAMPin [Rifadin] 300 mg PO BIDAC 14 Days 06/09/17 [Rx] Lidocaine/Prilocaine CREAM [Emla] 1 appl TP ONCE PRN 06/12/17 [History] Polyethylene Glycol 3350 [MiraLAX] 17 gm PO DAILY PRN 06/12/17 [History] Gabapentin [Neurontin] 100 mg PO HS #14 cap 06/16/17 [Rx] Lactobacillus [Culturelle] 1 each PO BID #0 06/16/17 [Rx] Lactulose [Enulose] 10 gm PO BID PRN #0 06/16/17 [Rx] Morphine Sulfate SR (12 HR) [MS Contin] 1 tab PO Q12HR #30 tab 06/16/17 [Rx] OxyCODONE Immed Rel [Roxicodone 15 MG] 15 mg PO Q4H PRN #60 tablet 06/16/17 [Rx] Vancomycin HCl in Dextrose 5 % [Vancomycin 1.5 Gram/250 ml-D5w] 1.5 gm IV DAILY #14 plast..bag 06/16/17 [Rx] levoFLOXacin [Levaquin] 750 mg PO Q48H 10 Days 06/16/17 [Rx] Allergies/Adverse Reactions: Allergies citalopram Adverse Reaction (Verified 06/12/17 15:37) Nausea codeine Adverse Reaction (Verified 06/12/17 15:37) See Comments Cardiac problems per . Thytfyy-Lte-Hsv Reductase Inhibitor [Statins] Adverse Reaction (Verified 15:37) See Comments RA symptoms per . Procedures/tests Complete & Pending: Procedures Performed prior 72 hours Category Date Time Status CT guided biopsy [CT] Routine Cat Scan 06/15/[address] biopsy bone marrow [CT] Routine Exams 06/15/17 Completed Date of admission: 06/12/17 23:46 Primary care physician: Wang Coy Jr, MD Consults: 06/13/17 08:27 Consult to Palliative Care [CONS] Routine Comment: Consulting Provider: Palliative Care Becca Reason for Consult: potential end of life discussion and options Call Completed: No 06/13/17 12:13 Consult to Occupational Therapy [CONS] Routine Comment: Evaluate, develop and implement POC Reason for Consult: Eval for inpt swing bed/rehab 06/13/17 12:14 Consult to Physical Therapy [CONS] Routine Comment: Evaluate, develop and implement POC Reason for Consult: Eval for swing bed/rehab 06/13/17 15:38 Consult to Oncology Hematology [CONS] Routine Consulting Provider: Galilea Talley Reason for Consult: MDS patient with HCAP/ bacteremia with neutropenia Time Notified: 15:39 Call Completed: Yes 06/14/17 21:53 Consult to Interventional Radiology [CONS] Routine Consulting Provider: Radiology Interventional Cols Reason for Consult: Bone marrow biopsy Call Completed: No 06/16/17 15:02 Consult to Invasive Line Access Team [CONS] Routine Reason for Consult: Picc Line Insertion Line Type: PICC Discharging clinician: Sabiha Andino Anticipated date of discharge: 06/16/17 - Patient Status Disposition: Transfer Inpatient Rehab Fac Condition: Fair Functional capacity at discharge: uses cane/walker Overall status at discharge: patient is progressing back to baseline - Discharge Instructions Instructions: Anemia (GEN), Pneumonia (DC) Follow Up With: Wang Coy Jr, MD [Primary Care Provider] - (in 1-2 weeks) Ector Myers MD [Partnered Physician] - (in 1 week) - Diet and Activity Activity: as per physical therapy, increase activity as tolerated Diet: low fat, low cholesterol, low salt diet Hospital course: Mr. Townsend is a 77 year old male patient with a history of myelodysplastic syndrome, recently diagnosed Staphylococcus epidermidis bacteremia, atrial fibrillation, coronary artery disease, pancytopenia was admitted here with acute healthcare associated pneumonia. He was treated with broad-spectrum antibiotics for this condition. He continued to receive intravenous vancomycin and rifampin which were being used to treat his bacteremia from Staphylococcus epidermidis. The patient did have persistent pancytopenia and oncology was consulted for their recommendations for this condition. Patient was evaluated by oncology and recommended bone marrow biopsy which was done yesterday. Results are currently pending. Patient did receive 2 units of packed red blood cells for low hemoglobin levels. Patient also presented with mild acute kidney injury which has since resolved. His blood cultures have been negative and his antibiotic regimen has been be escalated. Patient is currently receiving levofloxacin every other day to complete treatment for his pneumonia. Patient was evaluated by physical therapy and recommended placement to skilled rehabilitation. He has been accepted at [facility] for rehabilitation. Patient will be discharged there. During his stay palliative care was also consulted to establish goals of care and to manage his pain better. At this time the patient is waiting for results of bone marrow biopsy to make a decision on getting treatment or to be on hospice. He will follow up with [facility] after discharge for further recommendations. Patient is not on anticoagulation for atrial fibrillation due to his pancytopenia - Time Spent with Patient Total time spent providing and/or coordinating discharge services: Greater than 30 minutes (45 min) - Constitutional Vitals: Temp Pulse Resp BP Pulse Ox 98.8 F 97 16 111/72 98 06/16/17 11:33 06/16/17 11:33 06/16/17 11:33 06/16/17 11:33 06/16/17 11:33 General appearance: Present: cooperative, A&O X 3, pleasant, no acute distress, answers questions appropriately - Neck Neck exam general surgery: Present: supple, trachea midline. Absent: lymphadenopathy - Respiratory Respiratory exam: Present: CTAB. Absent: accessory muscle use, rales, rhonchi, wheezes - Cardiovascular Cardiovascular exam: Present: RRR, +S1, +S2. Absent: diastolic murmur, gallop, rubs, systolic murmur - GI/Abdominal GI/Abdominal exam: Present: normal bowel sounds, soft, no peritoneal signs. Absent: distended, tenderness - Extremities Exam Extremities exam: Present: warm, radial pulses palpable and symmetrical. Absent : calf tenderness, cyanotic, pedal edema - Skin Skin exam: Present: dry, intact, pallor
--- NOTE | 2017-06-16 15:39 | Physician Discharge Referral ---
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 (6) History of prosthetic aortic valve Priority: Secondary Status: Chronic (7) Peripheral neuropathy Priority: Secondary Status: Suspected (8) Gout Priority: Secondary Status: Chronic Prognosis: Fair Aware of Diagnosis: Patient, Family Aware of Prognosis: Patient, Family - Transfer Medications Prescriptions: Morphine Sulfate SR (12 HR) [MS Contin] 1 tab PO Q12HR #30 tab Gabapentin [Neurontin] 100 mg PO HS #14 cap OxyCODONE Immed Rel [Roxicodone 15 MG] 15 mg PO Q4H PRN #60 tablet PRN Reason: Breakthrough Pain Vancomycin HCl in Dextrose 5 % [Vancomycin 1.5 Gram/250 ml-D5w] 1.5 gm IV DAILY #14 plast..bag Home Medications: Multivitamin/Iron/Folic Acid [Centrum Complete Multivit Tab] 1 each PO DAILY 09/20 [History] Ergocalciferol (VITAMIN D2) [Vitamin D2 (50,000 UNIT)] 50,000 unit PO MO [History] Melatonin 10 mg PO HS 04/01/16 [History] Mirtazapine 7.5 mg PO HS 04/01/16 [History] Omeprazole [PriLOSEC] 20 mg PO DAILY 04/01/16 [History] Allopurinol [Zyloprim 100 MG] 100 mg PO BID 03/07/17 [History] Furosemide [Lasix] 40 mg PO DAILY #30 tablet 05/02/17 [Rx] Ondansetron [Zofran] 4 mg PO Q8HR PRN #90 tablet 05/02/17 [Rx] Calcium Carbonate [Calcium] 600 mg PO DAILY 05/08/17 [History] Carvedilol 3.125 mg PO BID 05/08/17 [History] Aminocaproic Acid [Amicar] 250 mg PO Q8H PRN #200 solution 05/16/17 [Rx] Chlorhexidine Gluconate [Peridex] 10 ml MM DAILY #118 mouthwash 05/16/17 [Rx] Bisacodyl [Dulcolax] 10 mg PO HS PRN tab 06/09/17 [Rx] Vancomycin [Vancocin] 1 each IVPB RPHPROT vial 06/09/17 [Rx] rifAMPin [Rifadin] 300 mg PO BIDAC 14 Days 06/09/17 [Rx] Lidocaine/Prilocaine CREAM [Emla] 1 appl TP ONCE PRN 06/12/17 [History] Polyethylene Glycol 3350 [MiraLAX] 17 gm PO DAILY PRN 06/12/17 [History] Gabapentin [Neurontin] 100 mg PO HS #14 cap 06/16/17 [Rx] Lactobacillus [Culturelle] 1 each PO BID #0 06/16/17 [Rx] Lactulose [Enulose] 10 gm PO BID PRN #0 06/16/17 [Rx] Morphine Sulfate SR (12 HR) [MS Contin] 1 tab PO Q12HR #30 tab 06/16/17 [Rx] OxyCODONE Immed Rel [Roxicodone 15 MG] 15 mg PO Q4H PRN #60 tablet 06/16/17 [Rx] Vancomycin HCl in Dextrose 5 % [Vancomycin 1.5 Gram/250 ml-D5w] 1.5 gm IV DAILY #14 plast..bag 06/16/17 [Rx] levoFLOXacin [Levaquin] 750 mg PO Q48H 10 Days 06/16/17 [Rx] Allergies/Adverse Reactions: Allergies citalopram Adverse Reaction (Verified 06/12/17 15:37) Nausea codeine Adverse Reaction (Verified 06/12/17 15:37) See Comments Cardiac problems per . Fcrklfb-Kgt-Ine Reductase Inhibitor [Statins] Adverse Reaction (Verified 15:37) See Comments RA symptoms per . - Respiratory Orders Smoking Cessation: Smoking cessation has been advised. For more information, call the [employer] Tobacco Quit Line at 7-812-SAVY-NOW. - Lab Orders Lab Orders: Other (include drug levels w/frequency) (CBC, Vancomycin trough levels and CMP on Monday each week while receiving IV vancomycin) - Ancillary Orders May consult with Dentist, Wax Pattern Coater, Powerbuilder PRN - Advance Directives Living Will: Yes Power of Weather Reporter: Yes Code Status: DNR-Arrest/Don't Intubate - Mobility Orders Ambulate (per PT) - Rehabiliation Orders Rehab Potential: Fair Rehab Orders: Evaluation for Physical Therapy, Evaluation for Occupational Therapy - Diet Orders Cardiac CERTIFICATION: I certify that the transfer of the above named patient to an Extended Care Facility is necessary for the continuing treatment of the diagnosis listed. The above information is true and accurate reflection of patient's current condition. Confidential - Redisclosure prohibited without a patient's written consent.
--- NOTE | 2017-06-16 15:41 | Event Note ---
Date of Encounter: 06/16/17 Time of Encounter: 15:00 Discussed pt case with Chuck Vidal NP Oncology re: pt follow up. He is currently scheduled for chemotherapy next Mon-Fri. R/T pt progressive weakness and current diagnosis of pneumonia, these will be cancelled, but pt will have a f/u with Dr. Myers next to discuss bone marrow biopsy results. He is agreeable to go to [place] swing bed and may be discharged today, if hemoglobin stable. D/W Orlando Lorenzo and Dr. Andino. PICC is being replaced today. DNR state form completed and signed by , TIANA. Copies provided.
[2017-06-16] MEDS ORDERED: Lidocaine -MPF 1% 2 ML VIAL INFILT ONE (16:00)
[2017-06-16 16:11] LABS: Hematocrit 23.3 % (37.5-50.1); Hemoglobin 7.7 g/dL (12.9-16.9)
[2017-06-16 17:51] VITALS: BP 117/70
[2017-06-16] MEDS ORDERED: levoFLOXacin 750 MG TABLET PO SCH (18:00)
[2017-06-16] MEDS ORDERED: Aminoglycoside Consult 1 EACH MC ONE ×2 (19:29)
== END 2017-06-16 19:30 | DRG 178 ==
LOC: 3ANU 15:30 → EMEROO 15:30 → 3ANU 20:33 → SUATTDRO 23:46
PROVIDERS: ADMIT Internal Medicine Endocrinology, Diabetes & Metabolism; ATTEND Internal Medicine

== ENCOUNTER 2017-07-10 18:18 | Inpatient (IN) ==
--- NOTE | 2017-07-10 18:36 | Emergency Department Note ---
Disposition Clinical Impression: Neutropenic fever, Thrombocytopenia, Confusion Anemia Qualifiers: Anemia type: other cause Other causes of anemia: other cause, not classified Qualified Code(s): D64.89 - Other specified anemias Disposition: Admitted As Inpatient Condition: Fair Referrals: Wang Coy Jr, MD [Primary Care Provider] - Forms: ED Satisfaction Letter Time of Disposition: 22:44 General Adult HPI - General Chief complaint: ED Fever Stated complaint: fever, ams Time Seen by Provider: 07/10/17 18:32 Source: patient, other Limitations: no limitations - History of Present Illness HPI Narrative: Mr. Townsend, a 77yo male, presents from home by POV for evaluation of confusion onset last night and worse today as well as temperature of 100.5 by mouth 2 hours prior to arrival. Patient currently on chemotherapy for myelodysplasia. Was discharted 06/28 for staff infection (bacteremia), discharged to [facility] where he developed pneumonia which was treated at [facility]; PICC line placed at that time. He has been on multiple antibiotics throughout these courses. Currently on IV vancomycin. 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 PMH: A. fib, history of heart valve replacement, CAD, ureteral stricture, hydronephrosis, history of mini epigastric incisional hernia, dementia, myelodysplastic syndrome, AML. ROS: Positive: Confusion [place] per patient's at bedside) series, fever, loose stools, notably increased fatigue Negative: Chest pain, palpitations, dyspnea, diaphoresis, weakness, numbness, tingling, nausea, vomiting, abdominal pain, melena, hematochezia, headache Pain Scale: 0 - Related Data Home Medications Medication Instructions Recorded Confirmed Multivitamin/Iron/Folic Acid 1 each PO DAILY 10/16/15 07/03/17 [Centrum Complete Multivit Tab] Melatonin 10 mg PO HS 04/01/16 07/03/17 Mirtazapine 7.5 mg PO HS 04/01/16 07/03/17 Omeprazole [PriLOSEC] 20 mg PO DAILY 04/01/16 07/03/17 Allopurinol [Zyloprim 100 MG] 100 mg PO BID 03/07/17 07/03/17 Calcium Carbonate [Calcium] 600 mg PO DAILY 05/08/17 07/03/17 Carvedilol 3.125 mg PO BID 05/08/17 07/03/17 Polyethylene Glycol 3350 [MiraLAX] 17 gm PO DAILY PRN 06/12/17 07/03/17 Previous Rx's Medication Instructions Recorded Ondansetron [Zofran] 4 mg PO Q8HR PRN #90 tablet 05/02/17 Aminocaproic Acid [Amicar] 250 mg PO Q8H PRN #200 solution 05/16/17 Chlorhexidine Gluconate [Peridex] 10 ml MM DAILY #118 mouthwash 05/16/17 Bisacodyl [Dulcolax] 10 mg PO HS PRN tab 06/09/17 Gabapentin [Neurontin] 100 mg PO HS #14 cap 06/16/17 Lactulose [Enulose] 10 gm PO BID PRN #0 06/16/17 Morphine Sulfate SR (12 HR) [MS 1 tab PO Q12HR #30 tab 06/16/17 Contin] OxyCODONE Immed Rel [Roxicodone 15 15 mg PO Q4H PRN #60 tablet 06/16/17 MG] Cholecalciferol (D-3) [Vitamin D] 1,000 unit PO DAILY tab 06/29/17 Lactobacillus [Culturelle] 1 each PO BID #36 06/29/17 Levofloxacin [Levaquin] 750 mg PO Q48H #9 tablet 06/29/17 Vancomycin HCl in Dextrose 5 % 1,250 mg IV Q36H #12 plast..bag 06/29/17 [Vancomycin 1.5 Gram/250 ml-D5w] rifAMPin [Rifadin] 300 mg PO BIDAC #72 06/29/17 Allergies Allergy/AdvReac Type Severity Reaction Status Date / Time citalopram AdvReac Nausea Verified 07/10/17 18:27 codeine AdvReac See Verified 07/10/17 18:27 Comments Nuknrur-Alp-Fef Reductase AdvReac See Verified 07/10/17 18:27 Inhibitor Comments [Statins] All systems ED: reviewed and negative except as stated. Past Medical History - Past Medical History Medical history: Reports: aortic aneurysm, atrial fibrillation, cancer, coronary artery disease, hyperlipidemia, hypertension, peripheral artery disease , valvular heart disease, other Surgical history: Reports: cholecystectomy, coronary bypass (CABG), heart valve replacement Psychiatric history: Reports: no psych history - Social History Smoking Status: Never smoker Smokeless Tobacco Status: No Alcohol use: Reports: none Drug use: Reports: none Physical Exam Vital Signs Reviewed General: Patient is alert, oriented, and in no acute distress. Appears cachectic. HEENT: No facial asymmetry. Head is normocephalic and atraumatic. PERRLA, EOMI. trachea midline. Cardiovascular: Heart regular rate and rhythm without clicks, rubs, gallops, or murmurs. No JVD. PMI nondisplaced. No pedal edema. Bilateral radial pulses 2 /4 equal. Respiratory: Symmetric chest rise with good respiratory effort. Bilateral breath sounds are clear without wheezing, crackles, or rhonchi. Abdomen: Scaphoid. Bowel sounds present normoactive x-4 quadrants. Abdomen is soft, nondistended, and nontender. No organomegaly noted. Neuro: Cranial nerves II through XII without deficit. Sensation light touch intact. GCS 15. No pronator drift. No limb drift in upper or lower extremities. Muscle strength 5/5 and equal bilaterally. Psych: Patient's affect is appropriate for situation. - General Limitations: no limitations Course Course Narrative: Patient is SIRS positive with tachypnea and fever. He is Q [place] positive with altered mentation. Will begin sepsis workup. Patient has no focal neurologic deficits. NIHSS = 0. Patient appears confused. He refuses to have the hard complaint of the portable chest x-ray placed behind his back. He states he is not concerned at all about his back. I sat and spoke with him discussing my concern about his heart and lungs. He agrees to the x-ray on the condition that the plate is behind his back less than 15 seconds. We will not perform lumbar puncture at this time as CT is concerning for cerebral edema and I do not want to risk herniation. Additionally, patient has a platelet count of 19 do not want to risk hemorrhage. 21:[address] scan, clinical picture, neurologic findings with on-call neurology, . He agrees and the danger of the lumbar puncture this time. We discussed that the patient is not a candidate for TPA as he is well outside of the window of last known normal of last night. We will cover the patient for encephalitis with empiric acyclovir as well as empiric antibiotics. We also discussed providing aspirin the possibility of ischemic stroke; patient's platelets are 19 and the risk of giving an antiplatelet medication outweighs the benefits given his thrombocytopenia. No indication at this time for a stroke alert. 22:30 I repeated my neuro exam which remains negative. Patient remains oriented to self, date of , and location. He does have difficulty remembering recent events such as what he and his are learning together. 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 I discussed the above with the patient and his at bedside. They expressed understanding. They are understanding with the uncertainty of the workup at this point as well as the need for continued imaging and time. I spoke with the admitting hospitalist, Dr. Johnson, and discussed the patient's clinical picture, workup, and clinical concerns at this time. He expresses understanding. He has no additional questions or concerns at this time. Chest X-Ray 07/10/17 18:38 IMPRESSION: Somewhat limited exam secondary to patient positioning and apical lordotic view. Within limits exam no focal consolidation or acute cardiopulmonary process identified. D/ / Levar Ojeda MD / Levar Ojeda MD Interpreting Provider: Levar Ojeda MD Head CT 07/10/17 18:49 IMPRESSION: Suggestion of some asymmetry with possible edema in the left parieto-occipital region suspicious for acute infarct. No evidence of intracranial hemorrhage, however. RECOMMENDATIONS: Brain MRI D/ / 07/10/2017 21:35:12 Stefanie Caldwell MD / jim Interpreting Provider: Stefanie Caldwell MD Vital Signs Temperature 100.4 F H 07/10/17 18:28 Pulse Rate 97 07/10/17 18:28 Respiratory Rate 26 07/10/17 18:28 Blood Pressure 106/65 07/10/17 18:28 O2 Sat by Pulse Oximetry 94 07/10/17 18:28 Temperature 100.4 F H 07/10/17 18:28 Pulse Rate 89 07/10/17 19:00 Respiratory Rate 20 07/10/17 19:00 Blood Pressure 93/64 07/10/17 19:00 O2 Sat by Pulse Oximetry 100 07/10/17 19:00 Oxygen Delivery Oxygen Delivery Room Air Medical Decision Making - Medical Records Medical records reviewed: Yes I reviewed the patient's medical records. - Lab Data Lab results reviewed: Yes I reviewed the patient's lab results. Result diagrams: 07/10/17 18:56 07/10/17 18:56 Lab Results 07/10/17 07/10/17 07/10/17 Range/Units 18:56 18:56 18:56 WBC 2.3 L (4.3-11.1) K/mcL RBC 2.70 L (4.19-5.50) M/mcL Hgb 7.5 L (12.9-16.9) g/dL Hct 23.8 L (37.5-50.1) % MCV 88.1 (83.0-100.0) fL MCH 27.8 L (28.0-33.3) pg MCHC 31.5 L (31.6-35.5) g/dL RDW 16.5 H (11.5-14.5) % Plt Count 19 L* (140-400) K/mcL MPV TNP Immature Gran % 1.3 (0-4) % Seg Neutrophils % 59.4 % Lymphocytes % 32.9 % Monocytes % 5.6 % Eosinophils % 0.4 % Basophils % 0.4 % Neutrophils # 1.4 L (1.6-8.9) K/mcL Lymphocytes # 0.8 (0.6-4.6) K/mcL Monocytes # 0.1 (0.0-1.3) K/mcL Eosinophils # 0.0 (0.0-0.6) K/mcL Basophils # 0.0 (0.0-0.2) K/mcL Immature Plt Fraction 5.7 (1.1-6.1) % PT 12.6 H (9.4-12.1) Seconds INR 1.2 APTT 28.1 (26.0-36.0) Seconds Sodium 138 (136-145) mEq/L Potassium 4.6 H (3.5-4.5) mEq/L Chloride 105 (98-109) mEq/L Carbon Dioxide 26 (19-29) mEq/L BUN 17 (8-26) mg/dL Creatinine 1.30 H (0.72-1.25) mg/dL Est GFR ( Amer) > 60 (> 60) Est GFR (Non-Af Amer) 53 L (> 60) BUN/Creatinine Ratio 13 (6-26) Glucose 144 H (70-99) mg/dL Calculated Osmolality 290 (280-300) Lactic Acid (0.5-2.2) mmol/L Calcium 9.1 (8.6-10.8) mg/dL Phosphorus 3.5 (2.3-4.7) mg/dL Magnesium 1.8 (1.6-2.6) mg/dL Total Bilirubin 1.6 H (0.2-1.2) mg/dL Direct Bilirubin 0.9 H (0.0-0.5) mg/dL Indirect Bilirubin 0.7 (0.0-1.2) mg/dL AST 16 (5-34) Units/L ALT 9 (0-55) Units/L Alkaline Phosphatase 127 H (38-126) Units/L Troponin I (0-0.03) ng/mL Serum Total Protein 6.6 (6.0-8.3) g/dL Albumin 2.8 L (3.5-5.0) g/dL Globulin 3.8 H (2.4-3.5) g/dL Albumin/Globulin Ratio 0.7 L (1.1-2.2) Urine Color (Yellow) Urine Clarity (Clear) Urine pH (5.0-8.0) pH Units Ur Specific [place] (1.010-1.025) Urine Protein (Neg-Trace) mg/dL Urine Glucose (UA) (Normal) mg/dL Urine Ketones (Negative) mg/dL Urine Blood (Negative) Urine Nitrite (Negative) Urine Bilirubin (Negative) Urine Urobilinogen (Normal) mg/dL Ur Leukocyte Esterase (Negative) Urine Microscopic RBC (0-3) per hpf Urine Microscopic WBC (0-3) per hpf Ur Squamous Epith Cells (None-Few) per lpf Urine Bacteria (None-Few) per hpf Hyaline Casts (None-Few) per lpf Ur Culture Indicated? (NO) Blood Type Antibody Screen 07/10/17 07/10/17 07/10/17 Range/Units 18:56 18:56 20:16 WBC (4.3-11.1) K/mcL RBC (4.19-5.50) M/mcL Hgb (12.9-16.9) g/dL Hct (37.5-50.1) % MCV (83.0-100.0) fL MCH (28.0-33.3) pg MCHC (31.6-35.5) g/dL RDW (11.5-14.5) % Plt Count (140-400) K/mcL MPV Immature Gran % (0-4) % Seg Neutrophils % % Lymphocytes % % Monocytes % % Eosinophils % % Basophils % % Neutrophils # (1.6-8.9) K/mcL Lymphocytes # (0.6-4.6) K/mcL Monocytes # (0.0-1.3) K/mcL Eosinophils # (0.0-0.6) K/mcL Basophils # (0.0-0.2) K/mcL Immature Plt Fraction (1.1-6.1) % PT (9.4-12.1) Seconds INR APTT (26.0-36.0) Seconds Sodium (136-145) mEq/L Potassium (3.5-4.5) mEq/L Chloride (98-109) mEq/L Carbon Dioxide (19-29) mEq/L BUN (8-26) mg/dL Creatinine (0.72-1.25) mg/dL Est GFR ( Amer) (> 60) Est GFR (Non-Af Amer) (> 60) BUN/Creatinine Ratio (6-26) Glucose (70-99) mg/dL Calculated Osmolality (280-300) Lactic Acid 1.3 1.4 (0.5-2.2) mmol/L Calcium (8.6-10.8) mg/dL Phosphorus (2.3-4.7) mg/dL Magnesium (1.6-2.6) mg/dL Total Bilirubin (0.2-1.2) mg/dL Direct Bilirubin (0.0-0.5) mg/dL Indirect Bilirubin (0.0-1.2) mg/dL AST (5-34) Units/L ALT (0-55) Units/L Alkaline Phosphatase (38-126) Units/L Troponin I 0.02 (0-0.03) ng/mL Serum Total Protein (6.0-8.3) g/dL Albumin (3.5-5.0) g/dL Globulin (2.4-3.5) g/dL Albumin/Globulin Ratio (1.1-2.2) Urine Color (Yellow) Urine Clarity (Clear) Urine pH (5.0-8.0) pH Units Ur Specific [place] (1.010-1.025) Urine Protein (Neg-Trace) mg/dL Urine Glucose (UA) (Normal) mg/dL Urine Ketones (Negative) mg/dL Urine Blood (Negative) Urine Nitrite (Negative) Urine Bilirubin (Negative) Urine Urobilinogen (Normal) mg/dL Ur Leukocyte Esterase (Negative) Urine Microscopic RBC (0-3) per hpf Urine Microscopic WBC (0-3) per hpf Ur Squamous Epith Cells (None-Few) per lpf Urine Bacteria (None-Few) per hpf Hyaline Casts (None-Few) per lpf Ur Culture Indicated? (NO) Blood Type Antibody Screen 07/10/17 07/10/17 Range/Units 20:16 20:30 WBC (4.3-11.1) K/mcL RBC (4.19-5.50) M/mcL Hgb (12.9-16.9) g/dL Hct (37.5-50.1) % MCV (83.0-100.0) fL MCH (28.0-33.3) pg MCHC (31.6-35.5) g/dL RDW (11.5-14.5) % Plt Count (140-400) K/mcL MPV Immature Gran % (0-4) % Seg Neutrophils % % Lymphocytes % % Monocytes % % Eosinophils % % Basophils % % Neutrophils # (1.6-8.9) K/mcL Lymphocytes # (0.6-4.6) K/mcL Monocytes # (0.0-1.3) K/mcL Eosinophils # (0.0-0.6) K/mcL Basophils # (0.0-0.2) K/mcL Immature Plt Fraction (1.1-6.1) % PT (9.4-12.1) Seconds INR APTT (26.0-36.0) Seconds Sodium (136-145) mEq/L Potassium (3.5-4.5) mEq/L Chloride (98-109) mEq/L Carbon Dioxide (19-29) mEq/L BUN (8-26) mg/dL Creatinine (0.72-1.25) mg/dL Est GFR ( Amer) (> 60) Est GFR (Non-Af Amer) (> 60) BUN/Creatinine Ratio (6-26) Glucose (70-99) mg/dL Calculated Osmolality (280-300) Lactic Acid (0.5-2.2) mmol/L Calcium (8.6-10.8) mg/dL Phosphorus (2.3-4.7) mg/dL Magnesium (1.6-2.6) mg/dL Total Bilirubin (0.2-1.2) mg/dL Direct Bilirubin (0.0-0.5) mg/dL Indirect Bilirubin (0.0-1.2) mg/dL AST (5-34) Units/L ALT (0-55) Units/L Alkaline Phosphatase (38-126) Units/L Troponin I (0-0.03) ng/mL Serum Total Protein (6.0-8.3) g/dL Albumin (3.5-5.0) g/dL Globulin (2.4-3.5) g/dL Albumin/Globulin Ratio (1.1-2.2) Urine Color [place] A (Yellow) Urine Clarity Clear (Clear) Urine pH 6.0 (5.0-8.0) pH Units Ur Specific [place] 1.024 (1.010-1.025) Urine Protein Trace (Neg-Trace) mg/dL Urine Glucose (UA) Normal (Normal) mg/dL Urine Ketones Trace H (Negative) mg/dL Urine Blood Negative (Negative) Urine Nitrite Negative (Negative) Urine Bilirubin Small H (Negative) Urine Urobilinogen Normal (Normal) mg/dL Ur Leukocyte Esterase Trace H (Negative) Urine Microscopic RBC 0-3 (0-3) per hpf Urine Microscopic WBC 0-3 (0-3) per hpf Ur Squamous Epith Cells Many H (None-Few) per lpf Urine Bacteria None Seen (None-Few) per hpf Hyaline Casts Few (None-Few) per lpf Ur Culture Indicated? YES A (NO) Blood Type A NEGATIVE Antibody Screen NEGATIVE - Radiology Data Radiology results reviewed: Yes I reviewed the patient's radiology results. NIH Stroke Scale - Level of Consciousness LOC: Alert - LOC Questions LOC Questions: Answers both correctly - LOC Commands LOC Commands: Performs both correctly - Best Gaze Best Gaze: Normal - Visual Visual: No visual loss - Facial Palsy Facial Palsy: Normal - Motor Arms Motor Arm-Left: No drift for 10 seconds Motor Arm-Right: No drift for 10 seconds - Motor Legs Motor Leg-Left: No drift for 5 seconds Motor Leg-Right: No drift for 5 seconds - Limb Ataxia Limb Ataxia: Absent of affected limb too weak to perform exam - Sensory Sensory: Normal - Best Language Best Language: No aphasia - Dysarthria Dysarthria: Normal - Extinction and Inattention Extinction and Inattention: Normal - NIHSS Total Score NIHSS Total Score: 0 - Pupil Exam Bilateral Pupil Reaction: Brisk, Reactive Pupil Size: 3
[2017-07-10 19:08] LABS: Basophils % 0.4 %; Hematocrit 23.8 % (37.5-50.1); Mean Corpuscular HGB Conc 31.5 g/dL (31.6-35.5); Red Cell Distribution Width 16.5 % (11.5-14.5)
[2017-07-10 19:10] LABS: Eosinophils % 0.4 %; Hemoglobin 7.5 g/dL (12.9-16.9); Immature Granulocytes % 1.3 % (0-4); Immature Platelets 5.7 % (1.1-6.1); Lymphocytes # 0.8 K/mcL (0.6-4.6); Lymphocytes % 32.9 %; Mean Corpuscular Hemoglobin 27.8 pg (28.0-33.3); Mean Corpuscular Volume 88.1 fL (83.0-100.0); Monocytes # 0.1 K/mcL (0.0-1.3); Monocytes % 5.6 %; Neutrophils # 1.4 K/mcL (1.6-8.9); Segmented Neutrophils % 59.4 %
[2017-07-10] MEDS: 0.9 % Sodium Chloride 1,000 ML IVC SCH ×2 (19:13→21:38)
[2017-07-10 19:18] LABS: Platelet Count 19 K/mcL (140-400)
[2017-07-10 19:23] LABS: Alanine Aminotransferase 9 Units/L (0-55); Albumin 2.8 g/dL (3.5-5.0); Albumin/Globulin Ratio 0.7 (1.1-2.2); Alkaline Phosphatase 127 Units/L (38-126); Aspartate Amino Transferase 16 Units/L (5-34); BUN/Creatinine Ratio 13 (6-26); Bilirubin,Direct 0.9 mg/dL (0.0-0.5); Bilirubin,Indirect 0.7 mg/dL (0.0-1.2); Bilirubin,Total 1.6 mg/dL (0.2-1.2); Blood Urea Nitrogen 17 mg/dL (8-26); Calcium 9.1 mg/dL (8.6-10.8); Carbon Dioxide 26 mEq/L (19-29); Chloride 105 mEq/L (98-109); Globulin 3.8 g/dL (2.4-3.5); Glucose 144 mg/dL (70-99); Magnesium 1.8 mg/dL (1.6-2.6); Osmolality,Calculated 290 (280-300); Phosphorous 3.5 mg/dL (2.3-4.7); Potassium 4.6 mEq/L (3.5-4.5); Sodium 138 mEq/L (136-145); Total Protein 6.6 g/dL (6.0-8.3); eGFR For African Americans > 60 (> 60); eGFR For Non-African Americans 53 (> 60)
--- NOTE | 2017-07-10 20:23 | Emergency Department Note ---
Disposition Clinical Impression: Neutropenic fever, Thrombocytopenia, Anemia, Confusion Disposition: Admitted As Inpatient Condition: Fair General Adult HPI - General Chief complaint: ED Fever Stated complaint: fever, ams Time Seen by Provider: 07/10/17 18:32 Source: patient, other Limitations: no limitations - History of Present Illness Pain Scale: 0 - Related Data Home Medications Medication Instructions Recorded Confirmed Multivitamin/Iron/Folic Acid 1 each PO DAILY 10/16/15 07/03/17 [Centrum Complete Multivit Tab] Melatonin 10 mg PO HS 04/01/16 07/03/17 Mirtazapine 7.5 mg PO HS 04/01/16 07/03/17 Omeprazole [PriLOSEC] 20 mg PO DAILY 04/01/16 07/03/17 Allopurinol [Zyloprim 100 MG] 100 mg PO BID 03/07/17 07/03/17 Calcium Carbonate [Calcium] 600 mg PO DAILY 05/08/17 07/03/17 Carvedilol 3.125 mg PO BID 05/08/17 07/03/17 Polyethylene Glycol 3350 [MiraLAX] 17 gm PO DAILY PRN 06/12/17 07/03/17 Previous Rx's Medication Instructions Recorded Ondansetron [Zofran] 4 mg PO Q8HR PRN #90 tablet 05/02/17 Aminocaproic Acid [Amicar] 250 mg PO Q8H PRN #200 solution 05/16/17 Chlorhexidine Gluconate [Peridex] 10 ml MM DAILY #118 mouthwash 05/16/17 Bisacodyl [Dulcolax] 10 mg PO HS PRN tab 06/09/17 Gabapentin [Neurontin] 100 mg PO HS #14 cap 06/16/17 Lactulose [Enulose] 10 gm PO BID PRN #0 06/16/17 Morphine Sulfate SR (12 HR) [MS 1 tab PO Q12HR #30 tab 06/16/17 Contin] OxyCODONE Immed Rel [Roxicodone 15 15 mg PO Q4H PRN #60 tablet 06/16/17 MG] Cholecalciferol (D-3) [Vitamin D] 1,000 unit PO DAILY tab 06/29/17 Lactobacillus [Culturelle] 1 each PO BID #36 06/29/17 Levofloxacin [Levaquin] 750 mg PO Q48H #9 tablet 06/29/17 Vancomycin HCl in Dextrose 5 % 1,250 mg IV Q36H #12 plast..bag 06/29/17 [Vancomycin 1.5 Gram/250 ml-D5w] rifAMPin [Rifadin] 300 mg PO BIDAC #72 06/29/17 Allergies Allergy/AdvReac Type Severity Reaction Status Date / Time citalopram AdvReac Nausea Verified 07/10/17 18:27 codeine AdvReac See Verified 07/10/17 18:27 Comments Suaypgo-Mob-Rju Reductase AdvReac See Verified 07/10/17 18:27 Inhibitor Comments [Statins] Past Medical History - Past Medical History Medical history: Reports: aortic aneurysm, atrial fibrillation, cancer, coronary artery disease, hyperlipidemia, hypertension, peripheral artery disease , valvular heart disease, other Surgical history: Reports: cholecystectomy, coronary bypass (CABG), heart valve replacement Psychiatric history: Reports: no psych history - Social History Smoking Status: Never smoker Smokeless Tobacco Status: No Alcohol use: Reports: none Drug use: Reports: none Physical Exam - General Limitations: no limitations Course - Reevaluation(s) Reevaluation #1: I saw the patient with the resident, Dr. Lopez. Patient presents with fever and altered mental status. Patient has history of cancer and is currently suffering from myelodysplastic syndrome. I cannot find a focus of infection on physical examination. He does seem a little bit confused and he does have a temperature 100.5. We did a septic workup on him. I also did a CT scan of his head because he has such a low platelet count make sure his confusion is not due to bleed. He is already on IV vancomycin at home. We will not start new antibiotics unless we find some other source of infection. She is likely going to need to be admitted to the hospital. Time: 20:22 Vital Signs Temperature 100.4 F H 07/10/17 18:28 Pulse Rate 97 07/10/17 18:28 Respiratory Rate 26 07/10/17 18:28 Blood Pressure 106/65 07/10/17 18:28 O2 Sat by Pulse Oximetry 94 07/10/17 18:28 Temperature 100.4 F H 07/10/17 18:28 Pulse Rate 84 07/10/17 21:44 Respiratory Rate 16 07/10/17 22:34 Blood Pressure 105/55 07/10/17 22:34 O2 Sat by Pulse Oximetry 97 07/10/17 21:44 Oxygen Delivery Oxygen Delivery Room Air Medical Decision Making - Lab Data Result diagrams: 07/10/17 18:56 07/10/17 18:56 Lab Results 07/10/17 07/10/17 07/10/17 Range/Units 18:56 18:56 18:56 WBC 2.3 L (4.3-11.1) K/mcL RBC 2.70 L (4.19-5.50) M/mcL Hgb 7.5 L (12.9-16.9) g/dL Hct 23.8 L (37.5-50.1) % MCV 88.1 (83.0-100.0) fL MCH 27.8 L (28.0-33.3) pg MCHC 31.5 L (31.6-35.5) g/dL RDW 16.5 H (11.5-14.5) % Plt Count 19 L* (140-400) K/mcL MPV TNP Immature Gran % 1.3 (0-4) % Seg Neutrophils % 59.4 % Lymphocytes % 32.9 % Monocytes % 5.6 % Eosinophils % 0.4 % Basophils % 0.4 % Neutrophils # 1.4 L (1.6-8.9) K/mcL Lymphocytes # 0.8 (0.6-4.6) K/mcL Monocytes # 0.1 (0.0-1.3) K/mcL Eosinophils # 0.0 (0.0-0.6) K/mcL Basophils # 0.0 (0.0-0.2) K/mcL Immature Plt Fraction 5.7 (1.1-6.1) % PT 12.6 H (9.4-12.1) Seconds INR 1.2 APTT 28.1 (26.0-36.0) Seconds Sodium 138 (136-145) mEq/L Potassium 4.6 H (3.5-4.5) mEq/L Chloride 105 (98-109) mEq/L Carbon Dioxide 26 (19-29) mEq/L BUN 17 (8-26) mg/dL Creatinine 1.30 H (0.72-1.25) mg/dL Est GFR ( Amer) > 60 (> 60) Est GFR (Non-Af Amer) 53 L (> 60) BUN/Creatinine Ratio 13 (6-26) Glucose 144 H (70-99) mg/dL Calculated Osmolality 290 (280-300) Lactic Acid (0.5-2.2) mmol/L Calcium 9.1 (8.6-10.8) mg/dL Phosphorus 3.5 (2.3-4.7) mg/dL Magnesium 1.8 (1.6-2.6) mg/dL Total Bilirubin 1.6 H (0.2-1.2) mg/dL Direct Bilirubin 0.9 H (0.0-0.5) mg/dL Indirect Bilirubin 0.7 (0.0-1.2) mg/dL AST 16 (5-34) Units/L ALT 9 (0-55) Units/L Alkaline Phosphatase 127 H (38-126) Units/L Troponin I (0-0.03) ng/mL Serum Total Protein 6.6 (6.0-8.3) g/dL Albumin 2.8 L (3.5-5.0) g/dL Globulin 3.8 H (2.4-3.5) g/dL Albumin/Globulin Ratio 0.7 L (1.1-2.2) Urine Color (Yellow) Urine Clarity (Clear) Urine pH (5.0-8.0) pH Units Ur Specific [place] (1.010-1.025) Urine Protein (Neg-Trace) mg/dL Urine Glucose (UA) (Normal) mg/dL Urine Ketones (Negative) mg/dL Urine Blood (Negative) Urine Nitrite (Negative) Urine Bilirubin (Negative) Urine Urobilinogen (Normal) mg/dL Ur Leukocyte Esterase (Negative) Urine Microscopic RBC (0-3) per hpf Urine Microscopic WBC (0-3) per hpf Ur Squamous Epith Cells (None-Few) per lpf Urine Bacteria (None-Few) per hpf Hyaline Casts (None-Few) per lpf Ur Culture Indicated? (NO) Blood Type Antibody Screen 07/10/17 07/10/17 07/10/17 Range/Units 18:56 18:56 20:16 WBC (4.3-11.1) K/mcL RBC (4.19-5.50) M/mcL Hgb (12.9-16.9) g/dL Hct (37.5-50.1) % MCV (83.0-100.0) fL MCH (28.0-33.3) pg MCHC (31.6-35.5) g/dL RDW (11.5-14.5) % Plt Count (140-400) K/mcL MPV Immature Gran % (0-4) % Seg Neutrophils % % Lymphocytes % % Monocytes % % Eosinophils % % Basophils % % Neutrophils # (1.6-8.9) K/mcL Lymphocytes # (0.6-4.6) K/mcL Monocytes # (0.0-1.3) K/mcL Eosinophils # (0.0-0.6) K/mcL Basophils # (0.0-0.2) K/mcL Immature Plt Fraction (1.1-6.1) % PT (9.4-12.1) Seconds INR APTT (26.0-36.0) Seconds Sodium (136-145) mEq/L Potassium (3.5-4.5) mEq/L Chloride (98-109) mEq/L Carbon Dioxide (19-29) mEq/L BUN (8-26) mg/dL Creatinine (0.72-1.25) mg/dL Est GFR ( Amer) (> 60) Est GFR (Non-Af Amer) (> 60) BUN/Creatinine Ratio (6-26) Glucose (70-99) mg/dL Calculated Osmolality (280-300) Lactic Acid 1.3 1.4 (0.5-2.2) mmol/L Calcium (8.6-10.8) mg/dL Phosphorus (2.3-4.7) mg/dL Magnesium (1.6-2.6) mg/dL Total Bilirubin (0.2-1.2) mg/dL Direct Bilirubin (0.0-0.5) mg/dL Indirect Bilirubin (0.0-1.2) mg/dL AST (5-34) Units/L ALT (0-55) Units/L Alkaline Phosphatase (38-126) Units/L Troponin I 0.02 (0-0.03) ng/mL Serum Total Protein (6.0-8.3) g/dL Albumin (3.5-5.0) g/dL Globulin (2.4-3.5) g/dL Albumin/Globulin Ratio (1.1-2.2) Urine Color (Yellow) Urine Clarity (Clear) Urine pH (5.0-8.0) pH Units Ur Specific [place] (1.010-1.025) Urine Protein (Neg-Trace) mg/dL Urine Glucose (UA) (Normal) mg/dL Urine Ketones (Negative) mg/dL Urine Blood (Negative) Urine Nitrite (Negative) Urine Bilirubin (Negative) Urine Urobilinogen (Normal) mg/dL Ur Leukocyte Esterase (Negative) Urine Microscopic RBC (0-3) per hpf Urine Microscopic WBC (0-3) per hpf Ur Squamous Epith Cells (None-Few) per lpf Urine Bacteria (None-Few) per hpf Hyaline Casts (None-Few) per lpf Ur Culture Indicated? (NO) Blood Type Antibody Screen 07/10/17 07/10/17 Range/Units 20:16 20:30 WBC (4.3-11.1) K/mcL RBC (4.19-5.50) M/mcL Hgb (12.9-16.9) g/dL Hct (37.5-50.1) % MCV (83.0-100.0) fL MCH (28.0-33.3) pg MCHC (31.6-35.5) g/dL RDW (11.5-14.5) % Plt Count (140-400) K/mcL MPV Immature Gran % (0-4) % Seg Neutrophils % % Lymphocytes % % Monocytes % % Eosinophils % % Basophils % % Neutrophils # (1.6-8.9) K/mcL Lymphocytes # (0.6-4.6) K/mcL Monocytes # (0.0-1.3) K/mcL Eosinophils # (0.0-0.6) K/mcL Basophils # (0.0-0.2) K/mcL Immature Plt Fraction (1.1-6.1) % PT (9.4-12.1) Seconds INR APTT (26.0-36.0) Seconds Sodium (136-145) mEq/L Potassium (3.5-4.5) mEq/L Chloride (98-109) mEq/L Carbon Dioxide (19-29) mEq/L BUN (8-26) mg/dL Creatinine (0.72-1.25) mg/dL Est GFR ( Amer) (> 60) Est GFR (Non-Af Amer) (> 60) BUN/Creatinine Ratio (6-26) Glucose (70-99) mg/dL Calculated Osmolality (280-300) Lactic Acid (0.5-2.2) mmol/L Calcium (8.6-10.8) mg/dL Phosphorus (2.3-4.7) mg/dL Magnesium (1.6-2.6) mg/dL Total Bilirubin (0.2-1.2) mg/dL Direct Bilirubin (0.0-0.5) mg/dL Indirect Bilirubin (0.0-1.2) mg/dL AST (5-34) Units/L ALT (0-55) Units/L Alkaline Phosphatase (38-126) Units/L Troponin I (0-0.03) ng/mL Serum Total Protein (6.0-8.3) g/dL Albumin (3.5-5.0) g/dL Globulin (2.4-3.5) g/dL Albumin/Globulin Ratio (1.1-2.2) Urine Color [place] A (Yellow) Urine Clarity Clear (Clear) Urine pH 6.0 (5.0-8.0) pH Units Ur Specific [place] 1.024 (1.010-1.025) Urine Protein Trace (Neg-Trace) mg/dL Urine Glucose (UA) Normal (Normal) mg/dL Urine Ketones Trace H (Negative) mg/dL Urine Blood Negative (Negative) Urine Nitrite Negative (Negative) Urine Bilirubin Small H (Negative) Urine Urobilinogen Normal (Normal) mg/dL Ur Leukocyte Esterase Trace H (Negative) Urine Microscopic RBC 0-3 (0-3) per hpf Urine Microscopic WBC 0-3 (0-3) per hpf Ur Squamous Epith Cells Many H (None-Few) per lpf Urine Bacteria None Seen (None-Few) per hpf Hyaline Casts Few (None-Few) per lpf Ur Culture Indicated? YES A (NO) Blood Type A NEGATIVE Antibody Screen NEGATIVE Attestation Statement - Attestation Attestation: I, Dr. Whittaker, examined this patient [id number] and my medical decision- making was reviewed with the Resident Physician, Dr. Reza. I agree with the documented findings, disposition and treatment plan as described except to the extent set forth below. Please see my progress notes for details.
[2017-07-10 20:32] LABS: INR 1.2; Prothrombin Time 12.6 Seconds (9.4-12.1)
[2017-07-10 20:35] LABS: Activated Partial Thrombo Time 28.1 Seconds (26.0-36.0)
[2017-07-10 20:38] LABS: Bilirubin,Urine Small (Negative); Blood,Urine Negative (Negative); Color,Urine Orange (Yellow); Glucose,Urine (UA) Normal (Normal); Ketones,Urine Trace mg/dL (Negative); Leukocyte Esterase,Urine Trace (Negative); Nitrite,Urine Negative (Negative); Protein,Urine Trace mg/dL (Neg-Trace); Specific Gravity,Urine 1.024 (1.010-1.025); Urobilinogen,Urine Normal (Normal)
[2017-07-10 20:40] LABS: Bacteria,Urine None Seen per hpf (None-Few); Hyaline Casts,Urine Few per lpf (None-Few); RBC,Urine 0-3 per hpf (0-3); Squamous Epithelial Cell,Urine Many per lpf (None-Few); WBC,Urine 0-3 per hpf (0-3)
[2017-07-10 20:41] LABS: Clarity,Urine Clear (Clear)
[2017-07-10] MEDS ORDERED: Piperacillin/Tazobactam 3.375 GM in D5% in Water (Mini-Bag+) 100 ML IVPB ONE (20:52)
[2017-07-10] MEDS ORDERED: Levofloxacin 750 MG/150 ML 750 MG/150 ML BAG IVPB ONE (20:53)
[2017-07-10] MEDS ORDERED: Acyclovir 500 MG in D5% in Water 100 ML IVPB ONE (21:58)
[2017-07-11] MEDS ORDERED: Ondansetron 4 MG/2 ML VIAL IVP PRN (00:12)
[2017-07-11] MEDS ORDERED: Acetaminophen 325 MG TABLET PO PRN (00:12)
[2017-07-11] MEDS ORDERED: Naloxone 0.4 MG/ML INJ IVP PRN (00:12)
[2017-07-11] MEDS ORDERED: Lactulose Oral Soln 20 GM/30 ML UDC PO PRN (00:24)
[2017-07-11] MEDS: Cefepime HCl 2,000 MG in D5% in Water (Mini-Bag+) 100 ML IVPB SCH ×2 (01:04→14:43)
[2017-07-11] MEDS: 0.9 % Sodium Chloride 1,000 ML IVC SCH ×2 (01:05→11:59)
[2017-07-11] MEDS ORDERED: *HR* OxyCODONE Immed Rel 15 MG TABLET PO PRN ×2 (02:39→09:34)
[2017-07-11] MEDS ORDERED: Vancomycin 1,250 MG in D5% in Water 250 ML IVPB SCH (03:00)
[2017-07-11 03:33] LABS: Basophils % 0.4 %; Hemoglobin 7.1 g/dL (12.9-16.9); Immature Granulocytes % 1.5 % (0-4); Monocytes % 6.8 %
[2017-07-11 03:35] LABS: Eosinophils % 0.4 %; Immature Platelets 4.8 % (1.1-6.1); Lymphocytes # 0.8 K/mcL (0.6-4.6); Lymphocytes % 29.8 %; Mean Corpuscular HGB Conc 32.3 g/dL (31.6-35.5); Mean Corpuscular Hemoglobin 28.2 pg (28.0-33.3); Mean Corpuscular Volume 87.3 fL (83.0-100.0); Monocytes # 0.2 K/mcL (0.0-1.3); Red Blood Count 2.52 M/mcL (4.19-5.50); Red Cell Distribution Width 16.3 % (11.5-14.5); Segmented Neutrophils % 61.1 %
[2017-07-11 03:42] LABS: BUN/Creatinine Ratio 14 (6-26); Blood Urea Nitrogen 17 mg/dL (8-26); Calcium 8.7 mg/dL (8.6-10.8); Carbon Dioxide 23 mEq/L (19-29); Chloride 105 mEq/L (98-109); Glucose 131 mg/dL (70-99); Magnesium 1.6 mg/dL (1.6-2.6); Osmolality,Calculated 285 (280-300); Phosphorous 2.9 mg/dL (2.3-4.7); Potassium 4.2 mEq/L (3.5-4.5); Sodium 136 mEq/L (136-145); eGFR For African Americans > 60 (> 60); eGFR For Non-African Americans 59 (> 60)
[2017-07-11 03:43] LABS: Neutrophils # 1.7 K/mcL (1.6-8.9)
[2017-07-11 03:45] LABS: Platelet Count 17 K/mcL (140-400)
--- NOTE | 2017-07-11 04:08 | Internal Med History&Physical ---
Date of Encounter: 07/11/17 Time of Encounter: 01:00 Assessment and Plan (1) Altered mental status Current visit: Yes Status: Acute Etiology is undetermined. Probably due to infection. However his head CAT scan shows signs of edema. Neurology consult. Acyclovir started per neurology recommendation. Cannot perform lumbar puncture because of extremely low platelet. - We will continue empirically Acyclovir. - Neurology consult will see patient in a.m. Patient is at high risk because of acute altered mental status, also patient on vancomycin, need close monitoring. Qualifiers: Altered mental status type: disorientation Qualified Code(s): R41.0 - Disorientation, unspecified (2) Neutropenic fever Current visit: Yes Status: Acute Patient has fever. No exact infection site identified. Blood cultures sent. May need to change his PICC line if blood culture positive/suspected PICC line infection/fever persist. Continue vancomycin. Add cefepime 2 g every 8 hours iv. - Place patient on IV fluid. (3) Abdominal aortic aneurysm Current visit: No Status: Acute S/P graft. Continue outpatient follow-up. Qualifiers: Presence of rupture: without rupture Qualified Code(s): I71.4 - Abdominal aortic aneurysm, without rupture (4) History of prosthetic aortic valve Current visit: No Status: Chronic Not on any anticoagulation because of extremely low platelet. (5) Pancytopenia Current visit: No Status: Chronic Due to MDS. Patient is a following oncology as outpatient. Platelet 19, which is at his baseline. No signs of active bleeding. (6) Single kidney Current visit: No Status: Chronic (7) MDS (myelodysplastic syndrome) Current visit: No Status: Chronic Follow-up with oncology as outpatient. If thrombocytopenia gets worse, may consider oncology consult during this hospitalization. (8) Atrial fibrillation Current visit: No Status: Chronic Heart rate is well controlled. Not on anticoagulation because of low platelet. Qualifiers: Atrial fibrillation type: chronic Qualified Code(s): I48.2 - Chronic atrial fibrillation (9) DVT prophylaxis Current visit: Yes Status: Acute EPCD. No anticoagulation because of thrombocytopenia. Internal Medicine - H&P: HPI Chief complaint: Fever and altered mental status Admitted From: Home Plans for Post Hospital Care: Home History of present illness: Mr. Townsend is a 77 year old male with a history of MDS, s/p heart valve replacement, A. fib present to ER for fever and altered mental status. Patient is confused, disoriented to place, time and people. History is obtained from his . Patient has generalized weak for several days, worsening for one day with a fever and altered mental status. Patient denies runny nose, sore throat , cough, abdominal pain, nausea or vomiting. Patient reports 3 watery diarrhea yesterday. Patient had the PICC line on his right arm, for vancomycin infusion since her last admission, when he was found bacteremia. In emergency room, CT head has been done. Results shows possible edema in the left parieto-occipital region suspicious for acute infarct.. Neurology consult was called by ER physician, recommend to start acyclovir for possible viral encephalitis. Patient was admitted for further management. Past Med Surg Social Fam HX - Past Medical History Medical history: aortic aneurysm, atrial fibrillation, cancer, coronary artery disease, hyperlipidemia, hypertension, peripheral artery disease, valvular heart disease, other Psychiatric history: no psych history - Past Surgical History Surgical History: cholecystectomy, coronary bypass (CABG), heart valve replacement - Social History Smoking Status: Never smoker Smokeless Tobacco Status: No Alcohol use: none Drug use: none - Family History Mother Living Status: Hx Family Cardiac Disorders: Yes Hx Family Respiratory Disorders: No Hx Family Cancer: Yes Hx Family GI Disorders: No Hx Family Endocrine Disorder: No Hx Family Neuromuscular Disorders: Yes Hx Family Neurologic Disorders: No Hx Family HEENT Disorders: No Hx Family Autoimmune Disorders: No Father Living Status: Hx Family Cardiac Disorders: Yes Hx Family Respiratory Disorders: No Hx Family Cancer: No Hx Family GI Disorders: No Hx Family Endocrine Disorder: No Hx Family Neuromuscular Disorders: No Hx Family Neurologic Disorders: No Hx Family HEENT Disorders: No Hx Family Autoimmune Disorders: No Internal Medicine - H&P: Meds Melatonin 10 mg PO HS 04/01/16 [History] Mirtazapine 7.5 mg PO HS 04/01/16 [History] Omeprazole [PriLOSEC] 20 mg PO DAILY 04/01/16 [History] Allopurinol [Zyloprim 100 MG] 100 mg PO BID 03/07/17 [History] Ondansetron [Zofran] 4 mg PO Q8HR PRN #90 tablet 05/02/17 [Rx] Calcium Carbonate [Calcium] 600 mg PO DAILY 05/08/17 [History] Carvedilol 3.125 mg PO BID 05/08/17 [History] Polyethylene Glycol 3350 [MiraLAX] 17 gm PO DAILY PRN 06/12/17 [History] Gabapentin [Neurontin] 100 mg PO HS #14 cap 06/16/17 [Rx] Lactulose [Enulose] 10 gm PO BID PRN #0 06/16/17 [Rx] OxyCODONE Immed Rel [Roxicodone 15 MG] 15 mg PO Q4H PRN #60 tablet 06/16/17 [Rx] Lactobacillus [Culturelle] 1 each PO BID #36 06/29/17 [Rx] Levofloxacin [Levaquin] 750 mg PO Q48H #9 tablet 06/29/17 [Rx] rifAMPin [Rifadin] 300 mg PO BIDAC #72 06/29/17 [Rx] Acetaminophen [Tylenol] 1,000 mg PO HS 07/10/17 [History] Ergocalciferol (VITAMIN D2) [Vitamin D2] 1 cap PO Q1W 07/10/17 [History] Furosemide [Lasix] 20 mg PO DAILY 07/10/17 [History] Morphine Sulfate SR (12 HR) [MS Contin] 30 mg PO Q12HR 07/10/17 [History] Multivit-Min/FA/Lycopen/Lutein [Centrum Silver Men Tablet] 1 each PO DAILY 07/10 [History] Sennosides [Senna] 17.2 mg PO BID 07/10/17 [History] Vancomycin HCl in Dextrose 5 % [Vancomycin 1.5 Gram/250 ml-D5w] 1,250 mg IV DAILY 07/10/17 [History] 3 Allergy/AdvReac Type Severity Reaction Status Date / Time citalopram AdvReac Nausea Verified 07/10/17 18:27 codeine AdvReac See Verified 07/10/17 18:27 Comments Fmisnpo-Wfb-Edg Reductase AdvReac See Verified 07/10/17 18:27 Inhibitor Comments [Statins] All Systems PM: A 10-system review of systems was performed and is negative for pertinent findings except as documented above in the HPI. - Constitutional Vitals: Temp Pulse Resp BP Pulse Ox 100.1 F H 92 17 135/71 99 07/10/17 23:18 07/10/17 23:18 07/10/17 23:18 07/10/17 23:18 07/10/17 23:18 General appearance: Present: A&O X 0, no acute distress - Head Head exam: Present: atraumatic, normocephalic - Eye Eye exam: Present: PERRL, conjuntiva pink, sclera anicteric Pupils: Present: PERRL - Neck Neck exam general surgery: Present: supple, trachea midline. Absent: lymphadenopathy - Respiratory Respiratory exam: Present: CTAB. Absent: accessory muscle use, rales, rhonchi, wheezes - Cardiovascular Cardiovascular exam: Present: RRR, +S1, +S2. Absent: diastolic murmur, gallop, rubs, systolic murmur - GI/Abdominal GI/Abdominal exam: Present: normal bowel sounds, soft, tenderness (Mild tenderness on right abdomen, no guarding or rebound.), no peritoneal signs. Absent: distended - Extremities Exam Extremities exam: Present: warm, radial pulses palpable and symmetrical. Absent : calf tenderness, cyanotic, pedal edema - Neurological Exam Neurological exam: Present: CN II-XII intact, oriented X3, no focal deficits. Absent: pronater drift, facial droop, speech deficit - Skin Skin exam: Present: dry, intact Internal Med - H&P Results - Labs CBC & Chem 7: 07/11/17 03:25 07/11/17 03:25 Labs: Short CBC 07/11/17 Range/Units 03:25 WBC 2.7 L (4.3-11.1) K/mcL Hgb 7.1 L (12.9-16.9) g/dL Hct 22.0 L (37.5-50.1) % Plt Count 17 L* (140-400) K/mcL Neutrophils # 1.7 (1.6-8.9) K/mcL BMP 07/11/17 03:25 Sodium 136 Potassium 4.2 Chloride 105 Carbon Dioxide 23 BUN 17 Creatinine 1.19 Glucose 131 H Calcium 8.7 - EKG Data -: EKG Interpreted by Myself (Leobardo jones) - Impressions ITS Impressions Abdomen/Pelvis CT 07/11/17 23:59 IMPRESSION: 1. Diverticulosis without scan evidence for diverticulitis or other acute process. 2. Stable aneurysmal dilation of the aorta above an aortoiliac endograft. There are also stable aneurysms of both common iliac arteries. Recommended follow-up for an aortic aneurysm of this size is annually. D/ / Terrance Ríos MD / Terrance Ríos MD Interpreting Provider: Terrance Ríos MD
[2017-07-11] MEDS ORDERED: Acyclovir 500 MG in D5% in Water 100 ML IVPB SCH (08:00)
[2017-07-11] MEDS ORDERED: Cefepime HCl 2,000 MG in D5% in Water (Mini-Bag+) 100 ML IVPB SCH (08:00)
[2017-07-11] MEDS: rifAMPin 150 MG CAPSULE PO SCH ×2 (08:26→15:39)
[2017-07-11] MEDS ORDERED: VANCOMYCIN HCL IN DEXTROSE 5% IV SCH (09:00)
[2017-07-11] MEDS ORDERED: Furosemide 20 MG TABLET PO SCH (09:00)
[2017-07-11] MEDS ORDERED: Vancomycin 1,000 MG in D5% in Water 250 ML IVPB SCH ×2 (09:00→21:00)
[2017-07-11] MEDS ORDERED: Lactobacillus 1 EACH CAP.SPRINK PO SCH (09:00)
[2017-07-11] MEDS ORDERED: Multivit/Ca/Min/Fe/FA 1 TAB TABLET PO SCH (09:00)
[2017-07-11] MEDS ORDERED: Pantoprazole 40 MG VIAL IVP SCH (09:00)
[2017-07-11] MEDS ORDERED: [UNRECOGNIZED DRUG - OTHER] IV SCH (09:00)
--- NOTE | 2017-07-11 09:35 | Internal Med Progress Note ---
<Latoya Bueno - Last Filed: 07/11/17 11:21> Date of Encounter: 07/11/17 Time of Encounter: 09:33 - Assessment and plan (1) Altered mental status Current Visit: Yes Status: Acute Assessment and plan: Pt presented with acute AMS, per family Appears disoriented during conversation History of early-onset dementia, per chart from [facility] () NIHSS Total Score on admission: 0 07/10/2017 CT: Suggestion of some asymmetry with possible edema in the left parieto-occipital region suspicious for acute infarct. No evidence of intracranial hemorrhage, however. -Neuro on consult, appreciate recs -Recommendation for MRI, based upon CT finding. -MRI w/o contrast pending -EEG pending, to r/p evidence of any nonconvulsive seizure activity -Continue acyclovir, per neuro Qualifiers: Altered mental status type: disorientation Qualified Code(s): R41.0 - Disorientation, unspecified (2) MDS (myelodysplastic syndrome) Current Visit: No Status: Chronic Assessment and plan: Revised International Prognostic Scoring System in MDS Criteria Hemoglobin: <8 g/dL Platelets < 50,000/mL ANC > 800/mL Cytogenetics: Normal per outpatient chart Per outpatient (02/2107) chart, was given an IPSS score of 4 and estimated median overall survival of approx. 30 months and during that timeframe a 25% chance of progression to acute leukemia. May require transfusion for bleeding in setting of thrombocytpenia On antibiotics for infection, for infection frequently associated with MDS Heme/Onc for consult, greatly appreciate recs (3) Neutropenic fever Current Visit: Yes Status: Acute Assessment and plan: Continue vancomycin Continue cefepime (4) Anemia Current Visit: No Status: Chronic Assessment and plan: Anemia likely 2/2 to MDS Patient received 2u PRBCs 1 week ago secondary to anemia secondary to myelodysplasia. Qualifiers: Anemia type: other cause Other causes of anemia: chronic disease, neoplastic Qualified Code(s): D63.0 - Anemia in neoplastic disease (5) Pancytopenia Current Visit: No Status: Chronic Assessment and plan: Likely 2/2 to MDS Per outpatient chart, pt's lab platelet count was 49 (02/13/17) - Subjective Interval history: Pt was responsive to history intake initially, then abruptly placed on hand on zoroastrianism as if he felt confused. He refused physical exam by resident twice, but said "thank you for offering. 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 - Constitutional Vitals: Temp Pulse Resp BP Pulse Ox 99.6 F 108 20 149/85 94 07/11/17 07:24 07/11/17 07:24 07/11/17 07:24 07/11/17 07:24 07/11/17 07:24 General appearance: Present: pleasant, no acute distress (PT REFUSED REST OF EXAM.) - Head Head exam: Present: atraumatic, normocephalic Internal Medicine: Result - Labs CBC & Chem 7: 07/11/17 03:25 07/11/17 03:25 Labs: Short CBC 07/11/17 Range/Units 03:25 WBC 2.7 L (4.3-11.1) K/mcL Hgb 7.1 L (12.9-16.9) g/dL Hct 22.0 L (37.5-50.1) % Plt Count 17 L* (140-400) K/mcL Neutrophils # 1.7 (1.6-8.9) K/mcL BMP 07/11/17 03:25 Sodium 136 Potassium 4.2 Chloride 105 Carbon Dioxide 23 BUN 17 Creatinine 1.19 Glucose 131 H Calcium 8.7 - ABG Interpretation ABG results: PT/INR, D-dimer PT 12.6 Seconds (9.4-12.1) H 07/10/17 18:56 - Impressions Impressions CT/CT head/brain wo con IMPRESSION: Suggestion of some asymmetry with possible edema in the left parieto-occipital region suspicious for acute infarct. No evidence of intracranial hemorrhage, however. RECOMMENDATIONS: Brain MRI D/ / 07/10/2017 21:35:12 Stefanie Caldwell MD / eardieter Interpreting Provider: Stefanie Caldwell MD Abdomen/Pelvis CT 07/11/17 23:59 IMPRESSION: 1. Diverticulosis without scan evidence for diverticulitis or other acute process. 2. Stable aneurysmal dilation of the aorta above an aortoiliac endograft. There are also stable aneurysms of both common iliac arteries. Recommended follow-up for an aortic aneurysm of this size is annually. D/ / Terrance Ríos MD / Terrance Ríos MD Interpreting Provider: Terrance Ríos MD Consult Discharge Plan - Plan Referrals: Wang Coy Jr, MD [Primary Care Provider] - (Web Requested 07/10/17) <Trent Ponce - Last Filed: 07/11/17 18:27> Date of Encounter: 07/11/17 - Constitutional Vitals: Temp Pulse Resp BP Pulse Ox 98.1 F 97 20 154/85 98 07/11/17 16:25 07/11/17 16:25 07/11/17 16:25 07/11/17 16:25 07/11/17 16:25 Internal Medicine: Result - Labs CBC & Chem 7: 07/11/17 03:25 07/11/17 03:25 Labs: Short CBC 07/11/17 Range/Units 03:25 WBC 2.7 L (4.3-11.1) K/mcL Hgb 7.1 L (12.9-16.9) g/dL Hct 22.0 L (37.5-50.1) % Plt Count 17 L* (140-400) K/mcL Neutrophils # 1.7 (1.6-8.9) K/mcL BMP 07/11/17 03:25 Sodium 136 Potassium 4.2 Chloride 105 Carbon Dioxide 23 BUN 17 Creatinine 1.19 Glucose 131 H Calcium 8.7 - ABG Interpretation ABG results: PT/INR, D-dimer PT 12.6 Seconds (9.4-12.1) H 07/10/17 18:56 - Impressions Impressions Abdomen/Pelvis CT 07/11/17 23:59 IMPRESSION: 1. Diverticulosis without scan evidence for diverticulitis or other acute process. 2. Stable aneurysmal dilation of the aorta above an aortoiliac endograft. There are also stable aneurysms of both common iliac arteries. Recommended follow-up for an aortic aneurysm of this size is annually. D/ / Terrance Ríos MD / Terrance Ríos MD Interpreting Provider: Terrance Ríos MD - Attending Attestation I examined this patient and my medical decision-making was reviewed with the Resident Physician on 07/11/17. I agree with the documented findings, disposition and treatment plan as described except to the extent set forth below. Mr. Townsend was admitted this AM due to acute encephalopathy. Appreciate neuro work up. Awaiting MRI if possible Pt remains confused. Agree with plan as outlined above
--- NOTE | 2017-07-11 10:27 | Neurology - Consult Note ---
Date of Encounter: 07/11/17 Time of Encounter: 09:30 Assessment and Plan (1) CVA (cerebrovascular accident) Current Visit: Yes Status: Acute As per CT scan of the head is concern of right parieto-occipital infarct, clinical examination he did not have any focal motor deficit though he could have visual field cut and occipital infarct but because of his mental status changes would be very difficult to note that indeed he has any deficit are not. He does have multiple risk factors include atrial fibrillation certainly at risk for embolic infarct. He is not on any anticoagulation. At the moment suggested that he should be on an aspirin, he would need an MRI of the brain as well as other workup for the stroke. Qualifiers: CVA mechanism: unspecified Qualified Code(s): I63.9 - Cerebral infarction, unspecified (2) Altered mental status Current Visit: Yes Status: Acute Patient noted to have significant mental status changes and fact that seems to be his main symptoms at this time which I do not think that is typically related to the stroke, he does seem to have significant neutropenia baseline it is likely related to his myelodysplastic syndrome but with this recent history of bacteremia and being on antibiotics it might be contributing to his overall mental status. Certainly we do need to exclude any infectious etiologies, with this low platelet count he is not able to get any spinal tap at the same time there is a concern of some edema on his CT scan as well. Currently he is on broad-spectrum antibiotics as well as on acyclovir suggested that we should continue and all sources of infection was excluded perhaps it could be discontinued later on. On the other hand have to make sure there is no underlying metabolic abnormalities that may be contributing to his symptoms we have to keep him well hydrated as in this age group and with his multiple medical condition he was simple dehydration could cause mental status changes We will get an EEG to make sure there is no evidence of any nonconvulsive seizure activity Qualifiers: Altered mental status type: disorientation Qualified Code(s): R41.0 - Disorientation, unspecified (3) Neutropenia Current Visit: Yes Status: Acute Qualifiers: Neutropenia type: secondary to cancer chemotherapy Qualified Code(s): D70.1 - Agranulocytosis secondary to cancer chemotherapy; T45.1X5A - Adverse effect of antineoplastic and immunosuppressive drugs, initial encounter (4) MDS (myelodysplastic syndrome) Current Visit: No Status: Chronic History of Present Illness HPI: Mr. Townsend is a 77 year old male with a history of Myelodysplastic syndrome, heart valve replacement, A. fib present to ER for fever and altered mental status. Patient noted to be confused,n and disoriented started few days ago as per records, according to records he was having generalized weakness for several days, now with fever and altered mental status. there is no history of runny nose, sore throat, cough, abdominal pain, nausea or vomiting. Patient reports 3 watery diarrhea yesterday. Patient had been on vancomycin infusion for recent bacteremia. h/o Neutropenia CT scan in ER shows possible edema in the left parieto-occipital region suspicious for acute infarct.. though clinically no focal motor weakness. Patient was admitted for further management. Past Med Surg Social Fam HX - Past Medical History Medical history: aortic aneurysm, atrial fibrillation, cancer, coronary artery disease, hyperlipidemia, hypertension, peripheral artery disease, valvular heart disease, other Psychiatric history: no psych history - Past Surgical History Surgical History: cholecystectomy, coronary bypass (CABG), heart valve replacement - Social History Smoking Status: Never smoker Smokeless Tobacco Status: No Alcohol use: none Drug use: none - Family History Mother Living Status: Hx Family Cardiac Disorders: Yes Hx Family Respiratory Disorders: No Hx Family Cancer: Yes Hx Family GI Disorders: No Hx Family Endocrine Disorder: No Hx Family Neuromuscular Disorders: Yes Hx Family Neurologic Disorders: No Hx Family HEENT Disorders: No Hx Family Autoimmune Disorders: No Father Living Status: Hx Family Cardiac Disorders: Yes Hx Family Respiratory Disorders: No Hx Family Cancer: No Hx Family GI Disorders: No Hx Family Endocrine Disorder: No Hx Family Neuromuscular Disorders: No Hx Family Neurologic Disorders: No Hx Family HEENT Disorders: No Hx Family Autoimmune Disorders: No Medications and Allergies Melatonin 10 mg PO HS 04/01/16 [History] Mirtazapine 7.5 mg PO HS 04/01/16 [History] Omeprazole [PriLOSEC] 20 mg PO DAILY 04/01/16 [History] Allopurinol [Zyloprim 100 MG] 100 mg PO BID 03/07/17 [History] Ondansetron [Zofran] 4 mg PO Q8HR PRN #90 tablet 05/02/17 [Rx] Calcium Carbonate [Calcium] 600 mg PO DAILY 05/08/17 [History] Carvedilol 3.125 mg PO BID 05/08/17 [History] Polyethylene Glycol 3350 [MiraLAX] 17 gm PO DAILY PRN 06/12/17 [History] Gabapentin [Neurontin] 100 mg PO HS #14 cap 06/16/17 [Rx] Lactulose [Enulose] 10 gm PO BID PRN #0 06/16/17 [Rx] OxyCODONE Immed Rel [Roxicodone 15 MG] 15 mg PO Q4H PRN #60 tablet 06/16/17 [Rx] Lactobacillus [Culturelle] 1 each PO BID #36 06/29/17 [Rx] Levofloxacin [Levaquin] 750 mg PO Q48H #9 tablet 06/29/17 [Rx] rifAMPin [Rifadin] 300 mg PO BIDAC #72 06/29/17 [Rx] Acetaminophen [Tylenol] 1,000 mg PO HS 07/10/17 [History] Ergocalciferol (VITAMIN D2) [Vitamin D2] 1 cap PO Q1W 07/10/17 [History] Furosemide [Lasix] 20 mg PO DAILY 07/10/17 [History] Morphine Sulfate SR (12 HR) [MS Contin] 30 mg PO Q12HR 07/10/17 [History] Multivit-Min/FA/Lycopen/Lutein [Centrum Silver Men Tablet] 1 each PO DAILY 07/10 [History] Sennosides [Senna] 17.2 mg PO BID 07/10/17 [History] Vancomycin HCl in Dextrose 5 % [Vancomycin 1.5 Gram/250 ml-D5w] 1,250 mg IV DAILY 07/10/17 [History] 3 Allergy/AdvReac Type Severity Reaction Status Date / Time citalopram AdvReac Nausea Verified 07/10/17 18:27 codeine AdvReac See Verified 07/10/17 18:27 Comments Erohjfc-Fwp-Nqe Reductase AdvReac See Verified 07/10/17 18:27 Inhibitor Comments [Statins] All Systems: A 10-system review of systems was performed and is negative for pertinent findings except as documented above in the HPI.noted predominantly for confusion Physical Examination - Vital Signs Vital Signs: Initial Vital Signs Temp Pulse Resp BP Pulse Ox 100.4 F H 97 26 106/65 94 07/10/17 18:28 07/10/17 18:28 07/10/17 18:28 07/10/17 18:28 07/10/17 18:28 - Constitutional General appearance: comfortable - Neurologic Sensorimotor examination: intact Detailed motor examination: grossly full strength in all extremities Motor examination - right side: 4/5: deltoids, biceps, triceps, wrist flexion, wrist extension, hvac/r service technician, hip flexors, tibialis Anterior, quadriceps, toe extension (EHL), plantarflexion Motor examination - left side: 4/5: deltoids, biceps, triceps, wrist flexion, wrist extension, hip flexors, hvac/r service technician, quadriceps, tibialis Anterior, toe extension (EHL), plantarflexion Detailed sensory examination: intact Reflexes: Biceps: 1+, Triceps: 1+, Brachioradialis: 1+, Patella: 1+, Achilles: 1 + Mental Status Examination: awake, alert, oriented to person, opens eyes to voice , opens eyes to noxious stimulation, makes eye contact, follows simple commands , localizes noxious stimulation, answers questions by nodding yes or no Cranial nerve examination: PERRL, EOMI (difficult to acess visual field due to confusion, though he respond to visual threat), sensory to face intact, no facial asymmetry is present, no dysarthria Cerebellar examination: no dysmetria (pt seem to be moving all 4 extremeties equally, no focal motor weakness, predominatly confusion noted on exam) Results - Laboratory Findings CBC and BMP: 07/11/17 03:25 07/11/17 03:25 Abnormal lab findings: Abnormal lab results WBC 2.7 K/mcL (4.3-11.1) L 07/11/17 03:25 RBC 2.52 M/mcL (4.19-5.50) L 07/11/17 03:25 Hgb 7.1 g/dL (12.9-16.9) L 07/11/17 03:25 Hct 22.0 % (37.5-50.1) L 07/11/17 03:25 RDW 16.3 % (11.5-14.5) H 07/11/17 03:25 Plt Count 17 K/mcL (140-400) L* 07/11/17 03:25 PT 12.6 Seconds (9.4-12.1) H 07/10/17 18:56 Est GFR (Non-Af Amer) 59 (> 60) L 07/11/17 03:25 Glucose 131 mg/dL (70-99) H 07/11/17 03:25 Total Bilirubin 1.6 mg/dL (0.2-1.2) H 07/10/17 18:56 Direct Bilirubin 0.9 mg/dL (0.0-0.5) H 07/10/17 18:56 Alkaline Phosphatase 127 Units/L (38-126) H 07/10/17 18:56 Albumin 2.8 g/dL (3.5-5.0) L 07/10/17 18:56 Globulin 3.8 g/dL (2.4-3.5) H 07/10/17 18:56 Albumin/Globulin Ratio 0.7 (1.1-2.2) L 07/10/17 18:56 Urine Color Juda (Yellow) A 07/10/17 20:30 Urine Ketones Trace mg/dL (Negative) H 07/10/17 20:30 Urine Bilirubin Small (Negative) H 07/10/17 20:30 Ur Leukocyte Esterase Trace (Negative) H 07/10/17 20:30 Ur Squamous Epith Cells Many per lpf (None-Few) H 07/10/17 20:30 Ur Culture Indicated? YES (NO) A 07/10/17 20:30 Consult Discharge Plan - Plan Referrals: Wang Coy Jr, MD [Primary Care Provider] - (Web Requested 07/10/17)
[2017-07-11] MEDS ORDERED: Ampicillin 2 GM in 0.9 % Sodium Chloride Mini Bag 100 ML IVPB SCH ×2 (12:00→20:30)
[2017-07-11] MEDS ORDERED: Vancomycin 1 EACH in D5% in Water 250 ML IVPB SCH (14:50)
[2017-07-11 19:12] VITALS: BP 136/76
--- NOTE | 2017-07-11 19:14 | Oncology Inp Consult Note ---
Date of Encounter: 07/11/17 Time of Encounter: 17:00 Assessment and Plan (1) MDS (myelodysplastic syndrome) Status: Chronic Assessment and plan: Intermediate risk category for AML, s/p one cycle of decitabine tolerated poorly decline in general condition. He is transfusion dependant with anemia, thrombocytopenia. AMS-?with new infarct ASA is recommended by neurology, has risk of bleeding associated with profound thrombocytopenia. Transfuse to keep Hgb over 8gm.Additional studies-MRI per neurology. IV abx for possibility of infection/AMS.Vanco/ACV. Consider aplliative care consultation for hospice. Will discuss further with family. - Data of Consult Requesting Physician: Trent Ponce DO Primary Care Provider: Wang Coy Jr, MD - Consult Narrative Reason for consult: MDS History of present illness: Mr. Townsend is a 77 year old male with medical history significant for lumbar radiculitis, compression fractures in the back status post fall, sepsis hospitalization at [facility], heart valve replacement with bioprosthetic valve , history of atrial fibrillation, hydronephrosis of left kidney, hypertension hyperlipidemia who was w/u for anemia his hemoglobin around 7-8 g as well as thrombocytopenia since September 2016. 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 Patient was given the risk of progression to AML median time around 3 years He underwent a rpt BM bx 06/22--showed increase in marrow blasts-average upto12% . He is discharged to [facility] in-pt facility He underwent port placement--and C1 decitabine 05/22--hospitalized few days later with MRSA bacteremia--s/p port removal on IV abx. He was seen by ID that visit underwent echocardiogram and imaging studies due to fever/back pain Readmission due to persistent fever--06/22. Patient underwent another BM bx procedure due to concern for progression. Patient had lab checks done last week for fatigue weakness. He is chronically anemic requiring periodic transfusions, lives due to fever, altered mental status, a CT scan of the head showed right parieto-occipital infarct. Neurology seen patient and anti plt therapy was recommended. Patient seems to answer questions appropriately and denies any significant complaints bedside. Past Med Surg Social Fam HX - Past Medical History Medical history: aortic aneurysm, atrial fibrillation, cancer, coronary artery disease, hyperlipidemia, hypertension, peripheral artery disease, valvular heart disease, other Psychiatric history: no psych history - Past Surgical History Surgical History: cholecystectomy, coronary bypass (CABG), heart valve replacement - Social History Smoking Status: Never smoker Smokeless Tobacco Status: No Alcohol use: none Drug use: none - Family History Mother Living Status: Hx Family Cardiac Disorders: Yes Hx Family Respiratory Disorders: No Hx Family Cancer: Yes Hx Family GI Disorders: No Hx Family Endocrine Disorder: No Hx Family Neuromuscular Disorders: Yes Hx Family Neurologic Disorders: No Hx Family HEENT Disorders: No Hx Family Autoimmune Disorders: No Father Living Status: Hx Family Cardiac Disorders: Yes Hx Family Respiratory Disorders: No Hx Family Cancer: No Hx Family GI Disorders: No Hx Family Endocrine Disorder: No Hx Family Neuromuscular Disorders: No Hx Family Neurologic Disorders: No Hx Family HEENT Disorders: No Hx Family Autoimmune Disorders: No Medications and Allergies Melatonin 10 mg PO HS 04/01/16 [History] Mirtazapine 7.5 mg PO HS 04/01/16 [History] Omeprazole [PriLOSEC] 20 mg PO DAILY 04/01/16 [History] Allopurinol [Zyloprim 100 MG] 100 mg PO BID 03/07/17 [History] Ondansetron [Zofran] 4 mg PO Q8HR PRN #90 tablet 05/02/17 [Rx] Calcium Carbonate [Calcium] 600 mg PO DAILY 05/08/17 [History] Carvedilol 3.125 mg PO BID 05/08/17 [History] Polyethylene Glycol 3350 [MiraLAX] 17 gm PO DAILY PRN 06/12/17 [History] Gabapentin [Neurontin] 100 mg PO HS #14 cap 06/16/17 [Rx] Lactulose [Enulose] 10 gm PO BID PRN #0 06/16/17 [Rx] OxyCODONE Immed Rel [Roxicodone 15 MG] 15 mg PO Q4H PRN #60 tablet 06/16/17 [Rx] Lactobacillus [Culturelle] 1 each PO BID #36 06/29/17 [Rx] Levofloxacin [Levaquin] 750 mg PO Q48H #9 tablet 06/29/17 [Rx] rifAMPin [Rifadin] 300 mg PO BIDAC #72 06/29/17 [Rx] Acetaminophen [Tylenol] 1,000 mg PO HS 07/10/17 [History] Ergocalciferol (VITAMIN D2) [Vitamin D2] 1 cap PO Q1W 07/10/17 [History] Furosemide [Lasix] 20 mg PO DAILY 07/10/17 [History] Morphine Sulfate SR (12 HR) [MS Contin] 30 mg PO Q12HR 07/10/17 [History] Multivit-Min/FA/Lycopen/Lutein [Centrum Silver Men Tablet] 1 each PO DAILY 07/10 [History] Sennosides [Senna] 17.2 mg PO BID 07/10/17 [History] Vancomycin HCl in Dextrose 5 % [Vancomycin 1.5 Gram/250 ml-D5w] 1,250 mg IV DAILY 07/10/17 [History] 3 Allergy/AdvReac Type Severity Reaction Status Date / Time citalopram AdvReac Nausea Verified 07/10/17 18:27 codeine AdvReac See Verified 07/10/17 18:27 Comments Dhchqto-Dwa-Dkg Reductase AdvReac See Verified 07/10/17 18:27 Inhibitor Comments [Statins] Review of systems: as in HPI Oncology - Exam - Constitutional Vitals: Temp Pulse Resp BP Pulse Ox 99.1 F 114 16 136/76 97 07/11/17 19:08 07/11/17 19:08 07/11/17 19:08 07/11/17 19:08 07/11/17 19:08 General appearance: thin - Eye Eye exam: Present: sclera anicteric - ENT ENT exam: Present: mucous membranes moist - Neck Neck exam: Present: full ROM - Respiratory Respiratory exam: Present: CTAB - Cardiovascular Cardiovascular exam: Present: irregular rhythm, +S1, +S2 - GI/Abdominal GI/Abdominal exam: Present: normal bowel sounds, soft - Neurological Exam Neurological exam: Present: altered, CN II-XII intact, no focal deficits - Psychiatric Psychiatric exam: Present: normal mood Oncology - Results Labs: Short CBC 07/11/17 Range/Units 03:25 WBC 2.7 L (4.3-11.1) K/mcL Hgb 7.1 L (12.9-16.9) g/dL Hct 22.0 L (37.5-50.1) % Plt Count 17 L* (140-400) K/mcL Neutrophils # 1.7 (1.6-8.9) K/mcL BMP 07/11/17 03:25 Sodium 136 Potassium 4.2 Chloride 105 Carbon Dioxide 23 BUN 17 Creatinine 1.19 Glucose 131 H Calcium 8.7 Consult Discharge Plan - Plan Referrals: Wang Coy Jr, MD [Primary Care Provider] - (Web Requested 07/10/17)
[2017-07-11] MEDS ORDERED: Acyclovir 600 MG in D5% in Water 100 ML IVPB SCH (20:00)
[2017-07-11] MEDS ORDERED: Melatonin 3 MG TABLET PO SCH (21:00)
[2017-07-11] MEDS ORDERED: Gabapentin 100 MG CAPSULE PO SCH (21:00)
[2017-07-11] MEDS ORDERED: *HR* LORazepam 2 MG/ML VIAL ONE (21:52)
[2017-07-11] MEDS ORDERED: 0.9 % Sodium Chloride 500 ML ONE (22:02)
--- NOTE | 2017-07-11 22:34 | Event Note ---
Date of Encounter: 07/11/17 Time of Encounter: 21:00 I was contacted by radiologist, stating that patient has a subdural hematoma on the left cerebral hemisphere with mild amount of adjacent subarachnoid hemorrhage. Acute subdural hematoma over the left cerebral convexity measures up to 11 mm in thickness over the left frontal lobe. No significant midline shift. Patient was seen and examined immediately. He is awake and alert. Not in any distress. No obvious deficits. Patient and have been explained in detail about patient's condition and need for transfer to [facility]. They understood and agreed. No unanswered questions. Patient is willing for transfer. [facility] was contacted immediately for transfer. On-call neurosurgeon wants to admit under oncology and internal medicine service. He will evaluate patient as a consult. I have explained about the patient's condition and about patient' s severe thrombocytopenia and MDS diagnosis. Patient was accepted for transfer. Platelets being transfused stat. Physician at [facility] wants patient to be intubated before transfer. Patient and were willing for intubation and mechanical ventilation. Accepting physician is Dr. Yanes. Patient has been successfully intubated and mechanically ventilated before being transferred by [facility]. Patient was sedated with etomidate and we have also given succinylcholine. Respiratory therapy has intubated patient using size 7.5 ETT. Chest x-ray reviewed and tube seems to be in good position. Propofol is being used for sedation at this time. Guarded condition with poor prognosis. Patient and aware. HR-110, BP-136/80, Temp-99.1. Heart-S1-S2 positive. Lungs-bilateral good air entry after intubation. Neuro-sedated, intubated, mechanically ventilated
[2017-07-11] MEDS ORDERED: Aminoglycoside Consult 1 EACH MC ONE (23:48)
[2017-07-11] MEDS ORDERED: *HR* Succinylcholine 200 MG/10 ML VIAL IVP ONE (23:48)
[2017-07-11] MEDS ORDERED: *HR* Etomidate 20 MG/10 ML AMPUL IVP ONE (23:48)
--- NOTE | 2017-07-12 14:35 | Electrocardiograph Report ---
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
--- NOTE | 2017-07-14 10:05 | EEG/EMG/Oth Biometrics Report ---
EEG Procedure Report Date of procedure: 07/11/17 EEG Procedure: Routine EEG Procedure Note: Routine 21-channel digital EEG was obtained to rule out any seizure activity or focal abnormalities. FINDINGS: Background rhythm during awake stage shows poorly organized, low voltage fast beta activity in the anterior regions. No [id number] discharges or any lateralizing abnormalities are seen. Almost constant EMG artifacts and tremor artifacts are noted making the study suboptimal. Photic stimulation did not produce any abnormalities. Stage II sleep was not observed. The patient was noted by the industrial safety and health technician to be restless and moving all the time during the study and having tremors of the mouth and arms. Stage II sleep was not achieved. IMPRESSION: Suboptimal study, no clear paroxysmal activities or epileptiform discharges were seen. Prominent beta activity in the anterior regions could be secondary to anxiety or medication effect.
== END 2017-07-11 23:49 | disposition critical access hospital (66) | DRG 808 ==
LOC: EMEROO 18:18 → 2ANU 18:18
PROVIDERS: ADMIT Internal Medicine; ATTEND Internal Medicine